=== PATIENT | male | born 1970 | race Two or more races ===

== ENCOUNTER 2017-05-29 11:20 | Observation (INO) | payer MEDICAID ==
[~2017-05-29] VITALS: Ht 172.7 cm; Wt 74.8 kg
[2017-05-29 12:14] LABS: Urine Bacteria NONE SEEN /hpf (None Seen); Urine Blood Negative /uL (Negative); Urine Specific Gravity 1.019 (1.001-1.035); Urine WBC <1 /hpf (0 - 3)
[2017-05-29 12:29] LABS: Basophils # (auto) 0 uL; Basophils % (auto) 1.1 % (0.0-2.0); Eosinophils # (auto) 0 uL; Eosinophils % (auto) 1.6 % (0.0-7.0); Hematocrit 43.6 % (41.0-53.0); Hemoglobin 14.6 g/dL (13.5-17.5); Lymphocytes # (auto) 1.2 uL; Lymphocytes % (auto) 54.7 % (10.0-50.0); Mean Corpuscular Hemoglobin 31.4 pg (28.0-32.0); Mean Corpuscular Hgb Conc. 33.5 g/dL (32.0-36.0); Mean Corpuscular Volume 93.5 fL (80.0-100.0); Monocytes # (auto) 0.2 uL; Monocytes % (auto) 10.8 % (0.0-12.0); Neutrophils # (auto) 0.7 uL; Neutrophils % (auto) 31.8 % (37.0-80.0); Nucleated Red Blood Cells % 0.1 %; Platelet Count (auto) 109 10^3/uL (140-450); Red Blood Cells 4.66 10^6/uL (4.5-5.90); Red Cell Distribution Width 15.1 % (11.8-14.3); White Blood Cell 2.2 10^3/uL (4.4-10.8)
[2017-05-29 12:30] LABS: Amphetamine Screen, Urine NEGATIVE (NEGATIVE); Barbiturate Scree,Urine NEGATIVE (NEGATIVE); Benzodiazephine Screen, Urine NEGATIVE (NEGATIVE); Cannabinoid Screen, Urine NEGATIVE (NEGATIVE); Cocaine Screen, Urine NEGATIVE (NEGATIVE); Opiate Scree,Urine NEGATIVE (NEGATIVE); Phencyclidine Screen, Urine NEGATIVE (NEGATIVE)
[2017-05-29 12:44] LABS: Albumin 3.5 g/dL (3.4-5.0); BUN/Creatinine Ratio 16.7; Bilirubin, Total 0.5 mg/dL (0.2-1.0); Calcium 8.1 mg/dL (8.5-10.1); Potassium 4.4 mmol/L (3.5-5.1)
[2017-05-29] MEDS ORDERED: SODIUM CHLORIDE 0.9% 1,000 ML IVB ONE (12:53)
[2017-05-29] MEDS ORDERED: SODIUM CHLORIDE 0.9% 1,000 ML IV ONE (13:00)
[2017-05-29] MEDS ORDERED: THIAMINE HCL 100 MG TAB PO ONE (14:00)
[2017-05-29] MEDS ORDERED: MULTIPLE VITAMIN 10 ML, FOLIC ACID 1 MG, MAGNESIUM SULF SDV 50% 8 MEQ in SODIUM CHLORID... IV SCH (14:00)
[2017-05-29 16:40] VITALS: BP 124/84
== END 2017-05-29 19:17 | disposition home or self-care (01) | DRG 775 ==
LOC: ER 11:20 → OVERFLOW 12:55 → ER 19:17
PROVIDERS: ADMIT Family Medicine; ATTEND Family Medicine
DX: F10.920 Alcohol use, unspecified with intoxication, uncomplicated (principal); K70.30 Alcoholic cirrhosis of liver without ascites; F31.9 Bipolar disorder, unspecified; F17.210 Nicotine dependence, cigarettes, uncomplicated; Z82.49 Family history of ischemic heart disease and other diseases of the circulatory system; Z91.19 Patient's noncompliance with other medical treatment and regimen; Z88.0 Allergy status to penicillin
CPT/HCPCS: 36415; 71045; 76705; 80053; 80307; 80320; 81001; 85025; 96361; 96374; 99285; G0378; J3475; J7030

== ENCOUNTER 2019-11-26 18:40 | Inpatient (IN) | payer MEDICAID ==
[~2019-11-26] VITALS: Ht 172.7 cm; Wt 68.0 kg
[2019-11-26] MEDS ORDERED: PANTOPRAZOLE 40 MG/10 ML VIAL INJ IV ONE ×2 (19:15→19:45)
[2019-11-26] MEDS ORDERED: ONDANSETRON HCL 4 MG/2 ML VIAL IV ONE (19:15)
[2019-11-26] MEDS ORDERED: SODIUM CHLORIDE 0.9% 1,000 ML IV ONE ×2 (19:15→21:45)
[2019-11-26 19:38] LABS: Basophils # (auto) 0 10 ^3/uL (0-0.2); Basophils % (auto) 1.3 % (0.0-2.0); Eosinophils # (auto) 0 10 ^3/uL (0-0.8); Hemoglobin 10.1 g/dL (13.5-17.5); Lymphocytes # (auto) 0.4 10 ^3/uL (0.4-5.4); Lymphocytes % (auto) 14.1 % (10.0-50.0); Mean Corpuscular Hgb Conc. 33.6 g/dL (32.0-36.0); Mean Corpuscular Volume 101.2 fL (80.0-100.0); Monocytes # (auto) 0.3 10 ^3/uL (0-1.3); Monocytes % (auto) 12.1 % (0.0-12.0); Neutrophils # (auto) 1.9 10 ^3/uL (1.6-8.6); Neutrophils % (auto) 72.5 % (37.0-80.0); Platelet Count (auto) 78 10^3/uL (140-450); Red Blood Cells 2.96 10^6/uL (4.5-5.90); Red Cell Distribution Width 15.6 % (11.8-14.3); White Blood Cell 2.6 10^3/uL (4.4-10.8)
[2019-11-26 19:54] LABS: Albumin 2.9 g/dL (3.4-5.0)
[2019-11-26 19:58] LABS: BUN/Creatinine Ratio 24.8; Bilirubin, Total 1.8 mg/dL (0.2-1.0); Total Protein 7.9 g/dL (6.4-8.2)
[2019-11-26 20:01] LABS: Magnesium 1.6 mg/dL (1.6-2.6)
[2019-11-26 20:11] LABS: INR 1.46 (0.9-1.15); Partial Thromboplastin Time 27.8 sec (23.0-31.2)
[2019-11-26] MEDS ORDERED: LORazepam 2MG/ML-1ML VIAL IV ONE (21:45)
[2019-11-26] MEDS: OCTREOTIDE ACETATE 500 MCG in SODIUM CHL 0.9% 99 ML IV SCH (23:00)
[2019-11-26] MEDS ORDERED: OCTREOTIDE ACETATE 100 MCG in SODIUM CHL 0.9% 50 ML IV ONE (23:00)
[2019-11-26 23:45] LABS: Basophils # (auto) 0 10 ^3/uL (0-0.2); Basophils % (auto) 0.3 % (0.0-2.0); Eosinophils # (auto) 0 10 ^3/uL (0-0.8); Hematocrit 23.9 % (41.0-53.0); Hemoglobin 8.1 g/dL (13.5-17.5); Lymphocytes # (auto) 0.5 10 ^3/uL (0.4-5.4); Lymphocytes % (auto) 17.1 % (10.0-50.0); Mean Corpuscular Hemoglobin 34.8 pg (28.0-32.0); Mean Corpuscular Hgb Conc. 33.8 g/dL (32.0-36.0); Mean Corpuscular Volume 102.9 fL (80.0-100.0); Monocytes # (auto) 0.3 10 ^3/uL (0-1.3); Monocytes % (auto) 11.8 % (0.0-12.0); Neutrophils # (auto) 1.9 10 ^3/uL (1.6-8.6); Neutrophils % (auto) 70.8 % (37.0-80.0); Platelet Count (auto) 47 10^3/uL (140-450); Red Blood Cells 2.32 10^6/uL (4.5-5.90); Red Cell Distribution Width 15.8 % (11.8-14.3); White Blood Cell 2.7 10^3/uL (4.4-10.8)
[2019-11-26] MEDS ORDERED: OCTREOTIDE ACETATE 500 MCG/ML VL ONE (23:45)
[2019-11-26] MEDS ORDERED: OCTREOTIDE ACETATE 100 MCG/ML VL ONE (23:45)
[2019-11-27] VITALS (7 sets, daily range): BP systolic 107–139; BP diastolic 45–81
[2019-11-27] MEDS ORDERED: ADENOSINE 6 MG/2 ML INJ IV ONE (01:07)
[2019-11-27] MEDS ORDERED: LORazepam 2MG/ML-1ML VIAL ONE (01:08)
[2019-11-27] MEDS ORDERED: AMIODARONE HCL (50 MG/ ML) 3 ML VIAL IV ONE ×2 (01:11→01:14)
[2019-11-27] MEDS ORDERED: AMIODARONE HCL 150 MG in D5W 5% 100 ML IV ONE (01:15)
[2019-11-27] MEDS ORDERED: AMIODARONE 450mg/250ml AE 250 ML IV ONE (01:18)
[2019-11-27] MEDS ORDERED: AMIODARONE 450mg/250ml AE 250 ML IV SCH (01:24)
[2019-11-27 01:42] LABS: Hemoglobin 7.9 g/dL (13.5-17.5)
[2019-11-27 01:43] LABS: Hematocrit 23.1 % (41.0-53.0)
[2019-11-27] MEDS ORDERED: METOCLOPRAMIDE HCL 5MG/ml INJ 2ml VIAL IV PRN (01:45)
[2019-11-27] MEDS ORDERED: TEMAZEPAM 15 MG CAP PO PRN (01:45)
[2019-11-27] MEDS ORDERED: MORPHINE SULF INJ 2 MG/ML SYRINGE 1ML IV PRN (01:45)
[2019-11-27] MEDS ORDERED: DOCUSATE SOD 100 MG CAP PO PRN (01:45)
[2019-11-27] MEDS ORDERED: LORazepam 0.5 MG TAB PO PRN (01:45)
[2019-11-27] MEDS ORDERED: ONDANSETRON HCL 4 MG/2 ML VIAL IV PRN (01:45)
[2019-11-27] MEDS ORDERED: ACETAMINOPHEN 325 MG TAB PO PRN (01:45)
[2019-11-27] MEDS ORDERED: HYDROcodone-ACET 5/325MG TAB PO PRN (01:45)
[2019-11-27] MEDS: OCTREOTIDE ACETATE 500 MCG in SODIUM CHL 0.9% 99 ML IV SCH ×3 (02:13→02:32)
[2019-11-27] MEDS: AMIODARONE 450mg/250ml AE 250 ML IV SCH ×2 (07:24→22:24)
[2019-11-27] MEDS: SODIUM CHLORIDE 0.9% 1,000 ML IV SCH ×2 (08:01→18:49)
[2019-11-27 09:25] LABS: Basophils # (auto) 0 10 ^3/uL (0-0.2); Eosinophils # (auto) 0 10 ^3/uL (0-0.8); Eosinophils % (auto) 0.8 % (0.0-7.0); Hemoglobin 8.3 g/dL (13.5-17.5); Lymphocytes # (auto) 0.6 10 ^3/uL (0.4-5.4)
[2019-11-27 09:27] LABS: Basophils % (auto) 0.6 % (0.0-2.0); Hematocrit 24.9 % (41.0-53.0); Lymphocytes % (auto) 20.6 % (10.0-50.0); Mean Corpuscular Hemoglobin 35.2 pg (28.0-32.0); Mean Corpuscular Hgb Conc. 33.6 g/dL (32.0-36.0); Monocytes # (auto) 0.4 10 ^3/uL (0-1.3); Monocytes % (auto) 12.1 % (0.0-12.0); Neutrophils % (auto) 65.9 % (37.0-80.0); Nucleated Red Blood Cells % 0.1 %; Platelet Count (auto) 38 10^3/uL (140-450); Red Blood Cells 2.37 10^6/uL (4.5-5.90)
[2019-11-27 09:43] LABS: Calcium 6.6 mg/dL (8.5-10.1); Potassium 3.4 mmol/L (3.5-5.1)
[2019-11-27 09:49] LABS: BUN/Creatinine Ratio 18.8
[2019-11-27] MEDS: PANTOPRAZOLE 40 MG/10 ML VIAL INJ IV SCH ×2 (11:29→23:23)
[2019-11-27] MEDS: CYANOCOBALAMIN 500 MCG TAB PO SCH (11:30)
[2019-11-27] MEDS: FOLIC ACID 1 MG TAB PO SCH (11:30)
[2019-11-27] MEDS: MAGNESIUM SULFATE 1GM/100ML 100 ML IV SCH ×2 (13:00→14:02)
[2019-11-27] MEDS ORDERED: PHYTONADIONE (VIT K)10 MG/ML 1ML VIAL IV ONE (13:30)
[2019-11-27] MEDS ORDERED: phytonadione 10 MG in SODIUM CHL 0.9% 50 ML IV ONE (13:45)
[2019-11-27] MEDS ORDERED: diphenhdrAMINE HCL 50 MG/1 ML VL IV PRN (18:00)
[2019-11-27] MEDS: cefTRIAXone 1GM/50ML D5W 50 ML IV SCH (18:00)
[2019-11-27] MEDS ORDERED: LORazepam 2MG/ML-1ML VIAL IV PRN (18:00)
[2019-11-27] MEDS ORDERED: POTASSIUM CHL 20MEQ/100ML 100 ML IV ONE (18:00)
[2019-11-27] MEDS ORDERED: OCTREOTIDE ACETATE 500 MCG/ML VL ONE (19:00)
[2019-11-27] MEDS: metroNIDAZOLE 500MG/100ML 100 ML IV SCH (23:23)
[2019-11-27 23:59] LABS: Basophils # (auto) 0 10 ^3/uL (0-0.2); Basophils % (auto) 0.6 % (0.0-2.0); Eosinophils # (auto) 0.1 10 ^3/uL (0-0.8); Eosinophils % (auto) 2.2 % (0.0-7.0); Hematocrit 24.5 % (41.0-53.0); Hemoglobin 8.1 g/dL (13.5-17.5); Lymphocytes # (auto) 0.5 10 ^3/uL (0.4-5.4); Lymphocytes % (auto) 20.8 % (10.0-50.0); Mean Corpuscular Hemoglobin 34.7 pg (28.0-32.0); Mean Corpuscular Volume 105.2 fL (80.0-100.0); Monocytes # (auto) 0.4 10 ^3/uL (0-1.3); Monocytes % (auto) 14.6 % (0.0-12.0); Neutrophils # (auto) 1.6 10 ^3/uL (1.6-8.6); Neutrophils % (auto) 61.8 % (37.0-80.0); Nucleated Red Blood Cells % 0.4 %; Platelet Count (auto) 64 10^3/uL (140-450); Red Blood Cells 2.32 10^6/uL (4.5-5.90); Red Cell Distribution Width 15.8 % (11.8-14.3); White Blood Cell 2.5 10^3/uL (4.4-10.8)
[2019-11-28] MEDS: OCTREOTIDE ACETATE 500 MCG in SODIUM CHL 0.9% 99 ML IV SCH (05:20)
[2019-11-28] MEDS: metroNIDAZOLE 500MG/100ML 100 ML IV SCH ×2 (06:48→16:31)
[2019-11-28 07:36] LABS: Hematocrit 22.7 % (41.0-53.0); Hemoglobin 7.6 g/dL (13.5-17.5); Red Blood Cells 2.17 10^6/uL (4.5-5.90); Red Cell Distribution Width 15.5 % (11.8-14.3); White Blood Cell 2.1 10^3/uL (4.4-10.8)
[2019-11-28 07:38] LABS: Mean Corpuscular Hemoglobin 35.1 pg (28.0-32.0); Mean Corpuscular Hgb Conc. 33.6 g/dL (32.0-36.0); Mean Corpuscular Volume 104.3 fL (80.0-100.0); Platelet Count (auto) 51 10^3/uL (140-450)
[2019-11-28 07:46] LABS: Basophils % (manual) 0 (0.0-2.0); Blast Cells 0; Eosinophils % (manual) 0 (0-7); Metamyelocytes % 0; Myelocytes % 0; Promyelocytes % 0; Reactive Lymphocytes 0
[2019-11-28 07:53] LABS: INR 1.35 (0.9-1.15)
[2019-11-28 07:56] LABS: Albumin 2.4 g/dL (3.4-5.0); Calcium 6.8 mg/dL (8.5-10.1)
[2019-11-28 08:00] LABS: BUN/Creatinine Ratio 14.1; Bilirubin, Total 2.2 mg/dL (0.2-1.0); Total Protein 6.4 g/dL (6.4-8.2)
[2019-11-28 08:17] LABS: Potassium 2.9 mmol/L (3.5-5.1)
[2019-11-28 08:32] LABS: Band Neutrophils % (manual) 8; Lymphocytes % (manual) 28 (10.0-50.0); Monocytes % (manual) 12 (0-12)
[2019-11-28] MEDS: POTASSIUM CHL 20MEQ/100ML 100 ML IV SCH ×2 (08:56→14:22)
[2019-11-28] MEDS: cefTRIAXone 1GM/50ML D5W 50 ML IV SCH (09:12)
[2019-11-28] MEDS ORDERED: diphenhdrAMINE HCL 50 MG/1 ML VL ONE (09:18)
[2019-11-28] MEDS ORDERED: LIDOCAINE VISCOUS 2% 15ML UD ONE (09:40)
[2019-11-28] MEDS: MIDAZOLAM HCL 5 MG/ML-1ML VIAL ONE ×2 (09:49→09:53)
[2019-11-28] MEDS: fentaNYL CITRATE 100 MCG/2 ML VL ONE ×2 (09:49→09:53)
[2019-11-28] MEDS ORDERED: PROPRANOLOL HCL 20 MG TAB PO SCH (10:15)
[2019-11-28] MEDS: SODIUM CHLORIDE 0.9% 1,000 ML IV SCH (10:53)
[2019-11-28] MEDS: CYANOCOBALAMIN 500 MCG TAB PO SCH (11:40)
[2019-11-28] MEDS: FOLIC ACID 1 MG TAB PO SCH (11:41)
[2019-11-28] MEDS: AMIODARONE 450mg/250ml AE 250 ML IV SCH (13:24)
--- NOTE | 2019-11-28 13:38 | NUR ---
D/C Planning Regarding social service consult for home health safety evaluation. Faxed clinical information to [facility] [phone]. Per Moira with [facility] patient has been accepted and service to start within 24-48hrs upon d/c day. Obtain authorization from [facility] [id number].
[2019-11-28] MEDS ORDERED: PROP20TA73 PO (13:57)
[2019-11-28] MEDS ORDERED: THIA50CA PO (13:57)
[2019-11-28] MEDS ORDERED: PANT40T PO (13:57)
[2019-11-28] MEDS ORDERED: FOLI1TAB6 PO (13:57)
[2019-11-28] MEDS ORDERED: METR500T PO (13:57)
[2019-11-28] MEDS ORDERED: LEVO500T21 PO (13:57)
[2019-11-28 16:21] VITALS: BP 125/77
== END 2019-11-28 17:25 | disposition home health service (06) | DRG 280 ==
LOC: ER 18:40 → TELE 18:41
PROVIDERS: ADMIT Hospitalist; ATTEND Internal Medicine
PROC: 30233K1 Transfusion of Nonautologous Frozen Plasma into Peripheral Vein, Percutaneous Approach (ICD-10-PCS; 2019-11-27)
PROC: 30233R1 Transfusion of Nonautologous Platelets into Peripheral Vein, Percutaneous Approach (ICD-10-PCS; 2019-11-27)
PROC: 0DJ08ZZ Inspection of Upper Intestinal Tract, Via Natural or Artificial Opening Endoscopic (ICD-10-PCS; principal; 2019-11-28 09:47)
DX: K70.30 Alcoholic cirrhosis of liver without ascites (principal); K76.6 Portal hypertension; D68.4 Acquired coagulation factor deficiency; D69.59 Other secondary thrombocytopenia; F10.20 Alcohol dependence, uncomplicated; F32.9 Major depressive disorder, single episode, unspecified; K31.89 Other diseases of stomach and duodenum; K52.9 Noninfective gastroenteritis and colitis, unspecified; R00.0 Tachycardia, unspecified; F17.210 Nicotine dependence, cigarettes, uncomplicated; Z88.0 Allergy status to penicillin; Z82.49 Family history of ischemic heart disease and other diseases of the circulatory system; Z20.828 Contact with and (suspected) exposure to other viral communicable diseases
CPT/HCPCS: 36415; 36430; 36600; 43255; 74176; 80048; 80053; 80061; 80320; 82150; 82805; 83036; 83690; 83735; 85007; 85014; 85018; 85025; 85027; 85610; 85730; 86850; 86870; 86900; 86901; 87426; 93005; 94762; 96365; 96367; 96375; 99291; C9113; G0378; J0153; J0696; J2250; J2405; J3430; J3480; J3490; J7060

== ENCOUNTER 2024-10-23 18:08 | Inpatient (IN) | payer MEDICAID ==
[~2024-10-23] VITALS: Ht 165.1 cm; Wt 66.1 kg
[~2024-10-23 18:08] MED LIST: FOLI-119 PO; LEVO500T31 PO; METR500T PO; PANT40T PO; PROP1TAB53 PO; THIA50CA PO
--- NOTE | 2024-10-23 18:31 | ED.PDOC ---
SOB-HPI HPI Comments 54 y.o male presents to the for a chief complaint of SOB that started 3 days ago. Patient reports SOB worsened the past day and is not associated with a cough, chest pain, fever, or chills. Patient denies any medical, surgical history or allergies. Patient was saturating at 93% on room air. Chief Complaint: Shortness of Breath Time Seen by MD: 18:20 Primary Care Provider: YUNIOR Reviewed notes: Nurses Notes, Medications, Allergies Information Source: Patient Mode of Arrival: Ambulatory Severity: Moderate Timing: Days (3) Duration: Since onset Context: At Rest PE Risk Factors: None History of: None Modifying Factors: Nothing Associated Signs and Symptoms: None Past Medical History PAST MEDICAL HISTORY: Depression Surgical History: Denies all surgeries Family History Family History: Family hx of HTN Social History Smoker: Cigarettes, Greater Than 1 Pack/Day Alcohol: Heavy Drugs: Denies Drug Use Lives In: Home Constitutional: denies: chills, diaphoresis, fatigue, fever, malaise, sweats, weakness, others EENTM: denies: blurred vision, double vision, ear bleeding, ear discharge, ear drainage, ear pain, ear ringing, eye pain, eye redness, hearing loss, mouth pain, mouth swelling, nasal discharge, nose bleeding, nose congestion, nose pain, photophobia, tearing, throat pain, throat swelling, voice changes, others Respiratory: reports: SOB at rest, shortness of breath; denies: cough, hemoptysis, orthopnea, SOB with excertion, stridor, wheezing, others Cardiovascular: denies: chest pain, dizzy spells, diaphoresis, Dyspnea on exertion, edema, irregular heart beat, left arm pain, lightheadedness, palpitations, PND, syncope, others Gastrointestinal: denies: abdomen distended, abdominal pain, blood streaked bowels, constipated, diarrhea, dysphagia, difficulty swallowing, hematemesis, melena, nausea, poor appetite, poor fluid intake, rectal bleeding, rectal pain, vomiting, others Genitourinary: denies: burning, dysuria, flank pain, frequency, hematuria, incontinence, penile discharge, penile sore, pain, testicle pain, testicle swelling, urgency, others Neurological: denies: dizziness, fainting, headache, left sided numbness, left sided weakness, numbness, paresthesia, pre-existing deficit, right sided numbness, right sided weakness, seizure, speech problems, tingling, tremors, weakness, others Musculoskeletal: denies: back pain, gout, joint pain, joint swelling, muscle pain, muscle stiffness, neck pain, others Integumetry: denies: bruises, change in color, change in hair/nails, dryness, laceration, lesions, lumps, rash, wounds, others Allergic/Immunocompromised: denies: Difficulty Healing, Frequent Infections, Hives, Itching, others Hematologic/Lymphatic: denies: anemia, blood clots, easy bleeding, easy bruising, swollen glands, others Endocrine: denies: excessive hunger, excessive sweating, excessive thirst, excessive urination, flushing, intolerance to cold, intolerance to heat, unexplained weight gain, unexplained weight loss, others Psychiatric: denies: anxiety, bipolar disorder, depression, hopeless, panic disorder, schizophrenia, sleepless, suicidal, others All Other Systems: Reviewed and Negative Physical Exam General Appearance: No Apparent Distress, Normal HEENT: Normal ENT Inspection, Pharynx Normal, TMs Normal Neck: Full Range of Motion, Non-Tender, Normal, Normal Inspection Respiratory: No Accessory Muscle Use, No Respiratory Distress, Normal Breath Sounds, Other (tachypneic) Cardiovascular: No Edema, No JVD, No Murmur, No Gallop, Normal Peripheral Pulses, Regular Rate/Rhythm Breast Exam: Deferred Gastrointestinal: No Organomegaly, Non Tender, No Pulsatile Mass, Normal Bowel Sounds, Soft Genitalia: Deferred Pelvic: Deferred Rectal: Deferred Extremities: No calf tenderness, Normal capillary refill, Normal inspection, Normal range of motion, Non-tender, No pedal edema Musculoskeletal : Apperance: Normal Neurologic: Alert, art history professor II-XII nml as Tested, No Motor Deficits, Normal Affect, Normal Mood, No Sensory Deficits Cerebellar Function: Normal Reflexes: Normal Skin: Dry, Normal Color, Warm Lymphatic: No Adenopathy Was a procedure done? 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 ) Indication: Volume resuscitation, Suspected infection Room prepared for procedure: Yes Heading Pinner performed hand hygien: Yes Maximal sterile barrier precau: Mask/Eye shield, Sterile gown, Sterlie gloves, Large sterlie drape Skin Preparation: Chlorhexidine gluconate Skin preparation completely dr: Yes Insertion site: Left, Internal jugular Central line catheter type: [id number] dialysis Number of lumens: 3 Central line exchanged over a: No Antiseptic ointment applied to: No Post Assessment: Chest X-Ray, Proper placement, No Pneumothorax Informed consent obtained: No Risks/benefits/alt described: No Intubation Indication: Respiratory Insufficiency, Airway Protection Prep: Preoxygenation Pretreated with: Sedation Medicated with: Other (etomidate and winter) Intubation Approach: Orotracheal Intubation size: cm Informed consent obtained: Yes Risks/benefits/alt described: Yes Differential Dx Differential Diagnosis: Asthma, Pneumonia, Respiratory Distress, URI X-Ray, Labs, Meds, VS Vital Signs Date Time Temp Pulse Resp B/P (MAP) Pulse Ox O2 Delivery O2 Flow Rate FiO2 10/23/24 21:59 94/72 10/23/24 21:35 115 15 94/62 (73) 90 100 10/23/24 21:05 103/79 10/23/24 20:55 134/98 10/23/24 20:31 126 14 91 Mechanical Ventilator+ 100 100 10/23/24 20:25 129/99 10/23/24 20:21 100 10/23/24 20:05 132/96 10/23/24 20:00 128 10/23/24 20:00 100.6 130 14 128/101 (110) 94 100.6 10/23/24 19:50 168/128 10/23/24 19:50 168/128 10/23/24 19:45 137 14 168/128 (141) 96 10/23/24 19:33 138 10/23/24 19:30 135 14 134/102 (113) 99 10/23/24 19:25 134 14 134/102 (113) 99 100 10/23/24 19:20 143 19 114/93 (100) 88 10/23/24 19:15 125 24 99 10/23/24 19:15 114/93 10/23/24 19:15 114/93 10/23/24 19:15 114/93 10/23/24 19:10 123 26 99 10/23/24 19:05 126 33 122/91 (101) 93 10/23/24 19:00 163 32 133/115 (121) 95 10/23/24 18:59 125 10/23/24 18:55 188 34 156/126 (136) 95 10/23/24 18:50 186 38 165/141 (149) 92 10/23/24 18:45 187 34 151/134 (140) 96 10/23/24 18:27 185 10/23/24 18:24 98.2 69 16 123/95 (104) 96 98.2 10/23/24 18:24 96 Nasal Cannula* 2 28 Lab Test 10/23/24 21:39 10/23/24 20:12 10/23/24 19:48 10/23/24 19:42 Range/Units Troponin I High Sensitivity Pending 148 *H </=54 ng/L Blood Gas Specimen Type Arterial Blood Gas Sample Site Right radial Blood Gas Patient Temperature 37.0 Arterial Blood Date Drawn [id number] Arterial Blood pH 7.256 L 7.350-7.450 Arterial Blood Partial Pressure CO2 39.0 35.0-48.0 mmHg Arterial Blood Partial Pressure O2 62.3 L 83.0-108.0 mmHg Arterial Blood HCO3 17.0 L 21.0-28.0 mmol/L Arterial Blood Oxygen Saturation 83.6 *L 94.0-98.0 % Arterial Blood Base Excess -9.5 L -2.0-3.0 mmol/L Arterial Blood Oxyhemoglobin 82.2 L 94.0-98.0 % Arterial Blood Carboxyhemoglobin 0.9 0.5-1.5 % Arterial Blood Methemoglobin 0.8 0.0-1.5 % Param Test Modified Blood Gas Total Hemoglobin 14.50 13.5-17.5 g/dL Blood Gas Set Respiration Rate 14.0 Blood Gas Modality Vent - ac Blood Gas Spontaneous Rate 14 FiO2 % 100.0 Blood Gas Tidal Volume 500.0 Blood Gas PEEP or CPAP 5.0 Bl Gas Inspiratory/Expiratory Ratio 1: 2.3 Specimen Drawn By Titus ricks rt Blood Gas Critical Value Read Back Yes Blood Gas Notified Whom wesley Peacock np Blood Gas Notified Time [id number] Blood Gas Notified By Titus ricks rt Lactic Acid Level 1.3 0.4-2.0 mmol/L Urine Color Yellow Yellow Urine Clarity Clear Clear Urine pH 6.0 5.0-9.0 Urine Specific [place] 1.018 1.001-1.035 Urine Protein 2+ H Negative Urine Ketones Negative Negative Urine Blood Negative Negative /uL Urine Nitrite Negative Negative Urine Bilirubin Negative Negative Urine Urobilinogen Normal Negative mg/dL Urine Leukocyte Esterase Negative Negative /uL Urine RBC 5 0 - 3 /hpf Urine Microscopic WBC 4 H 0-3 /HPF Urine Squamous Epithelial Cells None seen <5 /hpf Urine Bacteria Few H None Seen /hpf Urine Glucose Normal Normal mg/dL Test 10/23/24 18:38 Range/Units White Blood Count 7.3 4.4-10.8 10^3/uL Red Blood Count 4.25 L 4.5-5.90 10^6/uL Hemoglobin 13.6 13.5-17.5 g/dL Hematocrit 41.1 41.0-53.0 % Mean Corpuscular Volume 96.6 80.0-100.0 fL Mean Corpuscular Hemoglobin 31.9 28.0-32.0 pg Mean Corpuscular Hemoglobin Concent 33.0 32.0-36.0 g/dL Red Cell Distribution Width 15.5 H 11.8-14.3 % Platelet Count 164 140-450 10^3/uL Mean Platelet Volume 9.5 6.9-10.8 fL Neutrophils (%) (Auto) 37.0-80.0 % Lymphocytes (%) (Auto) 10.0-50.0 % Monocytes (%) (Auto) 0.0-12.0 % Basophils (%) (Auto) 0.0-2.0 % Neutrophils # (Auto) 1.6-8.6 10 ^3/uL Lymphocytes # (Auto) 0.4-5.4 10 ^3/uL Monocytes # (Auto) 0-1.3 10 ^3/uL Differential Total Cells Counted 100.0 100 Neutrophils % (Manual) 65 37.0-80.0 Band Neutrophils % (Manual) 2 Lymphocytes % (Manual) 17 10.0-50.0 Monocytes % (Manual) 15 H 0-12 Eosinophils % (Manual) 1 0-7 Basophils % (Manual) 0 0.0-2.0 Metamyelocytes % (manual) 0 Myelocytes % (Manual) 0 Promyelocytes % (Manual) 0 Blast Cells % (Manual) 0 Reactive Lymphocytes 0 Platelet Estimate Adequate Anisocytosis (manual) Slight D-Dimer, Quantitative 2.81 H 0.0-0.49 mg/L FEU Sodium Level 130 L 136-145 mmol/L Potassium Level 3.8 3.5-5.1 mmol/L Chloride Level 98 98-107 mmol/L Carbon Dioxide Level 23 20-31 mmol/L Anion Gap 9 5-15 Blood Urea Nitrogen 14 9-23 mg/dL Creatinine 1.22 0.700-1.30 mg/dL Glomerular Filtration Rate Calc 71 >90 mL/min BUN/Creatinine Ratio 11.5 10.0-20.0 Serum Glucose 98 74-106 mg/dL Calcium Level 9.3 8.7-10.4 mg/dL Troponin I High Sensitivity 136 *H </=54 ng/L B-Type Natriuretic Peptide 1309.21 0-100 pg/mL Current Medications Medications (Trade) Dose Ordered Sig/Cristian Route Start Time Stop Time Status Last Admin Adenosine (Adenosine) 6 mg ONCE ONCE IV 10/23/24 18:45 10/23/24 18:46 DC 10/23/24 18:42 Midazolam HCl (Versed Injection) 5 mg ONCE ONCE IV 10/23/24 19:00 10/23/24 19:01 DC 10/23/24 18:57 Adenosine (Adenosine) 12 mg ONCE ONCE IV 10/23/24 19:00 10/23/24 19:01 DC 10/23/24 18:46 Naloxone HCl (Narcan) 0.2 mg ONCE ONCE IV 10/23/24 19:15 10/23/24 19:16 DC 10/23/24 19:03 Rocuronium [place] 20 mg ONCE ONCE IV 10/23/24 19:15 10/23/24 19:16 DC 10/23/24 19:15 Etomidate 100 mg ONCE ONCE IV 10/23/24 19:15 10/23/24 19:16 DC 10/23/24 19:15 Furosemide (Lasix Injection) 40 mg ONCE ONCE IV 10/23/24 19:15 10/23/24 19:16 DC 10/23/24 19:15 Nitroglycerin (Ntrostat Sublingual) 0.4 mg ONCE ONCE SL 10/23/24 19:15 10/23/24 19:16 DC 10/23/24 19:15 Propofol 100 ml @ 2.286 mls/ hr Q24H IV 10/23/24 19:45 10/23/24 19:50 Midazolam HCl 50 ml @ 1 mls/hr Q24H IV 10/23/24 19:45 10/23/24 19:50 Fentanyl Citrate 250 ml @ 2.5 mls/hr Q24H IV 10/23/24 21:45 10/23/24 21:59 X-Ray, Labs, Meds, VS Comment Imaging: X-rays and CT scans were reviewed and interpreted by this provider, pulmonary edema. Pending radiology review. Laboratory: Labs reviewed and interpreted by this provider. Elevated BNP Patient has prior medical visits reviewed. Med reconciliation performed Patient will be admitted for acute respiratory failure, pulmonary edema, CHF exacerbation/new onset, elevated troponins 40 mg Lasix given Solu-Medrol 125 given Pending CTA Patient guarded condition Time of 1ST Reevaluation: 18:30 Reevaluation 1ST: Unchanged Patient Education/Counseling: Diagnosis, Treatment, Prognosis Family Education/Counseling: No Family Present SEPSIS Sepsis Screen Physician Orders Chest Portable (10/23/24 18:27) Troponin-I Hs (10/23/24 21:27) Electrocardigram (10/23/24 18:39) Ventilator Orders (10/23/24 19:25) Abg W/ Co-Ox (10/23/24 20:00) Respiratory Culture W/ Gs (10/23/24 19:25) Blood Culture (10/23/24 19:29) Chest Xray 1 View (10/23/24 19:31) Propofol (Diprivan) (10/23/24 19:45) Midazolam Drip 50 Mg/50ml (Versed Drip 5 (10/23/24 19:45) Rass Sedation Scale Q1HR (10/23/24 19:32) Ventilator Orders (10/23/24 20:22) Chest Xray 1 View (10/23/24 21:23) Fentanyl Drip 2500mcg/250mlns (10/23/24 21:45) Norepinephrine 8 Mg/250ml Kit (Levophed) (10/23/24 22:00) Abg W/ Co-Ox (10/23/24 00:00) Ct Angio Chest Contrast (10/23/24 21:57) Vital Signs Date Time Temp Pulse Resp B/P (MAP) Pulse Ox O2 Delivery O2 Flow Rate FiO2 10/23/24 21:59 94/72 10/23/24 21:35 115 15 94/62 (73) 90 100 10/23/24 21:05 103/79 10/23/24 20:55 134/98 10/23/24 20:31 126 14 91 Mechanical Ventilator+ 100 100 10/23/24 20:25 129/99 10/23/24 20:21 100 10/23/24 20:05 132/96 10/23/24 20:00 128 10/23/24 20:00 100.6 130 14 128/101 (110) 94 100.6 10/23/24 19:50 168/128 10/23/24 19:50 168/128 10/23/24 19:45 137 14 168/128 (141) 96 10/23/24 19:33 138 10/23/24 19:30 135 14 134/102 (113) 99 10/23/24 19:25 134 14 134/102 (113) 99 100 10/23/24 19:20 143 19 114/93 (100) 88 10/23/24 19:15 125 24 99 10/23/24 19:15 114/93 10/23/24 19:15 114/93 10/23/24 19:15 114/93 10/23/24 19:10 123 26 99 10/23/24 19:05 126 33 122/91 (101) 93 10/23/24 19:00 163 32 133/115 (121) 95 10/23/24 18:59 125 10/23/24 18:55 188 34 156/126 (136) 95 10/23/24 18:50 186 38 165/141 (149) 92 10/23/24 18:45 187 34 151/134 (140) 96 10/23/24 18:27 185 10/23/24 18:24 98.2 69 16 123/95 (104) 96 98.2 10/23/24 18:24 96 Nasal Cannula* 2 28 Laboratory Tests Test 10/23/24 18:38 10/23/24 19:48 White Blood Count 7.3 10^3/uL (4.4-10.8) Lactic Acid Level 1.3 mmol/L (0.4-2.0) Medications Medications Dose Ordered Sig/Cristian Route Start Time Stop Time Status Last Admin Dose Admin Adenosine 6 mg ONCE ONCE IV 10/23/24 18:45 10/23/24 18:46 DC 10/23/24 18:42 Adenosine 12 mg ONCE ONCE IV 10/23/24 19:00 10/23/24 19:01 DC 10/23/24 18:46 Etomidate 100 mg ONCE ONCE IV 10/23/24 19:15 10/23/24 19:16 DC 10/23/24 19:15 Fentanyl Citrate 250 ml @ 2.5 mls/hr Q24H IV 10/23/24 21:45 10/23/24 21:59 Furosemide 40 mg ONCE ONCE IV 10/23/24 19:15 10/23/24 19:16 DC 10/23/24 19:15 Midazolam HCl 5 mg ONCE ONCE IV 10/23/24 19:00 10/23/24 19:01 DC 10/23/24 18:57 Midazolam HCl 50 ml @ 1 mls/hr Q24H IV 10/23/24 19:45 10/23/24 19:50 Naloxone HCl 0.2 mg ONCE ONCE IV 10/23/24 19:15 10/23/24 19:16 DC 10/23/24 19:03 Nitroglycerin 0.4 mg ONCE ONCE SL 10/23/24 19:15 10/23/24 19:16 DC 10/23/24 19:15 Propofol 100 ml @ 2.286 mls/ hr Q24H IV 10/23/24 19:45 10/23/24 19:50 Rocur[address] [facility] [place] 20 mg ONCE ONCE IV 10/23/24 19:15 10/23/24 19:16 DC 10/23/24 19:15 Departure 1 Departure Time of Disposition: 21:50 Impression: Primary Impression: Acute respiratory failure Qualified Codes: J96.01 - Acute respiratory failure with hypoxia Additional Impressions: Acute exacerbation of CHF (congestive heart failure) Qualified Codes: I50.23 - Acute on chronic systolic (congestive) heart fa ilure Elevated troponin Pulmonary edema Qualified Codes: J81.0 - Acute pulmonary edema Disposition: ADMITTED INPATIENT Condition: Critical Discharged With: Self Critical Care Note Critical Care Time?: Yes (55 min-critical care time only) Critical care comment: Due to a high probability of clinically significant, life threatening deterioration, the patient required my highest level of preparedness to intervene emergently and I personally spent this critical care time directly and personally managing the patient. This critical care time included obtaining a history; examining the patient; pulse oximetry; ordering and review of studies; arranging urgent treatment with development of a management plan; evaluation of patient's response to treatment; frequent reassessment; and, discussions with other providers. This critical care time was performed to assess and manage the high probability of imminent, life-threatening deterioration that could result in multi-organ failure. It was exclusive of separately billable procedures and treating other patients and teaching time. Stability Stability form required: No I personally scribed for ALBINA PEACOCK ([facility]) on 10/23/24 at 18:31. Electronically submitted by Brie Huggins ([facility]). I personally scribed for ALBINA PEACOCK ([facility]) on 10/23/24 at 19:22. Electronically submitted by Brie Huggins ([facility]). ALBINA PEACOCK Oct 23, 2024 18:31
--- NOTE | 2024-10-23 18:41 | ECG ---
[facility] Test Date: 2024-10-23 Test Time: 18:27:44 Pat Name: MILANA PAGE Department: er Room: Gender: M [employer]: : 1970 Requested By: ALBINA PEACOCK Order Number: [id number] Reading MD: Richard Cantu Measurements Intervals [place] Rate: 185 P: 0 CA: 0 QRS: 102 QRSD: 84 T: 42 QT: 271 QTc: 476 Interpretive Statements Atrial fibrillation with rapid V-rate Right axis deviation Low voltage, extremity leads ST depression, probably rate related Electronically Signed On 10-23-2024 19:39:39 PDT by Richard Cantu Please click the below link to view image of tracing.
[2024-10-23] MEDS: ADENOSINE 6 MG/2 ML INJ IV ONE ×3 (18:42→18:57)
[2024-10-23 18:54] LABS: Hematocrit 41.1 % (41.0-53.0); Hemoglobin 13.6 g/dL (13.5-17.5); Mean Corpuscular Hemoglobin 31.9 pg (28.0-32.0); Mean Corpuscular Volume 96.6 fL (80.0-100.0)
[2024-10-23] MEDS: MIDAZOLAM HCL 5 MG/ML-1ML VIAL IV ONE (18:57)
[2024-10-23] MEDS: AMIODARONE BOLUS KIT 100 ML IV ONE (18:58)
[2024-10-23] MEDS: AMIODARONE 360mg/200mL PREMIX 200 ML IV ONE (18:58)
[2024-10-23] MEDS: NALOXONE HCL 0.4 MG/ML VIAL IV ONE (19:03)
[2024-10-23] MEDS: NALOXONE HCL 0.4 MG/ML VIAL ONE (19:03)
[2024-10-23] MEDS: ROCURONIUM 10MG/ML 10ML VIAL IV ONE ×2 (19:06→19:15)
[2024-10-23] MEDS: ETOMIDATE (2MG/ML) 20ML VIAL IV ONE ×2 (19:06→19:15)
[2024-10-23] MEDS: NITROGLYCERIN 0.4 MG SL TAB SL ONE ×2 (19:08→19:15)
[2024-10-23] MEDS: FUROSEMIDE 40 MG/4 ML VIAL ONE (19:08)
[2024-10-23 19:09] LABS: Chloride 98 mmol/L (98-107); Potassium 3.8 mmol/L (3.5-5.1)
[2024-10-23 19:10] LABS: Anion Gap 9 (5-15); Carbon Dioxide 23 mmol/L (20-31)
[2024-10-23 19:11] LABS: Calcium 9.3 mg/dL (8.7-10.4)
[2024-10-23 19:13] LABS: Sodium 130 mmol/L (136-145)
[2024-10-23] MEDS: methylPREDNISolone SOD SUCC 125 MG/2 ML VL ONE (19:14)
[2024-10-23 19:15] LABS: BUN/Creatinine Ratio 11.5 (10.0-20.0); Blood Urea Nitrogen 14 mg/dL (9-23); Glucose 98 mg/dL (74-106)
[2024-10-23] MEDS: FUROSEMIDE 40 MG/4 ML VIAL IV ONE (19:15)
[2024-10-23 19:25] VITALS: BP 134/102; PULSE 134; RESP 14; O2SAT 99
--- NOTE | 2024-10-23 19:27 | DVH ---
CHEST RADIOGRAPH Indication: sob Technique: Single frontal view of the chest was obtained COMPARISON: None FINDINGS: Lines and Tubes: None Lungs: Moderate interstitial pulmonary edema. Pleura: Probable trace bilateral effusions No pneumothorax. Cardiomediastinal contours: Cardiomegaly Bones: Unremarkable IMPRESSION: 1. Moderate interstitial pulmonary edema in the setting of cardiomegaly. 2. Probable trace bilateral effusions
[2024-10-23] MEDS: MIDAZOLAM DRIP 50 mg/50mL 50 ML IV SCH (19:50)
[2024-10-23] MEDS: MIDAZOLAM DRIP 50 mg/50mL 50 ML IV ONE (19:50)
[2024-10-23] MEDS: PROPOFOL 100 ML IV ONE (19:50)
[2024-10-23] MEDS: PROPOFOL 100 ML IV SCH (19:50)
--- NOTE | 2024-10-23 20:02 | DVH ---
CHEST RADIOGRAPH Indication: POST INTUBATION Technique: Single frontal view of the chest was obtained COMPARISON: XY CHEST PORTABLE on DOS: 10/23/24 FINDINGS: Lines and Tubes: Endotracheal tube is 6.9 cm above the ty. Enteric tube tip is in the stomach. Lungs: Moderate interstitial pulmonary edema. Pleura: No effusion. No pneumothorax. Cardiomediastinal contours: Mild cardiomegaly Bones: Unremarkable IMPRESSION: 1. Moderate interstitial pulmonary edema. 2. Lines and tubes as above.
[2024-10-23 20:03] LABS: Anisocytosis Slight; Total Cells Counted 100.0 (100)
[2024-10-23 20:07] LABS: Urine Protein, UAD 2+ (Negative)
[2024-10-23 20:20] LABS: Base Excess -9.5 mmol/L (-2.0-3.0)
[2024-10-23 20:31] VITALS: PULSE 126; RESP 14; O2SAT 91
[2024-10-23 21:35] VITALS: BP 94/62; PULSE 115; RESP 15; O2SAT 90
[2024-10-23] MEDS: fentaNYL Drip 2500mCg/250mlNS 250 ML IV SCH (21:59)
[2024-10-23] MEDS: NOREPINEPHRINE 8 MG/250ML KIT 250 ML IV SCH (22:00)
--- NOTE | 2024-10-23 22:00 | DVH ---
CHEST RADIOGRAPH Indication: POST CENTRAL PLACEMENT Technique: Single frontal view of the chest was obtained COMPARISON: XY CHEST XRAY 1 VIEW on DOS: 10/23/24, XY CHEST PORTABLE on DOS: 10/23/24 FINDINGS: Lines and Tubes: Endotracheal tube terminates 3.3 cm above the ty. Enteric tube terminates in the region of the stomach. Left-sided central venous catheter seen with tip in the lower SVC. Lungs: Severe interstitial pulmonary edema. Pleura: Small bilateral effusions No pneumothorax. Cardiomediastinal contours: Cardiomegaly Bones: Unremarkable IMPRESSION: 1. Severe interstitial pulmonary edema. 2. Small bilateral effusions. 3. Lines and tubes as above
[2024-10-23] MEDS: fentaNYL Drip 2500mCg/250mlNS 250 ML IV ONE (22:01)
[2024-10-23] MEDS: IOHEXOL 350 MG/ML 100ML IJ ONE (22:13)
[2024-10-23 22:55] VITALS: BP 94/60; PULSE 101; RESP 21; O2SAT 93
--- NOTE | 2024-10-23 23:23 | DVH ---
COMPUTERIZED TOMOGRAPHIC ANGIOGRAPHY OF THE CHEST WITH INTRAVENOUS CONTRAST REASON FOR EXAM: sob COMPARISON: None TECHNIQUE: The exam was performed on a multidetector spiral scanner. Spiral images were acquired fro m the thoracic inlet through the adrenal glands, during the bolus intravenous administration of cont rast. Multiplanar maximum intensity projection (MIP) images were provided. Radiation optimization: Al l CT scans at this facility use at least one of these dose optimization techniques: Automated exposur e control mA and/or kV adjustment per patient size (includes targeted exams where dose is matched to clinical indication) or iterative reconstruction. CONTRAST ADMINISTERED: 100 mL omnipaque 350 intravenously. RADIATION DOSE: CTDI: 27 mGy DLP: 993 mGy-cm FINDINGS: There is an endotracheal tube terminating in the lower trachea. There is pulmonary edema. There are large bilateral pleural effusions. There is consolidation of the majority of the lower lobe s and the dependent portions of the remaining lobes bilaterally. There is no pneumothorax. The heart is enlarged. There is no pericardial effusion. There is no thoracic aortic aneurysm. There is no pulm onary arterial filling defect as far as the subsegmental level to suggest pulmonary embolism. No path ologic lymphadenopathy is identified by size criteria. There is a left internal jugular vein approach catheter which terminates in the left brachiocephalic vein. There is an enteric tube seen entering t he stomach. The liver surface is prominently nodular consistent with cirrhosis. There is a small amou nt of ascites in the visualized upper abdomen. No acute osseous abnormality is identified. IMPRESSION: No evidence of pulmonary embolism as far as the subsegmental level. Pulmonary edema. Large bilateral pleural effusions. Associated consolidation of the majority of bilateral lower lobes and dependent portions of the remaining lobes of the lungs. Cirrhotic liver. Small amount of ascites in the visualized upper abdomen.
--- NOTE | 2024-10-23 23:35 | DVH ---
EXAM: CT HEAD WITHOUT CONTRAST INDICATION: tremors TECHNIQUE: CT of the head without intravenous contrast. Radiation Dose : 1. Head: CT Dose: CTDI volume is 65.03 mGy. Dose-length product is 2347.75 mGy*cm The dose indicators for CT are the volume Computed Tomography (CT) Dose Index (CTDIvol) and the Dose Length Product (DLP), and are measured in units of mGy and mGy-cm, respectively. These indicators are not patient dose, but values generated from the CT scanner acquisition factors. The report includes radiation exposure data for exposures received during this examination. COMPARISON: None FINDINGS: Residual contrast is seen from CTA chest performed earlier today There is no evidence of acute intracranial hemorrhage, extra-axial collection, mass effect, midline s hift, herniation or hydrocephalus. The ventricles, sulci and cisterns are age appropriate. The elias-white differentiation is intact. Patchy periventricular and subcortical white matter hypoattenuation is nonspecific but may be related to small vessel ischemic disease. The visualized paranasal sinuses and mastoid air cells are clear. The surrounding soft tissues and osseous structures are unremarkable. IMPRESSION: 1. No acute intracranial abnormality. Radiation optimization: All CT scans at this facility use at least one of these dose optimization keke hniques: automated exposure control mA and/or kV adjustment per patient size (includes targeted exam s where dose is matched to clinical indication) or iterative reconstruction.
[2024-10-24] VITALS (112 sets, daily range): BP systolic 66–141; BP diastolic 44–109; PULSE 72–143; RESP 8–24; TEMP 96.4–99.1; O2SAT 89–100
[2024-10-24] MEDS ORDERED: NITROGLYCERIN 0.4 MG SL TAB SL PRN
[2024-10-24] MEDS ORDERED: ACETAMINOPHEN 325 MG TAB PO PRN
[2024-10-24] MEDS ORDERED: ONDANSETRON HCL 4 MG/2 ML VIAL IV PRN
[2024-10-24] MEDS ORDERED: ALBUTEROL SULF 2.5 MG/0.5ML(0.5%) NEB SOLN NEB PRN
[2024-10-24] MEDS ORDERED: MORPHINE SULFATE INJ 2 MG/ml SYRG IV PRN
--- NOTE | 2024-10-24 00:04 | DVHHP2 ---
History of Present Illness Reason for Visit: Shortness for breath History of Present Illness 54-year-old male presents for evaluation of shortness for breath. Patient has been complaining of shortness for breath for the past three days upon arrival patient went into AFib with RVR and had increased difficulty breathing. The patient was emergently intubated for airway protection. Past Medical History Unknown Past Surgical History Unknown Family History Unknown Lives: with Family Review of Systems Review of Systems Unable to complete review of systems, patient is sedated and intubated. Allergies: Coded Allergies: Penicillins (Unverified Allergy, Unknown, 05/29/17) Medications Current Medications Medications Dose Ordered Sig/Cristian Route Start Time Stop Time Status Last Admin Dose Admin Propofol 100 ml @ 2.286 mls/ hr Q24H IV 10/23/24 19:45 10/23/24 19:50 2.286 MLS/HR Midazolam HCl 50 ml @ 1 mls/hr Q24H IV 10/23/24 19:45 10/23/24 19:50 1 MLS/HR Fentanyl Citrate 250 ml @ 2.5 mls/hr Q24H IV 10/23/24 21:45 10/23/24 21:59 2.5 MLS/HR Norepinephrine Bitartrate 250 ml @ 3.75 mls/hr Q24H IV 10/23/24 22:00 Nitroglycerin 0.4 mg Q5MINP PRN SL 10/24/24 00:00 Morphine Sulfate 2 mg Q30M PRN IV 10/24/24 00:00 Exam Vital Signs Vital Signs Date Time Temp Pulse Resp B/P (MAP) Pulse Ox O2 Delivery O2 Flow Rate FiO2 10/23/24 22:55 101 21 94/60 (71) 93 100 10/23/24 20:31 Mechanical Ventilator+ 10/23/24 20:00 100.6 100.6 10/23/24 18:24 2 Exam Gen: 54-year-old male in mild distress Skin: Warm, dry, normal color and texture, no rash. HEENT: Normocephalic atraumatic, mucous membranes moist and pink. Neck: Cervical and supraclavicular nodes normal without enlargement, trachea is midline, thyroid gland is normal without masses. Pulmonary: Intubated, diminished breath sounds bilaterally Cardiac: Regular rate and rhythm. No murmur Abdomen: Soft, nontender, nondistended, bowel sounds present all 4 quadrants, no guarding, no rigidity, no organomegaly. Extremities: No cyanosis, clubbing, no edema Neuro: Sedating Labs/Xrays ORDERING PHYSICIAN: ALBINA PEACOCK PROCEDURE(s): CXR1 - CHEST XRAY 1 VIEW REASON: POST CENTRAL PLACEMENT ORDER NUMBER(s): [id number], ACCESSION NUMBER(s): [id number] CHEST RADIOGRAPH Indication: POST CENTRAL PLACEMENT Technique: Single frontal view of the chest was obtained COMPARISON: XY CHEST XRAY 1 VIEW on DOS: 10/23/24, XY CHEST PORTABLE on DOS: 10/23/24 FINDINGS: Lines and Tubes: Endotracheal tube terminates 3.3 cm above the ty. Enteric tube terminates in the region of the stomach. Left-sided central venous catheter seen with tip in the lower SVC. Lungs: Severe interstitial pulmonary edema. Pleura: Small bilateral effusions No pneumothorax. Cardiomediastinal contours: Cardiomegaly Bones: Unremarkable IMPRESSION: 1. Severe interstitial pulmonary edema. 2. Small bilateral effusions. 3. Lines and tubes as above AGE / SEX: 54 / M ADM STATUS: REG ER SERVICE 56 ORDERING PHYSICIAN: ALBINA PEACOCK PROCEDURE(s): CTACH - CT ANGIO CHEST CONTRAST REASON: sob ORDER NUMBER(s): [id number], ACCESSION NUMBER(s): [id number] COMPUTERIZED TOMOGRAPHIC ANGIOGRAPHY OF THE CHEST WITH INTRAVENOUS CONTRAST REASON FOR EXAM: sob COMPARISON: None TECHNIQUE: The exam was performed on a multidetector spiral scanner. Spiral images were acquired from the thoracic inlet through the adrenal glands, during the bolus intravenous administration of contrast. Multiplanar maximum intensity projection (MIP) images were provided. Radiation optimization: All CT scans at this facility use at least one of these dose optimization techniques: Automated exposure control mA and/or kV adjustment per patient size (includes targeted exams where dose is matched to clinical indication) or iterative reconstruction. CONTRAST ADMINISTERED: 100 mL omnipaque 350 intravenously. RADIATION DOSE: CTDI: 27 mGy DLP: 993 mGy-cm FINDINGS: There is an endotracheal tube terminating in the lower trachea. There is pulmonary edema. There are large bilateral pleural effusions. There is consolidation of the majority of the lower lobes and the dependent portions of the remaining lobes bilaterally. There is no pneumothorax. The heart is enlarged. There is no pericardial effusion. There is no thoracic aortic aneurysm. There is no pulmonary arterial filling defect as far as the subsegmental level to suggest pulmonary embolism. No pathologic lymphadenopathy is identified by size criteria. There is a left internal jugular vein approach catheter which terminates in the left brachiocephalic vein. There is an enteric tube seen entering the stomach. The liver surface is prominently nodular consistent with cirrhosis. There is a small amount of ascites in the visualized upper abdomen. No acute osseous abnormality is identified. IMPRESSION: No evidence of pulmonary embolism as far as the subsegmental level. Pulmonary edema. Large bilateral pleural effusions. Associated consolidation of the majority of bilateral lower lobes and dependent portions of the remaining lobes of the lungs. Cirrhotic liver. Small amount of ascites in the visualized upper abdomen. ATED BY: TAN ARIAS MD ORDERING PHYSICIAN: ALBINA PEACOCK PROCEDURE(s): HWOCT - HEAD WITHOUT CONTRAST REASON: tremors ORDER NUMBER(s): [id number], ACCESSION NUMBER(s): [id number] EXAM: CT HEAD WITHOUT CONTRAST INDICATION: tremors TECHNIQUE: CT of the head without intravenous contrast. Radiation Dose : 1. Head: CT Dose: CTDI volume is 65.03 mGy. Dose-length product is 2347.75 mGy*cm The dose indicators for CT are the volume Computed Tomography (CT) Dose Index (CTDIvol) and the Dose Length Product (DLP), and are measured in units of mGy and mGy-cm, respectively. These indicators are not patient dose, but values generated from the CT scanner acquisition factors. The report includes radiation exposure data for exposures received during this examination. COMPARISON: None FINDINGS: Residual contrast is seen from CTA chest performed earlier today There is no evidence of acute intracranial hemorrhage, extra-axial collection, mass effect, midline shift, herniation or hydrocephalus. The ventricles, sulci and cisterns are age appropriate. The elias-white differentiation is intact. Patchy periventricular and subcortical white matter hypoattenuation is nonspecific but may be related to small vessel ischemic disease. The visualized paranasal sinuses and mastoid air cells are clear. The surrounding soft tissues and osseous structures are unremarkable. IMPRESSION: 1. No acute intracranial abnormality. Radiation optimization: All CT scans at this facility use at least one of these dose optimization techniques: automated exposure control mA and/or kV adjustment per patient size (includes targeted exams where dose is matched to clinical indication) or iterative reconstruction. Labs Test 10/23/24 21:39 10/23/24 20:12 10/23/24 19:48 10/23/24 19:42 Range/Units Troponin I High Sensitivity 128 *H </=54 ng/L Blood Gas Specimen Type Arterial Blood Gas Sample Site Right radial Blood Gas Patient Temperature 37.0 Arterial Blood Date Drawn [id number] Arterial Blood pH 7.256 L 7.350-7.450 Arterial Blood Partial Pressure CO2 39.0 35.0-48.0 mmHg Arterial Blood Partial Pressure O2 62.3 L 83.0-108.0 mmHg Arterial Blood HCO3 17.0 L 21.0-28.0 mmol/L Arterial Blood Oxygen Saturation 83.6 *L 94.0-98.0 % Arterial Blood Base Excess -9.5 L -2.0-3.0 mmol/L Arterial Blood Oxyhemoglobin 82.2 L 94.0-98.0 % Arterial Blood Carboxyhemoglobin 0.9 0.5-1.5 % Arterial Blood Methemoglobin 0.8 0.0-1.5 % Param Test Modified Blood Gas Total Hemoglobin 14.50 13.5-17.5 g/dL Blood Gas Set Respiration Rate 14.0 Blood Gas Modality Vent - ac Blood Gas Spontaneous Rate 14 FiO2 % 100.0 Blood Gas Tidal Volume 500.0 Blood Gas PEEP or CPAP 5.0 Bl Gas Inspiratory/Expiratory Ratio 1: 2.3 Specimen Drawn By Titus barnes Blood Gas Critical Value Read Back Yes Blood Gas Notified Whom wesley Peacock np Blood Gas Notified Time [id number] Blood Gas Notified By Titus barnes Lactic Acid Level 1.3 0.4-2.0 mmol/L Urine Color Yellow Yellow Urine Clarity Clear Clear Urine pH 6.0 5.0-9.0 Urine Specific [place] 1.018 1.001-1.035 Urine Protein 2+ H Negative Urine Ketones Negative Negative Urine Blood Negative Negative /uL Urine Nitrite Negative Negative Urine Bilirubin Negative Negative Urine Urobilinogen Normal Negative mg/dL Urine Leukocyte Esterase Negative Negative /uL Urine RBC 5 0 - 3 /hpf Urine Microscopic WBC 4 H 0-3 /HPF Urine Squamous Epithelial Cells None seen <5 /hpf Urine Bacteria Few H None Seen /hpf Urine Glucose Normal Normal mg/dL Test 10/23/24 18:38 Range/Units White Blood Count 7.3 4.4-10.8 10^3/uL Red Blood Count 4.25 L 4.5-5.90 10^6/uL Hemoglobin 13.6 13.5-17.5 g/dL Hematocrit 41.1 41.0-53.0 % Mean Corpuscular Volume 96.6 80.0-100.0 fL Mean Corpuscular Hemoglobin 31.9 28.0-32.0 pg Mean Corpuscular Hemoglobin Concent 33.0 32.0-36.0 g/dL Red Cell Distribution Width 15.5 H 11.8-14.3 % Platelet Count 164 140-450 10^3/uL Mean Platelet Volume 9.5 6.9-10.8 fL Neutrophils (%) (Auto) 37.0-80.0 % Lymphocytes (%) (Auto) 10.0-50.0 % Monocytes (%) (Auto) 0.0-12.0 % Basophils (%) (Auto) 0.0-2.0 % Neutrophils # (Auto) 1.6-8.6 10 ^3/uL Lymphocytes # (Auto) 0.4-5.4 10 ^3/uL Monocytes # (Auto) 0-1.3 10 ^3/uL Differential Total Cells Counted 100.0 100 Neutrophils % (Manual) 65 37.0-80.0 Band Neutrophils % (Manual) 2 Lymphocytes % (Manual) 17 10.0-50.0 Monocytes % (Manual) 15 H 0-12 Eosinophils % (Manual) 1 0-7 Basophils % (Manual) 0 0.0-2.0 Metamyelocytes % (manual) 0 Myelocytes % (Manual) 0 Promyelocytes % (Manual) 0 Blast Cells % (Manual) 0 Reactive Lymphocytes 0 Platelet Estimate Adequate Anisocytosis (manual) Slight D-Dimer, Quantitative 2.81 H 0.0-0.49 mg/L FEU Sodium Level 130 L 136-145 mmol/L Potassium Level 3.8 3.5-5.1 mmol/L Chloride Level 98 98-107 mmol/L Carbon Dioxide Level 23 20-31 mmol/L Anion Gap 9 5-15 Blood Urea Nitrogen 14 9-23 mg/dL Creatinine 1.22 0.700-1.30 mg/dL Glomerular Filtration Rate Calc 71 >90 mL/min BUN/Creatinine Ratio 11.5 10.0-20.0 Serum Glucose 98 74-106 mg/dL Calcium Level 9.3 8.7-10.4 mg/dL B-Type Natriuretic Peptide 1309.21 0-100 pg/mL SEPSIS Sepsis Screen Date sepsis recognized/suspect: Oct 23, 2024 Time Sepsis recognized/suspect: 1807 Recent Procedure: No On Antibiotic Therapy: No Respiratory Rate >20: No Heart Rate >90: No Temp<36 C (96.8 F) or >38.3 C: No SBP <90 or MAP <65 mmHG: No New Acute Mental Status Change: No Is the patient on CPAP, BIPAP,: No Physician Orders Chest Portable (10/23/24 18:27) Electrocardigram (10/23/24 18:39) Ventilator Orders (10/23/24 19:25) Abg W/ Co-Ox (10/23/24 20:00) Respiratory Culture W/ Gs (10/23/24 19:25) Blood Culture (10/23/24 19:29) Chest Xray 1 View (10/23/24 19:31) Propofol (Diprivan) (10/23/24 19:45) Midazolam Drip 50 Mg/50ml (Versed Drip 5 (10/23/24 19:45) Rass Sedation Scale Q1HR (10/23/24 19:32) Ventilator Orders (10/23/24 20:22) Chest Xray 1 View (10/23/24 21:23) Fentanyl Drip 2500mcg/250mlns (10/23/24 21:45) Norepinephrine 8 Mg/250ml Kit (Levophed) (10/23/24 22:00) Abg W/ Co-Ox (10/23/24 00:00) Ct Angio Chest Contrast (10/23/24 21:57) Head Without Contrast (10/23/24 23:01) Admit (10/23/24 23:52) Nitroglycerin Sublingual (Ntrostat Subli (10/24/24 00:00) Morphine Sulfate Injection (10/24/24 00:00) Stat Ekg For Chest Pain (10/23/24 23:52) Notify Of Changes From Base (10/23/24 23:52) Tune Up Mechanic For 24 Hours (10/23/24 23:52) Emergency Dysrhythmia Protocol (10/23/24 23:52) Rhythm Strips Once Every Shift (10/23/24 23:52) Oxygen By Nasal Cannula (10/23/24 23:52) Furosemide Injection (Lasix Injection) (10/24/24 06:00) Levofloxacin Levaquin (10/24/24 10:00) Levofloxacin Levaquin (10/24/24 00:00) Albuterol Medneb (Ventolin Medneb) (10/24/24 00:00) Pantoprazole (Protonix) (10/24/24 10:00) * Cardiology Consult (10/23/24 23:53) Enoxaparin Sodium (Lovenox) (10/24/24 00:00) Enoxaparin Sodium (Lovenox) (10/24/24 10:00) Ondansetron Hcl (Zofran) (10/24/24 00:00) Complete Blood Count (10/24/24 04:00) Comprehensive Metabolic Panel (10/24/24 04:00) Npo (Nothing By Mouth) Diet (10/24/24 Breakfast) Echo 2d Mode Cardiac Dop (10/23/24 23:53) Condition: Unstable (10/23/24 23:53) Acetaminophen Tablet (Tylenol Tablet) (10/24/24 00:00) Bedrest With Bathroom Privileg (10/23/24 23:53) Vital Signs Date Time Temp Pulse Resp B/P (MAP) Pulse Ox O2 Delivery O2 Flow Rate FiO2 10/23/24 22:55 101 21 94/60 (71) 93 100 10/23/24 22:15 98/75 10/23/24 21:59 94/72 10/23/24 21:45 97/67 10/23/24 21:35 115 15 94/62 (73) 90 100 10/23/24 21:30 89/68 7/14/25 21:05 103/79 10/23/24 20:55 134/98 10/23/24 20:55 134/98 10/23/24 20:31 126 14 91 Mechanical Ventilator+ 100 100 10/23/24 20:25 127/99 10/23/24 20:25 129/99 10/23/24 20:21 100 10/23/24 20:05 132/96 10/23/24 20:00 128 10/23/24 20:00 100.6 130 14 128/101 (110) 94 100.6 10/23/24 19:50 168/128 10/23/24 19:50 168/128 10/23/24 19:45 137 14 168/128 (141) 96 10/23/24 19:33 138 10/23/24 19:30 135 14 134/102 (113) 99 10/23/24 19:25 134 14 134/102 (113) 99 100 10/23/24 19:20 143 19 114/93 (100) 88 10/23/24 19:15 125 24 99 10/23/24 19:15 114/93 10/23/24 19:15 114/93 10/23/24 19:15 114/93 10/23/24 19:10 123 26 99 10/23/24 19:05 126 33 122/91 (101) 93 10/23/24 19:00 163 32 133/115 (121) 95 10/23/24 18:59 125 10/23/24 18:55 188 34 156/126 (136) 95 10/23/24 18:50 186 38 165/141 (149) 92 10/23/24 18:45 187 34 151/134 (140) 96 10/23/24 18:27 185 10/23/24 18:24 98.2 69 16 123/95 (104) 96 98.2 10/23/24 18:24 96 Nasal Cannula* 2 28 Laboratory Tests Test 10/23/24 18:38 10/23/24 19:48 White Blood Count 7.3 10^3/uL (4.4-10.8) Lactic Acid Level 1.3 mmol/L (0.4-2.0) Medications Medications Dose Ordered Sig/Cristian Route Start Time Stop Time Status Last Admin Dose Admin Adenosine 6 mg ONCE ONCE IV 10/23/24 18:45 10/23/24 18:46 DC 10/23/24 18:42 6 MG Adenosine 12 mg ONCE ONCE IV 10/23/24 19:00 10/23/24 19:01 DC 10/23/24 18:46 12 MG Etomidate 100 mg ONCE ONCE IV 10/23/24 19:15 10/23/24 19:16 DC 10/23/24 19:15 100 MG Fentanyl Citrate 250 ml @ 2.5 mls/hr Q24H IV 10/23/24 21:45 10/23/24 21:59 2.5 MLS/HR Furosemide 40 mg ONCE ONCE IV 10/23/24 19:15 10/23/24 19:16 DC 10/23/24 19:15 40 MG Midazolam HCl 5 mg ONCE ONCE IV 10/23/24 19:00 10/23/24 19:01 DC 10/23/24 18:57 5 MG Midazolam HCl 50 ml @ 1 mls/hr Q24H IV 10/23/24 19:45 10/23/24 19:50 1 MLS/HR Naloxone HCl 0.2 mg ONCE ONCE IV 10/23/24 19:15 10/23/24 19:16 DC 10/23/24 19:03 0.2 MG Nitroglycerin 0.4 mg ONCE ONCE SL 10/23/24 19:15 10/23/24 19:16 DC 10/23/24 19:15 0.4 MG Propofol 100 ml @ 2.286 mls/ hr Q24H IV 10/23/24 19:45 10/23/24 19:50 2.286 MLS/HR Rocuronium [place] 20 mg ONCE ONCE IV 10/23/24 19:15 10/23/24 19:16 DC 10/23/24 19:15 20 MG Assessment/Plan Assessment/Plan Assessment Acute hypoxic respiratory failure Acute on chronic congestive heart failure Elevated troponin, demand ischemia Possible pneumonia Plan Admit the patient to ICU to the hospitalist Cardiology consultation IV Lasix Levaquin Continue treatment per orders. Total critical care time excluding procedures performed this 55 minutes. Plan discussed with: Patient My Orders Orders - LAUREANO HERNANDEZ AGACNJose E Procedure Category Date Status Time Admit ADMIT 10/23/24 Transmitted 23:52 Nitroglycerin PHA 10/24/24 In Process Sublingual (Ntrostat 00:00 Morphine Sulfate PHA 10/24/24 In Process Injection 00:00 Stat Ekg For Chest [facility] 10/23/24 In Process Pain 23:52 Notify Of Changes [facility] 10/23/24 In Process From Base 23:52 Tune Up Mechanic For [facility] 10/23/24 In Process 24 Hours 23:52 Emergency Dysrhythmia [facility] 10/23/24 In Process Protocol 23:52 Rhythm Strips Once [facility] 10/23/24 In Process Every Shift 23:52 Oxygen By Nasal RT 10/23/24 Transmitted Cannula 23:52 Furosemide Injection PHA 10/24/24 Verified (Lasix Injection) 06:00 Levofloxacin Levaquin PHA 10/24/24 Verified 10:00 Levofloxacin Levaquin PHA 10/24/24 Verified 00:00 Albuterol Medneb PHA 10/24/24 Verified (Ventolin Medneb) 00:00 Pantoprazole PHA 10/24/24 Verified (Protonix) 10:00 * Cardiology Consult CONS 10/23/24 Verified 23:53 Enoxaparin Sodium PHA 10/24/24 Verified (Lovenox) 00:00 Enoxaparin Sodium PHA 10/24/24 Verified (Lovenox) 10:00 Ondansetron Hcl PHA 10/24/24 Verified (Zofran) 00:00 Complete Blood Count LAB 10/24/24 Verified 04:00 Comprehensive LAB 10/24/24 Verified Metabolic Panel 04:00 Npo (Nothing By DIET 10/24/24 Verified Mouth) Diet Breakfast Echo 2d Mode Cardiac US 10/23/24 Verified DOP 23:53 Condition: Unstable [facility] 10/23/24 Verified 23:53 Acetaminophen Tablet PHA 10/24/24 Verified (Tylenol Tablet) 00:00 Bedrest With Bathroom [facility] 10/23/24 Verified Privileg 23:53 Date of Service: Oct 23, 2024 Billing Provider: LAUREANO HERNANDEZ Common Visit Codes: [id number] CARE 30-74 MIN LAUREANO HERNANDEZ Oct 24, 2024 00:04
[2024-10-24 00:21] LABS: Base Excess -7.1 mmol/L (-2.0-3.0)
[2024-10-24] MEDS: SODIUM BICARB 8.4% 50Meq/50ml SYR Vial IV ONE (00:49)
[2024-10-24] MEDS: ENOXAPARIN SOD 40 MG/0.4 ML SYRINGE SC ONE (00:49)
[2024-10-24 03:38] LABS: Alanine Aminotransferase 33 U/L (7-40); Albumin 3.7 g/dL (3.2-4.8); Alkaline Phosphatase 80 U/L (46-116); Anion Gap 9 (5-15); BUN/Creatinine Ratio 12.9 (10.0-20.0); Blood Urea Nitrogen 16 mg/dL (9-23); Calcium 7.9 mg/dL (8.7-10.4); Carbon Dioxide 21 mmol/L (20-31); Chloride 98 mmol/L (98-107); Glucose 127 mg/dL (74-106); Potassium 5.4 mmol/L (3.5-5.1); Sodium 128 mmol/L (136-145); Total Protein 6.9 g/dL (5.7-8.2)
[2024-10-24 03:42] LABS: Bilirubin, Total 1.8 mg/dL (0.2-1.0); Hematocrit 38.2 % (41.0-53.0); Hemoglobin 13.2 g/dL (13.5-17.5); Mean Corpuscular Hemoglobin 33.0 pg (28.0-32.0); Mean Corpuscular Volume 95.6 fL (80.0-100.0); Nucleated Red Blood Cells % 0.0 %
[2024-10-24] MEDS: SODIUM ZIRCONIUM CYCL 10 GM PAK PO ONE (05:38)
[2024-10-24] MEDS: FUROSEMIDE 20 MG/2 ML VIAL IV SCH (05:39)
[2024-10-24 07:26] LABS: Base Excess -7.0 mmol/L (-2.0-3.0)
--- NOTE | 2024-10-24 09:38 | DVHINCON2 ---
Date Seen: Oct 24, 2024 Referring Physician ASAEL Cade Reason for Consultation CHF History of Present Illness This is a 54-year-old man who presented to the emergency room with a chief complaint of shortness of breath for three days. At time of assessment, the patient was found chemically sedated, endotracheally intubated with 60% FiO2, and on single vasopressor. Information obtained from records which indicate the patient presented with complaints of shortness of breath without any other associated symptoms, an oxygen saturation level of 93% on room air, and found to be tachycardic for which he underwent a 12 lead electrocardiogram revealing an atrial fibrillation rhythm with rapid ventricular rate 185 bpm for which he underwent DCCV at 120J with successful transition into a sinus tachycardia rhythm. Per records, there is no past medical history. Social history includes tobacco use (one pack of cigarettes per day) and unspecified daily alcohol use. Past Medical History Past medical history reviewed. No other significant than mentioned above. Past Surgical History Unknown past surgical history. Family History: Patient reports no known family medical history. Family History Unknown family history. Social History See HPI. Allergies: Coded Allergies: Latex (Verified Allergy, Unknown, 10/24/24) Penicillins (Unverified Allergy, Unknown, 05/29/17) Home Meds Active Scripts Pantoprazole Sodium Sesquihydr (Pantoprazole Sodium) 40 Mg Tab, 40 MG PO DAILY, #30 TAB Prov:RUFINO PIERRE MD 11/28/19 Propranolol HCl (Propranolol Hydrochloride) 20 Mg Tab, 10 MG PO BID, #60 TAB Prov:RUFINO PIERRE MD 11/28/19 Thiamine Hcl (Thiamine) 50 Mg Cap, 50 MG PO DAILY, #30 TAB Prov:RUFINO PIERRE MD 11/28/19 Metronidazole (Flagyl) 500 Mg Tab, 500 MG PO Q8HR, #21 TAB Prov:RUFINO PIERRE MD 11/28/19 Levofloxacin (Levaquin) 500 Mg Tab, 500 MG PO DAILY, #7 TAB Prov:RUFINO PIERRE MD 11/28/19 Folic Acid (Folic Acid) 1 Mg Tab, 1 MG PO DAILY, #30 TAB Prov:RUFINO PIERRE MD 11/28/19 Home Meds Home medications reviewed. Current Medications Current Medications Medications (Trade) Dose Ordered Sig/Cristian Route PRN Reason Start Time Stop Time Status Last Admin Propofol 100 ml @ 2.286 mls/ hr Q24H IV 10/23/24 19:45 10/24/24 03:56 Midazolam HCl 50 ml @ 1 mls/hr Q24H IV 10/23/24 19:45 10/24/24 03:56 Fentanyl Citrate 250 ml @ 2.5 mls/hr Q24H IV 10/23/24 21:45 10/23/24 21:59 Norepinephrine Bitartrate 250 ml @ 3.75 mls/hr Q24H IV 10/23/24 22:00 10/24/24 00:41 Nitroglycerin (Ntrostat Sublingual) 0.4 mg Q5MINP PRN SL FOR CHEST PAIN 10/24/24 00:00 Morphine Sulfate 2 mg Q30M PRN IV FOR CHEST PAIN 10/24/24 00:00 Furosemide (Lasix Injection) 20 mg BIDD IV 10/24/24 06:00 10/24/24 05:39 Levofloxacin/ Dextrose 100 ml @ 100 mls/hr DAILY IV 10/24/24 10:00 Albuterol (Ventolin Medneb) 2.5 mg Q6HPRN PRN NEB SHORTNESS OF BREATH 10/24/24 00:00 Pantoprazole Sodium (Protonix) 40 mg DAILY IV 10/24/24 10:00 Enoxaparin Sodium (Lovenox) 40 mg DAILY SC 10/24/24 10:00 Ondansetron HCl (Zofran) 4 mg Q4HP PRN IV NAUSEA / VOMITING 10/24/24 00:00 Acetaminophen (Tylenol Tablet) 650 mg Q6HP PRN PO PAIN SCALE 1-3 OR TEMP>100.4 10/24/24 00:00 Review of Systems Constitutional: No symptom reported Ears, Nose, & Throat: No symptom reported Eyes: No symptom reported Neurological: No symptoms reported Pulmonary/Respiratory: SOB Cardiovascular: No symptom reported Gastrointestinal: No symptom reported Genitourinary: No symptom reported Musculoskeletal: No symptom reported Skin: No symptom reported Psychiatric: No symptom reported Endocrine: No symptom reported Hemotologic/Lymphatic: No symptom reported Vital Signs Vital Signs Date Time Temp Pulse Resp B/P (MAP) Pulse Ox O2 Delivery O2 Flow Rate FiO2 10/24/24 09:33 135 19 141/109 (120) 93 60 7/15/25 06:45 98.2 208.8 10/24/24 06:00 Mechanical Ventilator+ 10/23/24 18:24 2 Physical Exam General Appearance: Withdrawn. Chemically sedated. Endotracheally intubated Head Exam: Normal inspection Neck Exam: Normal inspection. Normal alignment Pulmonary/Respiratory: Crackles to bilateral breath sounds. Endotracheally intubated 60% FiO2 Cardiovascular/Chest: Regular rate and rhythm. S1, S2. No murmurs. + JVD. Peripheral Pulses: 2+ Radial (R). 2+ Radial (L). 2+ Pedal (R). 2+ Pedal (L) Abdominal Exam: Normal bowel sounds. Soft. Ascitic, mildly Ankle Exam: Negative ankle edema Lower extremities: Negative lower extremity edema Neuro/Mental Status: Chemically sedated. Withdrawn. Pinpoint nonreactive pupils bilaterally. Negative cough reflex Thoughts/Psych: Unable to assess at this time Appearance: Withdrawn Skin Exam: Normal inspection. Normal color. Warm. Dry Labs/Diagnostic Data Labs Test 10/24/24 07:17 10/24/24 02:53 10/24/24 00:12 10/23/24 21:39 Range/Units Blood Gas Specimen Type Arterial Blood Gas Sample Site Right radial Blood Gas Patient Temperature 37.0 Arterial Blood Date Drawn [id number] Arterial Blood pH 7.398 7.350-7.450 Arterial Blood Partial Pressure CO2 26.6 L 35.0-48.0 mmHg Arterial Blood Partial Pressure O2 79.9 L 83.0-108.0 mmHg Arterial Blood HCO3 16.0 L 21.0-28.0 mmol/L Arterial Blood Oxygen Saturation 94.8 94.0-98.0 % Arterial Blood Base Excess -7.0 L -2.0-3.0 mmol/L Arterial Blood Oxyhemoglobin 94.1 94.0-98.0 % Arterial Blood Carboxyhemoglobin 0.3 L 0.5-1.5 % Arterial Blood Methemoglobin 0.4 0.0-1.5 % Param Test Modified Blood Gas Total Hemoglobin 14.60 13.5-17.5 g/dL Blood Gas Set Respiration Rate 14.0 Blood Gas Modality Vent - ac FiO2 % 60.0 Blood Gas Tidal Volume 550.0 Blood Gas PEEP or CPAP 8.0 White Blood Count 14.2 #H 4.4-10.8 10^3/uL Red Blood Count 4.00 L 4.5-5.90 10^6/uL Hemoglobin 13.2 L 13.5-17.5 g/dL Hematocrit 38.2 L 41.0-53.0 % Mean Corpuscular Volume 95.6 80.0-100.0 fL Mean Corpuscular Hemoglobin 33.0 H 28.0-32.0 pg Mean Corpuscular Hemoglobin Concent 34.5 32.0-36.0 g/dL Red Cell Distribution Width 15.3 H 11.8-14.3 % Platelet Count 162 140-450 10^3/uL Mean Platelet Volume 10.2 6.9-10.8 fL Neutrophils (%) (Auto) 87.3 H 37.0-80.0 % Lymphocytes (%) (Auto) 2.2 L 10.0-50.0 % Monocytes (%) (Auto) 10.3 0.0-12.0 % Eosinophils (%) (Auto) 0.1 0.0-7.0 % Basophils (%) (Auto) 0.1 0.0-2.0 % Neutrophils # (Auto) 12.4 H 1.6-8.6 10 ^3/uL Lymphocytes # (Auto) 0.3 L 0.4-5.4 10 ^3/uL Monocytes # (Auto) 1.5 H 0-1.3 10 ^3/uL Eosinophils # (Auto) 0 0-0.8 10 ^3/uL Basophils # (Auto) 0 0-0.2 10 ^3/uL Nucleated Red Blood Cells 0.0 % Sodium Level 128 L 136-145 mmol/L Potassium Level 5.4 H 3.5-5.1 mmol/L Chloride Level 98 98-107 mmol/L Carbon Dioxide Level 21 20-31 mmol/L Anion Gap 9 5-15 Blood Urea Nitrogen 16 9-23 mg/dL Creatinine 1.24 0.700-1.30 mg/dL Glomerular Filtration Rate Calc 70 >90 mL/min BUN/Creatinine Ratio 12.9 10.0-20.0 Serum Glucose 127 H 74-106 mg/dL Calcium Level 7.9 L 8.7-10.4 mg/dL Total Bilirubin 1.8 H 0.2-1.0 mg/dL Aspartate Amino Transferase (AST) 60 H 13-40 U/L Alanine Aminotransferase (ALT) 33 7-40 U/L Alkaline Phosphatase 80 46-116 U/L Total Protein 6.9 5.7-8.2 g/dL Albumin 3.7 3.2-4.8 g/dL Blood Gas Spontaneous Rate 19 Blood Gas Spontaneous Tidal Volume 571 Bl Gas Inspiratory/Expiratory Ratio 1:2.4 Specimen Drawn By Lhrocco rt Troponin I High Sensitivity 128 *H </=54 ng/L Test 10/23/24 20:12 10/23/24 19:48 10/23/24 19:42 10/23/24 18:38 Range/Units Blood Gas Critical Value Read Back Yes Blood Gas Notified Whom wesley Harding np Blood Gas Notified Time [id number] Blood Gas Notified By Titus ricks rt Lactic Acid Level 1.3 0.4-2.0 mmol/L Urine Color Yellow Yellow Urine Clarity Clear Clear Urine pH 6.0 5.0-9.0 Urine Specific Doyle 1.018 1.001-1.035 Urine Protein 2+ H Negative Urine Ketones Negative Negative Urine Blood Negative Negative /uL Urine Nitrite Negative Negative Urine Bilirubin Negative Negative Urine Urobilinogen Normal Negative mg/dL Urine Leukocyte Esterase Negative Negative /uL Urine RBC 5 0 - 3 /hpf Urine Microscopic WBC 4 H 0-3 /HPF Urine Squamous Epithelial Cells None seen <5 /hpf Urine Bacteria Few H None Seen /hpf Urine Glucose Normal Normal mg/dL Differential Total Cells Counted 100.0 100 Neutrophils % (Manual) 65 37.0-80.0 Band Neutrophils % (Manual) 2 Lymphocytes % (Manual) 17 10.0-50.0 Monocytes % (Manual) 15 H 0-12 Eosinophils % (Manual) 1 0-7 Basophils % (Manual) 0 0.0-2.0 Metamyelocytes % (manual) 0 Myelocytes % (Manual) 0 Promyelocytes % (Manual) 0 Blast Cells % (Manual) 0 Reactive Lymphocytes 0 Platelet Estimate Adequate Anisocytosis (manual) Slight D-Dimer, Quantitative 2.81 H 0.0-0.49 mg/L FEU B-Type Natriuretic Peptide 1309.21 0-100 pg/mL Assessment Sepsis with bilateral pneumonia Acute on chronic decompensated HFrEF, NYHA Class III, newly diagnosed Paroxysmal atrial fibrillation/atrial flutter status post DCCV, newly diagnosed Acute hypoxic respiratory failure Bilateral pleural effusions NSTEMI, likely type 2 secondary to above Tobacco/alcohol dependence Plan/Recommendation We will continue the following plan/recommendations (Dr. Fu): * Echocardiogram to evaluate cardiac function * Vasopressor for hemodynamic support for a MAP = or >65 mmHg * Initiate antiarrhythmic therapy, amiodarone GT BID * Ventilator settings per primary care/pulmonology team * Preload reduction as tolerated * Strict I&Os. Daily weight. Fluid restrictions * Therapeutic Lovenox * [id number] Score 1 point. HAS-BLED Score 2 points * Monitor ECG changes closely and notify Thank you for allowing us to participate in this patient's care. Please call if you have any questions or concerns. Critical care time: 55 min. This medical document was created using an electronic medical record system with voice recognition software and computerized dictation system. Although this document has been carefully reviewed, there might still be some phonetic and typographical errors. Occasional wrong-word or ``sound-alike substitutions may have occurred due to the inherent limitations of voice recognition software. These areas are purely typographical due to imperfections of the software programs and do not reflect any compromise in the patient's medical care. Please read the chart carefully and recognize, using context, where these substitutions have occurred. Plan discussed with: Other NYHA Physical activity limitations: Class3(Marked) ordinary (activity causes symtoms) Date of Service: Oct 27, 2024 Billing Provider: HELADIO NDIAYE Cardiology Common Codes: 61054-BHZCCFQG CARE 30-74 MIN HELADIO NDIAYE Oct 24, 2024 09:38
--- NOTE | 2024-10-24 09:46 | DVHPNRES ---
Progress Note Date Seen: Oct 24, 2024 Resident Creating Document: MAX FLOYD RESIDENT Medical Necessity Reason Pt with a Central, PICC or Fol: Yes The following are medically ne: Central Line, Greenberg Catheter Medical Necessity Reason Patient is a 54-year-old male with past medical history of liver cirrhosis, portal hypertension related gastropathy, cholelithiasis, depression, tachycardia, alcohol related tremors, who came in due to shortness of breaths. According to the ER notes, patient was having severe shortness of breath with tachypnea along with atrial fibrillation with rapid ventricular response, patient underwent synchronized cardioversion at 120 joules and was subsequently intubated. Per patient's son Mr. Shemar Winkler, patient called him yesterday on 10/23/2024 and stated he has been having increasing difficulty breathing and difficulty sleeping that has been worsened over the last 3 days. Per patient's son he is unable to provide more information as he does not live with his father, patient lives with his roommate. History and most of the information was obtained from patient's sons Mr. Galo, Mr. Staton and patient's ex-. Past surgical history: Unable to obtain Home medications: Thiamine, propranolol, Protonix, metronidazole, levofloxacin Past Hospitalization: In 2019 at the [facility] for upper and lower GI bleed Social & Personal history: Patient lives with a roommate. Per patient's , patient is a nonsmoker. However, heavy alcohol usage 6-12 drinks per day, daily for the last 35-40 years. Unable to obtain an accurate substance abuse related history. Allergies: Latex, penicillin Patient seen and examined at bedside. Patient is intubated, sedated and mechanically ventilated, unable to obtain review of systems. Objective vital signs Vital Sign Date Time Temp Pulse Resp B/P (MAP) Pulse Ox O2 Delivery O2 Flow Rate FiO2 10/24/24 09:33 135 19 141/109 (120) 93 60 10/24/24 06:45 98.2 208.8 10/24/24 06:00 Mechanical Ventilator+ 10/23/24 18:24 2 Total Intake and Output 10/23/24 10/23/24 10/24/24 15:00 23:00 07:00 Intake Total 368.65 ml Output Total 940 ml Balance -571.35 ml medications Current Medications Medications Dose Ordered Sig/Cristian Route Start Time Stop Time Status Last Admin Dose Admin Propofol 100 ml @ 2.286 mls/ hr Q24H IV 10/23/24 19:45 10/24/24 03:56 13.716 MLS/HR Midazolam HCl 50 ml @ 1 mls/hr Q24H IV 10/23/24 19:45 10/24/24 03:56 6 MLS/HR Fentanyl Citrate 250 ml @ 2.5 mls/hr Q24H IV 10/23/24 21:45 10/23/24 21:59 2.5 MLS/HR Norepinephrine Bitartrate 250 ml @ 3.75 mls/hr Q24H IV 10/23/24 22:00 10/24/24 00:41 3.75 MLS/HR Nitroglycerin 0.4 mg Q5MINP PRN SL 10/24/24 00:00 Morphine Sulfate 2 mg Q30M PRN IV 10/24/24 00:00 Furosemide 20 mg BIDD IV 10/24/24 06:00 10/24/24 05:39 20 MG Levofloxacin/ Dextrose 100 ml @ 100 mls/hr DAILY IV 10/24/24 10:00 Albuterol 2.5 mg Q6HPRN PRN NEB 10/24/24 00:00 Pantoprazole Sodium 40 mg DAILY IV 10/24/24 10:00 Enoxaparin Sodium 40 mg DAILY SC 10/24/24 10:00 Ondansetron HCl 4 mg Q4HP PRN IV 10/24/24 00:00 Acetaminophen 650 mg Q6HP PRN PO 10/24/24 00:00 Examination General Appearance: Intubated, sedated and mechanically ventilated. Lying down in bed without any distress. Head Exam: Normal inspection Neck Exam: Normal inspection. Non-tender. Normal alignment. Equal and minimally reactive pupils 2 mm. Pulmonary/Respiratory: Chest non-tender. Decreased bilateral breath sounds, no crackles, no wheezing. Cardiovascular/Chest: Tachycardia. No murmurs. No JVD. Peripheral Pulses: 2+ Radial (R). 2+ Radial (L). 2+ Pedal (R). 2+ Pedal (L) Abdominal Exam: Normal bowel sounds. Soft. normal abdomen, no visible veins, Nontender. No hepatospenomegaly. No masses Ankle Exam: Negative ankle edema Lower extremities: Negative lower extremity edema Skin Exam: Normal inspection. Normal color. Warm. Dry laboratory and microbiology Laboratory Tests 10/24/24 02:53 Test 10/24/24 02:53 Range/Units Serum Glucose 127 H 74-106 mg/dL Microbiology Date/Time Source Procedure Growth Status 10/23/24 19:26 Trachea Gram Stain Pending Resulted 10/23/24 19:26 Trachea Respiratory Culture - Preliminary Resulted Labs and/or images reviewed: Labs reviewed by me, Image(s) reviewed by me Problem List/Assessment/Plan Problem List/Assessment/Plan Neurology # acute toxic vs metabolic encephalopathy # possible alcohol withdrawal # hx of withdrawal seizures? # Sedated - head CT: No acute intracranial abnormality - IV banana bag - Versed 10 mcg per hour Cardiovascular # septic shock due to pneumonia # atrial flutter with hemodynamic instability, s/p cardioversion x2 # NSTEMI 2 due to above - amiodarone drip - cardiology on board - norepinephrine at 14 micrograms/hour Respiratory # Acute hypoxic respiratory failure # community-acquired pneumonia, Gram-positive versus Gram-negative # Ventilator # ruled out pulmonary embolism -intubated (10/23/24) -on [facility] vent : VCAC Mode RR 14 TV 550ml, PEEP Of 8 and FiO2 of 60% - CXR: Moderate interstitial pulmonary edema in the setting of cardiomegaly. Probable trace bilateral effusions. - CT angio: No evidence of pulmonary embolism. Pulmonary edema. Large bilateral pleural effusions. Associated consolidation of the majority of bilateral lower lobes independent portions of the remaining lobes of the lung. Cirrhotic liver. Small amount of ascites in the visualized upper abdomen. - chest ultrasound: Small bilateral pleural effusion, trace ascites. - IV Lasix 20 mg b.i.d. - IV cefepime GI # Hx of GI bleed # cirrhosis, MELD 19 # Hx of portal hypertension gastropathy # mild abdominal ascites # Peptic ulcer prophylaxis -Pantoprazole 40 mg IV daily # Greenberg catheter placed on 10/23/24 - urine culture Nephrology # Hyperkalemia - monitor Infectious disease # community acquired pneumonia, gram + vs -ve - IV cefepime - norepinephrine and 14 micrograms/hour - respiratory, blood, urine cultures Hem/onc # mild normocytic anemia # ruled out lower extremity DVT - lower extremity Doppler: No right or left lower extremity deep vein thrombosis. Psychiatry # Alcohol use disorder # hx of depression - outpatient psychiatry follow up versus psychiatry consult upon extubation DVT prophylaxis - on therapeutic lovenox, dose modified to once daily owing to liver cirrhosis and previous history of GI bleed Nutrition NPO Lines L IJ CVC 10/23/24 LUE 20g 10/23/24 RUE 20g 10/23/24 [facility] Fentanyl 150mcg/hr Versed 10 Critical care time 86 minutes excluding procedure and discussions with the family. Code status discussed greater than 20 minutes: Full CODE STATUS. Plan discussed with Dr. Sheriff Plan discussed with: Son, Other (RN) Date of Service: Oct 25, 2024 Billing Provider: LAUREANO SHERIFF MD Common Visit Codes: 70691-TYREZYUM CARE 30-74 MIN, 84637-[id number] CARE-EACH +30MIN MAX FLOYD Oct 24, 2024 09:46 LAUREANO SHERIFF MD Oct 25, 2024 14:46
[2024-10-24] MEDS ORDERED: ENOXAPARIN SOD 40 MG/0.4 ML SYRINGE SC SCH (10:00)
[2024-10-24] MEDS: THIAMINE 100mg/ml INJ (200mg/2ml VIAL) IV ONE (10:30)
[2024-10-24] MEDS: AMIODARONE HCL 200 MG TAB NG SCH (10:30)
[2024-10-24] MEDS: FOLIC ACID 1 MG in D5W 5% 50 ML INJ ONE (10:30)
[2024-10-24] MEDS: MAGNESIUM SULFATE 1GM/100ML 100 ML IV ONE (10:30)
[2024-10-24] MEDS: ENOXAPARIN SOD 100 MG/1 ML SYRINGE SC SCH ×2 (10:30→22:23)
[2024-10-24] MEDS: PANTOPRAZOLE 40 MG/10 ML VIAL INJ IV SCH (10:30)
[2024-10-24 10:45] LABS: Triglycerides 74 mg/dL (< 150)
[2024-10-24 10:47] LABS: Cholesterol 91 mg/dL (< 200); HDL Cholesterol 24 mg/dL (40-59); Magnesium 1.3 mg/dL (1.6-2.6)
--- NOTE | 2024-10-24 10:54 | DVH ---
Bilateral Chest Sonogram Date: 10/24/2024 09:51 AM Clinical history: Pleural effusions evaluation Technique: Limited sonographic evaluation of the bilateral chest was performed to evaluate for pleur al effusion. Finding/Impression: There is a small bilateral pleural effusion visualized which is insufficient fluid for performance of thoracentesis. Trace ascites.
[2024-10-24 11:15] LABS: Albumin 3.9 g/dL (3.2-4.8); Alkaline Phosphatase 81 U/L (46-116); Anion Gap 11 (5-15); BUN/Creatinine Ratio 14.5 (10.0-20.0); Blood Urea Nitrogen 18 mg/dL (9-23); Carbon Dioxide 21 mmol/L (20-31); Chloride 100 mmol/L (98-107); Potassium 3.9 mmol/L (3.5-5.1); Total Protein 7.3 g/dL (5.7-8.2)
[2024-10-24 11:19] LABS: Alanine Aminotransferase 45 U/L (7-40); Bilirubin, Total 2.0 mg/dL (0.2-1.0); Calcium 8.3 mg/dL (8.7-10.4); Glucose 154 mg/dL (74-106); Sodium 132 mmol/L (136-145)
--- NOTE | 2024-10-24 11:39 | DVH ---
US BiLat Lower DVT HISTORY: Elevated d-dimer COMPARISON: None TECHNIQUE: Duplex doppler evaluation of the deep venous system of the lower extremity from the common femoral veins, superficial femoral vein, great saphenous vein, deep femoral vein, popliteal vein, an d calf veins, including color doppler and spectral/pulsed waveform analysis, was performed. FINDINGS: Right: - Common femoral vein: Compressible - Deep femoral vein: Compressible - Femoral vein: Compressible - Popliteal vein: Compressible - Posterior tibial vein: Waveforms present - Other: Nothing Left: - Common femoral vein: Compressible - Deep femoral vein: Compressible - Femoral vein: Compressible - Popliteal vein: Compressible - Posterior tibial vein: Waveforms present - Other: Nothing IMPRESSION: No right or left lower extremity deep venous thrombosis.
[2024-10-24 11:49] LABS: INR 1.47 (0.9-1.15); Partial Thromboplastin Time 28.9 SEC (24.5-34.5); Prothrombin Time 15.0 sec (9.3-11.8)
[2024-10-24] MEDS: ADENOSINE 6 MG/2 ML INJ IV ONE ×3 (13:08→13:35)
[2024-10-24] MEDS: AMIODARONE BOLUS KIT 100 ML IV ONE (13:54)
[2024-10-24] MEDS: AMIODARONE 360mg/200mL PREMIX 200 ML IV ONE (14:05)
[2024-10-24 14:11] LABS: Amphetamine Screen, Urine Neg (NEGATIVE); Barbiturate Scree,Urine Neg (NEGATIVE); Benzodiazephine Screen, Urine Pos (NEGATIVE); Cannabinoid Screen, Urine Neg (NEGATIVE); Cocaine Screen, Urine Neg (NEGATIVE); Opiate Scree,Urine Neg (NEGATIVE); Phencyclidine Screen, Urine Neg (NEGATIVE)
[2024-10-24] MEDS: NOREPINEPHRINE BITARTRATE 32 MG in SODIUM CHL 0.9% 218 ML IV SCH (14:30)
[2024-10-24] MEDS: ROCURONIUM 10MG/ML 10ML VIAL IV ONE ×2 (15:23→15:25)
[2024-10-24] MEDS ORDERED: MAGNESIUM SULFATE 1GM/100ML 100 ML IV ONE (15:30)
[2024-10-24] MEDS: PHENYLEPHRINE INJ 80 MG in SODIUM CHL 0.9% 242 ML IV SCH (16:13)
[2024-10-24] MEDS: FOLIC ACID 1 MG, MAGNESIUM SULF SDV 50% 8 MEQ, MULTIPLE VITAMIN 10 ML, THIAMINE INJ 100... INJ SCH (16:21)
[2024-10-24 18:07] LABS: Magnesium 2.0 mg/dL (1.6-2.6)
[2024-10-24 18:12] LABS: Potassium 5.3 mmol/L (3.5-5.1)
[2024-10-24] MEDS: CEFEPIME 2GM/50ML NS 50 ML IV ONE (19:00)
[2024-10-24] MEDS: AMIODARONE 360mg/200mL PREMIX 200 ML IV SCH (19:17)
[2024-10-24] MEDS ORDERED: DEXTROSE (50%) 50ML SYRG IV ONE (20:55)
[2024-10-24] MEDS ORDERED: MAGNESIUM SULF 50% 40 MEQ/10 ML VL IV ONE (20:58)
[2024-10-24] MEDS: CEFEPIME 2GM/50ML NS 50 ML IV SCH (22:23)
[2024-10-25] VITALS (114 sets, daily range): BP systolic 86–131; BP diastolic 47–90; PULSE 77–140; RESP 0–20; TEMP 97.3–99.5; O2SAT 91–100
--- NOTE | 2024-10-25 00:02 | DVHINCON2 ---
Date Seen: Oct 24, 2024 Referring Physician ASAEL Cade Reason for Consultation CHF History of Present Illness This is a 54-year-old male who presented to the ED with complaints of shortness of breath for three days. At time of assessment, the patient was found chemically sedated, endotracheally intubated with 60% FiO2, and on single vasopressor. Information obtained from records which indicate the patient presented with complaints of shortness of breath without any other associated symptoms, an oxygen saturation level of 93% on room air, and found to be tachycardic for which he underwent a 12 lead electrocardiogram revealing an atrial fibrillation rhythm with rapid ventricular rate 185 bpm for which he underwent DCCV at 120J with successful transition into a sinus tachycardia rhythm. Per records, there is no past medical history. Social history includes tobacco use (one pack of cigarettes per day) and unspecified daily alcohol use. 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 Past Medical History Past medical history reviewed. No other significant than mentioned above. Past Surgical History Unknown past surgical history. Family History: Patient reports no known family medical history. Allergies: Coded Allergies: Latex (Verified Allergy, Unknown, 10/24/24) Penicillins (Unverified Allergy, Unknown, 05/29/17) Home Meds Active Scripts Pantoprazole Sodium Sesquihydr (Pantoprazole Sodium) 40 Mg Tab, 40 MG PO DAILY, #30 TAB Prov:RUFINO PIERRE MD 11/28/19 Propranolol HCl (Propranolol Hydrochloride) 20 Mg Tab, 10 MG PO BID, #60 TAB Prov:RUFINO PIERRE MD 11/28/19 Thiamine Hcl (Thiamine) 50 Mg Cap, 50 MG PO DAILY, #30 TAB Prov:RUFINO PIERRE MD 11/28/19 Metronidazole (Flagyl) 500 Mg Tab, 500 MG PO Q8HR, #21 TAB Prov:RUFINO PIERRE MD 11/28/19 Levofloxacin (Levaquin) 500 Mg Tab, 500 MG PO DAILY, #7 TAB Prov:RUFINO PIERRE MD 11/28/19 Folic Acid (Folic Acid) 1 Mg Tab, 1 MG PO DAILY, #30 TAB Prov:RUFINO PIERRE MD 11/28/19 Current Medications Current Medications Medications (Trade) Dose Ordered Sig/Cristian Route PRN Reason Start Time Stop Time Status Last Admin Nitroglycerin (Ntrostat Sublingual) 0.4 mg Q5MINP PRN SL FOR CHEST PAIN 10/24/24 00:00 10/24/24 10:25 DC Morphine Sulfate 2 mg Q30M PRN IV FOR CHEST PAIN 10/24/24 00:00 10/24/24 10:25 DC Furosemide (Lasix Injection) 20 mg BIDD IV 10/24/24 06:00 10/24/24 19:35 Levofloxacin/ Dextrose 100 ml @ 100 mls/hr DAILY IV 10/24/24 10:00 10/24/24 15:02 DC 10/24/24 12:10 Albuterol (Ventolin Medneb) 2.5 mg Q6HPRN PRN NEB SHORTNESS OF BREATH 10/24/24 00:00 10/24/24 10:25 DC Pantoprazole Sodium (Protonix) 40 mg DAILY IV 10/24/24 10:00 10/24/24 10:30 Enoxaparin Sodium (Lovenox) 40 mg DAILY SC 10/24/24 10:00 10/24/24 09:48 DC Ondansetron HCl (Zofran) 4 mg Q4HP PRN IV NAUSEA / VOMITING 10/24/24 00:00 10/24/24 15:02 DC Acetaminophen (Tylenol Tablet) 650 mg Q6HP PRN PO PAIN SCALE 1-3 OR TEMP>100.4 10/24/24 00:00 10/24/24 10:25 DC Amiodarone HCl (Cordarone Tablet) 200 mg Q12HR NG 10/24/24 10:00 10/24/24 13:21 DC 10/24/24 10:30 Enoxaparin Sodium (Lovenox) 80 mg Q12HR SC 10/24/24 10:00 10/24/24 16:34 DC 10/24/24 10:30 Thiamine HCl 100 mg DAILY IV 10/25/24 10:00 10/24/24 15:02 DC Folic Acid 1 mg/ Dextrose 50.2 ml @ 200.8 mls/ hr DAILY INJ 10/25/24 10:00 10/24/24 15:11 DC Folic Acid 1 mg/ Magnesium Sulfate 8 meq/ Multivitamins 10 ml/Thiamine HCl 100 mg/Sodium Chloride 1,013.2 ml @ 126.247 mls/hr DAILY@1800 INJ 10/24/24 10:30 10/24/24 16:21 Phenylephrine HCl 80 mg/Sodium Chloride 250 ml @ 7.5 mls/hr Q24H IV 10/24/24 14:30 10/24/24 16:13 Norepinephrine Bitartrate 32 mg/ Sodium Chloride 250 ml @ 0.938 mls/ hr Q24H IV 10/24/24 14:30 10/24/24 18:55 Cefepime HCl 50 ml @ 12.5 mls/hr Q8H IV 10/24/24 23:00 10/24/24 22:23 Enoxaparin Sodium (Lovenox) 80 mg Q12HR SC 10/24/24 22:00 10/24/24 22:23 Review of Systems Constitutional: No symptom reported Ears, Nose, & Throat: No symptom reported Eyes: No symptom reported Neurological: No symptoms reported Pulmonary/Respiratory: SOB Cardiovascular: No symptom reported Gastrointestinal: No symptom reported Genitourinary: No symptom reported Musculoskeletal: No symptom reported Skin: No symptom reported Psychiatric: No symptom reported Endocrine: No symptom reported Hemotologic/Lymphatic: No symptom reported Vital Signs Vital Signs Date Time Temp Pulse Resp B/P (MAP) Pulse Ox O2 Delivery O2 Flow Rate FiO2 10/24/24 23:33 98.8 78 14 76/54 (61) 92 209.8 10/24/24 22:35 100 10/24/24 22:00 Mechanical Ventilator+ 10/23/24 18:24 2 Physical Exam GENERAL: Ill appearing, intubated on ventilator. Pinpoint nonreactive pupils bilaterally. Negative cough reflex. EYES: PERRL, EOMI. Anicteric. HENT: Moist mucous membranes. LUNGS: Crackles to bilateral breath sounds. CARDIOVASCULAR: Regular rate and rhythm. ABDOMEN: Soft, non-tender and non-distended. EXTREMITIES: No edema. SKIN: Warm, dry. Labs/Diagnostic Data Labs Test 10/24/24 17:33 10/24/24 13:23 10/24/24 11:19 10/24/24 10:11 Range/Units Potassium Level 5.3 H 3.5-5.1 mmol/L Phosphorus Level 4.5 2.4-5.1 mg/dL Magnesium Level 2.0 1.6-2.6 mg/dL Urine Sodium < 10 L 40-220 mmol/L Urine Opiates Screen Neg NEGATIVE Urine Fentanyl Screen Pos NEGATIVE Urine Barbiturates Screen Neg NEGATIVE Urine Phencyclidine Screen Neg NEGATIVE Urine Amphetamines Screen Neg NEGATIVE Urine Benzodiazepines Screen Pos NEGATIVE Urine Cocaine Screen Neg NEGATIVE Urine Cannabinoids Screen Neg NEGATIVE Prothrombin Time 15.0 H 9.3-11.8 sec Prothrombin Time INR 1.47 H 0.9-1.15 Activated Partial Thromboplast Time 28.9 24.5-34.5 SEC Serum Osmolality 284 278-298 mOsm/kg Sodium Level 132 L 136-145 mmol/L Chloride Level 100 98-107 mmol/L Carbon Dioxide Level 21 20-31 mmol/L Anion Gap 11 5-15 Blood Urea Nitrogen 18 9-23 mg/dL Creatinine 1.24 0.700-1.30 mg/dL Glomerular Filtration Rate Calc 70 >90 mL/min BUN/Creatinine Ratio 14.5 10.0-20.0 Serum Glucose 154 H 74-106 mg/dL Calcium Level 8.3 L 8.7-10.4 mg/dL Total Bilirubin 2.0 H 0.2-1.0 mg/dL Aspartate Amino Transferase (AST) 71 H 13-40 U/L Alanine Aminotransferase (ALT) 45 H 7-40 U/L Alkaline Phosphatase 81 46-116 U/L Ammonia 32 11-32 umol/L Total Protein 7.3 5.7-8.2 g/dL Albumin 3.9 3.2-4.8 g/dL Triglycerides Level 74 < 150 mg/dL Cholesterol Level 91 < 200 mg/dL LDL Cholesterol 59 < 100 mg/dL HDL Cholesterol 24 L 40-59 mg/dL Plasma/Serum Blood Alcohol < 3.0 <10 mg/dL Test 10/24/24 07:17 10/24/24 02:53 10/24/24 00:12 10/23/24 21:39 Range/Units Blood Gas Specimen Type Arterial Blood Gas Sample Site Right radial Blood Gas Patient Temperature 37.0 Arterial Blood Date Drawn [id number] Arterial Blood pH 7.398 7.350-7.450 Arterial Blood Partial Pressure CO2 26.6 L 35.0-48.0 mmHg Arterial Blood Partial Pressure O2 79.9 L 83.0-108.0 mmHg Arterial Blood HCO3 16.0 L 21.0-28.0 mmol/L Arterial Blood Oxygen Saturation 94.8 94.0-98.0 % Arterial Blood Base Excess -7.0 L -2.0-3.0 mmol/L Arterial Blood Oxyhemoglobin 94.1 94.0-98.0 % Arterial Blood Carboxyhemoglobin 0.3 L 0.5-1.5 % Arterial Blood Methemoglobin 0.4 0.0-1.5 % Param Test Modified Blood Gas Total Hemoglobin 14.60 13.5-17.5 g/dL Blood Gas Set Respiration Rate 14.0 Blood Gas Modality Vent - ac FiO2 % 60.0 Blood Gas Tidal Volume 550.0 Blood Gas PEEP or CPAP 8.0 White Blood Count 14.2 #H 4.4-10.8 10^3/uL Red Blood Count 4.00 L 4.5-5.90 10^6/uL Hemoglobin 13.2 L 13.5-17.5 g/dL Hematocrit 38.2 L 41.0-53.0 % Mean Corpuscular Volume 95.6 80.0-100.0 fL Mean Corpuscular Hemoglobin 33.0 H 28.0-32.0 pg Mean Corpuscular Hemoglobin Concent 34.5 32.0-36.0 g/dL Red Cell Distribution Width 15.3 H 11.8-14.3 % Platelet Count 162 140-450 10^3/uL Mean Platelet Volume 10.2 6.9-10.8 fL Neutrophils (%) (Auto) 87.3 H 37.0-80.0 % Lymphocytes (%) (Auto) 2.2 L 10.0-50.0 % Monocytes (%) (Auto) 10.3 0.0-12.0 % Eosinophils (%) (Auto) 0.1 0.0-7.0 % Basophils (%) (Auto) 0.1 0.0-2.0 % Neutrophils # (Auto) 12.4 H 1.6-8.6 10 ^3/uL Lymphocytes # (Auto) 0.3 L 0.4-5.4 10 ^3/uL Monocytes # (Auto) 1.5 H 0-1.3 10 ^3/uL Eosinophils # (Auto) 0 0-0.8 10 ^3/uL Basophils # (Auto) 0 0-0.2 10 ^3/uL Nucleated Red Blood Cells 0.0 % Hemoglobin A1c 5.1 <5.7 % A1C B-Type Natriuretic Peptide 1191.52 0-100 pg/mL Thyroid Stimulating Hormone (TSH) 1.59 0.55-4.78 uIU/mL Blood Gas Spontaneous Rate 19 Blood Gas Spontaneous Tidal Volume 571 Bl Gas Inspiratory/Expiratory Ratio 1:2.4 Specimen Drawn By Lhrocco rt Troponin I High Sensitivity 128 *H </=54 ng/L Test 10/23/24 20:12 10/23/24 19:48 10/23/24 19:42 10/23/24 18:38 Range/Units Blood Gas Critical Value Read Back Yes Blood Gas Notified Whom wesley Harding np Blood Gas Notified Time [id number] Blood Gas Notified By Titus ricks rt Lactic Acid Level 1.3 0.4-2.0 mmol/L Urine Color Yellow Yellow Urine Clarity Clear Clear Urine pH 6.0 5.0-9.0 Urine Specific [place] 1.018 1.001-1.035 Urine Protein 2+ H Negative Urine Ketones Negative Negative Urine Blood Negative Negative /uL Urine Nitrite Negative Negative Urine Bilirubin Negative Negative Urine Urobilinogen Normal Negative mg/dL Urine Leukocyte Esterase Negative Negative /uL Urine RBC 5 0 - 3 /hpf Urine Microscopic WBC 4 H 0-3 /HPF Urine Squamous Epithelial Cells None seen <5 /hpf Urine Bacteria Few H None Seen /hpf Urine Glucose Normal Normal mg/dL Differential Total Cells Counted 100.0 100 Neutrophils % (Manual) 65 37.0-80.0 Band Neutrophils % (Manual) 2 Lymphocytes % (Manual) 17 10.0-50.0 Monocytes % (Manual) 15 H 0-12 Eosinophils % (Manual) 1 0-7 Basophils % (Manual) 0 0.0-2.0 Metamyelocytes % (manual) 0 Myelocytes % (Manual) 0 Promyelocytes % (Manual) 0 Blast Cells % (Manual) 0 Reactive Lymphocytes 0 Platelet Estimate Adequate Anisocytosis (manual) Slight D-Dimer, Quantitative 2.81 H 0.0-0.49 mg/L FEU Microbiology Date/Time Source Procedure Growth Status 10/24/24 01:30 Nose MRSA Screen - Final Complete 10/23/24 19:48 Blood Blood Culture - Preliminary NO GROWTH AFTER 24 HOURS OF INCUBATION. Resulted Assessment Sepsis with bilateral pneumonia. Acute on chronic decompensated HFrEF, NYHA Class III, newly diagnosed. Paroxysmal atrial fibrillation/atrial flutter status post DCCV, newly diagnosed. Acute hypoxic respiratory failure. Bilateral pleural effusions. NSTEMI, likely type 2 secondary to above. Tobacco/alcohol dependence. Plan/Recommendation I agree with your ongoing assessment and care of plan. Patient has been seen by Ilana Daugherty NP on my behalf. We have discussed the plan with the patient. Echocardiogram to evaluate cardiac function. Vasopressor for hemodynamic support for a MAP = or >65 mmHg. Initiate antiarrhythmic therapy, amiodarone GT BID. Ventilator settings per primary care/pulmonology team. Preload reduction as tolerated. Strict I&Os. Daily weight. Fluid restrictions. Therapeutic Lovenox. [id number] Score 1 point. HAS-BLED Score 2 points. Monitor ECG changes closely and notify. Additional plan as per the hospital course. Plan discussed with: Other NYHA Physical activity limitations: Class3(Marked) ordinary Date of Service: Oct 24, 2024 Billing Provider: MESERET MOTLEY MD Cardiology Common Codes: 34280-WGHFMAL INP/OBS CARE (High), 88442-PZIHXCHL CARE 30-74 MIN Cardiology Consultation Codes: 09733-[id number] CONSULT <80MIN MESERET MOTLEY MD Oct 25, 2024 00:01
[2024-10-25 00:31] LABS: Chloride 100 mmol/L (98-107)
[2024-10-25 00:32] LABS: Anion Gap 12 (5-15)
[2024-10-25 00:36] LABS: Calcium 7.4 mg/dL (8.7-10.4); Carbon Dioxide 19 mmol/L (20-31); Sodium 131 mmol/L (136-145)
[2024-10-25 00:37] LABS: Potassium 6.2 mmol/L (3.5-5.1)
[2024-10-25 00:38] LABS: BUN/Creatinine Ratio 8.9 (10.0-20.0); Blood Urea Nitrogen 22 mg/dL (9-23)
[2024-10-25 00:40] LABS: Glucose 108 mg/dL (74-106)
--- NOTE | 2024-10-25 00:49 | DVHSR ---
APPROVED REPORT EXAM: Two-dimensional and M-mode echocardiogram with Doppler and color Doppler. Blood Pressure: 117/89 mmHg INDICATION EF RISK FACTORS Height: 5'5", Weight: 179 DIMENSIONS LVDd4.6 (3.8-5.7cm)LA (2D)4.0 (1.9-4.0cm)Aortic Root3.1 (2.0-3.7cm) LVDs3.8 (2.5-4.0cm)LA (MM) (1.9-4.0cm)Aortic Cusp Exc1.6 (1.5-2.0cm) EF (%) 39.0 (55-70%)Rt. Atrium5.1 (1.9-4.0cm)Asc. Aorta3.1 cm IVSd1.3 (0.7-1.1cm)RV (D)4.4 (1.8-2.4cm) PWd1.0 (0.7-1.1cm) Mitral Valve MitralMitral Stenosis E/A ratio0.02D MVAcm2 Aortic Valve Aortic ValveAortic Stenosis V10.66m/Ilir Mean GR.2mmHg V20.90m/Ilir Peak GR.3mmHg LVOT Diameter2.1 (1.8-2.4cm)Doppler AVA2.54cm2 Pulmonic Valve V20.53m/s Tricuspid Valve TR Velocity2.08m/s [id number] Conclusion 1. END STAGEDILATED CARDIOMYOPATHY 2. DILATED ALL CARDIAC CHAMBERS ALL CARDIAC CHAMBERS ARE REMARKABLY HYPOKINETIC 3. LV EF IS ONLY IN RANGE OF 20% 4. MODERATE DEGREE MR 5. NO EFFUSION
[2024-10-25] MEDS: ALBUTEROL SULF 2.5 MG/0.5ML(0.5%) NEB SOLN NEB ONE ×2 (01:02→04:20)
[2024-10-25] MEDS: ALBUTEROL SULF 2.5 MG/0.5ML(0.5%) NEB SOLN ONE (01:03)
[2024-10-25] MEDS: SODIUM BICARB 8.4% 50Meq/50ml SYR INJ IV ONE (01:08)
[2024-10-25] MEDS: DEXTROSE (50%) 50ML SYRG IV ONE ×2 (01:08→04:15)
[2024-10-25] MEDS: FUROSEMIDE 100 MG/10ML VIAL IV ONE ×2 (01:08→04:13)
[2024-10-25] MEDS: CALCIUM GLUC 1,000mg/50ml-NS 50 ML IV ONE (01:09)
[2024-10-25] MEDS: InsuLIN REG 1unit/0.01ml Soln (100units/ml) IV ONE ×2 (01:13→04:15)
[2024-10-25 03:41] LABS: Base Excess -17.9 mmol/L (-2.0-3.0)
[2024-10-25] MEDS: SODIUM BICARB 8.4% 50Meq/50ml SYR INJ ONE ×2 (03:56→07:22)
[2024-10-25 04:23] LABS: Hematocrit 44.0 % (41.0-53.0); Hemoglobin 14.1 g/dL (13.5-17.5); Mean Corpuscular Hemoglobin 32.1 pg (28.0-32.0); Mean Corpuscular Volume 100.3 fL (80.0-100.0)
[2024-10-25] MEDS: SODIUM BICARB 8.4% 50Meq/50ml SYR Vial IV ONE ×2 (04:31→07:24)
[2024-10-25] MEDS: FUROSEMIDE 40 MG/4 ML VIAL IV ONE (04:32)
[2024-10-25] MEDS: FUROSEMIDE INJECTION 10 ML ONE (04:33)
[2024-10-25 04:45] LABS: Albumin 3.7 g/dL (3.2-4.8); Alkaline Phosphatase 79 U/L (46-116); Anion Gap 19 (5-15); BUN/Creatinine Ratio 9.5 (10.0-20.0); Chloride 99 mmol/L (98-107); Magnesium 2.2 mg/dL (1.6-2.6); Potassium 3.9 mmol/L (3.5-5.1); Total Protein 7.3 g/dL (5.7-8.2)
[2024-10-25 04:48] LABS: Alanine Aminotransferase 475 U/L (7-40); Bilirubin, Total 1.9 mg/dL (0.2-1.0); Blood Urea Nitrogen 28 mg/dL (9-23); Calcium 7.7 mg/dL (8.7-10.4); Carbon Dioxide 17 mmol/L (20-31); Glucose 173 mg/dL (74-106); Sodium 135 mmol/L (136-145)
[2024-10-25 04:57] LABS: Macrocytosis Slight; Total Cells Counted 100.0 (100)
--- NOTE | 2024-10-25 05:03 | DVH ---
CHEST RADIOGRAPH Indication: READJUSTED NG TUBE Technique: Single frontal view of the chest was obtained COMPARISON: XY CHEST XRAY 1 VIEW on DOS: 10/23/24, XY CHEST XRAY 1 VIEW on DOS: 10/23/24, XY CHEST PORT ABLE on DOS: 10/23/24 FINDINGS: Lines and Tubes: Endotracheal tube, enteric catheter and left central venous catheter in satisfactory position. Lungs: Multifocal airspace disease Pleura: No effusion. No pneumothorax. Cardiomediastinal contours: Unremarkable Bones: Unremarkable IMPRESSION: Lines and tubes in satisfactory position. No significant interval change.
--- NOTE | 2024-10-25 05:09 | DVH ---
CHEST RADIOGRAPH Indication: pna Technique: Single frontal view of the chest was obtained Comparison: XY CHEST XRAY 1 VIEW on DOS: 10/23/24 FINDINGS: Lines and Tubes: The endotracheal tube terminates 4.0 cm above the ty. Left central venous haydee ter terminates in the superior vena cava. The enteric tube courses below the left hemidiaphragm and t he tip extends outside the field of view. Lungs: Bibasilar consolidation. Pleura: Bilateral pleural effusions. No pneumothorax. Cardiomediastinal contours: Stable Cardiovascular silhouette. Bones: No acute osseous abnormality. IMPRESSION: 1. Appropriate position of the support lines and tubes. 2. Multifocal airspace disease and bilateral pleural effusions.
[2024-10-25] MEDS: AMIODARONE HCL 200 MG TAB PO SCH (05:33)
[2024-10-25 06:30] LABS: Base Excess -14.0 mmol/L (-2.0-3.0)
--- NOTE | 2024-10-25 07:15 | ECG ---
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
--- NOTE | 2024-10-25 07:40 | ECG ---
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
[2024-10-25] MEDS: DIGOXIN (250MCG/ML) 2 ML AMPULE IV ONE (09:17)
[2024-10-25] MEDS: AMIODARONE 360mg/200mL PREMIX 200 ML IV SCH (09:17)
[2024-10-25] MEDS ORDERED: THIAMINE 100mg/ml INJ (200mg/2ml VIAL) IV SCH (10:00)
[2024-10-25] MEDS ORDERED: FOLIC ACID 1 MG in D5W 5% 50 ML INJ SCH (10:00)
[2024-10-25 10:50] LABS: Chloride 100 mmol/L (98-107); Potassium 3.5 mmol/L (3.5-5.1); Sodium 139 mmol/L (136-145)
[2024-10-25 10:51] LABS: Anion Gap 21 (5-15)
[2024-10-25 10:56] LABS: Calcium 8.1 mg/dL (8.7-10.4); Carbon Dioxide 18 mmol/L (20-31)
[2024-10-25 10:57] LABS: BUN/Creatinine Ratio 9.8 (10.0-20.0)
[2024-10-25 10:58] LABS: Blood Urea Nitrogen 31 mg/dL (9-23); Glucose 181 mg/dL (74-106)
[2024-10-25 11:01] LABS: Hepatitis A Total Antibody Positive (Negative); Hepatitis B Surface Antigen Negative (Negative); Hepatitis C Antibody Negative (Negative)
[2024-10-25 11:53] LABS: Base Excess -8.2 mmol/L (-2.0-3.0)
--- NOTE | 2024-10-25 12:36 | ECG ---
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
--- NOTE | 2024-10-25 12:36 | ECG ---
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
--- NOTE | 2024-10-25 12:36 | ECG ---
[facility] Test Date: 2024-10-25 Test Time: 01:48:32 Pat Name: MILANA PAGE Department: ICU Room: [address] [place] [address] A Gender: M Decaler: SAVAGE : 1970 Requested By: LAUREANO SHERIFF Order Number: [id number] Reading MD: Richard Cantu Measurements Intervals [place] Rate: 83 P: -42 IL: 172 QRS: 28 QRSD: 91 T: 0 QT: 455 QTc: 535 Interpretive Statements Sinus rhythm Anteroseptal infarct, age indeterminate Prolonged QT interval Electronically Signed On 10-30-2024 21:27:18 PDT by Richard Cantu Please click the below link to view image of tracing.
[2024-10-25 14:32] LABS: Lactic Acid w/Reflex 7.5 mmol/L (0.4-2.0)
[2024-10-25 14:33] LABS: Protein, Urine 46.2 mg/dL (1-14)
[2024-10-25 14:47] LABS: COVID19 ANTIGEN SOFIA FIA NEGATIVE (NEGATIVE)
--- NOTE | 2024-10-25 15:17 | DVHINCON2 ---
Date of service: Oct 25, 2024 Reason for Consultation DMITRIY History of Present Illness 54-year-old male past medical history of alcoholism presented to the hospital with shortness of breath. His ER course is notable for acute respiratory distress. Patient is noted to have supraventricular tachycardia concerning for atrial fibrillation rapid ventricular response. Patient was status post intubation and cardiac evaluation. Patient is status post CT angio to rule out PE. Over the subsequent 48 hours patient heart rate has remained in the 130s. Nephrology was consulted due to elevated creatinine level. At presentation creatinine was 1.22 Allergies: Coded Allergies: Latex (Verified Allergy, Unknown, 10/24/24) Penicillins (Unverified Allergy, Unknown, 05/29/17) Home Meds Active Scripts Pantoprazole Sodium Sesquihydr (Pantoprazole Sodium) 40 Mg Tab, 40 MG PO DAILY, #30 TAB Prov:RUFINO PIERRE MD 11/28/19 Propranolol HCl (Propranolol Hydrochloride) 20 Mg Tab, 10 MG PO BID, #60 TAB Prov:RUFINO PIERRE MD 11/28/19 Thiamine Hcl (Thiamine) 50 Mg Cap, 50 MG PO DAILY, #30 TAB Prov:RUFINO PIERRE MD 11/28/19 Metronidazole (Flagyl) 500 Mg Tab, 500 MG PO Q8HR, #21 TAB Prov:RUFINO PIERRE MD 11/28/19 Levofloxacin (Levaquin) 500 Mg Tab, 500 MG PO DAILY, #7 TAB Prov:RUFINO PIERRE MD 11/28/19 Folic Acid (Folic Acid) 1 Mg Tab, 1 MG PO DAILY, #30 TAB Prov:RUFINO PIERRE MD 11/28/19 Current Medications Current Medications Medications (Trade) Dose Ordered Sig/Cristian Route PRN Reason Start Time Stop Time Status Last Admin Thiamine HCl 100 mg DAILY IV 10/25/24 10:00 10/24/24 15:02 DC Folic Acid 1 mg/ Dextrose 50.2 ml @ 200.8 mls/ hr DAILY INJ 10/25/24 10:00 10/24/24 15:11 DC Cefepime HCl 50 ml @ 12.5 mls/hr Q8H IV 10/24/24 23:00 10/25/24 13:09 Enoxaparin Sodium (Lovenox) 80 mg Q12HR SC 10/24/24 22:00 10/25/24 08:53 DC 10/25/24 08:37 Amiodarone HCl (Cordarone Tablet) 200 mg Q12HR PO 10/25/24 04:30 10/25/24 09:10 DC 10/25/24 05:33 Enoxaparin Sodium (Lovenox) 80 mg DAILY SC 10/26/24 10:00 Metronidazole 100 ml @ 100 mls/hr Q8HR IV 10/25/24 13:00 10/25/24 11:44 Oseltamivir Phosphate (Tamiflu 30MG Capsule) 30 mg BID PO 10/25/24 22:00 10/30/24 21:59 Family History: Patient reports no known family medical history. Review of Systems Can not obtain due to critical illness H&P Exam Vital Signs/I&O Vital Sign Date Time Temp Pulse Resp B/P (MAP) Pulse Ox O2 Delivery O2 Flow Rate FiO2 10/25/24 13:38 18 94 Mechanical Ventilator+ 100 100 10/25/24 13:38 132 10/25/24 13:25 99.1 96/58 (71) 210.4 10/23/24 18:24 2 Intake and Output 10/24/24 10/25/24 19:00 07:00 Intake Total 450.515 ml 1526.132 ml Output Total 250 ml 75 ml Balance 200.515 ml 1451.132 ml Intake Oral 50 ml IV Total 450.515 ml 1476.132 ml Output Urine Total 250 ml 75 ml Stool Total 0 ml 0 ml Physical Exam Middle-aged male Intubated Tachycardic Abdomen non firm non guarding No peripheral edema Labs/Diagnostic Data Labs/Diagnostic Data Laboratory Tests Test 10/25/24 13:35 10/25/24 13:30 10/25/24 13:15 10/25/24 11:42 Range/Units Influenza Type A Antigen Negative Negative Influenza Type B Antigen Positive Negative SARS-CoV-2 Antigen (Rapid) Negative NEGATIVE Lactic Acid Level 7.5 *H 0.4-2.0 mmol/L Urine Creatinine 18.09 L 30.0-125.0 mg/dL Urine Sodium 111 40-220 mmol/L Urine Total Protein 46.2 H 1-14 mg/dL Blood Gas Specimen Type Arterial Blood Gas Sample Site Right radial Blood Gas Patient Temperature 37.0 Arterial Blood Date Drawn [id number] Arterial Blood pH 7.299 L 7.350-7.450 Arterial Blood Partial Pressure CO2 36.3 35.0-48.0 mmHg Arterial Blood Partial Pressure O2 80.2 L 83.0-108.0 mmHg Arterial Blood HCO3 17.4 L 21.0-28.0 mmol/L Arterial Blood Oxygen Saturation 93.8 L 94.0-98.0 % Arterial Blood Base Excess -8.2 L -2.0-3.0 mmol/L Arterial Blood Oxyhemoglobin 93.0 L 94.0-98.0 % Arterial Blood Carboxyhemoglobin 0.5 0.5-1.5 % Arterial Blood Methemoglobin 0.3 0.0-1.5 % Param Test Modified Blood Gas Total Hemoglobin 13.80 13.5-17.5 g/dL Blood Gas Set Respiration Rate 18.0 Blood Gas Modality Vent - ac FiO2 % 100.0 Blood Gas Tidal Volume 550.0 Blood Gas PEEP or CPAP 8.0 Test 10/25/24 10:15 10/25/24 06:18 10/25/24 04:00 10/25/24 03:25 Range/Units Sodium Level 139 135 L 136-145 mmol/L Potassium Level 3.5 3.9 # 3.5-5.1 mmol/L Chloride Level 100 99 98-107 mmol/L Carbon Dioxide Level 18 L 17 L 20-31 mmol/L Anion Gap 21 H 19 H 5-15 Blood Urea Nitrogen 31 H 28 H 9-23 mg/dL Creatinine 3.15 H 2.94 H 0.700-1.30 mg/dL Glomerular Filtration Rate Calc 23 25 >90 mL/min BUN/Creatinine Ratio 9.8 L 9.5 L 10.0-20.0 Serum Glucose 181 H 173 H 74-106 mg/dL Calcium Level 8.1 L 7.7 L 8.7-10.4 mg/dL Blood Gas Specimen Type Arterial Arterial Blood Gas Sample Site Right radial Right radial Blood Gas Patient Temperature 37.0 37.0 Arterial Blood Date Drawn [id number] Arterial Blood pH 7.134 *L 7.083 *L 7.350-7.450 Arterial Blood Partial Pressure CO2 45.0 39.0 35.0-48.0 mmHg Arterial Blood Partial Pressure O2 91.5 100.6 83.0-108.0 mmHg Arterial Blood HCO3 14.8 L 11.4 L 21.0-28.0 mmol/L Arterial Blood Oxygen Saturation 93.7 L 94.4 94.0-98.0 % Arterial Blood Base Excess -14.0 L -17.9 L -2.0-3.0 mmol/L Arterial Blood Oxyhemoglobin 93.0 L 93.6 L 94.0-98.0 % Arterial Blood Carboxyhemoglobin 0.3 L 0.3 L 0.5-1.5 % Arterial Blood Methemoglobin 0.4 0.5 0.0-1.5 % Param Test Modified Modified Blood Gas Total Hemoglobin 14.60 15.00 13.5-17.5 g/dL Blood Gas Set Respiration Rate 18.0 14.0 Blood Gas Modality Vent - ac Vent - ac FiO2 % 100.0 100.0 Blood Gas Tidal Volume 550.0 550.0 Blood Gas PEEP or CPAP 8.0 10.0 Blood Gas Critical Value Read Back Yes Yes Blood Gas Notified Whom Dr. guicho copeland Md, emy copeland Blood Gas Notified Time [id number] Blood Gas Notified By divine Wolf White Blood Count 20.5 #H 4.4-10.8 10^3/uL Red Blood Count 4.38 L 4.5-5.90 10^6/uL Hemoglobin 14.1 13.5-17.5 g/dL Hematocrit 44.0 # 41.0-53.0 % Mean Corpuscular Volume 100.3 #H 80.0-100.0 fL Mean Corpuscular Hemoglobin 32.1 H 28.0-32.0 pg Mean Corpuscular Hemoglobin Concent 32.0 32.0-36.0 g/dL Red Cell Distribution Width 16.0 H 11.8-14.3 % Platelet Count 229 140-450 10^3/uL Mean Platelet Volume 10.0 6.9-10.8 fL Neutrophils (%) (Auto) 37.0-80.0 % Lymphocytes (%) (Auto) 10.0-50.0 % Monocytes (%) (Auto) 0.0-12.0 % Basophils (%) (Auto) 0.0-2.0 % Neutrophils # (Auto) 1.6-8.6 10 ^3/uL Lymphocytes # (Auto) 0.4-5.4 10 ^3/uL Monocytes # (Auto) 0-1.3 10 ^3/uL Differential Total Cells Counted 100.0 100 Neutrophils % (Manual) 75 37.0-80.0 Band Neutrophils % (Manual) 11 Lymphocytes % (Manual) 10 10.0-50.0 Monocytes % (Manual) 3 0-12 Eosinophils % (Manual) 0 0-7 Basophils % (Manual) 0 0.0-2.0 Metamyelocytes % (manual) 0 Myelocytes % (Manual) 1 Promyelocytes % (Manual) 0 Blast Cells % (Manual) 0 Reactive Lymphocytes 0 Platelet Estimate Adequate Large Platelets Few Macrocytosis Slight Magnesium Level 2.2 1.6-2.6 mg/dL Total Bilirubin 1.9 H 0.2-1.0 mg/dL Aspartate Amino Transferase (AST) 13-40 U/L Alanine Aminotransferase (ALT) 475 H 7-40 U/L Alkaline Phosphatase 79 46-116 U/L Total Protein 7.3 5.7-8.2 g/dL Albumin 3.7 3.2-4.8 g/dL Blood Gas Spontaneous Rate 14 Blood Gas Spontaneous Tidal Volume 564 Blood Gas Inspiratory Pressure 38.0 Bl Gas Inspiratory/Expiratory Ratio 1:3 Test 10/25/24 01:11 10/25/24 00:00 10/24/24 17:33 10/24/24 13:23 Range/Units POC Glucose 97 70-106 mg/dl Sodium Level 131 L 136-145 mmol/L Potassium Level 6.2 *H 5.3 H 3.5-5.1 mmol/L Chloride Level 100 98-107 mmol/L Carbon Dioxide Level 19 L 20-31 mmol/L Anion Gap 12 5-15 Blood Urea Nitrogen 22 9-23 mg/dL Creatinine 2.47 H 0.700-1.30 mg/dL Glomerular Filtration Rate Calc 31 >90 mL/min BUN/Creatinine Ratio 8.9 L 10.0-20.0 Serum Glucose 108 H 74-106 mg/dL Calcium Level 7.4 L 8.7-10.4 mg/dL Phosphorus Level 4.5 2.4-5.1 mg/dL Magnesium Level 2.0 1.6-2.6 mg/dL Urine Sodium < 10 L 40-220 mmol/L Urine Opiates Screen Neg NEGATIVE Urine Fentanyl Screen Pos NEGATIVE Urine Barbiturates Screen Neg NEGATIVE Urine Phencyclidine Screen Neg NEGATIVE Urine Amphetamines Screen Neg NEGATIVE Urine Benzodiazepines Screen Pos NEGATIVE Urine Cocaine Screen Neg NEGATIVE Urine Cannabinoids Screen Neg NEGATIVE Test 10/24/24 11:19 10/24/24 10:11 10/24/24 07:17 10/24/24 02:53 Range/Units Prothrombin Time 15.0 H 9.3-11.8 sec Prothrombin Time INR 1.47 H 0.9-1.15 Activated Partial Thromboplast Time 28.9 24.5-34.5 SEC Serum Osmolality 284 278-298 mOsm/kg Hepatitis A Antibody Total Positive H Negative Hepatitis B Surface Antigen Negative Negative Hepatitis B Surface Antibody Negative Negative Hepatitis B Core Total Antibody Negative Negative Hepatitis C Antibody Negative Negative Sodium Level 132 L 128 L 136-145 mmol/L Potassium Level 3.9 5.4 H 3.5-5.1 mmol/L Chloride Level 100 98 98-107 mmol/L Carbon Dioxide Level 21 21 20-31 mmol/L Anion Gap 11 9 5-15 Blood Urea Nitrogen 18 16 9-23 mg/dL Creatinine 1.24 1.24 0.700-1.30 mg/dL Glomerular Filtration Rate Calc 70 70 >90 mL/min BUN/Creatinine Ratio 14.5 12.9 10.0-20.0 Serum Glucose 154 H 127 H 74-106 mg/dL Calcium Level 8.3 L 7.9 L 8.7-10.4 mg/dL Magnesium Level 1.3 L 1.6-2.6 mg/dL Total Bilirubin 2.0 H 1.8 H 0.2-1.0 mg/dL Aspartate Amino Transferase (AST) 71 H 60 H 13-40 U/L Alanine Aminotransferase (ALT) 45 H 33 7-40 U/L Alkaline Phosphatase 81 80 46-116 U/L Ammonia 32 11-32 umol/L Total Protein 7.3 6.9 5.7-8.2 g/dL Albumin 3.9 3.7 3.2-4.8 g/dL Triglycerides Level 74 < 150 mg/dL Cholesterol Level 91 < 200 mg/dL LDL Cholesterol 59 < 100 mg/dL HDL Cholesterol 24 L 40-59 mg/dL Plasma/Serum Blood Alcohol < 3.0 <10 mg/dL Blood Gas Specimen Type Arterial Blood Gas Sample Site Right radial Blood Gas Patient Temperature 37.0 Arterial Blood Date Drawn [id number] Arterial Blood pH 7.398 7.350-7.450 Arterial Blood Partial Pressure CO2 26.6 L 35.0-48.0 mmHg Arterial Blood Partial Pressure O2 79.9 L 83.0-108.0 mmHg Arterial Blood HCO3 16.0 L 21.0-28.0 mmol/L Arterial Blood Oxygen Saturation 94.8 94.0-98.0 % Arterial Blood Base Excess -7.0 L -2.0-3.0 mmol/L Arterial Blood Oxyhemoglobin 94.1 94.0-98.0 % Arterial Blood Carboxyhemoglobin 0.3 L 0.5-1.5 % Arterial Blood Methemoglobin 0.4 0.0-1.5 % Param Test Modified Blood Gas Total Hemoglobin 14.60 13.5-17.5 g/dL Blood Gas Set Respiration Rate 14.0 Blood Gas Modality Vent - ac FiO2 % 60.0 Blood Gas Tidal Volume 550.0 Blood Gas PEEP or CPAP 8.0 White Blood Count 14.2 #H 4.4-10.8 10^3/uL Red Blood Count 4.00 L 4.5-5.90 10^6/uL Hemoglobin 13.2 L 13.5-17.5 g/dL Hematocrit 38.2 L 41.0-53.0 % Mean Corpuscular Volume 95.6 80.0-100.0 fL Mean Corpuscular Hemoglobin 33.0 H 28.0-32.0 pg Mean Corpuscular Hemoglobin Concent 34.5 32.0-36.0 g/dL Red Cell Distribution Width 15.3 H 11.8-14.3 % Platelet Count 162 140-450 10^3/uL Mean Platelet Volume 10.2 6.9-10.8 fL Neutrophils (%) (Auto) 87.3 H 37.0-80.0 % Lymphocytes (%) (Auto) 2.2 L 10.0-50.0 % Monocytes (%) (Auto) 10.3 0.0-12.0 % Eosinophils (%) (Auto) 0.1 0.0-7.0 % Basophils (%) (Auto) 0.1 0.0-2.0 % Neutrophils # (Auto) 12.4 H 1.6-8.6 10 ^3/uL Lymphocytes # (Auto) 0.3 L 0.4-5.4 10 ^3/uL Monocytes # (Auto) 1.5 H 0-1.3 10 ^3/uL Eosinophils # (Auto) 0 0-0.8 10 ^3/uL Basophils # (Auto) 0 0-0.2 10 ^3/uL Nucleated Red Blood Cells 0.0 % Hemoglobin A1c 5.1 <5.7 % A1C B-Type Natriuretic Peptide 1191.52 0-100 pg/mL Thyroid Stimulating Hormone (TSH) 1.59 0.55-4.78 uIU/mL Test 10/24/24 00:12 10/23/24 21:39 10/23/24 20:12 10/23/24 19:48 Range/Units Blood Gas Specimen Type Arterial Arterial Blood Gas Sample Site Right radial Right radial Blood Gas Patient Temperature 37.0 37.0 Arterial Blood Date Drawn [id number] Arterial Blood pH 7.345 L 7.256 L 7.350-7.450 Arterial Blood Partial Pressure CO2 32.8 L 39.0 35.0-48.0 mmHg Arterial Blood Partial Pressure O2 90.7 62.3 L 83.0-108.0 mmHg Arterial Blood HCO3 17.5 L 17.0 L 21.0-28.0 mmol/L Arterial Blood Oxygen Saturation 95.7 83.6 *L 94.0-98.0 % Arterial Blood Base Excess -7.1 L -9.5 L -2.0-3.0 mmol/L Arterial Blood Oxyhemoglobin 94.4 82.2 L 94.0-98.0 % Arterial Blood Carboxyhemoglobin 1.0 0.9 0.5-1.5 % Arterial Blood Methemoglobin 0.4 0.8 0.0-1.5 % Param Test Modified Modified Blood Gas Total Hemoglobin 14.20 14.50 13.5-17.5 g/dL Blood Gas Set Respiration Rate 14.0 14.0 Blood Gas Modality Vent - ac Vent - ac Blood Gas Spontaneous Rate 19 14 FiO2 % 100.0 100.0 Blood Gas Tidal Volume 550.0 500.0 Blood Gas Spontaneous Tidal Volume 571 Blood Gas PEEP or CPAP 8.0 5.0 Bl Gas Inspiratory/Expiratory Ratio 1:2.4 1: 2.3 [facility] rt Troponin I High Sensitivity 128 *H 148 *H </=54 ng/L Blood Gas Critical Value Read Back Yes Blood Gas Notified Whom wesley Harding np Blood Gas Notified Time [id number] Blood Gas Notified By Titus ricks rt Lactic Acid Level 1.3 0.4-2.0 mmol/L Test 10/23/24 19:42 10/23/24 18:38 Range/Units Urine Color Yellow Yellow Urine Clarity Clear Clear Urine pH 6.0 5.0-9.0 Urine Specific [place] 1.018 1.001-1.035 Urine Protein 2+ H Negative Urine Ketones Negative Negative Urine Blood Negative Negative /uL Urine Nitrite Negative Negative Urine Bilirubin Negative Negative Urine Urobilinogen Normal Negative mg/dL Urine Leukocyte Esterase Negative Negative /uL Urine RBC 5 0 - 3 /hpf Urine Microscopic WBC 4 H 0-3 /HPF Urine Squamous Epithelial Cells None seen <5 /hpf Urine Bacteria Few H None Seen /hpf Urine Glucose Normal Normal mg/dL White Blood Count 7.3 4.4-10.8 10^3/uL Red Blood Count 4.25 L 4.5-5.90 10^6/uL Hemoglobin 13.6 13.5-17.5 g/dL Hematocrit 41.1 41.0-53.0 % Mean Corpuscular Volume 96.6 80.0-100.0 fL Mean Corpuscular Hemoglobin 31.9 28.0-32.0 pg Mean Corpuscular Hemoglobin Concent 33.0 32.0-36.0 g/dL Red Cell Distribution Width 15.5 H 11.8-14.3 % Platelet Count 164 140-450 10^3/uL Mean Platelet Volume 9.5 6.9-10.8 fL Neutrophils (%) (Auto) 37.0-80.0 % Lymphocytes (%) (Auto) 10.0-50.0 % Monocytes (%) (Auto) 0.0-12.0 % Basophils (%) (Auto) 0.0-2.0 % Neutrophils # (Auto) 1.6-8.6 10 ^3/uL Lymphocytes # (Auto) 0.4-5.4 10 ^3/uL Monocytes # (Auto) 0-1.3 10 ^3/uL Differential Total Cells Counted 100.0 100 Neutrophils % (Manual) 65 37.0-80.0 Band Neutrophils % (Manual) 2 Lymphocytes % (Manual) 17 10.0-50.0 Monocytes % (Manual) 15 H 0-12 Eosinophils % (Manual) 1 0-7 Basophils % (Manual) 0 0.0-2.0 Metamyelocytes % (manual) 0 Myelocytes % (Manual) 0 Promyelocytes % (Manual) 0 Blast Cells % (Manual) 0 Reactive Lymphocytes 0 Platelet Estimate Adequate Anisocytosis (manual) Slight D-Dimer, Quantitative 2.81 H 0.0-0.49 mg/L FEU Sodium Level 130 L 136-145 mmol/L Potassium Level 3.8 3.5-5.1 mmol/L Chloride Level 98 98-107 mmol/L Carbon Dioxide Level 23 20-31 mmol/L Anion Gap 9 5-15 Blood Urea Nitrogen 14 9-23 mg/dL Creatinine 1.22 0.700-1.30 mg/dL Glomerular Filtration Rate Calc 71 >90 mL/min BUN/Creatinine Ratio 11.5 10.0-20.0 Serum Glucose 98 74-106 mg/dL Calcium Level 9.3 8.7-10.4 mg/dL Troponin I High Sensitivity 136 *H </=54 ng/L B-Type Natriuretic Peptide 1309.21 0-100 pg/mL Microbiology Date/Time Source Procedure Growth Status 10/24/24 01:30 Nose MRSA Screen - Final Complete Assessment 57-year-old male past medical history of alcoholic liver cirrhosis presents to the hospital complaining of shortness of breath was found to have atrial fibrillation rapid ventricular response diagnosed with decompensated heart failure with ejection fraction less than 20%. Nephrology consulted for acute kidney injury Acute kidney injury likely multiple factors including hemodynamics, contrast, cardiorenal syndrome No previous CKD Dilated cardiomyopathy with ejection fraction 20% Cirrhosis Acute respiratory failure AFib with rapid ventricular response Current creatinine rise likely in the setting of previous contrast and hemodynamic fluctuations due to significant tachycardia. Patient urinates today an overtly does not appear overtly overloaded therefore we will hold diuretics today. Recommend establishing rate control and maintain mean arterial pressure greater than 65 to reduced cardiac strain Continue to monitor urinary output Chest x-ray daily Diuretics going forward all available need to be used we will require use at a p.r.n. basis based on input and output assessments Requires close cardiology follow-up Rest of care as per primary medical team currently in ICU Critical care time 35 minutes Plan discussed with: Other CHRISTOS KOTHARI MD Oct 25, 2024 15:17
--- NOTE | 2024-10-25 15:18 | DVHPN2 ---
Progress Note Date Seen: Oct 25, 2024 Resident Creating Document: ANA LAURA WHITNEY JENNIFER Has the PT tested + for MRSA If YES, has PT been informed?: No Medical Necessity Reason Pt with a Central, PICC or Fol: No The following are medically ne: Central Line, Greenberg Catheter Subjective Review of Systems Patient seen and examined at bedside. Patient is sedated and intubated, could not provide history Objective vital signs Vital Sign Date Time Temp Pulse Resp B/P (MAP) Pulse Ox O2 Delivery O2 Flow Rate FiO2 10/25/24 13:38 18 94 Mechanical Ventilator+ 100 100 10/25/24 13:38 132 10/25/24 13:25 99.1 96/58 (71) 210.4 10/23/24 18:24 2 Total Intake and Output 10/24/24 10/24/24 10/25/24 15:00 23:00 07:00 Intake Total 296.355 ml 1009.80 ml 670.492 ml Output Total 0 ml 250 ml 75 ml Balance 296.355 ml 759.80 ml 595.492 ml medications Current Medications Medications Dose Ordered Sig/Cristian Route Start Time Stop Time Status Last Admin Dose Admin Propofol 100 ml @ 2.286 mls/ hr Q24H IV 10/23/24 19:45 10/24/24 03:56 13.716 MLS/HR Midazolam HCl 50 ml @ 1 mls/hr Q24H IV 10/23/24 19:45 10/25/24 11:46 10 MLS/HR Fentanyl Citrate 250 ml @ 2.5 mls/hr Q24H IV 10/23/24 21:45 10/25/24 14:06 20 MLS/HR Furosemide 20 mg BIDD IV 10/24/24 06:00 10/24/24 19:35 20 MG Pantoprazole Sodium 40 mg DAILY IV 10/24/24 10:00 10/25/24 08:37 40 MG Phenylephrine HCl 80 mg/Sodium Chloride 250 ml @ 7.5 mls/hr Q24H IV 10/24/24 14:30 10/25/24 02:12 26.25 MLS/HR Norepinephrine Bitartrate 32 mg/ Sodium Chloride 250 ml @ 0.938 mls/ hr Q24H IV 10/24/24 14:30 10/24/24 18:55 6.563 MLS/HR Cefepime HCl 50 ml @ 12.5 mls/hr Q8H IV 10/24/24 23:00 10/25/24 13:09 12.5 MLS/HR Enoxaparin Sodium 80 mg DAILY SC 10/26/24 10:00 Metronidazole 100 ml @ 100 mls/hr Q8HR IV 10/25/24 13:00 10/25/24 11:44 100 MLS/HR Oseltamivir Phosphate 30 mg BID PO 10/25/24 22:00 10/30/24 21:59 Examination General: RASS -3, afebrile, mucosae are moist Cardiovascular: Normal S1 and S2. No murmurs, gallops or rubs Respiratory: Mechanically assisted ventilation, equal bilateral airway entree. Clear lung sounds on auscultation Abdomen: Soft, nontender, no organomegaly, normal bowel sounds MSK/skin: Mobilization of limbs cannot be evaluated. Skin is dry and warm. Neurological: Orientation cannot be assessed. No apparent motor no sensitive deficits. Pupils are isocoric and reactive laboratory and microbiology Laboratory Tests 10/25/24 10:15 10/25/24 04:00 Test 10/25/24 10:15 Range/Units Serum Glucose 181 H 74-106 mg/dL Microbiology Date/Time Source Procedure Growth Status 10/24/24 13:23 Voided Urine Urine Culture - Preliminary Resulted 10/24/24 01:30 Nose MRSA Screen - Final Complete 10/23/24 19:48 Blood Blood Culture - Preliminary NO GROWTH AFTER 24 HOURS OF INCUBATION. Resulted Labs and/or images reviewed: Labs reviewed by me, Image(s) reviewed by me Problem List/Assessment/Plan Problem List/Assessment/Plan Acute hypoxic respiratory failure, likely due to pneumonia Acute on chronic decompensated HFrEF, NYHA Class III, newly diagnosed Paroxysmal atrial fibrillation/atrial flutter Acquired coagulopathy NSTEMI, possibly type 1 Pneumonia, likely due to Gram-positive/Gram-negative bacteria/aspiration pneumonia Sepsis due to above Bilateral pleural effusions Tobacco/alcohol dependence ? Alcohol withdrawal * EKG shows AFib/atrial flutter with RVR * Troponin is mildly raised at 120s, BNP is raised at 1200s * Echo shows LVEF around 20% * Chads Vasc score: 1 Plan/Recommendation (Case discussed with Dr. Cantu) * Amiodarone drip for atrial flutter * Vasopressor for hemodynamic support * Rest of plan per amlodipine * We follow up with the patient Thank you for giving us the opportunity to take care of your patient. Please call back if any question/concern. Plan discussed with: Patient, Other (RN) My Orders My Orders Orders - ANA LAURA WHITNEY Procedure Category Date Status Time Amiodarone PHA 10/25/24 In Process 360mg/200ml Premix 09:13 Dietary Evaluation Review Comments: 1) TF Jevity 1.2Cal @ 50ml/hr (goal) along wth Pro-stat 1 pk BID. Start @ 20ml/hr, increase 10ml/hr Q4H until goal is reached. TF @ goal volume along with Pro-stat provides 1640 kcal (100% energy needs), 96 gm protein (100% protein needs), 968 ml free water. 2) Water flush 170ml Q6H if allowed, adjust PRN 3) TPN if NPO > 7 days 4) Monitor NPO status, lab values, wt trend, I/O Expected Outcomes/Goals: To meet >75% estimated needs Fu 2-3 days ANA LAURA WHITNEY Oct 25, 2024 15:18
[2024-10-25] MEDS: OSELTAMIVIR 30 MG CAP PO ONE (16:27)
--- NOTE | 2024-10-25 17:25 | DVHPNRES ---
Progress Note Date Seen: Oct 25, 2024 Resident Creating Document: MAX FLOYD RESIDENT Has the PT tested + for MRSA If YES, has PT been informed?: No Medical Necessity Reason Pt with a Central, PICC or Fol: No The following are medically ne: Central Line, Greenberg Catheter Subjective Review of Systems Patient is a 54-year-old male with past medical history of liver cirrhosis, portal hypertension related gastropathy, cholelithiasis, depression, tachycardia, alcohol related tremors, who came in due to shortness of breaths. According to the ER notes, patient was having severe shortness of breath with tachypnea along with atrial fibrillation with rapid ventricular response, patient underwent synchronized cardioversion at 120 joules and was subsequently intubated. Per patient's son Mr. Shemar Winkler, patient called him yesterday on 10/23/2024 and stated he has been having increasing difficulty breathing and difficulty sleeping that has been worsened over the last 3 days. Per patient's son he is unable to provide more information as he does not live with his father, patient lives with his roommate. History and most of the information was obtained from patient's sons Mr. Galo, Mr. Staton and patient's ex-. Past surgical history: Unable to obtain Home medications: Thiamine, propranolol, Protonix, metronidazole, levofloxacin Past Hospitalization: In 2019 at the [facility] for upper and lower GI bleed Social & Personal history: Patient lives with a roommate. Per patient's , patient is a nonsmoker. However, heavy alcohol usage 6-12 drinks per day, daily for the last 35-40 years. Unable to obtain an accurate substance abuse related history. Allergies: Latex, penicillin 10/25/24: overnight patient became hypotensive and hyperkalemic at 6.2, hyperkalemia protocol was carried out, dc'ed amiodarone drip which led to rhythm reverting back to atrial flutter. Amio drip was resumed later in the day, digoxin also added. influenze b +, started tamiflu. added metronidalzole. Objective vital signs Vital Sign Date Time Temp Pulse Resp B/P (MAP) Pulse Ox O2 Delivery O2 Flow Rate FiO2 10/25/24 16:26 131 18 102/59 (73) 94 100 10/25/24 16:25 99.1 210.4 10/25/24 16:00 Mechanical Ventilator+ 10/23/24 18:24 2 Total Intake and Output 10/24/24 10/24/24 10/25/24 15:00 23:00 07:00 Intake Total 296.355 ml 1009.80 ml 670.492 ml Output Total 0 ml 250 ml 75 ml Balance 296.355 ml 759.80 ml 595.492 ml medications Current Medications Medications Dose Ordered Sig/Cristian Route Start Time Stop Time Status Last Admin Dose Admin Propofol 100 ml @ 2.286 mls/ hr Q24H IV 10/23/24 19:45 10/24/24 03:56 13.716 MLS/HR Midazolam HCl 50 ml @ 1 mls/hr Q24H IV 10/23/24 19:45 10/25/24 17:07 10 MLS/HR Fentanyl Citrate 250 ml @ 2.5 mls/hr Q24H IV 10/23/24 21:45 10/25/24 14:06 20 MLS/HR Pantoprazole Sodium 40 mg DAILY IV 10/24/24 10:00 10/25/24 08:37 40 MG Phenylephrine HCl 80 mg/Sodium Chloride 250 ml @ 7.5 mls/hr Q24H IV 10/24/24 14:30 10/25/24 02:12 26.25 MLS/HR Norepinephrine Bitartrate 32 mg/ Sodium Chloride 250 ml @ 0.938 mls/ hr Q24H IV 10/24/24 14:30 10/24/24 18:55 6.563 MLS/HR Cefepime HCl 50 ml @ 12.5 mls/hr Q8H IV 10/24/24 23:00 10/25/24 13:09 12.5 MLS/HR Enoxaparin Sodium 80 mg DAILY SC 10/26/24 10:00 Metronidazole 100 ml @ 100 mls/hr Q8HR IV 10/25/24 13:00 10/25/24 11:44 100 MLS/HR Oseltamivir Phosphate 30 mg BID PO 10/25/24 22:00 10/30/24 21:59 Enteral Nutritional Formula 1,000 ml 30ML/HR GT 10/25/24 17:15 UNV Examination General Appearance: Intubated, sedated and mechanically ventilated. Lying down in bed without any distress. Head Exam: Normal inspection Neck Exam: Normal inspection. Non-tender. Normal alignment. Equal and minimally reactive pupils 2 mm. Pulmonary/Respiratory: Chest non-tender. Decreased bilateral breath sounds, no crackles, no wheezing. Cardiovascular/Chest: Tachycardia. No murmurs. No JVD. Peripheral Pulses: 2+ Radial (R). 2+ Radial (L). 2+ Pedal (R). 2+ Pedal (L) Abdominal Exam: Normal bowel sounds. Soft. normal abdomen, no visible veins, Nontender. No hepatospenomegaly. No masses Ankle Exam: Negative ankle edema Lower extremities: Negative lower extremity edema Skin Exam: Normal inspection. Normal color. Warm. Dry laboratory and microbiology Laboratory Tests 10/25/24 10:15 10/25/24 04:00 Test 10/25/24 10:15 Range/Units Serum Glucose 181 H 74-106 mg/dL Microbiology Date/Time Source Procedure Growth Status 10/24/24 13:23 Voided Urine Urine Culture - Preliminary Resulted 10/24/24 01:30 Nose MRSA Screen - Final Complete 10/23/24 19:48 Blood Blood Culture - Preliminary NO GROWTH AFTER 24 HOURS OF INCUBATION. Resulted Labs and/or images reviewed: Labs reviewed by me, Image(s) reviewed by me Problem List/Assessment/Plan Problem List/Assessment/Plan Neurology # acute toxic vs metabolic encephalopathy # possible alcohol withdrawal # hx of withdrawal seizures? # Sedated - head CT: No acute intracranial abnormality - IV banana bag once - Versed 10 mcg per hour Cardiovascular # septic shock due to pneumonia # atrial flutter with hemodynamic instability, s/p cardioversion x2 # NSTEMI 1 vs 2 # End- stage dilated cardiomyopathy # Heart failure with reduced ejection fraction <20% # Prolonged QTC - amiodarone drip - cardiology on board - norepinephrine at 10 micrograms/hour - amiodarone drip at 0.5mg/min - phenylephrine at 15mcg/min - IV digoxin 500mcg once Respiratory # Acute hypoxic respiratory failure # community-acquired pneumonia, Gram-positive versus Gram-negative # Ventilator # ruled out pulmonary embolism -intubated (10/23/24) -on [facility] vent : VCAC Mode RR 20 TV 550ml, PEEP Of 8 and FiO2 of 100% - CXR: Moderate interstitial pulmonary edema in the setting of cardiomegaly. Probable trace bilateral effusions. - CT angio: No evidence of pulmonary embolism. Pulmonary edema. Large bilateral pleural effusions. Associated consolidation of the majority of bilateral lower lobes independent portions of the remaining lobes of the lung. Cirrhotic liver. Small amount of ascites in the visualized upper abdomen. - chest ultrasound: Small bilateral pleural effusion, trace ascites. - holding IV Lasix until tomorrow - IV cefepime, IV metronidazole GI # Hx of GI bleed # cirrhosis, MELD 19 # Hx of portal hypertension gastropathy # mild abdominal ascites # Peptic ulcer prophylaxis -Pantoprazole 40 mg IV daily # Greenberg catheter placed on 10/23/24 - urine culture Nephrology # Hyperkalemia # DMITRIY likely ATN/VMN on ?CKD (GFR 70 on admission, unknown baseline) - monitor - nephrology on board; recommended to start lokelma qD if hyperkalemia persists, holding for now as last serum K 3.9 Infectious disease # community acquired pneumonia, gram + vs -ve # Influenza B positive - IV cefepime - IV metronidazole - Oseltamivir - norepinephrine at 10 micrograms/hour - phenylephrine at 15mcg/min - respiratory, blood, urine cultures Hem/onc # mild normocytic anemia # ruled out lower extremity DVT - lower extremity Doppler: No right or left lower extremity deep vein thrombosis. Psychiatry # Alcohol use disorder # hx of depression - outpatient psychiatry follow up versus psychiatry consult upon extubation DVT prophylaxis - on therapeutic lovenox, dose modified to once daily owing to liver cirrhosis and previous history of GI bleed Nutrition TF nepro carbsteady Lines L IJ CVC 10/23/24 LUE 20g 10/23/24 RUE 20g 10/23/24 Drips during mech ventilation Fentanyl 200 mcg/hr Versed 10 Intubated on 10/23/24 Critical care time 82 minutes excluding procedure and discussions with the family. Code status discussed greater than 20 minutes: Full CODE STATUS. Plan discussed with Dr. Sheriff Plan discussed with: Son, Other (RN) My Orders My Orders Orders - MAX FLOYD RESIDENT Procedure Category Date Status Time Abg W/ Co-Ox RT 10/25/24 Logged 03:00 Chest Xray 1 View XY 10/25/24 Resulted 02:00 Enoxaparin Sodium PHA 10/26/24 In Process (Lovenox) 10:00 Mrsa Screen LORE 10/25/24 In Process 10:32 Metronidazole PHA 10/25/24 In Process 500mg/100ml (Flagyl 13:00 Abg W/ Co-Ox RT 10/25/24 Logged 11:29 *[facility] CONS 10/25/24 Transmitted -[place] 13:03 Nutritional PHA 10/25/24 Logged Supplements (Nepro 17:15 Ventilator Orders RT 10/25/24 Transmitted 17:12 Digoxin (Lanoxin) LAB 10/25/24 Logged 21:00 Complete Blood Count LAB 10/26/24 Verified 04:00 Comprehensive LAB 10/26/24 Verified Metabolic Panel 04:00 Chest Portable XY 10/26/24 Logged 04:00 Abg W/ Co-Ox RT 10/26/24 Logged 04:00 Dietary Evaluation Review Comments: 1) TF Jevity 1.2Cal @ 50ml/hr (goal) along wth Pro-stat 1 pk BID. Start @ 20ml/hr, increase 10ml/hr Q4H until goal is reached. TF @ goal volume along with Pro-stat provides 1640 kcal (100% energy needs), 96 gm protein (100% protein needs), 968 ml free water. 2) Water flush 170ml Q6H if allowed, adjust PRN 3) TPN if NPO > 7 days 4) Monitor NPO status, lab values, wt trend, I/O Expected Outcomes/Goals: To meet >75% estimated needs Fu 2-3 days Date of Service: Oct 26, 2024 Billing Provider: LAUREANO SHERIFF MD Common Visit Codes: 47250-VQOSTLKI CARE 30-74 MIN, [id number] CARE-EACH +30MIN MAX FLOYD Oct 25, 2024 17:25 LAUREANO SHERIFF MD Oct 26, 2024 10:57
[2024-10-25] MEDS: SODIUM CHLORIDE 0.9% 500 ML IV ONE (21:30)
[2024-10-25] MEDS: OSELTAMIVIR 30 MG CAP PO SCH (22:06)
[2024-10-25] MEDS: POTASSIUM CHL 20MEQ/100ML 200 ML IV ONE (23:54)
[2024-10-25] MEDS: POTASSIUM CHL 20MEQ/100ML 100 ML IV SCH (23:54)
[2024-10-26] VITALS (115 sets, daily range): BP systolic 79–134; BP diastolic 47–95; PULSE 80–123; RESP 13–21; TEMP 97.9–99.3; O2SAT 89–100
[2024-10-26] MEDS: DIGOXIN (250MCG/ML) 2 ML AMPULE IV ONE (01:22)
[2024-10-26] MEDS: Nepro With Carb Steady 1 Liter Bottle GT SCH (01:38)
--- NOTE | 2024-10-26 05:42 | DVH ---
CHEST RADIOGRAPH Indication: pna Technique: Single frontal view of the chest was obtained Comparison: XY CHEST XRAY 1 VIEW on DOS: 10/25/24 FINDINGS: Lines and Tubes: The endotracheal tube terminates 4.7 cm above the ty. The enteric tube courses b elow the left hemidiaphragm and the tip extends outside the field of view. Lungs: Diffuse bilateral opacities with central predominance. Pleura: Bilateral pleural effusions. No pneumothorax. Cardiomediastinal contours: Stable. Bones: No acute osseous abnormality. IMPRESSION: 1. No acute cardiopulmonary disease.No significant interval change.
[2024-10-26] MEDS: IPRATROPIUM BROM 0.5 MG/2.5ML INH SOL NEB SCH (06:17)
[2024-10-26 06:29] LABS: Hematocrit 37.1 % (41.0-53.0); Hemoglobin 12.7 g/dL (13.5-17.5); Mean Corpuscular Hemoglobin 31.8 pg (28.0-32.0); Mean Corpuscular Volume 93.3 fL (80.0-100.0); Nucleated Red Blood Cells % 0.1 %
[2024-10-26 06:40] LABS: Base Excess -0.2 mmol/L (-2.0-3.0)
[2024-10-26 06:42] LABS: Albumin 3.2 g/dL (3.2-4.8); Alkaline Phosphatase 64 U/L (46-116); Anion Gap 9 (5-15); BUN/Creatinine Ratio 13.2 (10.0-20.0); Chloride 98 mmol/L (98-107); Magnesium 1.8 mg/dL (1.6-2.6); Sodium 138 mmol/L (136-145); Total Protein 6.3 g/dL (5.7-8.2)
[2024-10-26 06:58] LABS: Alanine Aminotransferase 1272 U/L (7-40); Bilirubin, Total 1.7 mg/dL (0.2-1.0); Blood Urea Nitrogen 37 mg/dL (9-23); Calcium 8.0 mg/dL (8.7-10.4); Carbon Dioxide 31 mmol/L (20-31); Potassium 3.5 mmol/L (3.5-5.1)
[2024-10-26 07:04] LABS: Glucose 121 mg/dL (74-106)
[2024-10-26] MEDS: ENOXAPARIN SOD 80 MG/0.8ML SYRINGE SC SCH (07:27)
--- NOTE | 2024-10-26 09:57 | ECG ---
[facility] Test Date: 2024-10-23 Test Time: 18:59:17 Pat Name: MILANA PAGE Department: ER Room: [address] [place] [address] A Gender: M Rn Bariatric: SYEDA : 1970 Requested By: ANA LAURA WHITNEY Order Number: [id number] Reading MD: Richard Cantu Measurements Intervals [place] Rate: 125 P: 70 AR: 83 QRS: 49 QRSD: 92 T: 249 QT: 396 QTc: 572 Interpretive Statements Sinus tachycardia Probable left atrial enlargement Low voltage, extremity and precordial leads Borderline repolarization abnormality Prolonged QT interval Electronically Signed On 10-30-2024 22:00:20 PDT by Richard Cantu Please click the below link to view image of tracing.
--- NOTE | 2024-10-26 13:53 | DVHPNRES ---
Progress Note Date Seen: Oct 26, 2024 Resident Creating Document: MAX FLOYD RESIDENT Has the PT tested + for MRSA If YES, has PT been informed?: No Medical Necessity Reason Pt with a Central, PICC or Fol: No The following are medically ne: Central Line, Greenberg Catheter Subjective Review of Systems Patient is a 54-year-old male with past medical history of liver cirrhosis, portal hypertension related gastropathy, cholelithiasis, depression, tachycardia, alcohol related tremors, who came in due to shortness of breaths. According to the ER notes, patient was having severe shortness of breath with tachypnea along with atrial fibrillation with rapid ventricular response, patient underwent synchronized cardioversion at 120 joules and was subsequently intubated. Per patient's son Mr. Shemar Winkler, patient called him yesterday on 10/23/2024 and stated he has been having increasing difficulty breathing and difficulty sleeping that has been worsened over the last 3 days. Per patient's son he is unable to provide more information as he does not live with his father, patient lives with his roommate. History and most of the information was obtained from patient's sons Mr. Galo, Mr. Staton and patient's ex-. Past surgical history: Unable to obtain Home medications: Thiamine, propranolol, Protonix, metronidazole, levofloxacin Past Hospitalization: In 2019 at the [facility] for upper and lower GI bleed Social & Personal history: Patient lives with a roommate. Per patient's , patient is a nonsmoker. However, heavy alcohol usage 6-12 drinks per day, daily for the last 35-40 years. Unable to obtain an accurate substance abuse related history. Allergies: Latex, penicillin 10/25/24: overnight patient became hypotensive and hyperkalemic at 6.2, hyperkalemia protocol was carried out, dc'ed amiodarone drip which led to rhythm reverting back to atrial flutter. Amio drip was resumed later in the day, digoxin also added. influenze b +, started tamiflu. added metronidalzole. 10/26/2024: Heart rate improved in the early 100s, continuing amiodarone drip. Liver function worsening. Objective vital signs Vital Sign Date Time Temp Pulse Resp B/P (MAP) Pulse Ox O2 Delivery O2 Flow Rate FiO2 10/26/24 13:46 96 10/26/24 13:46 20 96 Mechanical Ventilator+ 80 80 10/26/24 13:39 98.4 92/63 (85) 209.1 Total Intake and Output 10/25/24 10/25/24 10/26/24 15:00 23:00 07:00 Intake Total 579.028 ml 532.970 ml 831.532 ml Output Total 0 ml 3525 ml 3975 ml Balance 579.028 ml -2992.030 ml -3143.468 ml medications Current Medications Medications Dose Ordered Sig/Cristian Route Start Time Stop Time Status Last Admin Dose Admin Propofol 100 ml @ 2.286 mls/ hr Q24H IV 10/23/24 19:45 10/24/24 03:56 13.716 MLS/HR Midazolam HCl 50 ml @ 1 mls/hr Q24H IV 10/23/24 19:45 10/26/24 13:34 12 MLS/HR Fentanyl Citrate 250 ml @ 2.5 mls/hr Q24H IV 10/23/24 21:45 10/26/24 12:01 22.5 MLS/HR Pantoprazole Sodium 40 mg DAILY IV 10/24/24 10:00 10/26/24 07:26 40 MG Phenylephrine HCl 80 mg/Sodium Chloride 250 ml @ 7.5 mls/hr Q24H IV 10/24/24 14:30 10/25/24 02:12 26.25 MLS/HR Norepinephrine Bitartrate 32 mg/ Sodium Chloride 250 ml @ 0.938 mls/ hr Q24H IV 10/24/24 14:30 10/24/24 18:55 6.563 MLS/HR Cefepime HCl 50 ml @ 12.5 mls/hr Q8H IV 10/24/24 23:00 10/26/24 13:34 12.5 MLS/HR Metronidazole 100 ml @ 100 mls/hr Q8HR IV 10/25/24 13:00 10/26/24 12:00 100 MLS/HR Oseltamivir Phosphate 30 mg BID PO 10/25/24 22:00 10/30/24 21:59 10/26/24 07:27 30 MG Enteral Nutritional Formula 1,000 ml 30ML/HR GT 10/25/24 17:15 10/26/24 01:38 1,000 ML Ipratropium [place] 0.5 mg Q6HR NEB 10/26/24 06:00 10/26/24 11:37 0.5 MG Examination General Appearance: Intubated, sedated and mechanically ventilated. Lying down in bed without any distress. Head Exam: Normal inspection Neck Exam: Normal inspection. Non-tender. Normal alignment. Equal and minimally reactive pupils 2 mm. Pulmonary/Respiratory: Chest non-tender. Decreased bilateral breath sounds, no crackles, no wheezing. Cardiovascular/Chest: Tachycardia. No murmurs. No JVD. Peripheral Pulses: 2+ Radial (R). 2+ Radial (L). 2+ Pedal (R). 2+ Pedal (L) Abdominal Exam: Normal bowel sounds. Soft. normal abdomen, no visible veins, Nontender. No hepatospenomegaly. No masses Ankle Exam: Negative ankle edema Lower extremities: Negative lower extremity edema Skin Exam: Normal inspection. Normal color. Warm. Dry laboratory and microbiology Laboratory Tests 10/26/24 06:00 Test 10/26/24 06:00 Range/Units Serum Glucose 121 H 74-106 mg/dL Microbiology Date/Time Source Procedure Growth Status 10/24/24 13:23 Voided Urine Urine Culture - Final Complete 10/24/24 01:30 Nose MRSA Screen - Final Complete 10/23/24 19:48 Blood Blood Culture - Preliminary NO GROWTH AFTER 48 HOURS OF INCUBATION. Resulted Labs and/or images reviewed: Labs reviewed by me, Image(s) reviewed by me Problem List/Assessment/Plan Problem List/Assessment/Plan Neurology # acute toxic vs metabolic encephalopathy # possible alcohol withdrawal # hx of withdrawal seizures? # Sedated - head CT: No acute intracranial abnormality - IV banana bag once - Versed 10 mcg per hour Cardiovascular # septic shock due to pneumonia # atrial flutter with hemodynamic instability, s/p cardioversion x2 # NSTEMI 1 vs 2 # End- stage dilated cardiomyopathy # Heart failure with reduced ejection fraction <20% # Prolonged QTC - amiodarone drip - cardiology on board - norepinephrine at 10 micrograms/hour - amiodarone drip at 0.5mg/min - phenylephrine at 15mcg/min - IV digoxin 500mcg once Respiratory # Acute hypoxic respiratory failure # community-acquired pneumonia, Gram-positive versus Gram-negative # Ventilator # ruled out pulmonary embolism -intubated (10/23/24) -on [facility] vent : VCAC Mode RR 20 TV 550ml, PEEP Of 8 and FiO2 of 100% - CXR: Moderate interstitial pulmonary edema in the setting of cardiomegaly. Probable trace bilateral effusions. - CT angio: No evidence of pulmonary embolism. Pulmonary edema. Large bilateral pleural effusions. Associated consolidation of the majority of bilateral lower lobes independent portions of the remaining lobes of the lung. Cirrhotic liver. Small amount of ascites in the visualized upper abdomen. - chest ultrasound: Small bilateral pleural effusion, trace ascites. - holding IV Lasix until tomorrow - IV cefepime, IV metronidazole GI # Hx of GI bleed # cirrhosis, MELD 19 # Hx of portal hypertension gastropathy # mild abdominal ascites # Peptic ulcer prophylaxis -Pantoprazole 40 mg IV daily # Greenberg catheter placed on 10/23/24 - urine culture Nephrology # Hyperkalemia # DMITRIY likely ATN/VMN on ?CKD (GFR 70 on admission, unknown baseline) - monitor - nephrology on board; recommended to start lokelma qD if hyperkalemia persists, holding for now as last serum K 3.9 Infectious disease # community acquired pneumonia, gram + vs -ve # Influenza B positive - IV cefepime - IV metronidazole - Oseltamivir - norepinephrine at 10 micrograms/hour - phenylephrine at 15mcg/min - respiratory, blood, urine cultures Hem/onc # mild normocytic anemia # ruled out lower extremity DVT # thrombocytopenia - lower extremity Doppler: No right or left lower extremity deep vein thrombosis. Psychiatry # Alcohol use disorder # hx of depression - outpatient psychiatry follow up versus psychiatry consult upon extubation DVT prophylaxis - discontinue therapeutic Lovenox due to patient having thrombocytopenia Nutrition TF nepro carbsteady Lines L IJ CVC 10/23/24 LUE 20g 10/23/24 RUE 20g 10/23/24 Drips during [facility] ventilation Fentanyl 200 mcg/hr Versed 10 Intubated on 10/23/24 Critical care time 82 minutes excluding procedure and discussions with the family. Code status discussed greater than 20 minutes: Full CODE STATUS. Plan discussed with Dr. Sheriff Plan discussed with: Other (RN) My Orders My Orders Orders - MAX FLOYD RESIDENT Procedure Category Date Status Time Nutritional PHA 10/25/24 In Process Supplements (Nepro 17:15 Ventilator Orders RT 10/25/24 Transmitted 17:12 Chest Portable XY 10/26/24 Resulted 04:00 Abg W/ Co-Ox RT 10/26/24 Logged 04:00 Dietary Evaluation Review Comments: 1) TF Jevity 1.2Cal @ 50ml/hr (goal) along wth Pro-stat 1 pk BID. Start @ 20ml/hr, increase 10ml/hr Q4H until goal is reached. TF @ goal volume along with Pro-stat provides 1640 kcal (100% energy needs), 96 gm protein (100% protein needs), 968 ml free water. 2) Water flush 170ml Q6H if allowed, adjust PRN 3) TPN if NPO > 7 days 4) Monitor NPO status, lab values, wt trend, I/O Expected Outcomes/Goals: To meet >75% estimated needs Fu 2-3 days Date of Service: Oct 26, 2024 Billing Provider: LAUREANO SHERIFF MD Common Visit Codes: [id number]-[id number] CARE 30-74 MIN, [id number] CARE-EACH +30MIN MAX FLOYD RESIDENT Oct 26, 2024 13:53 LAUREANO SHERIFF MD Oct 28, 2024 10:54
--- NOTE | 2024-10-26 14:40 | DVHPN2 ---
Progress Note Date Seen: Oct 26, 2024 Resident Creating Document: ANA LAURA WHITNEY JENNIFER Has the PT tested + for MRSA If YES, has PT been informed?: No Medical Necessity Reason Pt with a Central, PICC or Fol: No The following are medically ne: Central Line, Greenberg Catheter Subjective Review of Systems Patient seen and examined at the bedside. Patient is still sedated and on mechanical ventilation, review of systems could not obtain. Objective vital signs Vital Sign Date Time Temp Pulse Resp B/P (MAP) Pulse Ox O2 Delivery O2 Flow Rate FiO2 10/26/24 14:05 87 20 84/53 (63) 98 80 10/26/24 13:54 98.4 209.1 10/26/24 13:46 Mechanical Ventilator+ Total Intake and Output 10/25/24 10/25/24 10/26/24 15:00 23:00 07:00 Intake Total 579.028 ml 532.970 ml 831.532 ml Output Total 0 ml 3525 ml 3975 ml Balance 579.028 ml -2992.030 ml -3143.468 ml medications Current Medications Medications Dose Ordered Sig/Cristian Route Start Time Stop Time Status Last Admin Dose Admin Propofol 100 ml @ 2.286 mls/ hr Q24H IV 10/23/24 19:45 10/24/24 03:56 13.716 MLS/HR Midazolam HCl 50 ml @ 1 mls/hr Q24H IV 10/23/24 19:45 10/26/24 13:34 12 MLS/HR Fentanyl Citrate 250 ml @ 2.5 mls/hr Q24H IV 10/23/24 21:45 10/26/24 12:01 22.5 MLS/HR Pantoprazole Sodium 40 mg DAILY IV 10/24/24 10:00 10/26/24 07:26 40 MG Phenylephrine HCl 80 mg/Sodium Chloride 250 ml @ 7.5 mls/hr Q24H IV 10/24/24 14:30 10/25/24 02:12 26.25 MLS/HR Norepinephrine Bitartrate 32 mg/ Sodium Chloride 250 ml @ 0.938 mls/ hr Q24H IV 10/24/24 14:30 10/24/24 18:55 6.563 MLS/HR Cefepime HCl 50 ml @ 12.5 mls/hr Q8H IV 10/24/24 23:00 10/26/24 13:34 12.5 MLS/HR Metronidazole 100 ml @ 100 mls/hr Q8HR IV 10/25/24 13:00 10/26/24 12:00 100 MLS/HR Oseltamivir Phosphate 30 mg BID PO 10/25/24 22:00 10/30/24 21:59 10/26/24 07:27 30 MG Enteral Nutritional Formula 1,000 ml 30ML/HR GT 10/25/24 17:15 10/26/24 01:38 1,000 ML Ipratropium [place] 0.5 mg Q6HR NEB 10/26/24 06:00 10/26/24 11:37 0.5 MG Examination General: RASS -3, afebrile, mucosae are moist Cardiovascular: Normal S1 and S2. No murmurs, gallops or rubs Respiratory: Mechanically assisted ventilation, equal bilateral airway entree. Clear lung sounds on auscultation Abdomen: Soft, nontender, no organomegaly, normal bowel sounds MSK/skin: Mobilization of limbs cannot be evaluated. Skin is dry and warm. Neurological: Orientation cannot be assessed. No apparent motor no sensitive deficits. Pupils are isocoric and reactive laboratory and microbiology Laboratory Tests 10/26/24 06:00 Test 10/26/24 06:00 Range/Units Serum Glucose 121 H 74-106 mg/dL Microbiology Date/Time Source Procedure Growth Status 10/24/24 13:23 Voided Urine Urine Culture - Final Complete 10/24/24 01:30 Nose MRSA Screen - Final Complete 10/23/24 19:48 Blood Blood Culture - Preliminary NO GROWTH AFTER 48 HOURS OF INCUBATION. Resulted Problem List/Assessment/Plan Problem List/Assessment/Plan Acute hypoxic respiratory failure, likely due to pneumonia Acute on chronic decompensated HFrEF, NYHA Class III, newly diagnosed Paroxysmal atrial fibrillation/atrial flutter Acquired coagulopathy NSTEMI, possibly type 1 Pneumonia, likely due to Gram-positive/Gram-negative bacteria/aspiration pneumonia Sepsis due to above Bilateral pleural effusions Tobacco/alcohol dependence ? Alcohol withdrawal * EKG shows AFib/atrial flutter with RVR * Troponin is mildly raised at 120s, BNP is raised at 1200s * Echo shows LVEF around 20% * Chads Vasc score: 1 Plan/Recommendation (Case discussed with Dr. Cantu) * Amiodarone drip for atrial flutter/atrial fibrillation * Discontinued digoxin * Rest of plan per primary team * We follow up with the patient Thank you for giving us the opportunity to take care of your patient. Please call back if any question/concern. Plan discussed with: Other (RN) Dietary Evaluation Review Comments: 1) TF Jevity 1.2Cal @ 50ml/hr (goal) along wth Pro-stat 1 pk BID. Start @ 20ml/hr, increase 10ml/hr Q4H until goal is reached. TF @ goal volume along with Pro-stat provides 1640 kcal (100% energy needs), 96 gm protein (100% protein needs), 968 ml free water. 2) Water flush 170ml Q6H if allowed, adjust PRN 3) TPN if NPO > 7 days 4) Monitor NPO status, lab values, wt trend, I/O Expected Outcomes/Goals: To meet >75% estimated needs Fu 2-3 days ANA LAURA WHITNEY RESDIENT Oct 26, 2024 14:40
--- NOTE | 2024-10-26 15:57 | DVHPN2 ---
Progress Note Date Seen: Oct 26, 2024 Has the PT tested + for MRSA If YES, has PT been informed?: No Medical Necessity Reason Pt with a Central, PICC or Fol: No The following are medically ne: Central Line, Greenberg Catheter Subjective Review of Systems: Deferred Objective vital signs Vital Sign Date Time Temp Pulse Resp B/P (MAP) Pulse Ox O2 Delivery O2 Flow Rate FiO2 10/26/24 15:41 20 99 Mechanical Ventilator+ 80 80 10/26/24 15:41 82 10/26/24 15:39 98.2 97/65 (76) 208.8 Total Intake and Output 10/25/24 10/25/24 10/26/24 15:00 23:00 07:00 Intake Total 579.028 ml 532.970 ml 831.532 ml Output Total 0 ml 3525 ml 3975 ml Balance 579.028 ml -2992.030 ml -3143.468 ml medications Current Medications Medications Dose Ordered Sig/Cristian Route Start Time Stop Time Status Last Admin Dose Admin Propofol 100 ml @ 2.286 mls/ hr Q24H IV 10/23/24 19:45 10/24/24 03:56 13.716 MLS/HR Midazolam HCl 50 ml @ 1 mls/hr Q24H IV 10/23/24 19:45 10/26/24 13:34 12 MLS/HR Fentanyl Citrate 250 ml @ 2.5 mls/hr Q24H IV 10/23/24 21:45 10/26/24 12:01 22.5 MLS/HR Pantoprazole Sodium 40 mg DAILY IV 10/24/24 10:00 10/26/24 07:26 40 MG Phenylephrine HCl 80 mg/Sodium Chloride 250 ml @ 7.5 mls/hr Q24H IV 10/24/24 14:30 10/25/24 02:12 26.25 MLS/HR Norepinephrine Bitartrate 32 mg/ Sodium Chloride 250 ml @ 0.938 mls/ hr Q24H IV 10/24/24 14:30 10/24/24 18:55 6.563 MLS/HR Cefepime HCl 50 ml @ 12.5 mls/hr Q8H IV 10/24/24 23:00 10/26/24 13:34 12.5 MLS/HR Metronidazole 100 ml @ 100 mls/hr Q8HR IV 10/25/24 13:00 10/26/24 12:00 100 MLS/HR Oseltamivir Phosphate 30 mg BID PO 10/25/24 22:00 10/30/24 21:59 10/26/24 07:27 30 MG Enteral Nutritional Formula 1,000 ml 30ML/HR GT 10/25/24 17:15 10/26/24 01:38 1,000 ML Ipratropium [place] 0.5 mg Q6HR NEB 10/26/24 06:00 10/26/24 11:37 0.5 MG Examination: GENERAL:Abnormal, LUNGS:Abnormal, CVS:Abnormal laboratory and microbiology Laboratory Tests 10/26/24 06:00 Test 10/26/24 06:00 Range/Units Serum Glucose 121 H 74-106 mg/dL Microbiology Date/Time Source Procedure Growth Status 10/25/24 10:45 Nose MRSA Screen - Final Complete 10/24/24 13:23 Voided Urine Urine Culture - Final Complete 10/23/24 19:48 Blood Blood Culture - Preliminary NO GROWTH AFTER 48 HOURS OF INCUBATION. Resulted Problem List/Assessment/Plan Problem List/Assessment/Plan 57-year-old male past medical history of alcoholic liver cirrhosis presents to the hospital complaining of shortness of breath was found to have atrial fibrillation rapid ventricular response diagnosed with decompensated heart failure with ejection fraction less than 20%. Nephrology consulted for acute kidney injury Acute kidney injury likely multiple factors including hemodynamics, contrast, cardiorenal syndrome No previous CKD Dilated cardiomyopathy with ejection fraction 20% Cirrhosis Acute respiratory failure AFib with rapid ventricular response Currently rate controlled, cardiology recommendations noted patient is status post amio Patient is status post diuretics and BP is improved., patient had 7 L urinary output yesterday we will hold off on diuretics today Monitoring urinary output Creatinine has plateaued and slightly improved today Avoid contrast studies if able Replace electrolytes accordingly Rest of care as per primary medical team currently in ICU Plan discussed with: Other Dietary Evaluation Review Comments: 1) TF Jevity 1.2Cal @ 50ml/hr (goal) along wth Pro-stat 1 pk BID. Start @ 20ml/hr, increase 10ml/hr Q4H until goal is reached. TF @ goal volume along with Pro-stat provides 1640 kcal (100% energy needs), 96 gm protein (100% protein needs), 968 ml free water. 2) Water flush 170ml Q6H if allowed, adjust PRN 3) TPN if NPO > 7 days 4) Monitor NPO status, lab values, wt trend, I/O Expected Outcomes/Goals: To meet >75% estimated needs Fu 2-3 days Critical Care Time (mins): 35 CHRISTOS KOTHARI MD Oct 26, 2024 15:57
[2024-10-27] VITALS (117 sets, daily range): BP systolic 80–116; BP diastolic 56–84; PULSE 79–121; RESP 19–24; TEMP 76.6–100.2; O2SAT 94–100
[2024-10-27 03:38] LABS: Alkaline Phosphatase 72 U/L (46-116); Anion Gap 10 (5-15); BUN/Creatinine Ratio 17.4 (10.0-20.0); Carbon Dioxide 29 mmol/L (20-31); Chloride 100 mmol/L (98-107); Glucose 100 mg/dL (74-106); Sodium 139 mmol/L (136-145); Total Protein 5.9 g/dL (5.7-8.2)
[2024-10-27 04:02] LABS: Hematocrit 37.5 % (41.0-53.0); Hemoglobin 12.9 g/dL (13.5-17.5); Mean Corpuscular Hemoglobin 32.5 pg (28.0-32.0); Mean Corpuscular Volume 94.6 fL (80.0-100.0); Nucleated Red Blood Cells % 0.1 %
[2024-10-27 04:10] LABS: Alanine Aminotransferase 956 U/L (7-40); Albumin 3.0 g/dL (3.2-4.8); Bilirubin, Total 1.4 mg/dL (0.2-1.0); Blood Urea Nitrogen 36 mg/dL (9-23); Calcium 7.6 mg/dL (8.7-10.4); Potassium 3.4 mmol/L (3.5-5.1)
[2024-10-27] MEDS: POTASSIUM CHL 20MEQ/100ML 100 ML IV ONE ×2 (05:13→05:22)
[2024-10-27] MEDS: MAGNESIUM SULFATE 1GM/100ML 100 ML IV ONE ×2 (05:13→05:22)
--- NOTE | 2024-10-27 06:09 | DVH ---
CHEST RADIOGRAPH Indication: pulm edema Technique: Single frontal view of the chest was obtained Comparison: XY CHEST PORTABLE on DOS: 10/26/24 FINDINGS: Lines and Tubes: The endotracheal tube terminates 3.3 cm above the ty. Left central venous haydee ter terminates in the superior vena cava. The enteric tube courses below the left hemidiaphragm and t he tip extends outside the field of view. Lungs: Hazy bilateral opacities. Pleura: Bilateral pleural effusions similar to prior study. No pneumothorax. Cardiomediastinal contours: Stable. Bones: No acute osseous abnormality. IMPRESSION: 1. Stable position of the support lines and tubes. 2. Bilateral pleural effusions and bilateral pulmonary edema.
[2024-10-27 06:53] LABS: Base Excess 1.1 mmol/L (-2.0-3.0)
[2024-10-27] MEDS: CEFEPIME 2GM/50ML NS 50 ML IV SCH (07:33)
--- NOTE | 2024-10-27 11:31 | DVHPN2 ---
Progress Note Date Seen: Oct 27, 2024 Has the PT tested + for MRSA If YES, has PT been informed?: No Medical Necessity Reason Pt with a Central, PICC or Fol: No The following are medically ne: Central Line, Greenberg Catheter Subjective Patient reports: Other Review of Systems: Deferred Objective vital signs Vital Sign Date Time Temp Pulse Resp B/P (MAP) Pulse Ox O2 Delivery O2 Flow Rate FiO2 10/27/24 10:25 99.5 89 21 96/70 (79) 97 211.1 10/27/24 10:01 50 10/27/24 09:34 Mechanical Ventilator+ Total Intake and Output 10/26/24 10/26/24 10/27/24 15:00 23:00 07:00 Intake Total 762.093 ml 784.78 ml 719.28 ml Output Total 0 ml 1200 ml 1250 ml Balance 762.093 ml -415.22 ml -530.72 ml medications Current Medications Medications Dose Ordered Sig/Cristian Route Start Time Stop Time Status Last Admin Dose Admin Propofol 100 ml @ 2.286 mls/ hr Q24H IV 10/23/24 19:45 10/24/24 03:56 13.716 MLS/HR Midazolam HCl 50 ml @ 1 mls/hr Q24H IV 10/23/24 19:45 10/27/24 08:05 12 MLS/HR Fentanyl Citrate 250 ml @ 2.5 mls/hr Q24H IV 10/23/24 21:45 10/27/24 07:33 22.5 MLS/HR Pantoprazole Sodium 40 mg DAILY IV 10/24/24 10:00 10/27/24 07:32 40 MG Phenylephrine HCl 80 mg/Sodium Chloride 250 ml @ 7.5 mls/hr Q24H IV 10/24/24 14:30 10/25/24 02:12 26.25 MLS/HR Norepinephrine Bitartrate 32 mg/ Sodium Chloride 250 ml @ 0.938 mls/ hr Q24H IV 10/24/24 14:30 10/24/24 18:55 6.563 MLS/HR Metronidazole 100 ml @ 100 mls/hr Q8HR IV 10/25/24 13:00 10/27/24 06:12 100 MLS/HR Oseltamivir Phosphate 30 mg BID PO 10/25/24 22:00 10/30/24 21:59 10/27/24 07:32 30 MG Enteral Nutritional Formula 1,000 ml 30ML/HR GT 10/25/24 17:15 10/27/24 04:25 1,000 ML Ipratropium [place] 0.5 mg Q6HR NEB 10/26/24 06:00 10/27/24 06:35 0.5 MG Cefepime HCl 50 ml @ 12.5 mls/hr Q12HR IV 10/27/24 10:00 10/27/24 07:33 12.5 MLS/HR Examination: GENERAL:Abnormal, LUNGS:Abnormal, CVS:Abnormal laboratory and microbiology Laboratory Tests 10/27/24 02:51 Test 10/27/24 02:51 Range/Units Serum Glucose 100 74-106 mg/dL Microbiology Date/Time Source Procedure Growth Status 10/25/24 10:45 Nose MRSA Screen - Final Complete 10/24/24 13:23 Voided Urine Urine Culture - Final Complete 10/23/24 19:48 Blood Blood Culture - Preliminary NO GROWTH AFTER 72 HOURS OF INCUBATION. Resulted Problem List/Assessment/Plan Problem List/Assessment/Plan 57-year-old male past medical history of alcoholic liver cirrhosis presents to the hospital complaining of shortness of breath was found to have atrial fibrillation rapid ventricular response diagnosed with decompensated heart failure with ejection fraction less than 20%. Nephrology consulted for acute kidney injury Acute kidney injury likely multiple factors including hemodynamics, contrast, cardiorenal syndrome No previous CKD Dilated cardiomyopathy with ejection fraction 20% Cirrhosis Acute respiratory failure AFib with rapid ventricular response Currently rate controlled, cardiology recommendations noted patient potassium replacement today and Mg replacement daily as needed rec start low dose po once per day lasix to achieve slight negative daily balance, via OGT Monitoring urinary output Avoid contrast studies if able Replace electrolytes accordingly Plan discussed with: Other Dietary Evaluation Review Comments: 1) TF Jevity 1.2Cal @ 50ml/hr (goal) along wth Pro-stat 1 pk BID. Start @ 20ml/hr, increase 10ml/hr Q4H until goal is reached. TF @ goal volume along with Pro-stat provides 1640 kcal (100% energy needs), 96 gm protein (100% protein needs), 968 ml free water. 2) Water flush 170ml Q6H if allowed, adjust PRN 3) TPN if NPO > 7 days 4) Monitor NPO status, lab values, wt trend, I/O Expected Outcomes/Goals: To meet >75% estimated needs Fu 2-3 days Critical Care Time (mins): 33 CHRISTOS KOTHARI MD Oct 27, 2024 11:31
--- NOTE | 2024-10-27 11:35 | DVHPNRES ---
Progress Note Date Seen: Oct 27, 2024 Resident Creating Document: MAX FLOYD RESIDENT Has the PT tested + for MRSA If YES, has PT been informed?: No Medical Necessity Reason Pt with a Central, PICC or Fol: No The following are medically ne: Central Line, Greenberg Catheter Subjective Review of Systems Patient is a 54-year-old male with past medical history of liver cirrhosis, portal hypertension related gastropathy, cholelithiasis, depression, tachycardia, alcohol related tremors, who came in due to shortness of breaths. According to the ER notes, patient was having severe shortness of breath with tachypnea along with atrial fibrillation with rapid ventricular response, patient underwent synchronized cardioversion at 120 joules and was subsequently intubated. Per patient's son Mr. Shemar Winkler, patient called him yesterday on 10/23/2024 and stated he has been having increasing difficulty breathing and difficulty sleeping that has been worsened over the last 3 days. Per patient's son he is unable to provide more information as he does not live with his father, patient lives with his roommate. History and most of the information was obtained from patient's sons Mr. Galo, Mr. Staton and patient's ex-. Past surgical history: Unable to obtain Home medications: Thiamine, propranolol, Protonix, metronidazole, levofloxacin Past Hospitalization: In 2019 at the [facility] for upper and lower GI bleed Social & Personal history: Patient lives with a roommate. Per patient's , patient is a nonsmoker. However, heavy alcohol usage 6-12 drinks per day, daily for the last 35-40 years. Unable to obtain an accurate substance abuse related history. Allergies: Latex, penicillin 10/25/24: overnight patient became hypotensive and hyperkalemic at 6.2, hyperkalemia protocol was carried out, dc'ed amiodarone drip which led to rhythm reverting back to atrial flutter. Amio drip was resumed later in the day, digoxin also added. influenze b +, started tamiflu. added metronidalzole. 10/26/2024: Heart rate improved in the early 100s, continuing amiodarone drip. Liver function worsening. 10/27/2024: Patient seen and examined at bedside, started Lasix 40 mg p.o. daily. Chest x-ray shows bilateral pulmonary edema and pleural effusions as before. Off of pressors, drips running Versed at 12, fentanyl at 2:25 a.m. and amio at 0.5 mg. Respiratory culture growing Sharon albicans. Ordered repeat serum digoxin levels Objective vital signs Vital Sign Date Time Temp Pulse Resp B/P (MAP) Pulse Ox O2 Delivery O2 Flow Rate FiO2 10/27/24 10:25 99.5 89 21 96/70 (79) 97 211.1 10/27/24 10:01 50 10/27/24 09:34 Mechanical Ventilator+ Total Intake and Output 10/26/24 10/26/24 10/27/24 15:00 23:00 07:00 Intake Total 762.093 ml 784.78 ml 719.28 ml Output Total 0 ml 1200 ml 1250 ml Balance 762.093 ml -415.22 ml -530.72 ml medications Current Medications Medications Dose Ordered Sig/Cristian Route Start Time Stop Time Status Last Admin Dose Admin Propofol 100 ml @ 2.286 mls/ hr Q24H IV 10/23/24 19:45 10/24/24 03:56 13.716 MLS/HR Midazolam HCl 50 ml @ 1 mls/hr Q24H IV 10/23/24 19:45 10/27/24 08:05 12 MLS/HR Fentanyl Citrate 250 ml @ 2.5 mls/hr Q24H IV 10/23/24 21:45 10/27/24 07:33 22.5 MLS/HR Pantoprazole Sodium 40 mg DAILY IV 10/24/24 10:00 10/27/24 07:32 40 MG Phenylephrine HCl 80 mg/Sodium Chloride 250 ml @ 7.5 mls/hr Q24H IV 10/24/24 14:30 10/25/24 02:12 26.25 MLS/HR Norepinephrine Bitartrate 32 mg/ Sodium Chloride 250 ml @ 0.938 mls/ hr Q24H IV 10/24/24 14:30 10/24/24 18:55 6.563 MLS/HR Metronidazole 100 ml @ 100 mls/hr Q8HR IV 10/25/24 13:00 10/27/24 06:12 100 MLS/HR Oseltamivir Phosphate 30 mg BID PO 10/25/24 22:00 10/30/24 21:59 10/27/24 07:32 30 MG Enteral Nutritional Formula 1,000 ml 30ML/HR GT 10/25/24 17:15 10/27/24 04:25 1,000 ML Ipratropium [place] 0.5 mg Q6HR NEB 10/26/24 06:00 10/27/24 06:35 0.5 MG Cefepime HCl 50 ml @ 12.5 mls/hr Q12HR IV 10/27/24 10:00 10/27/24 07:33 12.5 MLS/HR Furosemide 40 mg DAILY NG 10/27/24 11:30 UNV Examination General Appearance: Intubated, sedated and mechanically ventilated. Lying down in bed without any distress. Head Exam: Normal inspection Neck Exam: Normal inspection. Non-tender. Normal alignment. Equal and minimally reactive pupils 2 mm. Pulmonary/Respiratory: Chest non-tender. Decreased bilateral breath sounds, no crackles, no wheezing. Cardiovascular/Chest: Tachycardia. No murmurs. No JVD. Peripheral Pulses: 2+ Radial (R). 2+ Radial (L). 2+ Pedal (R). 2+ Pedal (L) Abdominal Exam: Normal bowel sounds. Soft. normal abdomen, no visible veins, Nontender. No hepatospenomegaly. No masses Ankle Exam: Negative ankle edema Lower extremities: Negative lower extremity edema Skin Exam: Normal inspection. Normal color. Warm. Dry laboratory and microbiology Laboratory Tests 10/27/24 02:51 Test 10/27/24 02:51 Range/Units Serum Glucose 100 74-106 mg/dL Microbiology Date/Time Source Procedure Growth Status 10/25/24 10:45 Nose MRSA Screen - Final Complete 10/24/24 13:23 Voided Urine Urine Culture - Final Complete 10/23/24 19:48 Blood Blood Culture - Preliminary NO GROWTH AFTER 72 HOURS OF INCUBATION. Resulted Labs and/or images reviewed: Labs reviewed by me, Image(s) reviewed by me Problem List/Assessment/Plan Problem List/Assessment/Plan Neurology # acute toxic vs metabolic encephalopathy # possible alcohol withdrawal # hx of withdrawal seizures? # Sedated - head CT: No acute intracranial abnormality - IV banana bag once - Versed 10 mcg per hour Cardiovascular # septic shock due to pneumonia # atrial flutter with hemodynamic instability, s/p cardioversion x2 # NSTEMI 1 vs 2 # End- stage dilated cardiomyopathy # Heart failure with reduced ejection fraction <20% # Prolonged QTC - amiodarone drip - cardiology on board - norepinephrine at 10 micrograms/hour - amiodarone drip at 0.5mg/min - phenylephrine at 15mcg/min - IV digoxin 500mcg x 2 - serum digoxin level 3.69 5 hours after 2nd dose in 24 hours after 1st dose - repeat serum digoxin level Respiratory # Acute hypoxic respiratory failure # community-acquired pneumonia, Gram-positive versus Gram-negative # Ventilator # ruled out pulmonary embolism -intubated (10/23/24) -on [facility] vent : VCAC Mode RR 20 TV 550ml, PEEP Of 8 and FiO2 of 100% - CXR: Moderate interstitial pulmonary edema in the setting of cardiomegaly. Probable trace bilateral effusions. - CT angio: No evidence of pulmonary embolism. Pulmonary edema. Large bilateral pleural effusions. Associated consolidation of the majority of bilateral lower lobes independent portions of the remaining lobes of the lung. Cirrhotic liver. Small amount of ascites in the visualized upper abdomen. - chest ultrasound: Small bilateral pleural effusion, trace ascites. - holding IV Lasix until tomorrow - IV cefepime, IV metronidazole GI # Hx of GI bleed # cirrhosis, MELD 19 # Hx of portal hypertension gastropathy # mild abdominal ascites # Peptic ulcer prophylaxis -Pantoprazole 40 mg IV daily # Greenberg catheter placed on 10/23/24 - urine culture Nephrology # Hyperkalemia # DMITRIY likely ATN/VMN on ?CKD (GFR 70 on admission, unknown baseline) - monitor - nephrology on board; recommended to start lokelma qD if hyperkalemia persists, holding for now as last serum K 3.9 - IV Lasix 40 mg daily Infectious disease # community acquired pneumonia, gram + vs -ve # Influenza B positive - IV cefepime - IV metronidazole - Oseltamivir - norepinephrine at 10 micrograms/hour - phenylephrine at 15mcg/min - respiratory, blood, urine cultures Hem/onc # mild normocytic anemia # ruled out lower extremity DVT # thrombocytopenia - lower extremity Doppler: No right or left lower extremity deep vein thrombosis. Psychiatry # Alcohol use disorder # hx of depression - outpatient psychiatry follow up versus psychiatry consult upon extubation DVT prophylaxis - discontinue therapeutic Lovenox due to patient having thrombocytopenia Nutrition TF nepro carbsteady Lines L IJ CVC 10/23/24 LUE 20g 10/23/24 RUE 20g 10/23/24 [facility] Fentanyl 200 mcg/hr Versed 10 Intubated on 10/23/24 Critical care time 82 minutes excluding procedure and discussions with the family. Code status discussed greater than 20 minutes: Full CODE STATUS. Plan discussed with Dr. Stevens Plan discussed with: Other (RN) My Orders My Orders Orders - MAX FLOYD RESIDENT Procedure Category Date Status Time Abg W/ Co-Ox RT 10/27/24 Logged 04:00 Chest Portable XY 10/27/24 Resulted 04:00 Ventilator Orders RT 10/27/24 Transmitted 05:34 Dietary Evaluation Review Comments: 1) TF Jevity 1.2Cal @ 50ml/hr (goal) along wth Pro-stat 1 pk BID. Start @ 20ml/hr, increase 10ml/hr Q4H until goal is reached. TF @ goal volume along with Pro-stat provides 1640 kcal (100% energy needs), 96 gm protein (100% protein needs), 968 ml free water. 2) Water flush 170ml Q6H if allowed, adjust PRN 3) TPN if NPO > 7 days 4) Monitor NPO status, lab values, wt trend, I/O Expected Outcomes/Goals: To meet >75% estimated needs Fu 2-3 days MAX FLOYD RESIDENT Oct 27, 2024 11:35
[2024-10-27] MEDS: FUROSEMIDE 20 MG TAB NG SCH (12:58)
--- NOTE | 2024-10-27 14:57 | DVHCONRES ---
Date Seen: Oct 27, 2024 Resident Creating Document: ANA LAURA WHITNEY RESDIENT Family History: Patient reports no known family medical history. Allergies: Coded Allergies: Latex (Verified Allergy, Unknown, 10/24/24) Penicillins (Unverified Allergy, Unknown, 05/29/17) Home Meds Active Scripts Pantoprazole Sodium Sesquihydr (Pantoprazole Sodium) 40 Mg Tab, 40 MG PO DAILY, #30 TAB Prov:RUFINO PIERRE MD 11/28/19 Propranolol HCl (Propranolol Hydrochloride) 20 Mg Tab, 10 MG PO BID, #60 TAB Prov:RUFINO PIERRE MD 11/28/19 Thiamine Hcl (Thiamine) 50 Mg Cap, 50 MG PO DAILY, #30 TAB Prov:RUFINO PIERRE MD 11/28/19 Metronidazole (Flagyl) 500 Mg Tab, 500 MG PO Q8HR, #21 TAB Prov:RUFINO PIERRE MD 11/28/19 Levofloxacin (Levaquin) 500 Mg Tab, 500 MG PO DAILY, #7 TAB Prov:RUFINO PIERRE MD 11/28/19 Folic Acid (Folic Acid) 1 Mg Tab, 1 MG PO DAILY, #30 TAB Prov:RUFINO PIERRE MD 11/28/19 Current Medications Current Medications Medications (Trade) Dose Ordered Sig/Cristian Route PRN Reason Start Time Stop Time Status Last Admin Cefepime HCl 50 ml @ 12.5 mls/hr Q12HR IV 10/27/24 10:00 10/27/24 07:33 Furosemide (Lasix Tablet) 40 mg DAILY NG 10/27/24 11:30 10/27/24 12:58 Vital Signs Vital Signs Date Time Temp Pulse Resp B/P (MAP) Pulse Ox O2 Delivery O2 Flow Rate FiO2 10/27/24 14:39 50 10/27/24 14:13 95 20 89/69 (76) 98 10/27/24 13:34 Mechanical Ventilator+ 10/27/24 13:10 76.6 169.9 Labs/Diagnostic Data Labs Test 10/27/24 06:47 10/27/24 02:51 10/26/24 06:00 10/25/24 17:00 Range/Units Blood Gas Specimen Type Arterial Blood Gas Sample Site Right radial Blood Gas Patient Temperature 37.0 Arterial Blood Date Drawn [id number] Arterial Blood pH 7.517 H 7.350-7.450 Arterial Blood Partial Pressure CO2 28.9 L 35.0-48.0 mmHg Arterial Blood Partial Pressure O2 66.5 L 83.0-108.0 mmHg Arterial Blood HCO3 22.9 21.0-28.0 mmol/L Arterial Blood Oxygen Saturation 92.1 L 94.0-98.0 % Arterial Blood Base Excess 1.1 -2.0-3.0 mmol/L Arterial Blood Oxyhemoglobin 91.6 L 94.0-98.0 % Arterial Blood Carboxyhemoglobin 0.4 L 0.5-1.5 % Arterial Blood Methemoglobin 0.1 0.0-1.5 % Param Test Modified Blood Gas Total Hemoglobin 13.70 13.5-17.5 g/dL Blood Gas Set Respiration Rate 20.0 Blood Gas Modality Vent - ac FiO2 % 65.0 Blood Gas Tidal Volume 550.0 Blood Gas PEEP or CPAP 8.0 White Blood Count 6.4 # 4.4-10.8 10^3/uL Red Blood Count 3.96 L 4.5-5.90 10^6/uL Hemoglobin 12.9 L 13.5-17.5 g/dL Hematocrit 37.5 L 41.0-53.0 % Mean Corpuscular Volume 94.6 80.0-100.0 fL Mean Corpuscular Hemoglobin 32.5 H 28.0-32.0 pg Mean Corpuscular Hemoglobin Concent 34.4 32.0-36.0 g/dL Red Cell Distribution Width 15.1 H 11.8-14.3 % Platelet Count 96 L 140-450 10^3/uL Mean Platelet Volume 9.5 6.9-10.8 fL Neutrophils (%) (Auto) 84.5 H 37.0-80.0 % Lymphocytes (%) (Auto) 7.4 L 10.0-50.0 % Monocytes (%) (Auto) 7.8 0.0-12.0 % Eosinophils (%) (Auto) 0.2 0.0-7.0 % Basophils (%) (Auto) 0.1 0.0-2.0 % Neutrophils # (Auto) 5.4 1.6-8.6 10 ^3/uL Lymphocytes # (Auto) 0.5 0.4-5.4 10 ^3/uL Monocytes # (Auto) 0.5 0-1.3 10 ^3/uL Eosinophils # (Auto) 0 0-0.8 10 ^3/uL Basophils # (Auto) 0 0-0.2 10 ^3/uL Nucleated Red Blood Cells 0.1 % Sodium Level 139 136-145 mmol/L Potassium Level 3.4 L 3.5-5.1 mmol/L Chloride Level 100 98-107 mmol/L Carbon Dioxide Level 29 20-31 mmol/L Anion Gap 10 5-15 Blood Urea Nitrogen 36 H 9-23 mg/dL Creatinine 2.07 H 0.700-1.30 mg/dL Glomerular Filtration Rate Calc 38 >90 mL/min BUN/Creatinine Ratio 17.4 10.0-20.0 Serum Glucose 100 74-106 mg/dL Calcium Level 7.6 L 8.7-10.4 mg/dL Magnesium Level 1.9 1.6-2.6 mg/dL Total Bilirubin 1.4 H 0.2-1.0 mg/dL Aspartate Amino Transferase (AST) 912 H 13-40 U/L Alanine Aminotransferase (ALT) 956 H 7-40 U/L Alkaline Phosphatase 72 46-116 U/L Total Protein 5.9 5.7-8.2 g/dL Albumin 3.0 L 3.2-4.8 g/dL Digoxin Level 3.69 *H 0.8-2 ng/mL B-Type Natriuretic Peptide 280.95 0-100 pg/mL Test 10/25/24 16:42 10/25/24 13:35 10/25/24 13:15 10/25/24 10:15 Range/Units Lactic Acid Level 5.8 *H 0.4-2.0 mmol/L Influenza Type A Antigen Negative Negative Influenza Type B Antigen Positive Negative SARS-CoV-2 Antigen (Rapid) Negative NEGATIVE Urine Osmolality 290 mOsm/kg Urine Creatinine 18.09 L 30.0-125.0 mg/dL Urine Sodium 111 40-220 mmol/L Urine Total Protein 46.2 H 1-14 mg/dL Troponin I High Sensitivity 1787 *H </=54 ng/L Test 10/25/24 06:18 10/25/24 04:00 10/25/24 03:25 10/25/24 01:11 Range/Units Blood Gas Critical Value Read Back Yes Blood Gas Notified Whom Dr. guicho copeland Blood Gas Notified Time [id number] Blood Gas Notified By Differential Total Cells Counted 100.0 100 Neutrophils % (Manual) 75 37.0-80.0 Band Neutrophils % (Manual) 11 Lymphocytes % (Manual) 10 10.0-50.0 Monocytes % (Manual) 3 0-12 Eosinophils % (Manual) 0 0-7 Basophils % (Manual) 0 0.0-2.0 Metamyelocytes % (manual) 0 Myelocytes % (Manual) 1 Promyelocytes % (Manual) 0 Blast Cells % (Manual) 0 Reactive Lymphocytes 0 Platelet Estimate Adequate Large Platelets Few Macrocytosis Slight Blood Gas Spontaneous Rate 14 Blood Gas Spontaneous Tidal Volume 564 Blood Gas Inspiratory Pressure 38.0 Bl Gas Inspiratory/Expiratory Ratio 1:3 POC Glucose 97 70-106 mg/dl Test 10/24/24 17:33 10/24/24 13:23 10/24/24 11:19 10/24/24 10:11 Range/Units Phosphorus Level 4.5 2.4-5.1 mg/dL Urine Opiates Screen Neg NEGATIVE Urine Fentanyl Screen Pos NEGATIVE Urine Barbiturates Screen Neg NEGATIVE Urine Phencyclidine Screen Neg NEGATIVE Urine Amphetamines Screen Neg NEGATIVE Urine Benzodiazepines Screen Pos NEGATIVE Urine Cocaine Screen Neg NEGATIVE Urine Cannabinoids Screen Neg NEGATIVE Prothrombin Time 15.0 H 9.3-11.8 sec Prothrombin Time INR 1.47 H 0.9-1.15 Activated Partial Thromboplast Time 28.9 24.5-34.5 SEC Serum Osmolality 284 278-298 mOsm/kg Hepatitis A Antibody Total Positive H Negative Hepatitis B Surface Antigen Negative Negative Hepatitis B Surface Antibody Negative Negative Hepatitis B Core Total Antibody Negative Negative Hepatitis C Antibody Negative Negative Ammonia 32 11-32 umol/L Triglycerides Level 74 < 150 mg/dL Cholesterol Level 91 < 200 mg/dL LDL Cholesterol 59 < 100 mg/dL HDL Cholesterol 24 L 40-59 mg/dL Plasma/Serum Blood Alcohol < 3.0 <10 mg/dL Test 10/24/24 02:53 10/24/24 00:12 10/23/24 19:42 10/23/24 18:38 Range/Units Hemoglobin A1c 5.1 <5.7 % A1C Thyroid Stimulating Hormone (TSH) 1.59 0.55-4.78 uIU/mL Specimen Drawn By [facility] rt Urine Color Yellow Yellow Urine Clarity Clear Clear Urine pH 6.0 5.0-9.0 Urine Specific [place] 1.018 1.001-1.035 Urine Protein 2+ H Negative Urine Ketones Negative Negative Urine Blood Negative Negative /uL Urine Nitrite Negative Negative Urine Bilirubin Negative Negative Urine Urobilinogen Normal Negative mg/dL Urine Leukocyte Esterase Negative Negative /uL Urine RBC 5 0 - 3 /hpf Urine Microscopic WBC 4 H 0-3 /HPF Urine Squamous Epithelial Cells None seen <5 /hpf Urine Bacteria Few H None Seen /hpf Urine Glucose Normal Normal mg/dL Anisocytosis (manual) Slight D-Dimer, Quantitative 2.81 H 0.0-0.49 mg/L FEU Microbiology Date/Time Source Procedure Growth Status 10/25/24 10:45 Nose MRSA Screen - Final Complete 10/24/24 13:23 Voided Urine Urine Culture - Final Complete 10/23/24 19:48 Blood Blood Culture - Preliminary NO GROWTH AFTER 72 HOURS OF INCUBATION. Resulted ANA LAURA WHITNEY RESDIENT Oct 27, 2024 14:57
--- NOTE | 2024-10-27 15:00 | DVHPN2 ---
Progress Note Date Seen: Oct 27, 2024 Resident Creating Document: ANA LAURA WHITNEY JENNIFER Has the PT tested + for MRSA If YES, has PT been informed?: No Medical Necessity Reason Pt with a Central, PICC or Fol: No The following are medically ne: Central Line, Greenberg Catheter Subjective Review of Systems Patient seen and examined at the bedside. Patient is sedated and intubated. Review of systems could not obtain. Objective vital signs Vital Sign Date Time Temp Pulse Resp B/P (MAP) Pulse Ox O2 Delivery O2 Flow Rate FiO2 10/27/24 14:39 50 10/27/24 14:13 95 20 89/69 (76) 98 10/27/24 13:34 Mechanical Ventilator+ 10/27/24 13:10 76.6 169.9 Total Intake and Output 10/26/24 10/26/24 10/27/24 15:00 23:00 07:00 Intake Total 762.093 ml 784.78 ml 719.28 ml Output Total 0 ml 1200 ml 1250 ml Balance 762.093 ml -415.22 ml -530.72 ml medications Current Medications Medications Dose Ordered Sig/Cristian Route Start Time Stop Time Status Last Admin Dose Admin Propofol 100 ml @ 2.286 mls/ hr Q24H IV 10/23/24 19:45 10/24/24 03:56 Midazolam HCl 50 ml @ 1 mls/hr Q24H IV 10/23/24 19:45 10/27/24 12:07 Fentanyl Citrate 250 ml @ 2.5 mls/hr Q24H IV 10/23/24 21:45 10/27/24 07:33 Pantoprazole Sodium 40 mg DAILY IV 10/24/24 10:00 10/27/24 07:32 Phenylephrine HCl 80 mg/Sodium Chloride 250 ml @ 7.5 mls/hr Q24H IV 10/24/24 14:30 10/25/24 02:12 Norepinephrine Bitartrate 32 mg/ Sodium Chloride 250 ml @ 0.938 mls/ hr Q24H IV 10/24/24 14:30 10/24/24 18:55 Metronidazole 100 ml @ 100 mls/hr Q8HR IV 10/25/24 13:00 10/27/24 12:08 Oseltamivir Phosphate 30 mg BID PO 10/25/24 22:00 10/30/24 21:59 10/27/24 07:32 Enteral Nutritional Formula 1,000 ml 30ML/HR GT 10/25/24 17:15 10/27/24 04:25 Ipratropium [place] 0.5 mg Q6HR NEB 10/26/24 06:00 10/27/24 11:40 Cefepime HCl 50 ml @ 12.5 mls/hr Q12HR IV 10/27/24 10:00 10/27/24 07:33 Furosemide 40 mg DAILY NG 10/27/24 11:30 10/27/24 12:58 Examination General: RASS -3, afebrile, mucosae are moist Cardiovascular: Normal S1 and S2. No murmurs, gallops or rubs Respiratory: Mechanically assisted ventilation, equal bilateral airway entree. Clear lung sounds on auscultation Abdomen: Soft, nontender, no organomegaly, normal bowel sounds MSK/skin: Mobilization of limbs cannot be evaluated. Skin is dry and warm. Neurological: Orientation cannot be assessed. No apparent motor no sensitive deficits. Pupils are isocoric and reactive laboratory and microbiology Laboratory Tests 10/27/24 02:51 Test 10/27/24 02:51 Range/Units Serum Glucose 100 74-106 mg/dL Microbiology Date/Time Source Procedure Growth Status 10/25/24 10:45 Nose MRSA Screen - Final Complete 10/24/24 13:23 Voided Urine Urine Culture - Final Complete 10/23/24 19:48 Blood Blood Culture - Preliminary NO GROWTH AFTER 72 HOURS OF INCUBATION. Resulted Labs and/or images reviewed: Labs reviewed by me, Image(s) reviewed by me Problem List/Assessment/Plan Problem List/Assessment/Plan Acute hypoxic respiratory failure, likely due to pneumonia Acute on chronic decompensated HFrEF, NYHA Class III, newly diagnosed Paroxysmal atrial fibrillation/atrial flutter Acquired coagulopathy NSTEMI, possibly type 1 Pneumonia, likely due to Gram-positive/Gram-negative bacteria/aspiration pneumonia Sepsis due to above Bilateral pleural effusions Tobacco/alcohol dependence ? Alcohol withdrawal * EKG shows AFib/atrial flutter with RVR * Troponin is mildly raised at 120s, BNP is raised at 1200s * Echo shows LVEF around 20% * Chads Vasc score: 1 Plan/Recommendation (Case discussed with Dr. Cantu) * Switched amiodarone drip to amiodarone oral 20 mg b.i.d. * Rest of plan per primary team * We follow up with the patient Thank you for giving us the opportunity to take care of your patient. Please call back if any question/concern. Plan discussed with: Patient, Other Dietary Evaluation Review Comments: 1) TF Jevity 1.2Cal @ 50ml/hr (goal) along wth Pro-stat 1 pk BID. Start @ 20ml/hr, increase 10ml/hr Q4H until goal is reached. TF @ goal volume along with Pro-stat provides 1640 kcal (100% energy needs), 96 gm protein (100% protein needs), 968 ml free water. 2) Water flush 170ml Q6H if allowed, adjust PRN 3) TPN if NPO > 7 days 4) Monitor NPO status, lab values, wt trend, I/O Expected Outcomes/Goals: To meet >75% estimated needs Fu 2-3 days ANA LAURA WHITNEY RESDIENT Oct 27, 2024 15:00
[2024-10-27 16:04] LABS: Base Excess 1.7 mmol/L (-2.0-3.0)
[2024-10-27] MEDS: AMIODARONE HCL 200 MG TAB PO ONE (16:20)
--- NOTE | 2024-10-27 23:54 | DVHPN2 ---
Progress Note - Dictate Date Seen: Oct 27, 2024 Has the PT tested + for MRSA If YES, has PT been informed?: No Medical Necessity Reason Pt with a Central, PICC or Fol: No The following are medically ne: Central Line, Greenberg Catheter Subjective Patient was seen and evaluated in follow up in the ICU. Patient is intubated and sedated on ventilator. 50% FiO2. Patient is off pressors. Respiratory culture is growing Sharon albicans. K 3.4, BUN 36, MUSICAL INSTRUMENT MAKER 2.07, CA 7.6, AST 912, ALT 956. Chest x-ray shows bilateral pleural effusions and bilateral pulmonary edema. vital signs Vital Sign Date Time Temp Pulse Resp B/P (MAP) Pulse Ox O2 Delivery O2 Flow Rate FiO2 10/27/24 17:39 50 10/27/24 17:39 97 10/27/24 17:39 20 100 Mechanical Ventilator+ 10/27/24 17:25 99.9 90/71 (77) 211.8 Total Intake and Output 10/26/24 10/26/24 10/27/24 15:00 23:00 07:00 Intake Total 762.093 ml 784.78 ml 719.28 ml Output Total 0 ml 1200 ml 1250 ml Balance 762.093 ml -415.22 ml -530.72 ml medications Current Medications Medications Dose Ordered Sig/Cristian Route Start Time Stop Time Status Last Admin Dose Admin Propofol 100 ml @ 2.286 mls/ hr Q24H IV 10/23/24 19:45 10/24/24 03:56 13.716 MLS/HR Midazolam HCl 50 ml @ 1 mls/hr Q24H IV 10/23/24 19:45 10/27/24 16:20 12 MLS/HR Fentanyl Citrate 250 ml @ 2.5 mls/hr Q24H IV 10/23/24 21:45 10/27/24 07:33 22.5 MLS/HR Pantoprazole Sodium 40 mg DAILY IV 10/24/24 10:00 10/27/24 07:32 40 MG Phenylephrine HCl 80 mg/Sodium Chloride 250 ml @ 7.5 mls/hr Q24H IV 10/24/24 14:30 10/25/24 02:12 26.25 MLS/HR Norepinephrine Bitartrate 32 mg/ Sodium Chloride 250 ml @ 0.938 mls/ hr Q24H IV 10/24/24 14:30 10/24/24 18:55 6.563 MLS/HR Metronidazole 100 ml @ 100 mls/hr Q8HR IV 10/25/24 13:00 10/27/24 12:08 100 MLS/HR Oseltamivir Phosphate 30 mg BID PO 10/25/24 22:00 10/30/24 21:59 10/27/24 07:32 30 MG Enteral Nutritional Formula 1,000 ml 30ML/HR GT 10/25/24 17:15 10/27/24 04:25 1,000 ML Ipratropium [place] 0.5 mg Q6HR NEB 10/26/24 06:00 10/27/24 11:40 0.5 MG Cefepime HCl 50 ml @ 12.5 mls/hr Q12HR IV 10/27/24 10:00 10/27/24 07:33 12.5 MLS/HR Furosemide 40 mg DAILY NG 10/27/24 11:30 10/27/24 12:58 40 MG Amiodarone HCl 200 mg DAILY PO 10/28/24 10:00 objective GENERAL: Ill appearing, intubated on ventilator. EYES: PERRL, EOMI. Anicteric. HENT: Moist mucous membranes. LUNGS: Decreased breath sounds. CARDIOVASCULAR: Regular rate and rhythm. ABDOMEN: Soft, nontender and nondistended. EXTREMITIES: No edema. NEUROLOGIC: No focal neurological deficits. SKIN: Warm, dry. laboratory and microbiology Laboratory Tests 10/27/24 02:51 Test 10/27/24 02:51 Range/Units Serum Glucose 100 74-106 mg/dL Problem List Acute hypoxic respiratory failure, likely due to pneumonia. Acute on chronic decompensated HFrEF, NYHA Class III, newly diagnosed. Paroxysmal atrial fibrillation/atrial flutter. Acquired coagulopathy. NSTEMI, possibly type 1. Pneumonia, likely due to Gram-positive/Gram-negative bacteria/aspiration pneumonia. Sepsis due to above. Bilateral pleural effusions Tobacco/alcohol dependence. ? Alcohol withdrawal. Assessment/Plan Continued all current supportive medical care. Patient has been seen by Beth Wilkerson Resident on my behalf, we have discussed the plan with the patient Switched amiodarone drip to amiodarone oral 20 mg b.i.d. Rest of plan per primary team. We follow up with the patient. Additional plan as per the hospital course. Critical care time of 90 minutes provided to include time spent evaluation of patient at bedside, when appropriate patient/family education for diagnosis, treatment plan, review of pertinent medical information and discussion of care with specialty providers and PCP. Mechanical ventilator parameters, treatment and adjustments have personally been reviewed by me and treatment plan by circular clerk has also been reviewed. Dietary Evaluation Review Comments: 1) TF Jevity 1.2Cal @ 50ml/hr (goal) along wth Pro-stat 1 pk BID. Start @ 20ml/hr, increase 10ml/hr Q4H until goal is reached. TF @ goal volume along with Pro-stat provides 1640 kcal (100% energy needs), 96 gm protein (100% protein needs), 968 ml free water. 2) Water flush 170ml Q6H if allowed, adjust PRN 3) TPN if NPO > 7 days 4) Monitor NPO status, lab values, wt trend, I/O Expected Outcomes/Goals: To meet >75% estimated needs Fu 2-3 days Plan discussed with: MESERET Hampton MD Oct 27, 2024 18:39
[2024-10-28] VITALS (120 sets, daily range): BP systolic 88–123; BP diastolic 58–87; PULSE 72–125; RESP 12–22; TEMP 97.2–100.8; O2SAT 50–100
[2024-10-28 03:31] LABS: Hematocrit 45.0 % (41.0-53.0); Hemoglobin 15.4 g/dL (13.5-17.5); Mean Corpuscular Hemoglobin 32.4 pg (28.0-32.0); Mean Corpuscular Volume 94.7 fL (80.0-100.0); Nucleated Red Blood Cells % 0.0 %
[2024-10-28 03:47] LABS: Alkaline Phosphatase 90 U/L (46-116); Anion Gap 9 (5-15); Calcium 9.2 mg/dL (8.7-10.4); Carbon Dioxide 28 mmol/L (20-31); Chloride 99 mmol/L (98-107); Sodium 136 mmol/L (136-145)
[2024-10-28 03:48] LABS: BUN/Creatinine Ratio 19.3 (10.0-20.0); Glucose 82 mg/dL (74-106)
[2024-10-28 03:49] LABS: Albumin 3.5 g/dL (3.2-4.8); Magnesium 1.8 mg/dL (1.6-2.6); Total Protein 6.9 g/dL (5.7-8.2)
[2024-10-28 03:54] LABS: Alanine Aminotransferase 831 U/L (7-40); Bilirubin, Total 1.5 mg/dL (0.2-1.0); Blood Urea Nitrogen 29 mg/dL (9-23); Potassium 3.4 mmol/L (3.5-5.1)
[2024-10-28] MEDS: POTASSIUM CHL 20MEQ/100ML 100 ML IV ONE (05:12)
[2024-10-28] MEDS: MAGNESIUM SULFATE 1GM/100ML 100 ML IV ONE (05:12)
--- NOTE | 2024-10-28 06:27 | DVH ---
CHEST RADIOGRAPH Indication: pna Technique: Single frontal view of the chest was obtained COMPARISON: XY CHEST PORTABLE on DOS: 10/27/24, XY CHEST PORTABLE on DOS: 10/26/24, XY CHEST XRAY 1 VIE W on DOS: 10/25/24, XY CHEST PORTABLE on DOS: 10/25/24, XY CHEST XRAY 1 VIEW on DOS: 10/23/24 FINDINGS: Lines and Tubes: Unchanged. Lungs: Stable extensive bilateral perihilar and bibasilar pulmonary airspace disease and moderate mary ateral pleural effusions. No pneumothorax. Cardiomediastinal contours: Cardiomegaly. Bones: Unremarkable IMPRESSION: 1. Stable extensive bilateral perihilar and bibasilar pulmonary airspace disease and moderate bilater al pleural effusions. 2. Cardiomegaly. 3. Lines and tubes unchanged.
[2024-10-28 07:49] LABS: Base Excess 1.0 mmol/L (-2.0-3.0)
[2024-10-28] MEDS: AMIODARONE HCL 200 MG TAB PO SCH (09:51)
[2024-10-28] MEDS ORDERED: FUROSEMIDE 40 MG/4 ML VIAL IV SCH (10:00)
--- NOTE | 2024-10-28 10:49 | DVHPN2 ---
Consult Progress Note Date Seen: Oct 28, 2024 Subjective Other Systems: No overnight cardiac events reported Objective vital signs Vital Sign Date Time Temp Pulse Resp B/P (MAP) Pulse Ox O2 Delivery O2 Flow Rate FiO2 10/28/24 09:36 99/75 10/28/24 08:40 109 20 99 50 10/28/24 08:00 Mechanical Ventilator+ 10/28/24 06:41 100.8 213.4 Total Intake and Output 10/27/24 10/27/24 10/28/24 15:00 23:00 07:00 Intake Total 546.78 ml 626.0 ml 860.5 ml Output Total 1100 ml 2500 ml Balance 546.78 ml -474.0 ml -1639.5 ml medications Current Medications Medications Dose Ordered Sig/Cristian Route Start Time Stop Time Status Last Admin Dose Admin Propofol 100 ml @ 2.286 mls/ hr Q24H IV 10/23/24 19:45 10/24/24 03:56 13.716 MLS/HR Midazolam HCl 50 ml @ 1 mls/hr Q24H IV 10/23/24 19:45 10/28/24 09:36 12 MLS/HR Fentanyl Citrate 250 ml @ 2.5 mls/hr Q24H IV 10/23/24 21:45 10/28/24 05:13 22.5 MLS/HR Pantoprazole Sodium 40 mg DAILY IV 10/24/24 10:00 10/28/24 09:36 40 MG Phenylephrine HCl 80 mg/Sodium Chloride 250 ml @ 7.5 mls/hr Q24H IV 10/24/24 14:30 10/25/24 02:12 26.25 MLS/HR Norepinephrine Bitartrate 32 mg/ Sodium Chloride 250 ml @ 0.938 mls/ hr Q24H IV 10/24/24 14:30 10/24/24 18:55 6.563 MLS/HR Metronidazole 100 ml @ 100 mls/hr Q8HR IV 10/25/24 13:00 10/28/24 05:30 100 MLS/HR Oseltamivir Phosphate 30 mg BID PO 10/25/24 22:00 10/30/24 21:59 10/28/24 09:51 30 MG Enteral Nutritional Formula 1,000 ml 30ML/HR GT 10/25/24 17:15 10/27/24 04:25 1,000 ML Ipratropium [place] 0.5 mg Q6HR NEB 10/26/24 06:00 10/28/24 07:06 0.5 MG Cefepime HCl 50 ml @ 12.5 mls/hr Q12HR IV 10/27/24 10:00 10/28/24 09:36 12.5 MLS/HR Amiodarone HCl 200 mg DAILY PO 10/28/24 10:00 10/28/24 09:51 200 MG Furosemide 40 mg DAILY IV 10/28/24 10:00 Examination: GENERAL:Abnormal, LUNGS:Abnormal (Endotracheally intubated status post bronchoscopy with uptitrated FiO2 at 100%), CVS:Abnormal (A-fib with RVR in the 110s bpm), NEURO:Abnormal (Chemically sedated) laboratory and microbiology Laboratory Tests 10/28/24 02:49 Test 10/28/24 02:49 Range/Units Serum Glucose 82 74-106 mg/dL Problem List/Assessment/Plan Problem List/Assessment/Plan Sepsis with acute hypoxic respiratory failure likely due to pneumonia Paroxysmal atrial fibrillation/atrial flutter s/p DCCV with transient NSR, Stage III Acute on chronic decompensated HFrEF, NYHA Class III, newly diagnosed End-stage dilated cardiomyopathy, likely ischemic given anteroseptal ST-T wave changes NSTEMI, possibly type 1 Bilateral pleural effusions Tobacco/alcohol dependence/?Alcohol withdrawal Thrombocytopenia Plan/Recommendation (Dr. Fu) * Transthoracic echocardiogram revealed LVEF 20% * Ventilator settings per pulmonology team * Vasopressor for hemodynamic support for a MAP = or >65 mmHg * Antiarrhythmic therapy, amiodarone GT BID * Hold single-antiplatelet therapy given thrombocytopenia * Hold statin given elevated LFTs * Preload reduction as tolerated * Strict I&Os. Daily weight. Fluid restrictions * Therapeutic Lovenox held given worsening thrombocytopenia * [id number] Score 1 point. HAS-BLED Score 2 points * Replete electrolytes as necessary, K>4 and Mg>2 * Monitor ECG changes closely and notify * Daily BNP level Thank you for giving us the opportunity to take care of your patient. Please call back if any question/concern. Critical care time: 35 min. This medical document was created using an electronic medical record system with voice recognition software and computerized dictation system. Although this document has been carefully reviewed, there might still be some phonetic and typographical errors. Occasional wrong-word or ``sound-alike substitutions may have occurred due to the inherent limitations of voice recognition software. These areas are purely typographical due to imperfections of the software programs and do not reflect any compromise in the patient's medical care. Please read the chart carefully and recognize, using context, where these substitutions have occurred. Plan discussed with: Other Dietary Evaluation Review Comments: 1) TF Jevity 1.2Cal @ 50ml/hr (goal) along wth Pro-stat 1 pk BID. Start @ 20ml/hr, increase 10ml/hr Q4H until goal is reached. TF @ goal volume along with Pro-stat provides 1640 kcal (100% energy needs), 96 gm protein (100% protein needs), 968 ml free water. 2) Water flush 170ml Q6H if allowed, adjust PRN 3) TPN if NPO > 7 days 4) Monitor NPO status, lab values, wt trend, I/O Expected Outcomes/Goals: To meet >75% estimated needs Fu 2-3 days Date of Service: Oct 28, 2024 Billing Provider: HELADIO NDIAYE Cardiology Common Codes: 76002-[id number] CARE 30-74 MIN HELADIO NDIAYE Oct 28, 2024 10:49
[2024-10-28] MEDS: FUROSEMIDE 20 MG/2 ML VIAL IV ONE (11:45)
--- NOTE | 2024-10-28 12:28 | DVHPN2 ---
Progress Note Date Seen: Oct 28, 2024 Has the PT tested + for MRSA If YES, has PT been informed?: No Medical Necessity Reason Pt with a Central, PICC or Fol: No The following are medically ne: Central Line, Greenberg Catheter Objective vital signs Vital Sign Date Time Temp Pulse Resp B/P (MAP) Pulse Ox O2 Delivery O2 Flow Rate FiO2 10/28/24 12:15 98 20 92/71 (78) 100 50 10/28/24 10:26 99.9 211.8 10/28/24 10:00 Mechanical Ventilator+ Total Intake and Output 10/27/24 10/27/24 10/28/24 15:00 23:00 07:00 Intake Total 546.78 ml 626.0 ml 860.5 ml Output Total 1100 ml 2500 ml Balance 546.78 ml -474.0 ml -1639.5 ml medications Current Medications Medications Dose Ordered Sig/Cristian Route Start Time Stop Time Status Last Admin Dose Admin Propofol 100 ml @ 2.286 mls/ hr Q24H IV 10/23/24 19:45 10/24/24 03:56 13.716 MLS/HR Midazolam HCl 50 ml @ 1 mls/hr Q24H IV 10/23/24 19:45 10/28/24 09:36 12 MLS/HR Fentanyl Citrate 250 ml @ 2.5 mls/hr Q24H IV 10/23/24 21:45 10/28/24 05:13 22.5 MLS/HR Pantoprazole Sodium 40 mg DAILY IV 10/24/24 10:00 10/28/24 09:36 40 MG Phenylephrine HCl 80 mg/Sodium Chloride 250 ml @ 7.5 mls/hr Q24H IV 10/24/24 14:30 10/25/24 02:12 26.25 MLS/HR Norepinephrine Bitartrate 32 mg/ Sodium Chloride 250 ml @ 0.938 mls/ hr Q24H IV 10/24/24 14:30 10/24/24 18:55 6.563 MLS/HR Metronidazole 100 ml @ 100 mls/hr Q8HR IV 10/25/24 13:00 10/28/24 05:30 100 MLS/HR Oseltamivir Phosphate 30 mg BID PO 10/25/24 22:00 10/30/24 21:59 10/28/24 09:51 30 MG Enteral Nutritional Formula 1,000 ml 30ML/HR GT 10/25/24 17:15 10/27/24 04:25 1,000 ML Ipratropium [place] 0.5 mg Q6HR NEB 10/26/24 06:00 10/28/24 12:15 0.5 MG Cefepime HCl 50 ml @ 12.5 mls/hr Q12HR IV 10/27/24 10:00 10/28/24 09:36 12.5 MLS/HR Amiodarone HCl 200 mg DAILY PO 10/28/24 10:00 10/28/24 09:51 200 MG Furosemide 20 mg BIDD IV 10/28/24 18:00 Examination: GENERAL:Abnormal, LUNGS:Abnormal, CVS:Abnormal laboratory and microbiology Laboratory Tests 10/28/24 02:49 Test 10/28/24 02:49 Range/Units Serum Glucose 82 74-106 mg/dL Microbiology Date/Time Source Procedure Growth Status 10/25/24 10:45 Nose MRSA Screen - Final Complete 10/24/24 13:23 Voided Urine Urine Culture - Final Complete 10/23/24 19:48 Blood Blood Culture - Preliminary NO GROWTH AFTER 72 HOURS OF INCUBATION. Resulted Problem List/Assessment/Plan Problem List/Assessment/Plan 57-year-old male past medical history of alcoholic liver cirrhosis presents to the hospital complaining of shortness of breath was found to have atrial fibrillation rapid ventricular response diagnosed with decompensated heart failure with ejection fraction less than 20%. Nephrology consulted for acute kidney injury Acute kidney injury likely multiple factors including hemodynamics, contrast, cardiorenal syndrome No previous CKD Dilated cardiomyopathy with ejection fraction 20% Cirrhosis Acute respiratory failure AFib with rapid ventricular response had bronchoscopy today Currently rate controlled, cardiology potassium replacement today lasix once a day Monitoring urinary output Avoid contrast studies if able Replace electrolytes accordingly Plan discussed with: Other Dietary Evaluation Review Comments: 1) TF Jevity 1.2Cal @ 50ml/hr (goal) along wth Pro-stat 1 pk BID. Start @ 20ml/hr, increase 10ml/hr Q4H until goal is reached. TF @ goal volume along with Pro-stat provides 1640 kcal (100% energy needs), 96 gm protein (100% protein needs), 968 ml free water. 2) Water flush 170ml Q6H if allowed, adjust PRN 3) TPN if NPO > 7 days 4) Monitor NPO status, lab values, wt trend, I/O Expected Outcomes/Goals: To meet >75% estimated needs Fu 2-3 days Critical Care Time (mins): 33 CHRISTOS KOTHARI MD Oct 28, 2024 12:28
--- NOTE | 2024-10-28 13:29 | DVH ---
CHEST RADIOGRAPH Indication: s/p bronchoscopy Technique: Single frontal view of the chest was obtained Comparison: XY CHEST PORTABLE on DOS: 10/28/24, XY CHEST PORTABLE on DOS: 10/27/24, XY CHEST PORTABLE o n DOS: 10/26/24 FINDINGS: Lines and Tubes: Endotracheal tube 4.1 cm above the ty. Left internal jugular catheter in place i n the superior vena cava above the right atrium. Lungs: Bibasilar airspace disease unchanged from 10/28/2024 at 0 5:09 a.m. Pleura: No effusion. No pneumothorax. Cardiomediastinal contours: Unremarkable Bones: No acute osseous abnormality. IMPRESSION: 1. Endotracheal tube in place 4.1 cm above the ty 2. Bibasilar airspace disease unchanged from earlier chest x-ray. HS:Y
--- NOTE | 2024-10-28 13:36 | DVHPN2 ---
Progress Note - Dictate Date Seen: Oct 28, 2024 Has the PT tested + for MRSA If YES, has PT been informed?: No Medical Necessity Reason Pt with a Central, PICC or Fol: No The following are medically ne: Central Line, Greenberg Catheter vital signs Vital Sign Date Time Temp Pulse Resp B/P (MAP) Pulse Ox O2 Delivery O2 Flow Rate FiO2 10/28/24 12:26 99.7 110 20 91/67 (75) 100 211.5 10/28/24 12:15 50 10/28/24 12:00 Mechanical Ventilator+ Total Intake and Output 10/27/24 10/27/24 10/28/24 15:00 23:00 07:00 Intake Total 546.78 ml 626.0 ml 895.0 ml Output Total 1100 ml 2500 ml Balance 546.78 ml -474.0 ml -1605.0 ml medications Current Medications Medications Dose Ordered Sig/Cristian Route Start Time Stop Time Status Last Admin Dose Admin Propofol 100 ml @ 2.286 mls/ hr Q24H IV 10/23/24 19:45 10/24/24 03:56 13.716 MLS/HR Midazolam HCl 50 ml @ 1 mls/hr Q24H IV 10/23/24 19:45 10/28/24 09:36 12 MLS/HR Fentanyl Citrate 250 ml @ 2.5 mls/hr Q24H IV 10/23/24 21:45 10/28/24 05:13 22.5 MLS/HR Pantoprazole Sodium 40 mg DAILY IV 10/24/24 10:00 10/28/24 09:36 40 MG Phenylephrine HCl 80 mg/Sodium Chloride 250 ml @ 7.5 mls/hr Q24H IV 10/24/24 14:30 10/25/24 02:12 26.25 MLS/HR Norepinephrine Bitartrate 32 mg/ Sodium Chloride 250 ml @ 0.938 mls/ hr Q24H IV 10/24/24 14:30 10/24/24 18:55 6.563 MLS/HR Metronidazole 100 ml @ 100 mls/hr Q8HR IV 10/25/24 13:00 10/28/24 05:30 100 MLS/HR Oseltamivir Phosphate 30 mg BID PO 10/25/24 22:00 10/30/24 21:59 10/28/24 09:51 30 MG Enteral Nutritional Formula 1,000 ml 30ML/HR GT 10/25/24 17:15 10/27/24 04:25 1,000 ML Ipratropium [place] 0.5 mg Q6HR NEB 10/26/24 06:00 10/28/24 12:15 0.5 MG Cefepime HCl 50 ml @ 12.5 mls/hr Q12HR IV 10/27/24 10:00 10/28/24 09:36 12.5 MLS/HR Amiodarone HCl 200 mg DAILY PO 10/28/24 10:00 10/28/24 09:51 200 MG Furosemide 20 mg BIDD IV 10/28/24 18:00 laboratory and microbiology Laboratory Tests 10/28/24 02:49 Test 10/28/24 02:49 Range/Units Serum Glucose 82 74-106 mg/dL Assessment/Plan *Telephone Mechanic rounds* Impression Acute hypoxemic respiratory failure Cardiomyopathy Influenza B Pneumonia CHF Patient seen and examined in ICU Events On mechanical ventilation S/p intubation PEEP 8, FiO2 50% Labs and imaging reviewed Chest x-ray shows bilateral opacities consistent with pneumonia ABG reviewed Management Vent support Titrate to maintain sats 90% or above Sedation for vent synchrony Continue antibiotics F/u cultures Bronchodilators Diurese Monitor renal function Monitor electrolytes Supplement as needed Pressors as needed for hemodynamic support To maintain a mean arterial pressure of 65 mmHg DVT prophylaxis Critical care time 35 minutes Dietary Evaluation Review Comments: 1) TF Jevity 1.2Cal @ 50ml/hr (goal) along wth Pro-stat 1 pk BID. Start @ 20ml/hr, increase 10ml/hr Q4H until goal is reached. TF @ goal volume along with Pro-stat provides 1640 kcal (100% energy needs), 96 gm protein (100% protein needs), 968 ml free water. 2) Water flush 170ml Q6H if allowed, adjust PRN 3) TPN if NPO > 7 days 4) Monitor NPO status, lab values, wt trend, I/O Expected Outcomes/Goals: To meet >75% estimated needs Fu 2-3 days Plan discussed with: Other (Rn) HANANE BILLY MD Oct 28, 2024 13:36
--- NOTE | 2024-10-28 13:40 | DVHNC2 ---
Procedure - Procedure- Bronchoscopy and bronchial washings Indication- Secretions Procedure in detail Consent was obtained and timeout performed per protocol. The patient was placed on 100% FiO2. Olympus bronchoscope was used and passed through the endotracheal tube, tracheobronchial tree was examined. There were secretions primarily in the left lower lobe that were loosened up with of normal saline and approximately 30 cc of aspirate was thoroughly suctioned into a separate specimen container. There were no endobronchial lesions however, mucosa appeared inflamed and easily friable. After the procedure, the scope was removed. Patient tolerated the procedure well HANANE BILLY MD Oct 28, 2024 13:40
--- NOTE | 2024-10-28 15:39 | DVHPN2 ---
Subjective intubated and sedated Reviewed: H&P, Labs Changes from previous H/P or p: No Changes Objective Vitals Vital Signs Date Time Temp Pulse Resp B/P (MAP) Pulse Ox O2 Delivery O2 Flow Rate FiO2 10/28/24 14:57 96/77 10/28/24 14:00 50 10/28/24 14:00 112 10/28/24 14:00 20 100 Mechanical Ventilator+ 10/28/24 12:26 99.7 211.5 Intake/Output Intake and Output 10/28/24 07:00 Intake Total 2067.78 ml Output Total 3600 ml Balance -1532.22 ml Intake Oral 210 ml IV Total 1348.78 ml Tube Feeding 509 ml Output Urine Total 3600 ml General Appearance: Other (intubated) HEENT: Atraumatic Lungs: Clear to auscultation Cardiovascular: Regular rate, Normal S1, Normal S2 Abdomen: Normal bowel sounds Medications Current Medications Medications Dose Ordered Sig/Cristian Route Start Time Stop Time Status Last Admin Dose Admin Propofol 100 ml @ 2.286 mls/ hr Q24H IV 10/23/24 19:45 10/24/24 03:56 13.716 MLS/HR Midazolam HCl 50 ml @ 1 mls/hr Q24H IV 10/23/24 19:45 10/28/24 13:38 14 MLS/HR Fentanyl Citrate 250 ml @ 2.5 mls/hr Q24H IV 10/23/24 21:45 10/28/24 14:57 25 MLS/HR Pantoprazole Sodium 40 mg DAILY IV 10/24/24 10:00 10/28/24 09:36 40 MG Phenylephrine HCl 80 mg/Sodium Chloride 250 ml @ 7.5 mls/hr Q24H IV 10/24/24 14:30 10/25/24 02:12 26.25 MLS/HR Norepinephrine Bitartrate 32 mg/ Sodium Chloride 250 ml @ 0.938 mls/ hr Q24H IV 10/24/24 14:30 10/24/24 18:55 6.563 MLS/HR Metronidazole 100 ml @ 100 mls/hr Q8HR IV 10/25/24 13:00 10/28/24 13:39 100 MLS/HR Oseltamivir Phosphate 30 mg BID PO 10/25/24 22:00 10/30/24 21:59 10/28/24 09:51 30 MG Enteral Nutritional Formula 1,000 ml 30ML/HR GT 10/25/24 17:15 10/27/24 04:25 1,000 ML Ipratropium [place] 0.5 mg Q6HR NEB 10/26/24 06:00 10/28/24 12:15 0.5 MG Cefepime HCl 50 ml @ 12.5 mls/hr Q12HR IV 10/27/24 10:00 10/28/24 09:36 12.5 MLS/HR Amiodarone HCl 200 mg DAILY PO 10/28/24 10:00 10/28/24 09:51 200 MG Furosemide 20 mg BIDD IV 10/28/24 18:00 Lactulose 30 ml BID PO 10/28/24 22:00 Laboratory Results Laboratory Tests 10/28/24 02:49 Chemistry Test 10/28/24 02:49 Albumin 3.5 g/dL (3.2-4.8) Calcium Level 9.2 mg/dL (8.7-10.4) Magnesium Level 1.8 mg/dL (1.6-2.6) Phosphorus Level 3.8 mg/dL (2.4-5.1) Total Protein 6.9 g/dL (5.7-8.2) Cardiac Markers Test 10/28/24 02:49 B-Type Natriuretic Peptide 266.41 pg/mL (0-100) LFT Test 10/28/24 02:49 Alanine Aminotransferase (ALT) 831 U/L (7-40) H Alkaline Phosphatase 90 U/L (46-116) Aspartate Amino Transferase (AST) 536 U/L (13-40) H Total Bilirubin 1.5 mg/dL (0.2-1.0) H Urinalysis Test 10/23/24 19:42 10/25/24 13:15 Urine Color Yellow (Yellow) Urine Clarity Clear (Clear) Urine pH 6.0 (5.0-9.0) Urine Specific [place] 1.018 (1.001-1.035) Urine Protein 2+ (Negative) H Urine Ketones Negative (Negative) Urine Blood Negative /uL (Negative) Urine Nitrite Negative (Negative) Urine Bilirubin Negative (Negative) Urine Urobilinogen Normal mg/dL (Negative) Urine Leukocyte Esterase Negative /uL (Negative) Urine RBC 5 /hpf (0 - 3) Urine Microscopic WBC 4 /HPF (0-3) H Urine Squamous Epithelial Cells None seen /hpf (<5) Urine Bacteria Few /hpf (None Seen) H Urine Glucose Normal mg/dL (Normal) Urine Osmolality 290 mOsm/kg Urine Creatinine 18.09 mg/dL (30.0-125.0) L Urine Sodium 111 mmol/L (40-220) Urine Total Protein 46.2 mg/dL (1-14) H Blood Gas Results Test 10/27/24 15:53 10/28/24 07:36 Arterial Blood pH 7.482 (7.350-7.450) 7.451 (7.350-7.450) FiO2 % 50.0 50.0 Microbiology Microbiology Date/Time Source Procedure Growth Status 10/25/24 10:45 Nose MRSA Screen - Final Complete 10/24/24 13:23 Voided Urine Urine Culture - Final Complete 10/23/24 19:48 Blood Blood Culture - Preliminary NO GROWTH AFTER 72 HOURS OF INCUBATION. Resulted Assessment/Plan Assessment/Plan Neurology # acute toxic vs metabolic encephalopathy # possible alcohol withdrawal # hx of withdrawal seizures? # Sedated - head CT: No acute intracranial abnormality - IV banana bag once - Versed 10 mcg per hour Cardiovascular # septic shock due to pneumonia # atrial flutter with hemodynamic instability, s/p cardioversion x2 # NSTEMI 1 vs 2 # End- stage dilated cardiomyopathy # Heart failure with reduced ejection fraction <20% # Prolonged QTC - amiodarone drip - cardiology on board - norepinephrine at 10 micrograms/hour - amiodarone drip at 0.5mg/min - phenylephrine at 15mcg/min - IV digoxin 500mcg x 2 - serum digoxin level 3.69 5 hours after 2nd dose in 24 hours after 1st dose - repeat serum digoxin level Respiratory # Acute hypoxic respiratory failure # community-acquired pneumonia, Gram-positive versus Gram-negative # Ventilator # ruled out pulmonary embolism -intubated (10/23/24) -on [facility] vent : VCAC Mode RR 20 TV 550ml, PEEP Of 8 and FiO2 of 100% - CXR: Moderate interstitial pulmonary edema in the setting of cardiomegaly. Probable trace bilateral effusions. - CT angio: No evidence of pulmonary embolism. Pulmonary edema. Large bilateral pleural effusions. Associated consolidation of the majority of bilateral lower lobes independent portions of the remaining lobes of the lung. Cirrhotic liver. Small amount of ascites in the visualized upper abdomen. - chest ultrasound: Small bilateral pleural effusion, trace ascites. - holding IV Lasix until tomorrow - IV cefepime, IV metronidazole GI # Hx of GI bleed # cirrhosis, MELD 19 # Hx of portal hypertension gastropathy # mild abdominal ascites # Peptic ulcer prophylaxis -Pantoprazole 40 mg IV daily # Greenberg catheter placed on 10/23/24 - urine culture Nephrology # Hyperkalemia # DMITRIY likely ATN/VMN on ?CKD (GFR 70 on admission, unknown baseline) - monitor - nephrology on board; recommended to start lokelma qD if hyperkalemia persists, holding for now as last serum K 3.9 - IV Lasix 40 mg daily Infectious disease # community acquired pneumonia, gram + vs -ve # Influenza B positive - IV cefepime - IV metronidazole - Oseltamivir - norepinephrine at 10 micrograms/hour - phenylephrine at 15mcg/min - respiratory, blood, urine cultures Hem/onc # mild normocytic anemia # ruled out lower extremity DVT # thrombocytopenia - lower extremity Doppler: No right or left lower extremity deep vein thrombosis. Psychiatry # Alcohol use disorder # hx of depression - outpatient psychiatry follow up versus psychiatry consult upon extubation DVT prophylaxis - discontinue therapeutic Lovenox due to patient having thrombocytopenia Nutrition TF nepro carbsteady Lines L IJ CVC 10/23/24 LUE 20g 10/23/24 RUE 20g 10/23/24 Drips during mech ventilation Fentanyl 200 mcg/hr Versed 10 Intubated on 10/23/24 Critical care time 82 minutes excluding procedure and discussions with the family. Plan discussed with: Other (nurse) My Orders Orders - STEPHANIA ARIAS MD Procedure Category Date Status Time Lactulose Oral PHA 10/28/24 In Process 22:00 Date of Service: Oct 28, 2024 Billing Provider: STEPHANIA ARIAS MD Common Visit Codes: 66724-[facility] 30-74 MIN STEPHANIA ARIAS MD Oct 28, 2024 15:39
[2024-10-28] MEDS: FUROSEMIDE 20 MG/2 ML VIAL IV SCH (17:55)
[2024-10-28] MEDS: LACTULOSE 20Gm/30ML SOLN PO SCH (21:50)
--- NOTE | 2024-10-28 23:15 | DVHPN2 ---
Consult Progress Note Date Seen: Oct 28, 2024 Subjective Other Systems: Patient was seen and evaluated in follow up in the ICU. No overnight cardiac events reported. Patient is intubated and sedated on ventilator. 50% FiO2. Patient underwent bronchoscopy this am with Dr. Almaguer, patient went into A-fib in the 130's. K 3.4, BUN 29, RN HEMATOLOGY 1.50, AST 536, ALT 831. Chest x-ray shows stable extensive bilateral perihilar and bibasilar pulmonary airspace disease and moderate bilateral pleural effusions. Cardiomegaly. Objective vital signs Vital Sign Date Time Temp Pulse Resp B/P (MAP) Pulse Ox O2 Delivery O2 Flow Rate FiO2 10/28/24 12:15 98 20 92/71 (78) 100 50 10/28/24 10:26 99.9 211.8 10/28/24 10:00 Mechanical Ventilator+ Total Intake and Output 10/27/24 10/27/24 10/28/24 15:00 23:00 07:00 Intake Total 546.78 ml 626.0 ml 860.5 ml Output Total 1100 ml 2500 ml Balance 546.78 ml -474.0 ml -1639.5 ml medications Current Medications Medications Dose Ordered Sig/Cristian Route Start Time Stop Time Status Last Admin Dose Admin Propofol 100 ml @ 2.286 mls/ hr Q24H IV 10/23/24 19:45 10/24/24 03:56 13.716 MLS/HR Midazolam HCl 50 ml @ 1 mls/hr Q24H IV 10/23/24 19:45 10/28/24 09:36 12 MLS/HR Fentanyl Citrate 250 ml @ 2.5 mls/hr Q24H IV 10/23/24 21:45 10/28/24 05:13 22.5 MLS/HR Pantoprazole Sodium 40 mg DAILY IV 10/24/24 10:00 10/28/24 09:36 40 MG Phenylephrine HCl 80 mg/Sodium Chloride 250 ml @ 7.5 mls/hr Q24H IV 10/24/24 14:30 10/25/24 02:12 26.25 MLS/HR Norepinephrine Bitartrate 32 mg/ Sodium Chloride 250 ml @ 0.938 mls/ hr Q24H IV 10/24/24 14:30 10/24/24 18:55 6.563 MLS/HR Metronidazole 100 ml @ 100 mls/hr Q8HR IV 10/25/24 13:00 10/28/24 05:30 100 MLS/HR Oseltamivir Phosphate 30 mg BID PO 10/25/24 22:00 10/30/24 21:59 10/28/24 09:51 30 MG Enteral Nutritional Formula 1,000 ml 30ML/HR GT 10/25/24 17:15 10/27/24 04:25 1,000 ML Ipratropium [place] 0.5 mg Q6HR NEB 10/26/24 06:00 10/28/24 12:15 0.5 MG Cefepime HCl 50 ml @ 12.5 mls/hr Q12HR IV 10/27/24 10:00 10/28/24 09:36 12.5 MLS/HR Amiodarone HCl 200 mg DAILY PO 10/28/24 10:00 10/28/24 09:51 200 MG Furosemide 20 mg BIDD IV 10/28/24 18:00 Examination: GENERAL:Abnormal (intubated ), HEENT:Normal, LUNGS:Abnormal (diminshed breath sounds ), CVS:Abnormal, NEURO:Abnormal (sedated ) laboratory and microbiology Laboratory Tests 10/28/24 02:49 Test 10/28/24 02:49 Range/Units Serum Glucose 82 74-106 mg/dL Problem List/Assessment/Plan Problem List/Assessment/Plan Problem List Sepsis with acute hypoxic respiratory failure likely due to pneumonia. Paroxysmal atrial fibrillation/atrial flutter s/p DCCV with transient NSR, Stage III. Acute on chronic decompensated HFrEF, NYHA Class III, newly diagnosed. End-stage dilated cardiomyopathy, likely ischemic given anteroseptal ST-T wave changes. NSTEMI, possibly type 1. Bilateral pleural effusions. Tobacco/alcohol dependence/?Alcohol withdrawal. Thrombocytopenia. Plan/Recommendation Continued all current supportive medical care. Patient has been seen by Ilana Daugherty NP on my behalf, her and I discussed the plan with the patient. Transthoracic echocardiogram revealed LVEF 20%. Ventilator settings per pulmonology team. Vasopressor for hemodynamic support for a MAP = or >65 mmHg. Antiarrhythmic therapy, amiodarone GT BID. Hold single-antiplatelet therapy given thrombocytopenia. Hold statin given elevated LFTs. Preload reduction as tolerated. Strict I&Os. Daily weight. Fluid restrictions. Therapeutic Lovenox held given worsening thrombocytopenia. [id number] Score 1 point. HAS-BLED Score 2 points. Replete electrolytes as necessary, K>4 and Mg>2. Monitor ECG changes closely and notify. Daily BNP level. Additional plan as per the hospital course. Plan discussed with: Other Dietary Evaluation Review Comments: 1) TF Jevity 1.2Cal @ 50ml/hr (goal) along wth Pro-stat 1 pk BID. Start @ 20ml/hr, increase 10ml/hr Q4H until goal is reached. TF @ goal volume along with Pro-stat provides 1640 kcal (100% energy needs), 96 gm protein (100% protein needs), 968 ml free water. 2) Water flush 170ml Q6H if allowed, adjust PRN 3) TPN if NPO > 7 days 4) Monitor NPO status, lab values, wt trend, I/O Expected Outcomes/Goals: To meet >75% estimated needs Fu 2-3 days Date of Service: Oct 28, 2024 Billing Provider: MESERET MOTLEY MD Cardiology Common Codes: [id number][id number] MESERET MOTLEY MD Oct 28, 2024 12:25
[2024-10-29] VITALS (119 sets, daily range): BP systolic 97–142; BP diastolic 42–96; PULSE 66–115; RESP 0–23; TEMP 97.7–99.7; O2SAT 88–100
[2024-10-29 03:20] LABS: Hematocrit 44.1 % (41.0-53.0); Hemoglobin 15.0 g/dL (13.5-17.5); Mean Corpuscular Hemoglobin 32.3 pg (28.0-32.0); Mean Corpuscular Volume 94.8 fL (80.0-100.0); Nucleated Red Blood Cells % 0.0 %
[2024-10-29 03:38] LABS: Albumin 3.5 g/dL (3.2-4.8); Alkaline Phosphatase 108 U/L (46-116); Anion Gap 12 (5-15); BUN/Creatinine Ratio 22.3 (10.0-20.0); Calcium 8.8 mg/dL (8.7-10.4); Carbon Dioxide 26 mmol/L (20-31); Chloride 100 mmol/L (98-107); Glucose 86 mg/dL (74-106); Sodium 138 mmol/L (136-145); Total Protein 6.9 g/dL (5.7-8.2)
[2024-10-29 03:40] LABS: Alanine Aminotransferase 556 U/L (7-40); Bilirubin, Total 1.7 mg/dL (0.2-1.0); Blood Urea Nitrogen 29 mg/dL (9-23); Potassium 3.2 mmol/L (3.5-5.1)
[2024-10-29] MEDS: POTASSIUM CHL 20MEQ/100ML 100 ML IV SCH ×2 (04:45→13:08)
--- NOTE | 2024-10-29 05:54 | DVH ---
EXAM: XY CHEST PORTABLE Indication: ET placement Technique: Single frontal view of the chest was obtained Comparison: XY CHEST PORTABLE on DOS: 10/28/24, XY CHEST PORTABLE on DOS: 10/28/24, XY CHEST PORTABLE o n DOS: 10/27/24, XY CHEST PORTABLE on DOS: 10/26/24, XY CHEST XRAY 1 VIEW on DOS: 10/25/24, XY CHEST POR TABLE on DOS: 10/28/24 FINDINGS: Lines and Tubes: Endotracheal tube 4.1 cm above the ty. Left internal jugular catheter tip projec ts over the proximal superior vena cava. Enteric tube tip projects over the expected region the stoma ch. Lungs: Multifocal airspace opacities. Pleura: Small bilateral pleural effusions. No pneumothorax. Cardiomediastinal contours: Unremarkable Bones: No acute osseous abnormality. IMPRESSION: No significant change compared to prior exam.
[2024-10-29 08:57] LABS: Base Excess -0.7 mmol/L (-2.0-3.0)
--- NOTE | 2024-10-29 10:13 | DVHPN2 ---
Progress Note Date Seen: Oct 29, 2024 Has the PT tested + for MRSA If YES, has PT been informed?: No Medical Necessity Reason Pt with a Central, PICC or Fol: No The following are medically ne: Central Line, Greenberg Catheter Subjective Patient reports: Feels better Changes from previous H/P or p: No Changes Objective vital signs Vital Sign Date Time Temp Pulse Resp B/P (MAP) Pulse Ox O2 Delivery O2 Flow Rate FiO2 10/29/24 09:48 105/77 10/29/24 08:15 86 21 100 30 10/29/24 06:00 Mechanical Ventilator+ 10/29/24 05:11 99.7 211.5 Total Intake and Output 10/28/24 10/28/24 10/29/24 15:00 23:00 07:00 Intake Total 452.0 ml 714.5 ml 913.5 ml Output Total 1400 ml 1500 ml Balance 452.0 ml -685.5 ml -586.5 ml medications Current Medications Medications Dose Ordered Sig/Cristian Route Start Time Stop Time Status Last Admin Dose Admin Propofol 100 ml @ 2.286 mls/ hr Q24H IV 10/23/24 19:45 10/24/24 03:56 13.716 MLS/HR Midazolam HCl 50 ml @ 1 mls/hr Q24H IV 10/23/24 19:45 10/29/24 09:38 15 MLS/HR Fentanyl Citrate 250 ml @ 2.5 mls/hr Q24H IV 10/23/24 21:45 10/29/24 09:48 25 MLS/HR Pantoprazole Sodium 40 mg DAILY IV 10/24/24 10:00 10/29/24 09:39 40 MG Phenylephrine HCl 80 mg/Sodium Chloride 250 ml @ 7.5 mls/hr Q24H IV 10/24/24 14:30 10/25/24 02:12 26.25 MLS/HR Norepinephrine Bitartrate 32 mg/ Sodium Chloride 250 ml @ 0.938 mls/ hr Q24H IV 10/24/24 14:30 10/24/24 18:55 6.563 MLS/HR Metronidazole 100 ml @ 100 mls/hr Q8HR IV 10/25/24 13:00 10/29/24 06:29 100 MLS/HR Oseltamivir Phosphate 30 mg BID PO 10/25/24 22:00 10/30/24 21:59 10/29/24 09:40 30 MG Enteral Nutritional Formula 1,000 ml 30ML/HR GT 10/25/24 17:15 10/27/24 04:25 1,000 ML Ipratropium [place] 0.5 mg Q6HR NEB 10/26/24 06:00 10/29/24 00:08 0.5 MG Cefepime HCl 50 ml @ 12.5 mls/hr Q12HR IV 10/27/24 10:00 10/29/24 09:40 12.5 MLS/HR Amiodarone HCl 200 mg DAILY PO 10/28/24 10:00 10/29/24 09:40 200 MG Furosemide 20 mg BIDD IV 10/28/24 18:00 10/29/24 06:28 20 MG Lactulose 30 ml BID PO 10/28/24 22:00 10/29/24 09:46 30 ML Examination: GENERAL:Abnormal, LUNGS:Abnormal, CVS:Abnormal laboratory and microbiology Laboratory Tests 10/29/24 02:46 Test 10/29/24 02:46 Range/Units Serum Glucose 86 74-106 mg/dL Microbiology Date/Time Source Procedure Growth Status 10/25/24 10:45 Nose MRSA Screen - Final Complete 10/24/24 13:23 Voided Urine Urine Culture - Final Complete 10/23/24 19:48 Blood Blood Culture - Final NO GROWTH AFTER 5 DAYS OF INCUBATION. Complete Problem List/Assessment/Plan Problem List/Assessment/Plan 57-year-old male past medical history of alcoholic liver cirrhosis presents to the hospital complaining of shortness of breath was found to have atrial fibrillation rapid ventricular response diagnosed with decompensated heart failure with ejection fraction less than 20%. Nephrology consulted for acute kidney injury Acute kidney injury likely multiple factors including hemodynamics, contrast, cardiorenal syndrome No previous CKD Dilated cardiomyopathy with ejection fraction 20% Cirrhosis Acute respiratory failure AFib with rapid ventricular response Currently rate controlled, cardiology potassium replacement today and daily based on labs lasix to achieve slow and slight negative balance daily Monitoring urinary output Avoid contrast studies if able Replace electrolytes accordingly Plan discussed with: Other My Orders My Orders Orders - CHRISTOS KOTHARI MD Procedure Category Date Status Time Basic Metabolic Panel LAB 10/30/24 Verified 04:00 Dietary Evaluation Review Comments: 1) TF Jevity 1.2Cal @ 50ml/hr (goal) along wth Pro-stat 1 pk BID. Start @ 20ml/hr, increase 10ml/hr Q4H until goal is reached. TF @ goal volume along with Pro-stat provides 1640 kcal (100% energy needs), 96 gm protein (100% protein needs), 968 ml free water. 2) Water flush 170ml Q6H if allowed, adjust PRN 3) TPN if NPO > 7 days 4) Monitor NPO status, lab values, wt trend, I/O Expected Outcomes/Goals: To meet >75% estimated needs Fu 2-3 days Critical Care Time (mins): 33 CHRISTOS KOTHARI MD Oct 29, 2024 10:13
--- NOTE | 2024-10-29 10:13 | DVHPN2 ---
Consult Progress Note Date Seen: Oct 29, 2024 Subjective Other Systems: No overnight cardiac events reported Objective vital signs Vital Sign Date Time Temp Pulse Resp B/P (MAP) Pulse Ox O2 Delivery O2 Flow Rate FiO2 10/29/24 09:48 105/77 10/29/24 08:15 86 21 100 30 10/29/24 06:00 Mechanical Ventilator+ 10/29/24 05:11 99.7 211.5 Total Intake and Output 10/28/24 10/28/24 10/29/24 15:00 23:00 07:00 Intake Total 452.0 ml 714.5 ml 913.5 ml Output Total 1400 ml 1500 ml Balance 452.0 ml -685.5 ml -586.5 ml medications Current Medications Medications Dose Ordered Sig/Cristian Route Start Time Stop Time Status Last Admin Dose Admin Propofol 100 ml @ 2.286 mls/ hr Q24H IV 10/23/24 19:45 10/24/24 03:56 13.716 MLS/HR Midazolam HCl 50 ml @ 1 mls/hr Q24H IV 10/23/24 19:45 10/29/24 09:38 15 MLS/HR Fentanyl Citrate 250 ml @ 2.5 mls/hr Q24H IV 10/23/24 21:45 10/29/24 09:48 25 MLS/HR Pantoprazole Sodium 40 mg DAILY IV 10/24/24 10:00 10/29/24 09:39 40 MG Phenylephrine HCl 80 mg/Sodium Chloride 250 ml @ 7.5 mls/hr Q24H IV 10/24/24 14:30 10/25/24 02:12 26.25 MLS/HR Norepinephrine Bitartrate 32 mg/ Sodium Chloride 250 ml @ 0.938 mls/ hr Q24H IV 10/24/24 14:30 10/24/24 18:55 6.563 MLS/HR Metronidazole 100 ml @ 100 mls/hr Q8HR IV 10/25/24 13:00 10/29/24 06:29 100 MLS/HR Oseltamivir Phosphate 30 mg BID PO 10/25/24 22:00 10/30/24 21:59 10/29/24 09:40 30 MG Enteral Nutritional Formula 1,000 ml 30ML/HR GT 10/25/24 17:15 10/27/24 04:25 1,000 ML Ipratropium [place] 0.5 mg Q6HR NEB 10/26/24 06:00 10/29/24 00:08 0.5 MG Cefepime HCl 50 ml @ 12.5 mls/hr Q12HR IV 10/27/24 10:00 10/29/24 09:40 12.5 MLS/HR Amiodarone HCl 200 mg DAILY PO 10/28/24 10:00 10/29/24 09:40 200 MG Furosemide 20 mg BIDD IV 10/28/24 18:00 10/29/24 06:28 20 MG Lactulose 30 ml BID PO 10/28/24 22:00 10/29/24 09:46 30 ML Examination: GENERAL:Abnormal, LUNGS:Abnormal (Enodtracheally intubated 30% FiO2. Right-sided crackles), CVS:Normal (NSR 70s bpm. Off vasopressors), NEURO:Abnormal (Chemically sedated) laboratory and microbiology Laboratory Tests 10/29/24 02:46 Test 10/29/24 02:46 Range/Units Serum Glucose 86 74-106 mg/dL Problem List/Assessment/Plan Problem List/Assessment/Plan Sepsis with acute hypoxic respiratory failure likely due to pneumonia Paroxysmal atrial fibrillation/atrial flutter s/p DCCV with transient NSR, Stage III Acute on chronic decompensated HFrEF, NYHA Class III, newly diagnosed End-stage dilated cardiomyopathy, likely ischemic given anteroseptal ST-T wave changes NSTEMI, possibly type 1 Bilateral pleural effusions Tobacco/alcohol dependence/?Alcohol withdrawal Thrombocytopenia Plan/Recommendation (Dr. Fu) * Transthoracic echocardiogram revealed LVEF 20% * Ventilator settings per pulmonology team * Antiarrhythmic therapy, amiodarone GT BID * Hold single-antiplatelet therapy given thrombocytopenia * Hold statin given elevated LFTs * Preload reduction as tolerated * Strict I&Os. Daily weight. Fluid restriction * Therapeutic Lovenox held given worsening thrombocytopenia * [id number] Score 1 point. HAS-BLED Score 2 points * Replete electrolytes as necessary, K>4 and Mg>2 * Monitor ECG changes closely and notify * Daily BNP level Thank you for giving us the opportunity to take care of your patient. Please call back if any question/concern. Critical care time: 35 min. This medical document was created using an electronic medical record system with voice recognition software and computerized dictation system. Although this document has been carefully reviewed, there might still be some phonetic and typographical errors. Occasional wrong-word or ``sound-alike substitutions may have occurred due to the inherent limitations of voice recognition software. These areas are purely typographical due to imperfections of the software programs and do not reflect any compromise in the patient's medical care. Please read the chart carefully and recognize, using context, where these substitutions have occurred. Plan discussed with: Other Dietary Evaluation Review Comments: 1) TF Jevity 1.2Cal @ 50ml/hr (goal) along wth Pro-stat 1 pk BID. Start @ 20ml/hr, increase 10ml/hr Q4H until goal is reached. TF @ goal volume along with Pro-stat provides 1640 kcal (100% energy needs), 96 gm protein (100% protein needs), 968 ml free water. 2) Water flush 170ml Q6H if allowed, adjust PRN 3) TPN if NPO > 7 days 4) Monitor NPO status, lab values, wt trend, I/O Expected Outcomes/Goals: To meet >75% estimated needs Fu 2-3 days Date of Service: Oct 29, 2024 Billing Provider: HELADIO NDIAYE Cardiology Common Codes: 47647-RHYMSCRY CARE 30-74 MIN HELADIO NDIAYE Oct 29, 2024 10:13
[2024-10-29] MEDS: DEXMEDETOMIDINE HCL IN D5W 100 ML IV SCH (11:30)
--- NOTE | 2024-10-29 13:38 | DVHPN2 ---
Progress Note - Dictate Date Seen: Oct 29, 2024 Has the PT tested + for MRSA If YES, has PT been informed?: No Medical Necessity Reason Pt with a Central, PICC or Fol: No The following are medically ne: Central Line, Greenberg Catheter vital signs Vital Sign Date Time Temp Pulse Resp B/P (MAP) Pulse Ox O2 Delivery O2 Flow Rate FiO2 10/29/24 13:08 111/42 10/29/24 12:38 80 20 98 30 10/29/24 12:26 98.4 209.1 10/29/24 12:00 Mechanical Ventilator+ Total Intake and Output 10/28/24 10/28/24 10/29/24 15:00 23:00 07:00 Intake Total 452.0 ml 714.5 ml 913.5 ml Output Total 1400 ml 1500 ml Balance 452.0 ml -685.5 ml -586.5 ml medications Current Medications Medications Dose Ordered Sig/Cristian Route Start Time Stop Time Status Last Admin Dose Admin Propofol 100 ml @ 2.286 mls/ hr Q24H IV 10/23/24 19:45 10/24/24 03:56 13.716 MLS/HR Midazolam HCl 50 ml @ 1 mls/hr Q24H IV 10/23/24 19:45 10/29/24 13:08 13 MLS/HR Fentanyl Citrate 250 ml @ 2.5 mls/hr Q24H IV 10/23/24 21:45 10/29/24 09:48 25 MLS/HR Pantoprazole Sodium 40 mg DAILY IV 10/24/24 10:00 10/29/24 09:39 40 MG Phenylephrine HCl 80 mg/Sodium Chloride 250 ml @ 7.5 mls/hr Q24H IV 10/24/24 14:30 10/25/24 02:12 26.25 MLS/HR Norepinephrine Bitartrate 32 mg/ Sodium Chloride 250 ml @ 0.938 mls/ hr Q24H IV 10/24/24 14:30 10/24/24 18:55 6.563 MLS/HR Metronidazole 100 ml @ 100 mls/hr Q8HR IV 10/25/24 13:00 10/29/24 06:29 100 MLS/HR Oseltamivir Phosphate 30 mg BID PO 10/25/24 22:00 10/30/24 21:59 10/29/24 09:40 30 MG Enteral Nutritional Formula 1,000 ml 30ML/HR GT 10/25/24 17:15 10/27/24 04:25 1,000 ML Ipratropium [place] 0.5 mg Q6HR NEB 10/26/24 06:00 10/29/24 12:38 0.5 MG Cefepime HCl 50 ml @ 12.5 mls/hr Q12HR IV 10/27/24 10:00 10/29/24 09:40 12.5 MLS/HR Amiodarone HCl 200 mg DAILY PO 10/28/24 10:00 10/29/24 09:40 200 MG Furosemide 20 mg BIDD IV 10/28/24 18:00 10/29/24 06:28 20 MG Lactulose 30 ml BID PO 10/28/24 22:00 10/29/24 09:46 30 ML Potassium Chloride 100 ml @ 50 mls/hr Q2H IV 10/29/24 10:15 10/29/24 14:14 10/29/24 13:08 50 MLS/HR laboratory and microbiology Laboratory Tests 10/29/24 02:46 Test 10/29/24 02:46 Range/Units Serum Glucose 86 74-106 mg/dL Assessment/Plan *[employer] rounds* Impression Acute hypoxemic respiratory failure Cardiomyopathy Influenza B Pneumonia CHF Patient seen and examined in ICU Events On mechanical ventilation S/p intubation PEEP 8, FiO2 30% S/p bronchoscopy yesterday Labs and imaging reviewed Chest x-ray shows bilateral opacities consistent with pneumonia ABG reviewed Management Vent support Titrate to maintain sats 90% or above Sedation holiday daily If patient follows commands, proceed to weaning trial Pressure support 10/14, extubate when ready Continue antibiotics F/u cultures Bronchodilators Diurese Monitor renal function Monitor electrolytes Supplement as needed Pressors as needed for hemodynamic support To maintain a mean arterial pressure of 65 mmHg DVT prophylaxis Critical care time 35 minutes Dietary Evaluation Review Comments: 1) TF Jevity 1.2Cal @ 50ml/hr (goal) along wth Pro-stat 1 pk BID. Start @ 20ml/hr, increase 10ml/hr Q4H until goal is reached. TF @ goal volume along with Pro-stat provides 1640 kcal (100% energy needs), 96 gm protein (100% protein needs), 968 ml free water. 2) Water flush 170ml Q6H if allowed, adjust PRN 3) TPN if NPO > 7 days 4) Monitor NPO status, lab values, wt trend, I/O Expected Outcomes/Goals: To meet >75% estimated needs Fu 2-3 days Plan discussed with: Other (Rn) HANANE BILLY MD Oct 29, 2024 13:38
--- NOTE | 2024-10-29 13:57 | DVH ---
ABDOMINAL RADIOGRAPH Indication: R/O ILEUS Technique: Single frontal view of the abdomen was obtained Comparison: None FINDINGS: Lines and tubes: There is an enteric tube with its tip terminating in the gastric body. There are no dilated bowel loops. No supine radiographic evidence of pneumoperitoneum. Bony structure s unremarkable. IMPRESSION: 1. Enteric tube terminates in the gastric body. 2. No dilated bowel loops noted.
[2024-10-29] MEDS: MAGNESIUM SULFATE 1GM/100ML 100 ML IV ONE (14:21)
--- NOTE | 2024-10-29 15:32 | DVHPN2 ---
Subjective intubated and sedated Reviewed: H&P, Labs Changes from previous H/P or p: No Changes Objective Vitals Vital Signs Date Time Temp Pulse Resp B/P (MAP) Pulse Ox O2 Delivery O2 Flow Rate FiO2 10/29/24 14:27 98.4 70 21 117/77 (90) 99 209.1 10/29/24 14:04 30 10/29/24 14:00 Mechanical Ventilator+ Intake/Output Intake and Output 10/29/24 07:00 Intake Total 2080.0 ml Output Total 2900 ml Balance -820.0 ml Intake Oral 120 ml IV Total 1480.0 ml Tube Feeding 480 ml Output Urine Total 2900 ml General Appearance: Other (intubated) HEENT: Atraumatic Lungs: Clear to auscultation Cardiovascular: Regular rate, Normal S1, Normal S2 Abdomen: Normal bowel sounds Medications Current Medications Medications Dose Ordered Sig/Cristian Route Start Time Stop Time Status Last Admin Dose Admin Propofol 100 ml @ 2.286 mls/ hr Q24H IV 10/23/24 19:45 10/24/24 03:56 13.716 MLS/HR Midazolam HCl 50 ml @ 1 mls/hr Q24H IV 10/23/24 19:45 10/29/24 13:08 13 MLS/HR Fentanyl Citrate 250 ml @ 2.5 mls/hr Q24H IV 10/23/24 21:45 10/29/24 09:48 25 MLS/HR Pantoprazole Sodium 40 mg DAILY IV 10/24/24 10:00 10/29/24 09:39 40 MG Phenylephrine HCl 80 mg/Sodium Chloride 250 ml @ 7.5 mls/hr Q24H IV 10/24/24 14:30 10/25/24 02:12 26.25 MLS/HR Norepinephrine Bitartrate 32 mg/ Sodium Chloride 250 ml @ 0.938 mls/ hr Q24H IV 10/24/24 14:30 10/24/24 18:55 6.563 MLS/HR Metronidazole 100 ml @ 100 mls/hr Q8HR IV 10/25/24 13:00 10/29/24 14:20 100 MLS/HR Oseltamivir Phosphate 30 mg BID PO 10/25/24 22:00 10/30/24 21:59 10/29/24 09:40 30 MG Enteral Nutritional Formula 1,000 ml 30ML/HR GT 10/25/24 17:15 10/27/24 04:25 1,000 ML Ipratropium [place] 0.5 mg Q6HR NEB 10/26/24 06:00 10/29/24 12:38 0.5 MG Cefepime HCl 50 ml @ 12.5 mls/hr Q12HR IV 10/27/24 10:00 10/29/24 09:40 12.5 MLS/HR Amiodarone HCl 200 mg DAILY PO 10/28/24 10:00 10/29/24 09:40 200 MG Furosemide 20 mg BIDD IV 10/28/24 18:00 10/29/24 06:28 20 MG Lactulose 30 ml BID PO 10/28/24 22:00 10/29/24 09:46 30 ML Laboratory Results Laboratory Tests 10/29/24 02:46 Chemistry Test 10/29/24 02:46 10/29/24 10:58 Albumin 3.5 g/dL (3.2-4.8) Calcium Level 8.8 mg/dL (8.7-10.4) Total Protein 6.9 g/dL (5.7-8.2) Magnesium Level 1.7 mg/dL (1.6-2.6) Cardiac Markers Test 10/29/24 02:46 B-Type Natriuretic Peptide 178.91 pg/mL (0-100) LFT Test 10/29/24 02:46 Alanine Aminotransferase (ALT) 556 U/L (7-40) H Alkaline Phosphatase 108 U/L (46-116) Aspartate Amino Transferase (AST) 235 U/L (13-40) H Total Bilirubin 1.7 mg/dL (0.2-1.0) H Urinalysis Test 10/23/24 19:42 10/25/24 13:15 Urine Color Yellow (Yellow) Urine Clarity Clear (Clear) Urine pH 6.0 (5.0-9.0) Urine Specific [place] 1.018 (1.001-1.035) Urine Protein 2+ (Negative) H Urine Ketones Negative (Negative) Urine Blood Negative /uL (Negative) Urine Nitrite Negative (Negative) Urine Bilirubin Negative (Negative) Urine Urobilinogen Normal mg/dL (Negative) Urine Leukocyte Esterase Negative /uL (Negative) Urine RBC 5 /hpf (0 - 3) Urine Microscopic WBC 4 /HPF (0-3) H Urine Squamous Epithelial Cells None seen /hpf (<5) Urine Bacteria Few /hpf (None Seen) H Urine Glucose Normal mg/dL (Normal) Urine Osmolality 290 mOsm/kg Urine Creatinine 18.09 mg/dL (30.0-125.0) L Urine Sodium 111 mmol/L (40-220) Urine Total Protein 46.2 mg/dL (1-14) H Blood Gas Results Test 10/29/24 08:10 Arterial Blood pH 7.400 (7.350-7.450) FiO2 % 30.0 Microbiology Microbiology Date/Time Source Procedure Growth Status 10/28/24 10:50 Bronchial Washings Gram Stain - Final Resulted 10/28/24 10:50 Bronchial Washings Respiratory Culture - Preliminary Resulted 10/25/24 10:45 Nose MRSA Screen - Final Complete 10/24/24 13:23 Voided Urine Urine Culture - Final Complete 10/23/24 19:48 Blood Blood Culture - Final NO GROWTH AFTER 5 DAYS OF INCUBATION. Complete Assessment/Plan Assessment/Plan Neurology # acute toxic vs metabolic encephalopathy # possible alcohol withdrawal # hx of withdrawal seizures? # Sedated - head CT: No acute intracranial abnormality - IV banana bag once - Versed 10 mcg per hour Cardiovascular # septic shock due to pneumonia # atrial flutter with hemodynamic instability, s/p cardioversion x2 # NSTEMI 1 vs 2 # End- stage dilated cardiomyopathy # Heart failure with reduced ejection fraction <20% # Prolonged QTC - amiodarone drip - cardiology on board - norepinephrine at 10 micrograms/hour - amiodarone drip at 0.5mg/min - phenylephrine at 15mcg/min - IV digoxin 500mcg x 2 - serum digoxin level 3.69 5 hours after 2nd dose in 24 hours after 1st dose - repeat serum digoxin level Respiratory # Acute hypoxic respiratory failure # community-acquired pneumonia, Gram-positive versus Gram-negative # Ventilator # ruled out pulmonary embolism -intubated (10/23/24) -on [facility] vent : VCAC Mode RR 20 TV 550ml, PEEP Of 8 and FiO2 of 100% - CXR: Moderate interstitial pulmonary edema in the setting of cardiomegaly. Probable trace bilateral effusions. - CT angio: No evidence of pulmonary embolism. Pulmonary edema. Large bilateral pleural effusions. Associated consolidation of the majority of bilateral lower lobes independent portions of the remaining lobes of the lung. Cirrhotic liver. Small amount of ascites in the visualized upper abdomen. - chest ultrasound: Small bilateral pleural effusion, trace ascites. - holding IV Lasix until tomorrow - IV cefepime, IV metronidazole GI # Hx of GI bleed # cirrhosis, MELD 19 # Hx of portal hypertension gastropathy # mild abdominal ascites # Peptic ulcer prophylaxis -Pantoprazole 40 mg IV daily # Greenberg catheter placed on 10/23/24 - urine culture Nephrology # Hyperkalemia # DMITRIY likely ATN/VMN on ?CKD (GFR 70 on admission, unknown baseline) - monitor - nephrology on board; recommended to start lokelma qD if hyperkalemia persists, holding for now as last serum K 3.9 - IV Lasix 40 mg daily Infectious disease # community acquired pneumonia, gram + vs -ve # Influenza B positive - IV cefepime - IV metronidazole - Oseltamivir - norepinephrine at 10 micrograms/hour - phenylephrine at 15mcg/min - respiratory, blood, urine cultures Hem/onc # mild normocytic anemia # ruled out lower extremity DVT # thrombocytopenia - lower extremity Doppler: No right or left lower extremity deep vein thrombosis. Psychiatry # Alcohol use disorder # hx of depression - outpatient psychiatry follow up versus psychiatry consult upon extubation DVT prophylaxis - discontinue therapeutic Lovenox due to patient having thrombocytopenia Nutrition TF nepro carbsteady Lines L IJ CVC 10/23/24 LUE 20g 10/23/24 RUE 20g 10/23/24 Drips during mech ventilation Fentanyl 200 mcg/hr Versed 10 Intubated on 10/23/24 Critical care time 82 minutes excluding procedure and discussions with the family. Plan discussed with: Other (nurse) My Orders Orders - STEPHANIA ARIAS MD Procedure Category Date Status Time Abg W/ Co-Ox RT 10/29/24 Logged 07:00 Chest Portable XY 10/29/24 Resulted 04:00 Kub Abdomen Single XY 10/29/24 Resulted View 11:23 Date of Service: Oct 29, 2024 Billing Provider: STEPHANIA ARIAS MD Common Visit Codes: [id number] CARE 30-74 MIN STEPHANIA ARIAS MD Oct 29, 2024 15:32
--- NOTE | 2024-10-29 22:59 | DVHPN2 ---
Consult Progress Note Date Seen: Oct 29, 2024 Subjective Other Systems: Patient was seen and evaluated in follow up in the ICU. No overnight cardiac events reported. Patient is intubated and sedated on ventilator. 30% FiO2. K 3.2, BUN 29, AST 235, ALT 556. Objective vital signs Vital Sign Date Time Temp Pulse Resp B/P (MAP) Pulse Ox O2 Delivery O2 Flow Rate FiO2 10/29/24 13:08 111/42 10/29/24 12:38 80 20 98 30 10/29/24 12:26 98.4 209.1 10/29/24 12:00 Mechanical Ventilator+ Total Intake and Output 10/28/24 10/28/24 10/29/24 15:00 23:00 07:00 Intake Total 452.0 ml 714.5 ml 913.5 ml Output Total 1400 ml 1500 ml Balance 452.0 ml -685.5 ml -586.5 ml medications Current Medications Medications Dose Ordered Sig/Cristian Route Start Time Stop Time Status Last Admin Dose Admin Propofol 100 ml @ 2.286 mls/ hr Q24H IV 10/23/24 19:45 10/24/24 03:56 13.716 MLS/HR Midazolam HCl 50 ml @ 1 mls/hr Q24H IV 10/23/24 19:45 10/29/24 13:08 15 MLS/HR Fentanyl Citrate 250 ml @ 2.5 mls/hr Q24H IV 10/23/24 21:45 10/29/24 09:48 25 MLS/HR Pantoprazole Sodium 40 mg DAILY IV 10/24/24 10:00 10/29/24 09:39 40 MG Phenylephrine HCl 80 mg/Sodium Chloride 250 ml @ 7.5 mls/hr Q24H IV 10/24/24 14:30 10/25/24 02:12 26.25 MLS/HR Norepinephrine Bitartrate 32 mg/ Sodium Chloride 250 ml @ 0.938 mls/ hr Q24H IV 10/24/24 14:30 10/24/24 18:55 6.563 MLS/HR Metronidazole 100 ml @ 100 mls/hr Q8HR IV 10/25/24 13:00 10/29/24 06:29 100 MLS/HR Oseltamivir Phosphate 30 mg BID PO 10/25/24 22:00 10/30/24 21:59 10/29/24 09:40 30 MG Enteral Nutritional Formula 1,000 ml 30ML/HR GT 10/25/24 17:15 10/27/24 04:25 1,000 ML Ipratropium [place] 0.5 mg Q6HR NEB 10/26/24 06:00 10/29/24 12:38 0.5 MG Cefepime HCl 50 ml @ 12.5 mls/hr Q12HR IV 10/27/24 10:00 10/29/24 09:40 12.5 MLS/HR Amiodarone HCl 200 mg DAILY PO 10/28/24 10:00 10/29/24 09:40 200 MG Furosemide 20 mg BIDD IV 10/28/24 18:00 10/29/24 06:28 20 MG Lactulose 30 ml BID PO 10/28/24 22:00 10/29/24 09:46 30 ML Potassium Chloride 100 ml @ 50 mls/hr Q2H IV 10/29/24 10:15 10/29/24 14:14 10/29/24 13:08 50 MLS/HR Examination: GENERAL:Abnormal ((intubated), HEENT:Normal, NECK:Normal, LUNGS:Abnormal (diminished breath sounds), CVS:Normal, CVS:Abnormal, SKIN:Normal, NEURO:Abnormal laboratory and microbiology Laboratory Tests 10/29/24 02:46 Test 10/29/24 02:46 Range/Units Serum Glucose 86 74-106 mg/dL Problem List/Assessment/Plan Problem List/Assessment/Plan Problem List Sepsis with acute hypoxic respiratory failure likely due to pneumonia. Paroxysmal atrial fibrillation/atrial flutter s/p DCCV with transient NSR, Stage III. Acute on chronic decompensated HFrEF, NYHA Class III, newly diagnosed. End-stage dilated cardiomyopathy, likely ischemic given anteroseptal ST-T wave changes. NSTEMI, possibly type 1. Bilateral pleural effusions. Tobacco/alcohol dependence/?Alcohol withdrawal. Thrombocytopenia. Plan/Recommendation Continued all current supportive medical care. Patient has been seen by Ilana Daugherty NP on my behalf, her and I discussed the plan with the patient. Transthoracic echocardiogram revealed LVEF 20%. Ventilator settings per pulmonology team. Antiarrhythmic therapy, amiodarone GT BID. Hold single-antiplatelet therapy given thrombocytopenia. Hold statin given elevated LFTs. Preload reduction as tolerated. Strict I&Os. Daily weight. Fluid restriction. Therapeutic Lovenox held given worsening thrombocytopenia. [id number] Score 1 point. HAS-BLED Score 2 points. Replete electrolytes as necessary, K>4 and Mg>2. Monitor ECG changes closely and notify. Daily BNP level. Additional plan as per the hospital course. Plan discussed with: Other Dietary Evaluation Review Comments: 1) TF Jevity 1.2Cal @ 50ml/hr (goal) along wth Pro-stat 1 pk BID. Start @ 20ml/hr, increase 10ml/hr Q4H until goal is reached. TF @ goal volume along with Pro-stat provides 1640 kcal (100% energy needs), 96 gm protein (100% protein needs), 968 ml free water. 2) Water flush 170ml Q6H if allowed, adjust PRN 3) TPN if NPO > 7 days 4) Monitor NPO status, lab values, wt trend, I/O Expected Outcomes/Goals: To meet >75% estimated needs Fu 2-3 days Date of Service: Oct 29, 2024 Billing Provider: MESERET MOTLEY MD Cardiology Common Codes: 50566[id number] MESERET MOTLEY MD Oct 29, 2024 13:16
[2024-10-30] VITALS (122 sets, daily range): BP systolic 98–152; BP diastolic 64–119; PULSE 72–96; RESP 15–26; TEMP 81.5–100; O2SAT 95–100
[2024-10-30 03:50] LABS: Hematocrit 42.2 % (41.0-53.0); Hemoglobin 14.5 g/dL (13.5-17.5); Mean Corpuscular Hemoglobin 32.3 pg (28.0-32.0); Mean Corpuscular Volume 94.4 fL (80.0-100.0); Nucleated Red Blood Cells % 0.0 %
[2024-10-30 03:53] LABS: Alkaline Phosphatase 97 U/L (46-116); Anion Gap 10 (5-15); BUN/Creatinine Ratio 21.9 (10.0-20.0); Calcium 8.9 mg/dL (8.7-10.4); Carbon Dioxide 26 mmol/L (20-31); Chloride 104 mmol/L (98-107); Glucose 105 mg/dL (74-106); Potassium 3.8 mmol/L (3.5-5.1); Sodium 140 mmol/L (136-145)
[2024-10-30 03:54] LABS: Magnesium 1.9 mg/dL (1.6-2.6); Total Protein 7.0 g/dL (5.7-8.2)
[2024-10-30 03:55] LABS: Albumin 3.5 g/dL (3.2-4.8)
[2024-10-30 04:36] LABS: Alanine Aminotransferase 388 U/L (7-40); Bilirubin, Total 1.7 mg/dL (0.2-1.0); Blood Urea Nitrogen 25 mg/dL (9-23)
--- NOTE | 2024-10-30 05:29 | DVH ---
CHEST RADIOGRAPH Indication: PLEURAL EFFUSION Technique: Single frontal view of the chest was obtained COMPARISON: XY CHEST PORTABLE on DOS: 10/29/24, XY CHEST PORTABLE on DOS: 10/28/24, XY CHEST PORTABLE o n DOS: 10/28/24, XY CHEST PORTABLE on DOS: 10/27/24, XY CHEST PORTABLE on DOS: 10/26/24 FINDINGS: Lines and Tubes: Unchanged. Lungs: Moderate diffuse increased prominence of the pulmonary vasculature. Bibasilar pulmonary airspa ce disease, secxs-xmxoocn-agil-left, and stable small bilateral pleural effusions. No pneumothorax. Cardiomediastinal contours: Cardiomegaly. Bones: Unremarkable IMPRESSION: 1. Stable bibasilar pulmonary airspace disease, jalal-gpiuobz-yihh-left, bilateral pleural effusions and diffuse increased prominence of the pulmonary vasculature. 2. Cardiomegaly. 3. Lines and tubes unchanged.
[2024-10-30 07:36] LABS: Base Excess 0.5 mmol/L (-2.0-3.0)
--- NOTE | 2024-10-30 09:43 | DVHPN2 ---
Consult Progress Note Date Seen: Oct 30, 2024 Subjective Other Systems: No overnight cardiac events reported Objective vital signs Vital Sign Date Time Temp Pulse Resp B/P (MAP) Pulse Ox O2 Delivery O2 Flow Rate FiO2 10/30/24 08:43 78 20 121/85 97 30 10/30/24 08:00 Mechanical Ventilator+ 10/30/24 07:57 99.7 211.5 Total Intake and Output 10/29/24 10/29/24 10/30/24 15:00 23:00 07:00 Intake Total 492.0 ml 936.0 ml 548.0 ml Output Total 1500 ml 1450 ml Balance 492.0 ml -564.0 ml -902.0 ml medications Current Medications Medications Dose Ordered Sig/Cristian Route Start Time Stop Time Status Last Admin Dose Admin Propofol 100 ml @ 2.286 mls/ hr Q24H IV 10/23/24 19:45 10/24/24 03:56 13.716 MLS/HR Midazolam HCl 50 ml @ 1 mls/hr Q24H IV 10/23/24 19:45 10/30/24 09:11 5 MLS/HR Fentanyl Citrate 250 ml @ 2.5 mls/hr Q24H IV 10/23/24 21:45 10/30/24 08:13 15 MLS/HR Pantoprazole Sodium 40 mg DAILY IV 10/24/24 10:00 10/30/24 09:09 40 MG Phenylephrine HCl 80 mg/Sodium Chloride 250 ml @ 7.5 mls/hr Q24H IV 10/24/24 14:30 10/25/24 02:12 26.25 MLS/HR Norepinephrine Bitartrate 32 mg/ Sodium Chloride 250 ml @ 0.938 mls/ hr Q24H IV 10/24/24 14:30 10/24/24 18:55 6.563 MLS/HR Metronidazole 100 ml @ 100 mls/hr Q8HR IV 10/25/24 13:00 10/30/24 05:38 100 MLS/HR Enteral Nutritional Formula 1,000 ml 30ML/HR GT 10/25/24 17:15 10/27/24 04:25 1,000 ML Ipratropium [place] 0.5 mg Q6HR NEB 10/26/24 06:00 10/30/24 06:20 0.5 MG Cefepime HCl 50 ml @ 12.5 mls/hr Q12HR IV 10/27/24 10:00 10/30/24 09:09 12.5 MLS/HR Amiodarone HCl 200 mg DAILY PO 10/28/24 10:00 10/30/24 09:10 200 MG Furosemide 20 mg BIDD IV 10/28/24 18:00 10/30/24 05:38 20 MG Lactulose 30 ml BID PO 10/28/24 22:00 10/29/24 21:35 30 ML Examination: GENERAL:Abnormal, LUNGS:Abnormal (Endotracheally intubated 30% FiO2), CVS:Normal (NSR. Off vasopressors), NEURO:Abnormal (Chemically sedated) laboratory and microbiology Laboratory Tests 10/30/24 03:05 Test 10/30/24 03:05 Range/Units Serum Glucose 105 74-106 mg/dL Problem List/Assessment/Plan Problem List/Assessment/Plan Sepsis with acute hypoxic respiratory failure likely due to pneumonia Paroxysmal atrial fibrillation/atrial flutter s/p DCCV, now NSR, Stage III Acute on chronic decompensated HFrEF, NYHA Class III, newly diagnosed End-stage dilated cardiomyopathy, likely ischemic given anteroseptal ST-T wave changes NSTEMI, possibly type 1 Bilateral pleural effusions Tobacco/alcohol dependence/?Alcohol withdrawal Thrombocytopenia Plan/Recommendation (Dr. Fu) * Transthoracic echocardiogram revealed LVEF 20% * Ventilator settings per pulmonology team * Antiarrhythmic therapy, amiodarone GT BID * Hold single-antiplatelet therapy given thrombocytopenia * Hold statin given elevated LFTs * Preload reduction as tolerated * Strict I&Os. Daily weight. Fluid restriction * Therapeutic Lovenox held given worsening thrombocytopenia * [id number] Score 1 point. HAS-BLED Score 2 points * Replete electrolytes as necessary, K>4 and Mg>2 * Monitor ECG changes closely and notify * Consider Librium therapy Thank you for giving us the opportunity to take care of your patient. Please call back if any question/concern. Critical care time: 35 min. This medical document was created using an electronic medical record system with voice recognition software and computerized dictation system. Although this document has been carefully reviewed, there might still be some phonetic and typographical errors. Occasional wrong-word or ``sound-alike substitutions may have occurred due to the inherent limitations of voice recognition software. These areas are purely typographical due to imperfections of the software programs and do not reflect any compromise in the patient's medical care. Please read the chart carefully and recognize, using context, where these substitutions have occurred. Plan discussed with: Other (Primary RN, ) Dietary Evaluation Review Comments: 1) TF Jevity 1.2Cal @ 50ml/hr (goal) along wth Pro-stat 1 pk BID. Start @ 20ml/hr, increase 10ml/hr Q4H until goal is reached. TF @ goal volume along with Pro-stat provides 1640 kcal (100% energy needs), 96 gm protein (100% protein needs), 968 ml free water. 2) Water flush 170ml Q6H if allowed, adjust PRN 3) TPN if NPO > 7 days 4) Monitor NPO status, lab values, wt trend, I/O Expected Outcomes/Goals: To meet >75% estimated needs Fu 2-3 days Date of Service: Oct 30, 2024 Billing Provider: HELADIO NDIAYE Cardiology Common Codes: 97497-[id number] CARE 30-74 MIN HELADIO NDIAYE Oct 30, 2024 09:43
--- NOTE | 2024-10-30 11:34 | DVHPN2 ---
Progress Note Date Seen: Oct 30, 2024 Has the PT tested + for MRSA If YES, has PT been informed?: No Medical Necessity Reason Pt with a Central, PICC or Fol: No The following are medically ne: Central Line, Greenberg Catheter Subjective Patient reports: No new complaints Review of Systems: Deferred Objective vital signs Vital Sign Date Time Temp Pulse Resp B/P (MAP) Pulse Ox O2 Delivery O2 Flow Rate FiO2 10/30/24 10:00 30 10/30/24 10:00 88 10/30/24 10:00 20 98 Mechanical Ventilator+ 10/30/24 09:33 144/93 (110) 10/30/24 09:27 99.9 211.8 Total Intake and Output 10/29/24 10/29/24 10/30/24 15:00 23:00 07:00 Intake Total 492.0 ml 936.0 ml 548.0 ml Output Total 1500 ml 1450 ml Balance 492.0 ml -564.0 ml -902.0 ml medications Current Medications Medications Dose Ordered Sig/Cristian Route Start Time Stop Time Status Last Admin Dose Admin Propofol 100 ml @ 2.286 mls/ hr Q24H IV 10/23/24 19:45 10/24/24 03:56 13.716 MLS/HR Midazolam HCl 50 ml @ 1 mls/hr Q24H IV 10/23/24 19:45 10/30/24 09:11 5 MLS/HR Fentanyl Citrate 250 ml @ 2.5 mls/hr Q24H IV 10/23/24 21:45 10/30/24 08:13 15 MLS/HR Pantoprazole Sodium 40 mg DAILY IV 10/24/24 10:00 10/30/24 09:09 40 MG Phenylephrine HCl 80 mg/Sodium Chloride 250 ml @ 7.5 mls/hr Q24H IV 10/24/24 14:30 10/25/24 02:12 26.25 MLS/HR Norepinephrine Bitartrate 32 mg/ Sodium Chloride 250 ml @ 0.938 mls/ hr Q24H IV 10/24/24 14:30 10/24/24 18:55 6.563 MLS/HR Metronidazole 100 ml @ 100 mls/hr Q8HR IV 10/25/24 13:00 10/30/24 05:38 100 MLS/HR Enteral Nutritional Formula 1,000 ml 30ML/HR GT 10/25/24 17:15 10/27/24 04:25 1,000 ML Ipratropium [place] 0.5 mg Q6HR NEB 10/26/24 06:00 10/30/24 06:20 0.5 MG Amiodarone HCl 200 mg DAILY PO 10/28/24 10:00 10/30/24 09:10 200 MG Furosemide 20 mg BIDD IV 10/28/24 18:00 10/30/24 05:38 20 MG Cefepime HCl 50 ml @ 12.5 mls/hr Q8H IV 10/30/24 18:00 Examination: GENERAL:Abnormal, LUNGS:Abnormal, SKIN:Normal laboratory and microbiology Laboratory Tests 10/30/24 03:05 Test 10/30/24 03:05 Range/Units Serum Glucose 105 74-106 mg/dL Microbiology Date/Time Source Procedure Growth Status 10/28/24 10:50 Bronchial Washings Gram Stain - Final Resulted 10/28/24 10:50 Respiratory Culture - Preliminary Presumptive Sharon albicans Resulted 10/25/24 10:45 Nose MRSA Screen - Final Complete 10/24/24 13:23 Voided Urine Urine Culture - Final Complete 10/23/24 19:48 Blood Blood Culture - Final NO GROWTH AFTER 5 DAYS OF INCUBATION. Complete Problem List/Assessment/Plan Problem List/Assessment/Plan 57-year-old male past medical history of alcoholic liver cirrhosis presents to the hospital complaining of shortness of breath was found to have atrial fibrillation rapid ventricular response diagnosed with decompensated heart failure with ejection fraction less than 20%. Nephrology consulted for acute kidney injury Acute kidney injury likely multiple factors including hemodynamics, contrast, cardiorenal syndrome No previous CKD Dilated cardiomyopathy with ejection fraction 20% Cirrhosis Acute respiratory failure AFib with rapid ventricular response Currently rate controlled, cardiology lasix to achieve slow and slight negative balance daily Monitoring urinary output Avoid contrast studies if able Replace electrolytes accordingly Plan discussed with: Other My Orders My Orders Orders - CHRISTOS KOTHARI MD Procedure Category Date Status Time Basic Metabolic Panel LAB 10/31/24 Verified 04:00 Dietary Evaluation Review Comments: 1) TF Jevity 1.2Cal @ 50ml/hr (goal) along wth Pro-stat 1 pk BID. Start @ 20ml/hr, increase 10ml/hr Q4H until goal is reached. TF @ goal volume along with Pro-stat provides 1640 kcal (100% energy needs), 96 gm protein (100% protein needs), 968 ml free water. 2) Water flush 170ml Q6H if allowed, adjust PRN 3) TPN if NPO > 7 days 4) Monitor NPO status, lab values, wt trend, I/O Expected Outcomes/Goals: To meet >75% estimated needs Fu 2-3 days Critical Care Time (mins): 33 CHRISTOS KOTHARI MD Oct 30, 2024 11:34
[2024-10-30] MEDS: POTASSIUM CHL 20MEQ/100ML 100 ML IV ONE (12:26)
[2024-10-30] MEDS: MAGNESIUM SULFATE 1GM/100ML 100 ML IV ONE (12:26)
[2024-10-30] MEDS: CEFEPIME 2GM/50ML NS 50 ML IV SCH (17:04)
--- NOTE | 2024-10-30 17:10 | ECG ---
[facility] Test Date: 2024-10-26 Test Time: 10:01:52 Pat Name: MILANA PAGE Department: icu Room: [address] [place] [address] A Gender: M Cardiac Cath Technologist: alireza : 1970 Requested By: LAUREANO SHERIFF Order Number: [id number] Reading MD: Richard Cantu Measurements Intervals [place] Rate: 84 P: 0 [place]: 0 QRS: -48 QRSD: 87 T: 181 QT: 425 QTc: 503 Interpretive Statements Atrial fibrillation Inferior infarct, old Abnrm T, consider ischemia, anterolateral lds Prolonged QT interval Electronically Signed On 10-30-2024 21:31:00 PDT by Richard Cantu Please click the below link to view image of tracing.
--- NOTE | 2024-10-30 21:12 | DVHPNRES ---
Progress Note Date Seen: Oct 30, 2024 Resident Creating Document: MAX FLOYD RESIDENT Has the PT tested + for MRSA If YES, has PT been informed?: No Medical Necessity Reason Pt with a Central, PICC or Fol: No The following are medically ne: Central Line, Greenberg Catheter Subjective Review of Systems Patient is a 54-year-old male with past medical history of liver cirrhosis, portal hypertension related gastropathy, cholelithiasis, depression, tachycardia, alcohol related tremors, who came in due to shortness of breaths. According to the ER notes, patient was having severe shortness of breath with tachypnea along with atrial fibrillation with rapid ventricular response, patient underwent synchronized cardioversion at 120 joules and was subsequently intubated. Per patient's son Mr. Shemar Winkler, patient called him yesterday on 10/23/2024 and stated he has been having increasing difficulty breathing and difficulty sleeping that has been worsened over the last 3 days. Per patient's son he is unable to provide more information as he does not live with his father, patient lives with his roommate. History and most of the information was obtained from patient's sons Mr. Galo, Mr. Staton and patient's ex-. Past surgical history: Unable to obtain Home medications: Thiamine, propranolol, Protonix, metronidazole, levofloxacin Past Hospitalization: In [address] [facility] for upper and lower GI bleed Social & Personal history: Patient lives with a roommate. Per patient's , patient is a nonsmoker. However, heavy alcohol usage 6-12 drinks per day, daily for the last 35-40 years. Unable to obtain an accurate substance abuse related history. Allergies: Latex, penicillin 10/25/24: overnight patient became hypotensive and hyperkalemic at 6.2, hyperkalemia protocol was carried out, dc'ed amiodarone drip which led to rhythm reverting back to atrial flutter. Amio drip was resumed later in the day, digoxin also added. influenze b +, started tamiflu. added metronidalzole. 10/26/2024: Heart rate improved in the early 100s, continuing amiodarone drip. Liver function worsening. 10/27/2024: Patient seen and examined at bedside, started Lasix 40 mg p.o. daily. Chest x-ray shows bilateral pulmonary edema and pleural effusions as before. Off of pressors, drips running Versed at 12, fentanyl at 2:25 a.m. and amio at 0.5 mg. Respiratory culture growing [place] albicans. Ordered repeat serum digoxin levels 10/30/24: dc'ed tamiflu. LFTs imrpoving Objective vital signs Vital Sign Date Time Temp Pulse Resp B/P (MAP) Pulse Ox O2 Delivery O2 Flow Rate FiO2 10/30/24 20:05 84 20 125/94 (104) 100 30 10/30/24 18:32 Mechanical Ventilator+ 10/30/24 18:27 99.3 210.7 Total Intake and Output 10/29/24 10/29/24 10/30/24 15:00 23:00 07:00 Intake Total 492.0 ml 936.0 ml 548.0 ml Output Total 1500 ml 1450 ml Balance 492.0 ml -564.0 ml -902.0 ml medications Current Medications Medications Dose Ordered Sig/Cristian Route Start Time Stop Time Status Last Admin Dose Admin Midazolam HCl 50 ml @ 1 mls/hr Q24H IV 10/23/24 19:45 10/30/24 17:43 5 MLS/HR Fentanyl Citrate 250 ml @ 2.5 mls/hr Q24H IV 10/23/24 21:45 10/30/24 08:13 15 MLS/HR Pantoprazole Sodium 40 mg DAILY IV 10/24/24 10:00 10/30/24 09:09 40 MG Phenylephrine HCl 80 mg/Sodium Chloride 250 ml @ 7.5 mls/hr Q24H IV 10/24/24 14:30 10/25/24 02:12 26.25 MLS/HR Norepinephrine Bitartrate 32 mg/ Sodium Chloride 250 ml @ 0.938 mls/ hr Q24H IV 10/24/24 14:30 10/24/24 18:55 6.563 MLS/HR Metronidazole 100 ml @ 100 mls/hr Q8HR IV 10/25/24 13:00 10/30/24 14:09 100 MLS/HR Enteral Nutritional Formula 1,000 ml 30ML/HR GT 10/25/24 17:15 10/27/24 04:25 1,000 ML Ipratropium [place] 0.5 mg Q6HR NEB 10/26/24 06:00 10/30/24 18:32 0.5 MG Amiodarone HCl 200 mg DAILY PO 10/28/24 10:00 10/30/24 09:10 200 MG Furosemide 20 mg BIDD IV 10/28/24 18:00 10/30/24 17:04 20 MG Cefepime HCl 50 ml @ 12.5 mls/hr Q8H IV 10/30/24 18:00 10/30/24 17:04 12.5 MLS/HR Examination General Appearance: Intubated, sedated and mechanically ventilated. Lying down in bed without any distress. Head Exam: Normal inspection Neck Exam: Normal inspection. Non-tender. Normal alignment. Equal and minimally reactive pupils 2 mm. Pulmonary/Respiratory: Chest non-tender. Decreased bilateral breath sounds, no crackles, no wheezing. Cardiovascular/Chest: Tachycardia. No murmurs. No JVD. Peripheral Pulses: 2+ Radial (R). 2+ Radial (L). 2+ Pedal (R). 2+ Pedal (L) Abdominal Exam: Normal bowel sounds. Soft. normal abdomen, no visible veins, Nontender. No hepatospenomegaly. No masses Ankle Exam: Negative ankle edema Lower extremities: Negative lower extremity edema Skin Exam: Normal inspection. Normal color. Warm. Dry laboratory and microbiology Laboratory Tests 10/30/24 03:05 Test 10/30/24 03:05 Range/Units Serum Glucose 105 74-106 mg/dL Microbiology Date/Time Source Procedure Growth Status 10/28/24 10:50 Bronchial Washings Gram Stain - Final Resulted 10/28/24 10:50 Respiratory Culture - Preliminary Presumptive [place] albicans Resulted 10/25/24 10:45 Nose MRSA Screen - Final Complete 10/24/24 13:23 Voided Urine Urine Culture - Final Complete 10/23/24 19:48 Blood Blood Culture - Final NO GROWTH AFTER 5 DAYS OF INCUBATION. Complete Problem List/Assessment/Plan Problem List/Assessment/Plan Neurology # acute toxic vs metabolic encephalopathy # possible alcohol withdrawal # hx of withdrawal seizures? # Sedated - head CT: No acute intracranial abnormality - IV banana bag once - Versed 10 mcg per hour Cardiovascular # septic shock due to pneumonia # atrial flutter with hemodynamic instability, s/p cardioversion x2 # NSTEMI 1 vs 2 # End- stage dilated cardiomyopathy # Heart failure with reduced ejection fraction <20% # Prolonged QTC - amiodarone drip - cardiology on board - norepinephrine at 10 micrograms/hour - amiodarone drip at 0.5mg/min - phenylephrine at 15mcg/min - IV digoxin 500mcg x 2 - serum digoxin level 3.69 5 hours after 2nd dose in 24 hours after 1st dose - repeat serum digoxin level 1.85 Respiratory # Acute hypoxic respiratory failure # community-acquired pneumonia, Gram-positive versus Gram-negative # Ventilator # ruled out pulmonary embolism -intubated (10/23/24) -on [facility] vent : VCAC Mode RR 20 TV 500ml, PEEP Of 6 and FiO2 of 30% - CXR: Moderate interstitial pulmonary edema in the setting of cardiomegaly. Probable trace bilateral effusions. - CT angio: No evidence of pulmonary embolism. Pulmonary edema. Large bilateral pleural effusions. Associated consolidation of the majority of bilateral lower lobes independent portions of the remaining lobes of the lung. Cirrhotic liver. Small amount of ascites in the visualized upper abdomen. - chest ultrasound: Small bilateral pleural effusion, trace ascites. - IV lasix 20mg bid - IV cefepime, IV metronidazole GI # Hx of GI bleed # cirrhosis, MELD 19 # Hx of portal hypertension gastropathy # mild abdominal ascites # Peptic ulcer prophylaxis -Pantoprazole 40 mg IV daily # Greenberg catheter placed on 10/23/24 - urine culture Nephrology # Hyperkalemia # DMITRIY likely ATN/VMN on ?CKD (GFR 70 on admission, unknown baseline) - monitor - nephrology on board; recommended to start lokelma qD if hyperkalemia persists, holding for now as last serum K 3.9 - IV Lasix 20 mg bid Infectious disease # community acquired pneumonia, gram + vs -ve # Influenza B positive - IV cefepime - IV metronidazole - Oseltamivir - off norepinephrine - off phenylephrine at 15mcg/min - respiratory, blood, urine cultures - resp cx growing clifford Hem/onc # mild normocytic anemia # ruled out lower extremity DVT # thrombocytopenia - lower extremity Doppler: No right or left lower extremity deep vein thrombosis. Psychiatry # Alcohol use disorder # hx of depression - outpatient psychiatry follow up versus psychiatry consult upon extubation DVT prophylaxis - discontinue therapeutic Lovenox due to patient having thrombocytopenia Nutrition TF nepro carbsteady Lines L IJ CVC 10/23/24 LUE 20g 10/23/24 RUE 20g 10/23/[facility] Fentanyl 150 mcg/hr Versed 5 Intubated on 10/23/24 Critical care time 82 minutes excluding procedure and discussions with the family. Code status discussed greater than 20 minutes: Full CODE STATUS. Plan discussed with Dr. Sheriff Plan discussed with: Other (RN) My Orders My Orders Orders - MAX FLOYD RESIDENT Procedure Category Date Status Time * Picc Line Consult CONS 10/30/24 Transmitted 17:07 Prothrombin Time W/ LAB 10/31/24 Verified INR 04:00 Dietary Evaluation Review Comments: 1) TF Jevity 1.2Cal @ 50ml/hr (goal) along wth Pro-stat 1 pk BID. Start @ 20ml/hr, increase 10ml/hr Q4H until goal is reached. TF @ goal volume along with Pro-stat provides 1640 kcal (100% energy needs), 96 gm protein (100% protein needs), 968 ml free water. 2) Water flush 170ml Q6H if allowed, adjust PRN 3) TPN if NPO > 7 days 4) Monitor NPO status, lab values, wt trend, I/O Expected Outcomes/Goals: To meet >75% estimated needs Fu 2-3 days Date of Service: Oct 30, 2024 Billing Provider: LAUREANO SHERIFF MD Common Visit Codes: 87310-[id number] CARE 30-74 MIN, 01039-[id number] CARE-EACH +30MIN MAX FLOYD Oct 30, 2024 21:12 LAUREANO SHERIFF MD Oct 31, 2024 15:32
--- NOTE | 2024-10-30 22:39 | DVHPN2 ---
Consult Progress Note Date Seen: Oct 30, 2024 Subjective Other Systems: Patient was seen and evaluated in follow up in the ICU. Patient is intubated and sedated on ventilator. 30% FiO2. PLT down to 77. LFTs slowly down trending. Chest x-ray shows stable bibasilar pulmonary airspace disease, zighn-gauagya-wzcj-left, bilateral pleural effusions and diffuse increased prominence of the pulmonary vasculature, cardiomegaly. Objective vital signs Vital Sign Date Time Temp Pulse Resp B/P (MAP) Pulse Ox O2 Delivery O2 Flow Rate FiO2 10/30/24 20:05 84 20 125/94 (104) 100 30 10/30/24 18:32 Mechanical Ventilator+ 10/30/24 18:27 99.3 210.7 Total Intake and Output 10/29/24 10/29/24 10/30/24 15:00 23:00 07:00 Intake Total 492.0 ml 936.0 ml 548.0 ml Output Total 1500 ml 1450 ml Balance 492.0 ml -564.0 ml -902.0 ml medications Current Medications Medications Dose Ordered Sig/Cristian Route Start Time Stop Time Status Last Admin Dose Admin Midazolam HCl 50 ml @ 1 mls/hr Q24H IV 10/23/24 19:45 10/30/24 17:43 5 MLS/HR Fentanyl Citrate 250 ml @ 2.5 mls/hr Q24H IV 10/23/24 21:45 10/30/24 08:13 15 MLS/HR Pantoprazole Sodium 40 mg DAILY IV 10/24/24 10:00 10/30/24 09:09 40 MG Phenylephrine HCl 80 mg/Sodium Chloride 250 ml @ 7.5 mls/hr Q24H IV 10/24/24 14:30 10/25/24 02:12 26.25 MLS/HR Norepinephrine Bitartrate 32 mg/ Sodium Chloride 250 ml @ 0.938 mls/ hr Q24H IV 10/24/24 14:30 10/24/24 18:55 6.563 MLS/HR Metronidazole 100 ml @ 100 mls/hr Q8HR IV 10/25/24 13:00 10/30/24 14:09 100 MLS/HR Enteral Nutritional Formula 1,000 ml 30ML/HR GT 10/25/24 17:15 10/27/24 04:25 1,000 ML Ipratropium [place] 0.5 mg Q6HR NEB 10/26/24 06:00 10/30/24 18:32 0.5 MG Amiodarone HCl 200 mg DAILY PO 10/28/24 10:00 10/30/24 09:10 200 MG Furosemide 20 mg BIDD IV 10/28/24 18:00 10/30/24 17:04 20 MG Cefepime HCl 50 ml @ 12.5 mls/hr Q8H IV 10/30/24 18:00 10/30/24 17:04 12.5 MLS/HR Examination: GENERAL:Normal (intubated), HEENT:Normal, NECK:Normal, LUNGS:Abnormal (diminished breath sounds), CVS:Normal, ABDOMEN:Normal, SKIN:Normal, NEURO:Abnormal (Sedated ) laboratory and microbiology Laboratory Tests 10/30/24 03:05 Test 10/30/24 03:05 Range/Units Serum Glucose 105 74-106 mg/dL Problem List/Assessment/Plan Problem List/Assessment/Plan Problem List Sepsis with acute hypoxic respiratory failure likely due to pneumonia. Paroxysmal atrial fibrillation/atrial flutter s/p DCCV, now NSR, Stage III. Acute on chronic decompensated HFrEF, NYHA Class III, newly diagnosed. End-stage dilated cardiomyopathy, likely ischemic given anteroseptal ST-T wave changes. NSTEMI, possibly type 1. Bilateral pleural effusions. Tobacco/alcohol dependence/?Alcohol withdrawal. Thrombocytopenia. Plan/Recommendation Continued all current supportive medical care. Patient has been seen by Ilana Daugherty NP on my behalf, her and I discussed the plan with the patient. Transthoracic echocardiogram revealed LVEF 20%. Ventilator settings per pulmonology team. Antiarrhythmic therapy, amiodarone GT BID. Hold single-antiplatelet therapy given thrombocytopenia. Hold statin given elevated LFTs. Preload reduction as tolerated. Strict I&Os. Daily weight. Fluid restriction. Therapeutic Lovenox held given worsening thrombocytopenia. [id number] Score 1 point. HAS-BLED Score 2 points. Replete electrolytes as necessary, K>4 and Mg>2. Monitor ECG changes closely and notify. Consider Librium therapy. Additional plan as per the hospital course. Plan discussed with: Other Dietary Evaluation Review Comments: 1) TF Jevity 1.2Cal @ 50ml/hr (goal) along wth Pro-stat 1 pk BID. Start @ 20ml/hr, increase 10ml/hr Q4H until goal is reached. TF @ goal volume along with Pro-stat provides 1640 kcal (100% energy needs), 96 gm protein (100% protein needs), 968 ml free water. 2) Water flush 170ml Q6H if allowed, adjust PRN 3) TPN if NPO > 7 days 4) Monitor NPO status, lab values, wt trend, I/O Expected Outcomes/Goals: To meet >75% estimated needs Fu 2-3 days Date of Service: Oct 30, 2024 Billing Provider: MESERET MOTLEY MD Cardiology Common Codes: [id number] MESERET MOTLEY MD Oct 30, 2024 22:39
[2024-10-31] VITALS (117 sets, daily range): BP systolic 99–144; BP diastolic 67–94; PULSE 72–142; RESP 12–24; TEMP 98.2–101.1; O2SAT 97–100
[2024-10-31 03:33] LABS: Hematocrit 43.5 % (41.0-53.0); Hemoglobin 14.8 g/dL (13.5-17.5); Mean Corpuscular Hemoglobin 32.0 pg (28.0-32.0); Mean Corpuscular Volume 94.0 fL (80.0-100.0); Nucleated Red Blood Cells % 0.0 %
[2024-10-31 03:48] LABS: Albumin 3.6 g/dL (3.2-4.8); Alkaline Phosphatase 107 U/L (46-116); Anion Gap 8 (5-15); BUN/Creatinine Ratio 23.0 (10.0-20.0); Calcium 9.2 mg/dL (8.7-10.4); Carbon Dioxide 28 mmol/L (20-31); Chloride 106 mmol/L (98-107); Glucose 99 mg/dL (74-106); Magnesium 2.0 mg/dL (1.6-2.6); Potassium 3.7 mmol/L (3.5-5.1); Sodium 142 mmol/L (136-145); Total Protein 7.4 g/dL (5.7-8.2)
[2024-10-31 03:49] LABS: INR 1.23 (0.9-1.15); Prothrombin Time 12.8 sec (9.3-11.8)
[2024-10-31 03:54] LABS: Alanine Aminotransferase 278 U/L (7-40); Bilirubin, Total 1.4 mg/dL (0.2-1.0); Blood Urea Nitrogen 26 mg/dL (9-23)
--- NOTE | 2024-10-31 04:49 | DVH ---
CHEST RADIOGRAPH Indication: pna Technique: Single frontal view of the chest was obtained COMPARISON: XY CHEST PORTABLE on DOS: 10/30/24, XY CHEST PORTABLE on DOS: 10/29/24, XY CHEST PORTABLE o n DOS: 10/28/24, XY CHEST PORTABLE on DOS: 10/28/24, XY CHEST PORTABLE on DOS: 10/27/24 FINDINGS: Lines and Tubes: Interval advancement of endotracheal tube such that the tip now projects approximate ly 2.6 cm above the ty. Remaining lines and tubes unchanged. Lungs: Stable appearing bibasilar pulmonary airspace disease, [id number]-xrau-left. Small bilatera l pleural effusions unchanged. No pneumothorax. Cardiomediastinal contours: Unremarkable Bones: Unremarkable IMPRESSION: 1. Stable bibasilar pulmonary airspace disease, xebix-ekksodx-jgtd-left, and bilateral pleural effusi ons. 2. Interval advancement of endotracheal tube such that the tip projects approximately 2.6 cm above th e ty. Remaining lines and tubes unchanged.
[2024-10-31] MEDS: ACETAMINOPHEN 500 MG TAB or CAP PO ONE (06:02)
[2024-10-31] MEDS: ACETAMINOPHEN 500 MG TAB or CAP PO PRN (06:02)
[2024-10-31] MEDS: POTASSIUM CHL 20MEQ/100ML 100 ML IV ONE (06:10)
[2024-10-31 06:39] LABS: Base Excess 0.9 mmol/L (-2.0-3.0)
--- NOTE | 2024-10-31 11:09 | DVHPN2 ---
Progress Note Date Seen: Oct 31, 2024 Has the PT tested + for MRSA If YES, has PT been informed?: No Medical Necessity Reason Pt with a Central, PICC or Fol: No The following are medically ne: Central Line, Greenberg Catheter Subjective Changes from previous H/P or p: No Changes Review of Systems: Deferred Objective vital signs Vital Sign Date Time Temp Pulse Resp B/P (MAP) Pulse Ox O2 Delivery O2 Flow Rate FiO2 10/31/24 10:53 98.8 77 21 102/70 (81) 99 209.8 10/31/24 10:00 30 10/31/24 10:00 Mechanical Ventilator+ Total Intake and Output 10/30/24 10/30/24 10/31/24 15:00 23:00 07:00 Intake Total 510 ml 575 ml 848.0 ml Output Total 1300 ml 1200 ml Balance 510 ml -725 ml -352.0 ml medications Current Medications Medications Dose Ordered Sig/Cristian Route Start Time Stop Time Status Last Admin Dose Admin Midazolam HCl 50 ml @ 1 mls/hr Q24H IV 10/23/24 19:45 10/31/24 09:28 15 MLS/HR Fentanyl Citrate 250 ml @ 2.5 mls/hr Q24H IV 10/23/24 21:45 10/31/24 00:00 15 MLS/HR Pantoprazole Sodium 40 mg DAILY IV 10/24/24 10:00 10/31/24 09:27 40 MG Phenylephrine HCl 80 mg/Sodium Chloride 250 ml @ 7.5 mls/hr Q24H IV 10/24/24 14:30 10/25/24 02:12 26.25 MLS/HR Norepinephrine Bitartrate 32 mg/ Sodium Chloride 250 ml @ 0.938 mls/ hr Q24H IV 10/24/24 14:30 10/24/24 18:55 6.563 MLS/HR Metronidazole 100 ml @ 100 mls/hr Q8HR IV 10/25/24 13:00 10/31/24 05:24 100 MLS/HR Enteral Nutritional Formula 1,000 ml 30ML/HR GT 10/25/24 17:15 10/30/24 22:54 1,000 ML Ipratropium [place] 0.5 mg Q6HR NEB 10/26/24 06:00 10/31/24 06:10 0.5 MG Amiodarone HCl 200 mg DAILY PO 10/28/24 10:00 10/31/24 09:28 200 MG Furosemide 20 mg BIDD IV 10/28/24 18:00 10/31/24 05:23 20 MG Cefepime HCl 50 ml @ 12.5 mls/hr Q8H IV 10/30/24 18:00 10/31/24 09:27 12.5 MLS/HR Acetaminophen 500 mg Q8HP PRN PO 10/31/24 05:45 10/31/24 06:02 500 MG Examination: GENERAL:Abnormal, LUNGS:Abnormal, CVS:Abnormal laboratory and microbiology Laboratory Tests 10/31/24 03:03 Test 10/31/24 03:03 Range/Units Serum Glucose 99 74-106 mg/dL Microbiology Date/Time Source Procedure Growth Status 10/28/24 10:50 Bronchial Washings Gram Stain - Final Complete 10/28/24 10:50 Respiratory Culture - Final Presumptive Sharon albicans Complete 10/25/24 10:45 Nose MRSA Screen - Final Complete 10/24/24 13:23 Voided Urine Urine Culture - Final Complete 10/23/24 19:48 Blood Blood Culture - Final NO GROWTH AFTER 5 DAYS OF INCUBATION. Complete Problem List/Assessment/Plan Problem List/Assessment/Plan 57-year-old male past medical history of alcoholic liver cirrhosis presents to the hospital complaining of shortness of breath was found to have atrial fibrillation rapid ventricular response diagnosed with decompensated heart failure with ejection fraction less than 20%. Nephrology consulted for acute kidney injury Acute kidney injury likely multiple factors including hemodynamics, contrast, cardiorenal syndrome No previous CKD Dilated cardiomyopathy with ejection fraction 20% Cirrhosis Acute respiratory failure AFib with rapid ventricular response Currently rate controlled, cardiology lasix to achieve slow and slight negative balance daily Monitoring urinary output Avoid contrast studies if able Replace electrolytes accordingly no change in current treatment plan Plan discussed with: Other Dietary Evaluation Review Comments: 1) TF Jevity 1.2Cal @ 50ml/hr (goal) along wth Pro-stat 1 pk BID. Start @ 20ml/hr, increase 10ml/hr Q4H until goal is reached. TF @ goal volume along with Pro-stat provides 1640 kcal (100% energy needs), 96 gm protein (100% protein needs), 968 ml free water. 2) Water flush 170ml Q6H if allowed, adjust PRN 3) TPN if NPO > 7 days 4) Monitor NPO status, lab values, wt trend, I/O Expected Outcomes/Goals: To meet >75% estimated needs Fu 2-3 days Total Time (mins): 33 CHRISTOS KOHTARI MD Oct 31, 2024 11:09
--- NOTE | 2024-10-31 13:24 | DVHPN2 ---
Consult Progress Note Date Seen: Oct 31, 2024 Subjective Other Systems: No overnight cardiac events reported Objective vital signs Vital Sign Date Time Temp Pulse Resp B/P (MAP) Pulse Ox O2 Delivery O2 Flow Rate FiO2 10/31/24 12:09 98.4 76 20 104/71 (82) 100 209.1 10/31/24 12:00 30 10/31/24 12:00 Mechanical Ventilator+ Total Intake and Output 10/30/24 10/30/24 10/31/24 15:00 23:00 07:00 Intake Total 510 ml 575 ml 848.0 ml Output Total 1300 ml 1200 ml Balance 510 ml -725 ml -352.0 ml medications Current Medications Medications Dose Ordered Sig/Cristian Route Start Time Stop Time Status Last Admin Dose Admin Midazolam HCl 50 ml @ 1 mls/hr Q24H IV 10/23/24 19:45 10/31/24 09:28 15 MLS/HR Fentanyl Citrate 250 ml @ 2.5 mls/hr Q24H IV 10/23/24 21:45 10/31/24 00:00 15 MLS/HR Pantoprazole Sodium 40 mg DAILY IV 10/24/24 10:00 10/31/24 09:27 40 MG Phenylephrine HCl 80 mg/Sodium Chloride 250 ml @ 7.5 mls/hr Q24H IV 10/24/24 14:30 10/25/24 02:12 26.25 MLS/HR Norepinephrine Bitartrate 32 mg/ Sodium Chloride 250 ml @ 0.938 mls/ hr Q24H IV 10/24/24 14:30 10/24/24 18:55 6.563 MLS/HR Metronidazole 100 ml @ 100 mls/hr Q8HR IV 10/25/24 13:00 10/31/24 05:24 100 MLS/HR Enteral Nutritional Formula 1,000 ml 30ML/HR GT 10/25/24 17:15 10/30/24 22:54 1,000 ML Ipratropium [place] 0.5 mg Q6HR NEB 10/26/24 06:00 10/31/24 11:38 0.5 MG Amiodarone HCl 200 mg DAILY PO 10/28/24 10:00 10/31/24 09:28 200 MG Furosemide 20 mg BIDD IV 10/28/24 18:00 7/22/25 05:23 20 MG Cefepime HCl 50 ml @ 12.5 mls/hr Q8H IV 10/30/24 18:00 10/31/24 09:27 12.5 MLS/HR Acetaminophen 500 mg Q8HP PRN PO 10/31/24 05:45 10/31/24 06:02 500 MG Examination: LUNGS:Abnormal (Endotracheally intubated 30% FiO2), CVS:Normal (NSR, off vasopressors), NEURO:Abnormal (Chemically sedated) laboratory and microbiology Laboratory Tests 10/31/24 03:03 Test 10/31/24 03:03 Range/Units Serum Glucose 99 74-106 mg/dL Problem List/Assessment/Plan Problem List/Assessment/Plan Sepsis with acute hypoxic respiratory failure likely due to pneumonia Paroxysmal atrial fibrillation/atrial flutter s/p DCCV, now NSR, Stage III Acute on chronic decompensated HFrEF, NYHA Class III, newly diagnosed End-stage dilated cardiomyopathy, likely ischemic given anteroseptal ST-T wave changes NSTEMI, possibly type 1 Bilateral pleural effusions Tobacco/alcohol dependence/?Alcohol withdrawal Thrombocytopenia Plan/Recommendation (Dr. Fu) * Transthoracic echocardiogram revealed LVEF 20% * Ventilator settings per pulmonology team * Antiarrhythmic therapy, amiodarone GT BID * Hold single-antiplatelet therapy given thrombocytopenia * Hold statin given elevated LFTs * Preload reduction as tolerated * Strict I&Os. Daily weight. Fluid restriction * Therapeutic Lovenox held given worsening thrombocytopenia * [id number] Score 1 point. HAS-BLED Score 2 points * Replete electrolytes as necessary, K>4 and Mg>2 * Monitor ECG changes closely and notify Tentatively scheduled for cardiac catheterization and coronary angiogram on 11/03/2024. Thank you for giving us the opportunity to take care of your patient. Please call back if any question/concern. Critical care time: 35 min. This medical document was created using an electronic medical record system with voice recognition software and computerized dictation system. Although this document has been carefully reviewed, there might still be some phonetic and typographical errors. Occasional wrong-word or ``sound-alike substitutions may have occurred due to the inherent limitations of voice recognition software. These areas are purely typographical due to imperfections of the software programs and do not reflect any compromise in the patient's medical care. Please read the chart carefully and recognize, using context, where these substitutions have occurred. Plan discussed with: Other Dietary Evaluation Review Comments: 1) TF Jevity 1.2Cal @ 50ml/hr (goal) along wth Pro-stat 1 pk BID. Start @ 20ml/hr, increase 10ml/hr Q4H until goal is reached. TF @ goal volume along with Pro-stat provides 1640 kcal (100% energy needs), 96 gm protein (100% protein needs), 968 ml free water. 2) Water flush 170ml Q6H if allowed, adjust PRN 3) TPN if NPO > 7 days 4) Monitor NPO status, lab values, wt trend, I/O Expected Outcomes/Goals: To meet >75% estimated needs Fu 2-3 days Date of Service: Oct 31, 2024 Billing Provider: HELADIO NDIAYE Cardiology Common Codes: [id number] 30-74 MIN HELADIO NDIAYE Oct 31, 2024 13:24
--- NOTE | 2024-10-31 13:52 | DVHPN2 ---
Consult Progress Note Date Seen: Oct 31, 2024 Subjective Other Systems: Patient was seen and evaluated in follow up in the ICU. Patient is intubated and sedated on ventilator. 30% FiO2. The patient is tentatively scheduled for cardiac catheterization and coronary angiogram on 11/03/2024. PLT 87 today. LFTs continue to improve. Bronchial washing growing presumptive Sharon albicans. Objective vital signs Vital Sign Date Time Temp Pulse Resp B/P (MAP) Pulse Ox O2 Delivery O2 Flow Rate FiO2 10/31/24 13:32 94 24 99/68 (78) 99 30 10/31/24 12:09 98.4 209.1 10/31/24 12:00 Mechanical Ventilator+ Total Intake and Output 10/30/24 10/30/24 10/31/24 14:59 22:59 06:59 Intake Total 514 ml 675 ml 670.5 ml Output Total 1300 ml 1200 ml Balance 514 ml -625 ml -529.5 ml medications Current Medications Medications Dose Ordered Sig/Cristian Route Start Time Stop Time Status Last Admin Dose Admin Midazolam HCl 50 ml @ 1 mls/hr Q24H IV 10/23/24 19:45 10/31/24 09:28 15 MLS/HR Fentanyl Citrate 250 ml @ 2.5 mls/hr Q24H IV 10/23/24 21:45 10/31/24 13:21 15 MLS/HR Pantoprazole Sodium 40 mg DAILY IV 10/24/24 10:00 10/31/24 09:27 40 MG Phenylephrine HCl 80 mg/Sodium Chloride 250 ml @ 7.5 mls/hr Q24H IV 10/24/24 14:30 10/25/24 02:12 26.25 MLS/HR Norepinephrine Bitartrate 32 mg/ Sodium Chloride 250 ml @ 0.938 mls/ hr Q24H IV 10/24/24 14:30 10/24/24 18:55 6.563 MLS/HR Metronidazole 100 ml @ 100 mls/hr Q8HR IV 10/25/24 13:00 10/31/24 13:19 100 MLS/HR Enteral Nutritional Formula 1,000 ml 30ML/HR GT 10/25/24 17:15 10/30/24 22:54 1,000 ML Ipratropium [place] 0.5 mg Q6HR NEB 10/26/24 06:00 10/31/24 11:38 0.5 MG Amiodarone HCl 200 mg DAILY PO 10/28/24 10:00 10/31/24 09:28 200 MG Furosemide 20 mg BIDD IV 10/28/24 18:00 10/31/24 05:23 20 MG Cefepime HCl 50 ml @ 12.5 mls/hr Q8H IV 10/30/24 18:00 10/31/24 09:27 12.5 MLS/HR Acetaminophen 500 mg Q8HP PRN PO 10/31/24 05:45 10/31/24 06:02 500 MG Examination: GENERAL:Abnormal (intubated on vent ), HEENT:Normal, NECK:Normal, LUNGS:Abnormal (diminished breath sounds), CVS:Normal, ABDOMEN:Normal, SKIN:Normal, NEURO:Abnormal (Sedated ) laboratory and microbiology Laboratory Tests 10/31/24 03:03 Test 10/31/24 03:03 Range/Units Serum Glucose 99 74-106 mg/dL Problem List/Assessment/Plan Problem List/Assessment/Plan Problem List Sepsis with acute hypoxic respiratory failure likely due to pneumonia. Paroxysmal atrial fibrillation/atrial flutter s/p DCCV, now NSR, Stage III. Acute on chronic decompensated HFrEF, NYHA Class III, newly diagnosed. End-stage dilated cardiomyopathy, likely ischemic given anteroseptal ST-T wave changes. NSTEMI, possibly type 1. Bilateral pleural effusions. Tobacco/alcohol dependence/?Alcohol withdrawal. Thrombocytopenia. Plan/Recommendation Continued all current supportive medical care. Patient has been seen by Ilana Daugherty NP on my behalf, her and I discussed the plan with the patient. Transthoracic echocardiogram revealed LVEF 20%. Ventilator settings per pulmonology team. Antiarrhythmic therapy, amiodarone GT BID. Hold single-antiplatelet therapy given thrombocytopenia. Hold statin given elevated LFTs. Preload reduction as tolerated. Strict I&Os. Daily weight. Fluid restriction. Therapeutic Lovenox held given worsening thrombocytopenia. [id number] Score 1 point. HAS-BLED Score 2 points. Replete electrolytes as necessary, K>4 and Mg>2. Monitor ECG changes closely and notify. Additional plan as per the hospital course. Plan discussed with: Other Dietary Evaluation Review Comments: 1) TF Jevity 1.2Cal @ 50ml/hr (goal) along wth Pro-stat 1 pk BID. Start @ 20ml/hr, increase 10ml/hr Q4H until goal is reached. TF @ goal volume along with Pro-stat provides 1640 kcal (100% energy needs), 96 gm protein (100% protein needs), 968 ml free water. 2) Water flush 170ml Q6H if allowed, adjust PRN 3) TPN if NPO > 7 days 4) Monitor NPO status, lab values, wt trend, I/O Expected Outcomes/Goals: To meet >75% estimated needs Fu 2-3 days Date of Service: Oct 31, 2024 Billing Provider: MESERET MOTLEY MD Cardiology Common Codes: [id number] MESERET MOTLEY MD Oct 31, 2024 13:52
[2024-10-31] MEDS: LIDOCAINE 1% (LOCAL ANESTH.) PF 5ml SDV ID ONE (14:00)
--- NOTE | 2024-10-31 14:38 | DVH ---
EXAM: XY CHEST PORTABLE Indication: PICC LINE PLACEMENT. Technique: Single frontal view of the chest was obtained Comparison: XY CHEST PORTABLE on DOS: 10/31/24, XY CHEST PORTABLE on DOS: 10/30/24, XY CHEST PORTABLE o n DOS: 10/29/24, XY CHEST PORTABLE on DOS: 10/28/24, XY CHEST PORTABLE on DOS: 10/28/24 FINDINGS: Lines and Tubes: Endotracheal tube projects 4 cm above the ty. Enteric tube tip projects over th e expected region stomach. Right PICC tip projects over the superior vena cava. Lungs: Bibasilar opacities. Pleura: Small bilateral pleural effusions. No pneumothorax. Cardiomediastinal contours: Cardiomegaly. Bones: No acute osseous abnormality. IMPRESSION: Interval placement of right PICC tip projects over the superior vena cava.
--- NOTE | 2024-10-31 18:11 | DVHPNRES ---
Progress Note Date Seen: Oct 31, 2024 Resident Creating Document: MAX FLOYD RESIDENT Has the PT tested + for MRSA If YES, has PT been informed?: No Medical Necessity Reason Pt with a Central, PICC or Fol: No The following are medically ne: Central Line, Greenberg Catheter Subjective Review of Systems Patient is a 54-year-old male with past medical history of liver cirrhosis, portal hypertension related gastropathy, cholelithiasis, depression, tachycardia, alcohol related tremors, who came in due to shortness of breaths. According to the ER notes, patient was having severe shortness of breath with tachypnea along with atrial fibrillation with rapid ventricular response, patient underwent synchronized cardioversion at 120 joules and was subsequently intubated. Per patient's son Mr. Shemar Winkler, patient called him yesterday on 10/23/2024 and stated he has been having increasing difficulty breathing and difficulty sleeping that has been worsened over the last 3 days. Per patient's son he is unable to provide more information as he does not live with his father, patient lives with his roommate. History and most of the information was obtained from patient's sons Mr. Galo, Mr. Staton and patient's ex-. Past surgical history: Unable to obtain Home medications: Thiamine, propranolol, Protonix, metronidazole, levofloxacin Past Hospitalization: In [address] [facility] for upper and lower GI bleed Social & Personal history: Patient lives with a roommate. Per patient's , patient is a nonsmoker. However, heavy alcohol usage 6-12 drinks per day, daily for the last 35-40 years. Unable to obtain an accurate substance abuse related history. Allergies: Latex, penicillin 10/25/24: overnight patient became hypotensive and hyperkalemic at 6.2, hyperkalemia protocol was carried out, dc'ed amiodarone drip which led to rhythm reverting back to atrial flutter. Amio drip was resumed later in the day, digoxin also added. influenze b +, started tamiflu. added metronidalzole. 10/26/2024: Heart rate improved in the early 100s, continuing amiodarone drip. Liver function worsening. 10/27/2024: Patient seen and examined at bedside, started Lasix 40 mg p.o. daily. Chest x-ray shows bilateral pulmonary edema and pleural effusions as before. Off of pressors, drips running Versed at 12, fentanyl at 2:25 a.m. and amio at 0.5 mg. Respiratory culture growing Clifford albicans. Ordered repeat serum digoxin levels 10/30/24: dc'ed tamiflu. LFTs imrpoving 10/31/24: CXR shows stable bibasilar pulmonary airspace dx. heart rate normal. placed PICC line, cpap trial in the AM Objective vital signs Vital Sign Date Time Temp Pulse Resp B/P (MAP) Pulse Ox O2 Delivery O2 Flow Rate FiO2 10/31/24 18:00 30 10/31/24 18:00 75 10/31/24 18:00 20 98 Mechanical Ventilator+ 10/31/24 17:54 99.3 116/77 (90) 210.7 Total Intake and Output 10/30/24 10/30/24 10/31/24 15:00 23:00 07:00 Intake Total 510 ml 575 ml 848.0 ml Output Total 1300 ml 1200 ml Balance 510 ml -725 ml -352.0 ml medications Current Medications Medications Dose Ordered Sig/Cristian Route Start Time Stop Time Status Last Admin Dose Admin Midazolam HCl 50 ml @ 1 mls/hr Q24H IV 10/23/24 19:45 10/31/24 17:51 5 MLS/HR Fentanyl Citrate 250 ml @ 2.5 mls/hr Q24H IV 10/23/24 21:45 10/31/24 13:21 15 MLS/HR Pantoprazole Sodium 40 mg DAILY IV 10/24/24 10:00 10/31/24 09:27 40 MG Phenylephrine HCl 80 mg/Sodium Chloride 250 ml @ 7.5 mls/hr Q24H IV 10/24/24 14:30 10/25/24 02:12 26.25 MLS/HR Norepinephrine Bitartrate 32 mg/ Sodium Chloride 250 ml @ 0.938 mls/ hr Q24H IV 10/24/24 14:30 10/24/24 18:55 6.563 MLS/HR Metronidazole 100 ml @ 100 mls/hr Q8HR IV 10/25/24 13:00 10/31/24 13:19 100 MLS/HR Enteral Nutritional Formula 1,000 ml 30ML/HR GT 10/25/24 17:15 10/30/24 22:54 1,000 ML Ipratropium [place] 0.5 mg Q6HR NEB 10/26/24 06:00 10/31/24 11:38 0.5 MG Amiodarone HCl 200 mg DAILY PO 10/28/24 10:00 10/31/24 09:28 200 MG Furosemide 20 mg BIDD IV 10/28/24 18:00 10/31/24 17:47 20 MG Cefepime HCl 50 ml @ 12.5 mls/hr Q8H IV 10/30/24 18:00 10/31/24 17:48 12.5 MLS/HR Acetaminophen 500 mg Q8HP PRN PO 10/31/24 05:45 10/31/24 06:02 500 MG Sodium Chloride 10 ml QSHIFT@10,22 IV 10/31/24 22:00 Examination General Appearance: Intubated, sedated and mechanically ventilated. Lying down in bed without any distress. Head Exam: Normal inspection Neck Exam: Normal inspection. Non-tender. Normal alignment. Equal and minimally reactive pupils 2 mm. Pulmonary/Respiratory: Chest non-tender. Decreased bilateral breath sounds, no crackles, no wheezing. Cardiovascular/Chest: normal rate No murmurs. No JVD. Peripheral Pulses: 2+ Radial (R). 2+ Radial (L). 2+ Pedal (R). 2+ Pedal (L) Abdominal Exam: Normal bowel sounds. Soft. normal abdomen, no visible veins, Nontender. No hepatospenomegaly. No masses Ankle Exam: Negative ankle edema Lower extremities: Negative lower extremity edema Skin Exam: Normal inspection. Normal color. Warm. Dry laboratory and microbiology Laboratory Tests 10/31/24 03:03 Test 10/31/24 03:03 Range/Units Serum Glucose 99 74-106 mg/dL Microbiology Date/Time Source Procedure Growth Status 10/28/24 10:50 Bronchial Washings Gram Stain - Final Complete 10/28/24 10:50 Respiratory Culture - Final Presumptive Clifford albicans Complete 10/25/24 10:45 Nose MRSA Screen - Final Complete 10/24/24 13:23 Voided Urine Urine Culture - Final Complete 10/23/24 19:48 Blood Blood Culture - Final NO GROWTH AFTER 5 DAYS OF INCUBATION. Complete Labs and/or images reviewed: Labs reviewed by me, Image(s) reviewed by me Problem List/Assessment/Plan Problem List/Assessment/Plan Neurology # acute toxic vs metabolic encephalopathy # possible alcohol withdrawal # hx of withdrawal seizures? # Sedated - head CT: No acute intracranial abnormality - IV banana bag once - Versed 5 mcg per hour Cardiovascular # septic shock due to pneumonia # atrial flutter with hemodynamic instability, s/p cardioversion x2 # NSTEMI 1 vs 2 # End- stage dilated cardiomyopathy # Heart failure with reduced ejection fraction <20% # Prolonged QTC - amiodarone drip - cardiology on board - norepinephrine at 10 micrograms/hour - amiodarone drip at 0.5mg/min - phenylephrine at 15mcg/min - IV digoxin 500mcg x 2 - serum digoxin level 3.69 5 hours after 2nd dose in 24 hours after 1st dose - repeat serum digoxin level 1.85 Respiratory # Acute hypoxic respiratory failure # community-acquired pneumonia, Gram-positive versus Gram-negative # Ventilator # ruled out pulmonary embolism -intubated (10/23/24) -on [facility] vent : VCAC Mode RR 20 TV 500ml, PEEP Of 6 and FiO2 of 30% - CXR: Moderate interstitial pulmonary edema in the setting of cardiomegaly. Probable trace bilateral effusions. - CT angio: No evidence of pulmonary embolism. Pulmonary edema. Large bilateral pleural effusions. Associated consolidation of the majority of bilateral lower lobes independent portions of the remaining lobes of the lung. Cirrhotic liver. Small amount of ascites in the visualized upper abdomen. - chest ultrasound: Small bilateral pleural effusion, trace ascites. - IV lasix 20mg bid - IV cefepime, IV metronidazole GI # Hx of GI bleed # cirrhosis, MELD 19 # Hx of portal hypertension gastropathy # mild abdominal ascites # Peptic ulcer prophylaxis -Pantoprazole 40 mg IV daily # Greenberg catheter placed on 10/23/24 - urine culture Nephrology # Hyperkalemia # DMITRIY likely ATN/VMN on ?CKD (GFR 70 on admission, unknown baseline) - monitor - nephrology on board; recommended to start lokelma qD if hyperkalemia persists, holding for now as last serum K 3.9 - IV Lasix 20 mg bid Infectious disease # community acquired pneumonia, gram + vs -ve # Influenza B positive - IV cefepime - IV metronidazole - Oseltamivir - off norepinephrine - off phenylephrine at 15mcg/min - respiratory, blood, urine cultures - resp cx growing clifford Hem/onc # mild normocytic anemia # ruled out lower extremity DVT # thrombocytopenia - lower extremity Doppler: No right or left lower extremity deep vein thrombosis. Psychiatry # Alcohol use disorder # hx of depression - outpatient psychiatry follow up versus psychiatry consult upon extubation DVT prophylaxis - discontinue therapeutic Lovenox due to patient having thrombocytopenia Nutrition TF nepro carbsteady Lines L IJ CVC 10/23/24 LUE 20g 10/23/24 RUE 20g 10/23/24 [facility] Fentanyl 150 mcg/hr Versed 5 Intubated on 10/23/24 Critical care time 82 minutes excluding procedure and discussions with the family. Code status discussed greater than 20 minutes: Full CODE STATUS. Plan discussed with Dr. Sheriff Plan discussed with: Other (RN) My Orders My Orders Orders - MAX FLOYD RESIDENT Procedure Category Date Status Time Abg W/ Co-Ox RT 10/31/24 Logged 04:00 Chest Portable XY 10/31/24 Resulted 04:00 Nursing Protocol Picc [facility] 10/31/24 In Process 13:57 Change Dressing Prn [facility] 10/31/24 In Process 13:57 Sodium Chloride Lock PHA 10/31/24 In Process (Saline Lock Ns) 22:00 Do Not Use Picc For [facility] 10/31/24 In Process Blood Cult 13:57 May Draw Blood From [facility] 10/31/24 In Process Picc 13:57 Chest Portable XY 10/31/24 Resulted 13:57 Ok To Use Picc [facility] 10/31/24 In Process 13:57 Change Picc Dressing [facility] 10/31/24 In Process Q7 Days 13:57 Cpap/Sed Vacation Med ORDERS 10/31/24 Transmitted Weaning 15:34 Dietary Evaluation Review Comments: 1) TF Jevity 1.2Cal @ 50ml/hr (goal) along wth Pro-stat 1 pk BID. Start @ 20ml/hr, increase 10ml/hr Q4H until goal is reached. TF @ goal volume along with Pro-stat provides 1640 kcal (100% energy needs), 96 gm protein (100% protein needs), 968 ml free water. 2) Water flush 170ml Q6H if allowed, adjust PRN 3) TPN if NPO > 7 days 4) Monitor NPO status, lab values, wt trend, I/O Expected Outcomes/Goals: To meet >75% estimated needs Fu 2-3 days Date of Service: Oct 31, 2024 Billing Provider: LARUEANO SHERIFF MD Common Visit Codes: 53753-KQLKZGRB CARE 30-74 MIN, 54505-[id number] CARE-EACH +30MIN MAX FLOYD Oct 31, 2024 18:11 LAUREANO SHERIFF MD Nov 01, 2024 11:19
[2024-10-31] MEDS: SODIUM CHLOR 0.9% PF (SALINE LOCK) 10ML VIAL/SYR IV SCH (21:42)
[2024-11-01] VITALS (108 sets, daily range): BP systolic 97–165; BP diastolic 68–124; PULSE 59–140; RESP 11–26; TEMP 98.1–100.4; O2SAT 96–100
[2024-11-01 03:36] LABS: Hematocrit 42.2 % (41.0-53.0); Hemoglobin 14.4 g/dL (13.5-17.5); Mean Corpuscular Hemoglobin 31.9 pg (28.0-32.0); Mean Corpuscular Volume 93.4 fL (80.0-100.0); Nucleated Red Blood Cells % 0.0 %
[2024-11-01 03:51] LABS: Alanine Aminotransferase 199 U/L (7-40); Albumin 3.6 g/dL (3.2-4.8); Alkaline Phosphatase 126 U/L (46-116); Anion Gap 11 (5-15); BUN/Creatinine Ratio 28.2 (10.0-20.0); Bilirubin, Total 1.4 mg/dL (0.2-1.0); Blood Urea Nitrogen 29 mg/dL (9-23); Calcium 9.4 mg/dL (8.7-10.4); Carbon Dioxide 26 mmol/L (20-31); Chloride 106 mmol/L (98-107); Glucose 106 mg/dL (74-106); Magnesium 1.9 mg/dL (1.6-2.6); Potassium 3.4 mmol/L (3.5-5.1); Sodium 143 mmol/L (136-145); Total Protein 7.3 g/dL (5.7-8.2)
--- NOTE | 2024-11-01 05:04 | DVH ---
CHEST RADIOGRAPH Indication: pna Technique: Single frontal view of the chest was obtained COMPARISON: XY CHEST PORTABLE on DOS: 10/31/24, XY CHEST PORTABLE on DOS: 10/31/24, XY CHEST PORTABLE o n DOS: 10/30/24, XY CHEST PORTABLE on DOS: 10/29/24, XY CHEST PORTABLE on DOS: 10/28/24 FINDINGS: Lines and Tubes: Slight interval advancement of endotracheal tube such that the tip now projects appr oximately 3.3 cm above the level of the ty. Interval removal of left internal jugular central juwan ous catheter. Enteric catheter and right peripherally inserted central catheter are unchanged. Lungs: Stable small bilateral pleural effusions and bibasilar pulmonary airspace disease. No pneumothorax. Cardiomediastinal contours: Unremarkable Bones: Unremarkable IMPRESSION: 1. Stable appearing bibasilar pulmonary airspace disease and bilateral pleural effusions. 2. Interval removal of left internal jugular central venous catheter. 3. Interval advancement of endotracheal tube such that the tip now projects approximately 3.3 cm abov e the level of the ty. 4. Remaining lines and tubes unchanged.
--- NOTE | 2024-11-01 05:04 | DVH ---
Exam: US US GUIDED VASCULAR ACCESS Clinical History: PICC LINE PLACEMENT Comparison: None Findings: Targeted sonographic evaluation of the arm vein was obtained utilizing grayscale and color Doppler im aging. IMPRESSION: Sonographic assistance for peripherally inserted central line placement. Please refer to procedural r eport for detailed findings.
[2024-11-01] MEDS: MAGNESIUM SULFATE 1GM/100ML 100 ML IV ONE (06:14)
[2024-11-01] MEDS: POTASSIUM CHL 20MEQ/100ML 100 ML IV ONE (06:15)
[2024-11-01 08:02] LABS: Base Excess 2.2 mmol/L (-2.0-3.0)
--- NOTE | 2024-11-01 09:33 | DVHPN2 ---
Consult Progress Note Date Seen: Nov 01, 2024 Subjective Other Systems: Notified of unsustained tachycardia overnight. Now sinus rhythm Objective vital signs Vital Sign Date Time Temp Pulse Resp B/P (MAP) Pulse Ox O2 Delivery O2 Flow Rate FiO2 11/01/24 07:00 147/97 11/01/24 06:14 84 20 98 30 11/01/24 06:00 Mechanical Ventilator+ 11/01/24 03:39 100.2 212.4 Total Intake and Output 10/31/24 10/31/24 11/01/24 15:00 23:00 07:00 Intake Total 360 ml 560 ml 760.255 ml Output Total 900 ml 1200 ml Balance 360 ml -340 ml -439.745 ml medications Current Medications Medications Dose Ordered Sig/Cristian Route Start Time Stop Time Status Last Admin Dose Admin Midazolam HCl 50 ml @ 1 mls/hr Q24H IV 10/23/24 19:45 10/31/24 17:51 5 MLS/HR Fentanyl Citrate 250 ml @ 2.5 mls/hr Q24H IV 10/23/24 21:45 10/31/24 13:21 15 MLS/HR Pantoprazole Sodium 40 mg DAILY IV 10/24/24 10:00 10/31/24 09:27 40 MG Phenylephrine HCl 80 mg/Sodium Chloride 250 ml @ 7.5 mls/hr Q24H IV 10/24/24 14:30 10/25/24 02:12 26.25 MLS/HR Norepinephrine Bitartrate 32 mg/ Sodium Chloride 250 ml @ 0.938 mls/ hr Q24H IV 10/24/24 14:30 10/24/24 18:55 6.563 MLS/HR Metronidazole 100 ml @ 100 mls/hr Q8HR IV 10/25/24 13:00 11/01/24 06:13 100 MLS/HR Enteral Nutritional Formula 1,000 ml 30ML/HR GT 10/25/24 17:15 10/30/24 22:54 1,000 ML Ipratropium [place] 0.5 mg Q6HR NEB 10/26/24 06:00 11/01/24 06:14 0.5 MG Amiodarone HCl 200 mg DAILY PO 10/28/24 10:00 10/31/24 09:28 200 MG Furosemide 20 mg BIDD IV 10/28/24 18:00 11/01/24 06:13 20 MG Cefepime HCl 50 ml @ 12.5 mls/hr Q8H IV 10/30/24 18:00 11/01/24 01:43 12.5 MLS/HR Acetaminophen 500 mg Q8HP PRN PO 10/31/24 05:45 10/31/24 21:42 500 MG Sodium Chloride 10 ml QSHIFT@10,22 IV 10/31/24 22:00 10/31/24 21:42 10 ML Examination: GENERAL:Abnormal, LUNGS:Abnormal (Endotracheally intubated 30% FiO2), CVS:Normal (Sinus rhythm with T-wave inversion. Off pressors), NEURO:Abnormal (Off sedation, on Precedex) laboratory and microbiology Laboratory Tests 11/01/24 02:30 Test 11/01/24 02:30 Range/Units Serum Glucose 106 74-106 mg/dL Problem List/Assessment/Plan Problem List/Assessment/Plan Sepsis with acute hypoxic respiratory failure likely due to pneumonia Paroxysmal atrial fibrillation/atrial flutter s/p DCCV, now NSR, Stage III Acute on chronic decompensated HFrEF, NYHA Class III, newly diagnosed End-stage dilated cardiomyopathy, likely ischemic given anteroseptal ST-T wave changes NSTEMI, possibly type 1 Bilateral pleural effusions Tobacco/alcohol dependence/?Alcohol withdrawal Thrombocytopenia Plan/Recommendation (Dr. Fu) * Transthoracic echocardiogram revealed LVEF 20% * Antiarrhythmic therapy, amiodarone GT BID * Hold single-antiplatelet therapy given thrombocytopenia * Hold statin given elevated LFTs * Preload reduction as tolerated * Strict I&Os. Daily weight. Fluid restriction * Therapeutic Lovenox held given worsening thrombocytopenia * [id number] Score 1 point. HAS-BLED Score 2 points * Replete electrolytes as necessary, K>4 and Mg>2 * Monitor ECG changes closely and notify Tentatively scheduled for cardiac catheterization and coronary angiogram on 11/03/2024. Thank you for giving us the opportunity to take care of your patient. Please call back if any question/concern. Critical care time: 30 min. This medical document was created using an electronic medical record system with voice recognition software and computerized dictation system. Although this document has been carefully reviewed, there might still be some phonetic and typographical errors. Occasional wrong-word or ``sound-alike substitutions may have occurred due to the inherent limitations of voice recognition software. These areas are purely typographical due to imperfections of the software programs and do not reflect any compromise in the patient's medical care. Please read the chart carefully and recognize, using context, where these substitutions have occurred. Plan discussed with: Other Dietary Evaluation Review Comments: 1) TF Jevity 1.2Cal @ 50ml/hr (goal) along wth Pro-stat 1 pk BID. Start @ 20ml/hr, increase 10ml/hr Q4H until goal is reached. TF @ goal volume along with Pro-stat provides 1640 kcal (100% energy needs), 96 gm protein (100% protein needs), 968 ml free water. 2) Water flush 170ml Q6H if allowed, adjust PRN 3) TPN if NPO > 7 days 4) Monitor NPO status, lab values, wt trend, I/O Expected Outcomes/Goals: To meet >75% estimated needs Fu 2-3 days Date of Service: Nov 01, 2024 Billing Provider: HELADIO NDIAYE Cardiology Common Codes: 17122-[id number] CARE 30-74 MIN HELADIO NDIAYE Nov 01, 2024 09:33
[2024-11-01] MEDS: AMIODARONE HCL 200 MG TAB PO SCH (09:47)
[2024-11-01] MEDS: POTASSIUM CHL 20MEQ/100ML 100 ML IV SCH (09:48)
[2024-11-01] MEDS ORDERED: VANCOMYCIN PER PHARMACY 0 MG IV SCH (11:15)
[2024-11-01] MEDS: VANCOMYCIN 1.5GM/300ML 300 ML IV ONE (13:47)
--- NOTE | 2024-11-01 15:08 | DVHPN2 ---
Progress Note Date Seen: Nov 01, 2024 Has the PT tested + for MRSA If YES, has PT been informed?: No Medical Necessity Reason Pt with a Central, PICC or Fol: No The following are medically ne: Central Line, Greenberg Catheter Subjective Changes from previous H/P or p: No Changes Review of Systems: Deferred Objective vital signs Vital Sign Date Time Temp Pulse Resp B/P (MAP) Pulse Ox O2 Delivery O2 Flow Rate FiO2 11/01/24 14:49 100.0 78 20 134/84 (101) 100 212.0 11/01/24 14:24 30 11/01/24 14:00 Mechanical Ventilator+ Total Intake and Output 10/31/24 10/31/24 11/01/24 15:00 23:00 07:00 Intake Total 360 ml 560 ml 760.255 ml Output Total 900 ml 1200 ml Balance 360 ml -340 ml -439.745 ml medications Current Medications Medications Dose Ordered Sig/Cristian Route Start Time Stop Time Status Last Admin Dose Admin Midazolam HCl 50 ml @ 1 mls/hr Q24H IV 10/23/24 19:45 10/31/24 17:51 5 MLS/HR Fentanyl Citrate 250 ml @ 2.5 mls/hr Q24H IV 10/23/24 21:45 10/31/24 13:21 15 MLS/HR Pantoprazole Sodium 40 mg DAILY IV 10/24/24 10:00 11/01/24 09:47 40 MG Phenylephrine HCl 80 mg/Sodium Chloride 250 ml @ 7.5 mls/hr Q24H IV 10/24/24 14:30 10/25/24 02:12 26.25 MLS/HR Norepinephrine Bitartrate 32 mg/ Sodium Chloride 250 ml @ 0.938 mls/ hr Q24H IV 10/24/24 14:30 10/24/24 18:55 6.563 MLS/HR Metronidazole 100 ml @ 100 mls/hr Q8HR IV 10/25/24 13:00 11/01/24 06:13 100 MLS/HR Enteral Nutritional Formula 1,000 ml 30ML/HR GT 10/25/24 17:15 10/30/24 22:54 1,000 ML Ipratropium [place] 0.5 mg Q6HR NEB 10/26/24 06:00 11/01/24 11:46 0.5 MG Furosemide 20 mg BIDD IV 10/28/24 18:00 11/01/24 06:13 20 MG Cefepime HCl 50 ml @ 12.5 mls/hr Q8H IV 10/30/24 18:00 11/01/24 09:48 12.5 MLS/HR Acetaminophen 500 mg Q8HP PRN PO 10/31/24 05:45 10/31/24 21:42 500 MG Sodium Chloride 10 ml QSHIFT@10,22 IV 10/31/24 22:00 11/01/24 09:47 10 ML Amiodarone HCl 200 mg BID PO 11/01/24 10:00 11/01/24 09:47 200 MG Vancomycin HCl 0 ml @ 0 mls/hr UD IV 11/01/24 11:15 Vancomycin HCl 200 ml @ 200 mls/hr Q12H IV 11/02/24 01:00 Examination: GENERAL:Abnormal, LUNGS:Abnormal laboratory and microbiology Laboratory Tests 11/01/24 02:30 Test 11/01/24 02:30 Range/Units Serum Glucose 106 74-106 mg/dL Microbiology Date/Time Source Procedure Growth Status 10/28/24 10:50 Bronchial Washings Gram Stain - Final Complete 10/28/24 10:50 Respiratory Culture - Final Presumptive Sharon albicans Complete 10/25/24 10:45 Nose MRSA Screen - Final Complete 10/24/24 13:23 Voided Urine Urine Culture - Final Complete 10/23/24 19:48 Blood Blood Culture - Final NO GROWTH AFTER 5 DAYS OF INCUBATION. Complete Problem List/Assessment/Plan Problem List/Assessment/Plan 57-year-old male past medical history of alcoholic liver cirrhosis presents to the hospital complaining of shortness of breath was found to have atrial fibrillation rapid ventricular response diagnosed with decompensated heart failure with ejection fraction less than 20%. Nephrology consulted for acute kidney injury Acute kidney injury likely multiple factors including hemodynamics, contrast, cardiorenal syndrome No previous CKD Dilated cardiomyopathy with ejection fraction 20% Cirrhosis Acute respiratory failure AFib with rapid ventricular response Currently rate controlled, cardiology lasix to achieve slow and slight negative balance daily Monitoring urinary output Avoid contrast studies if able Replace electrolytes accordingly no change in current treatment plan will sign off case. reconsult if condition changes Plan discussed with: Other Dietary Evaluation Review Comments: 1) TF Jevity 1.2Cal @ 50ml/hr (goal) along wth Pro-stat 1 pk BID. Start @ 20ml/hr, increase 10ml/hr Q4H until goal is reached. TF @ goal volume along with Pro-stat provides 1640 kcal (100% energy needs), 96 gm protein (100% protein needs), 968 ml free water. 2) Water flush 170ml Q6H if allowed, adjust PRN 3) TPN if NPO > 7 days 4) Monitor NPO status, lab values, wt trend, I/O Expected Outcomes/Goals: To meet >75% estimated needs Fu 2-3 days Total Time (mins): 33 CHRISTOS KOTHARI MD Nov 01, 2024 15:08
--- NOTE | 2024-11-01 15:42 | DVHPNRES ---
Progress Note Date Seen: Nov 01, 2024 Resident Creating Document: MAX FLOYD RESIDENT Has the PT tested + for MRSA If YES, has PT been informed?: No Medical Necessity Reason Pt with a Central, PICC or Fol: No The following are medically ne: Central Line, Greenberg Catheter Subjective Review of Systems Patient is a 54-year-old male with past medical history of liver cirrhosis, portal hypertension related gastropathy, cholelithiasis, depression, tachycardia, alcohol related tremors, who came in due to shortness of breaths. According to the ER notes, patient was having severe shortness of breath with tachypnea along with atrial fibrillation with rapid ventricular response, patient underwent synchronized cardioversion at 120 joules and was subsequently intubated. Per patient's son Mr. Shemar Winkler, patient called him yesterday on 10/23/2024 and stated he has been having increasing difficulty breathing and difficulty sleeping that has been worsened over the last 3 days. Per patient's son he is unable to provide more information as he does not live with his father, patient lives with his roommate. History and most of the information was obtained from patient's sons Mr. Galo, Mr. Staton and patient's ex-. Past surgical history: Unable to obtain Home medications: Thiamine, propranolol, Protonix, metronidazole, levofloxacin Past Hospitalization: In 2019 at the [facility] for upper and lower GI bleed Social & Personal history: Patient lives with a roommate. Per patient's , patient is a nonsmoker. However, heavy alcohol usage 6-12 drinks per day, daily for the last 35-40 years. Unable to obtain an accurate substance abuse related history. Allergies: Latex, penicillin 10/25/24: overnight patient became hypotensive and hyperkalemic at 6.2, hyperkalemia protocol was carried out, dc'ed amiodarone drip which led to rhythm reverting back to atrial flutter. Amio drip was resumed later in the day, digoxin also added. influenze b +, started tamiflu. added metronidalzole. 10/26/2024: Heart rate improved in the early 100s, continuing amiodarone drip. Liver function worsening. 10/27/2024: Patient seen and examined at bedside, started Lasix 40 mg p.o. daily. Chest x-ray shows bilateral pulmonary edema and pleural effusions as before. Off of pressors, drips running Versed at 12, fentanyl at 2:25 a.m. and amio at 0.5 mg. Respiratory culture growing Clifford albicans. Ordered repeat serum digoxin levels 10/30/24: dc'ed tamiflu. LFTs imrpoving 10/31/24: CXR shows stable bibasilar pulmonary airspace dx. heart rate normal. placed PICC line, cpap trial in the AM In: Overnight fevers as high as 101.1, add vancomycin. CPAP trial in the a.m.. Sedation vacation completed today. Objective vital signs Vital Sign Date Time Temp Pulse Resp B/P (MAP) Pulse Ox O2 Delivery O2 Flow Rate FiO2 11/01/24 15:07 100.2 11/01/24 15:04 80 20 117/82 (94) 100 11/01/24 14:24 30 11/01/24 14:00 Mechanical Ventilator+ Total Intake and Output 10/31/24 10/31/24 11/01/24 14:59 22:59 06:59 Intake Total 537.5 ml 560 ml 626.5 ml Output Total 900 ml 1200 ml Balance 537.5 ml -340 ml -573.5 ml medications Current Medications Medications Dose Ordered Sig/Cristian Route Start Time Stop Time Status Last Admin Dose Admin Midazolam HCl 50 ml @ 1 mls/hr Q24H IV 10/23/24 19:45 10/31/24 17:51 5 MLS/HR Fentanyl Citrate 250 ml @ 2.5 mls/hr Q24H IV 10/23/24 21:45 10/31/24 13:21 15 MLS/HR Pantoprazole Sodium 40 mg DAILY IV 10/24/24 10:00 11/01/24 09:47 40 MG Phenylephrine HCl 80 mg/Sodium Chloride 250 ml @ 7.5 mls/hr Q24H IV 10/24/24 14:30 10/25/24 02:12 26.25 MLS/HR Norepinephrine Bitartrate 32 mg/ Sodium Chloride 250 ml @ 0.938 mls/ hr Q24H IV 10/24/24 14:30 10/24/24 18:55 6.563 MLS/HR Metronidazole 100 ml @ 100 mls/hr Q8HR IV 10/25/24 13:00 11/01/24 15:07 100 MLS/HR Enteral Nutritional Formula 1,000 ml 30ML/HR GT 10/25/24 17:15 10/30/24 22:54 1,000 ML Ipratropium [place] 0.5 mg Q6HR NEB 10/26/24 06:00 11/01/24 11:46 0.5 MG Furosemide 20 mg BIDD IV 10/28/24 18:00 11/01/24 06:13 20 MG Cefepime HCl 50 ml @ 12.5 mls/hr Q8H IV 10/30/24 18:00 11/01/24 09:48 12.5 MLS/HR Acetaminophen 500 mg Q8HP PRN PO 10/31/24 05:45 11/01/24 15:07 500 MG Sodium Chloride 10 ml QSHIFT@10,22 IV 10/31/24 22:00 11/01/24 09:47 10 ML Amiodarone HCl 200 mg BID PO 11/01/24 10:00 11/01/24 09:47 200 MG Vancomycin HCl 0 ml @ 0 mls/hr UD IV 11/01/24 11:15 Vancomycin HCl 200 ml @ 200 mls/hr Q12H IV 11/02/24 01:00 Examination General Appearance: Intubated, sedated and mechanically ventilated. Lying down in bed without any distress. Head Exam: Normal inspection Neck Exam: Normal inspection. Non-tender. Normal alignment. Equal and minimally reactive pupils 2 mm. Pulmonary/Respiratory: Chest non-tender. Decreased bilateral breath sounds, no crackles, no wheezing. Cardiovascular/Chest: normal rate No murmurs. No JVD. Peripheral Pulses: 2+ Radial (R). 2+ Radial (L). 2+ Pedal (R). 2+ Pedal (L) Abdominal Exam: Normal bowel sounds. Soft. normal abdomen, no visible veins, Nontender. No hepatospenomegaly. No masses Ankle Exam: Negative ankle edema Lower extremities: Negative lower extremity edema Skin Exam: Normal inspection. Normal color. Warm. Dry laboratory and microbiology Laboratory Tests 11/01/24 02:30 Test 11/01/24 02:30 Range/Units Serum Glucose 106 74-106 mg/dL Microbiology Date/Time Source Procedure Growth Status 10/28/24 10:50 Bronchial Washings Gram Stain - Final Complete 10/28/24 10:50 Respiratory Culture - Final Presumptive Clifford albicans Complete 10/25/24 10:45 Nose MRSA Screen - Final Complete 10/24/24 13:23 Voided Urine Urine Culture - Final Complete 10/23/24 19:48 Blood Blood Culture - Final NO GROWTH AFTER 5 DAYS OF INCUBATION. Complete Labs and/or images reviewed: Labs reviewed by me, Image(s) reviewed by me Problem List/Assessment/Plan Problem List/Assessment/Plan Neurology # acute toxic vs metabolic encephalopathy # possible alcohol withdrawal # hx of withdrawal seizures? # Sedated - head CT: No acute intracranial abnormality - IV banana bag once - Versed 5 mcg per hour Cardiovascular # septic shock due to pneumonia # atrial flutter with hemodynamic instability, s/p cardioversion x2 # NSTEMI 1 vs 2 # End- stage dilated cardiomyopathy # Heart failure with reduced ejection fraction <20% # Prolonged QTC - amiodarone drip - cardiology on board - norepinephrine at 10 micrograms/hour - amiodarone drip at 0.5mg/min - phenylephrine at 15mcg/min - IV digoxin 500mcg x 2 - serum digoxin level 3.69 5 hours after 2nd dose in 24 hours after 1st dose - repeat serum digoxin level 1.85 Respiratory # Acute hypoxic respiratory failure # community-acquired pneumonia, Gram-positive versus Gram-negative # Ventilator # ruled out pulmonary embolism -intubated (10/23/24) -on [facility] vent : VCAC Mode RR 20 TV 500ml, PEEP Of 6 and FiO2 of 30% - CXR: Moderate interstitial pulmonary edema in the setting of cardiomegaly. Probable trace bilateral effusions. - CT angio: No evidence of pulmonary embolism. Pulmonary edema. Large bilateral pleural effusions. Associated consolidation of the majority of bilateral lower lobes independent portions of the remaining lobes of the lung. Cirrhotic liver. Small amount of ascites in the visualized upper abdomen. - chest ultrasound: Small bilateral pleural effusion, trace ascites. - IV lasix 20mg bid - IV cefepime, IV metronidazole GI # Hx of GI bleed # cirrhosis, MELD 19 # Hx of portal hypertension gastropathy # mild abdominal ascites # Peptic ulcer prophylaxis -Pantoprazole 40 mg IV daily # Greenberg catheter placed on 10/23/24 - urine culture Nephrology # Hyperkalemia # DMITRIY likely ATN/VMN on ?CKD (GFR 70 on admission, unknown baseline) - monitor - nephrology on board; recommended to start lokelma qD if hyperkalemia persists, holding for now as last serum K 3.9 - IV Lasix 20 mg bid Infectious disease # community acquired pneumonia, gram + vs -ve # Influenza B positive - IV cefepime - IV metronidazole - Oseltamivir - off norepinephrine - off phenylephrine at 15mcg/min - respiratory, blood, urine cultures - resp cx growing clifford Hem/onc # mild normocytic anemia # ruled out lower extremity DVT # thrombocytopenia - lower extremity Doppler: No right or left lower extremity deep vein thrombosis. Psychiatry # Alcohol use disorder # hx of depression - outpatient psychiatry follow up versus psychiatry consult upon extubation DVT prophylaxis - discontinue therapeutic Lovenox due to patient having thrombocytopenia Nutrition TF nepro carbsteady Lines Right PICC line [facility] on 10/31/2024 [facility] Fentanyl 150 mcg/hr Versed 5 Intubated on 10/23/24 Critical care time 82 minutes excluding procedure and discussions with the family. Code status discussed greater than 20 minutes: Full CODE STATUS. Plan discussed with Dr. Sheriff Plan discussed with: Other (RN) My Orders My Orders Orders - MAX FLOYD RESIDENT Procedure Category Date Status Time Chest Portable XY 11/01/24 Resulted 04:00 Abg W/ Co-Ox RT 11/01/24 Logged 07:00 Dietary Evaluation Review Comments: 1) TF Jevity 1.2Cal @ 50ml/hr (goal) along wth Pro-stat 1 pk BID. Start @ 20ml/hr, increase 10ml/hr Q4H until goal is reached. TF @ goal volume along with Pro-stat provides 1640 kcal (100% energy needs), 96 gm protein (100% protein needs), 968 ml free water. 2) Water flush 170ml Q6H if allowed, adjust PRN 3) TPN if NPO > 7 days 4) Monitor NPO status, lab values, wt trend, I/O Expected Outcomes/Goals: To meet >75% estimated needs Fu 2-3 days Date of Service: Nov 01, 2024 Billing Provider: LAUREANO SHERIFF MD Common Visit Codes: 06135-[id number] CARE 30-74 MIN, 57419-[id number] CARE-EACH +30MIN MAX FLOYD Nov 01, 2024 15:42 LAUREANO SHERIFF MD Nov 02, 2024 11:48
--- NOTE | 2024-11-01 23:29 | DVHPN2 ---
Consult Progress Note Date Seen: Nov 01, 2024 Subjective Other Systems: Patient was seen and evaluated in follow up in the ICU. Patient is intubated and sedated on ventilator. 30% FiO2. Overnight, the patient had unsustained tachycardia on monitor worker. Patient is now in sinus rhythm. K 3.4, BUN 29, AST 60, ALT 199. Chest x-ray shows stable appearing bibasilar pulmonary airspace disease and bilateral pleural effusions. Objective vital signs Vital Sign Date Time Temp Pulse Resp B/P (MAP) Pulse Ox O2 Delivery O2 Flow Rate FiO2 11/01/24 13:34 99.7 76 20 109/78 (88) 100 211.5 11/01/24 12:00 30 11/01/24 12:00 Mechanical Ventilator+ Total Intake and Output 10/31/24 10/31/24 11/01/24 15:00 23:00 07:00 Intake Total 360 ml 560 ml 760.255 ml Output Total 900 ml 1200 ml Balance 360 ml -340 ml -439.745 ml medications Current Medications Medications Dose Ordered Sig/Cristian Route Start Time Stop Time Status Last Admin Dose Admin Midazolam HCl 50 ml @ 1 mls/hr Q24H IV 10/23/24 19:45 10/31/24 17:51 5 MLS/HR Fentanyl Citrate 250 ml @ 2.5 mls/hr Q24H IV 10/23/24 21:45 10/31/24 13:21 15 MLS/HR Pantoprazole Sodium 40 mg DAILY IV 10/24/24 10:00 11/01/24 09:47 40 MG Phenylephrine HCl 80 mg/Sodium Chloride 250 ml @ 7.5 mls/hr Q24H IV 10/24/24 14:30 10/25/24 02:12 26.25 MLS/HR Norepinephrine Bitartrate 32 mg/ Sodium Chloride 250 ml @ 0.938 mls/ hr Q24H IV 10/24/24 14:30 10/24/24 18:55 6.563 MLS/HR Metronidazole 100 ml @ 100 mls/hr Q8HR IV 10/25/24 13:00 11/01/24 06:13 100 MLS/HR Enteral Nutritional Formula 1,000 ml 30ML/HR GT 10/25/24 17:15 10/30/24 22:54 1,000 ML Ipratropium [place] 0.5 mg Q6HR NEB 10/26/24 06:00 11/01/24 11:46 0.5 MG Furosemide 20 mg BIDD IV 10/28/24 18:00 11/01/24 06:13 20 MG Cefepime HCl 50 ml @ 12.5 mls/hr Q8H IV 10/30/24 18:00 11/01/24 09:48 12.5 MLS/HR Acetaminophen 500 mg Q8HP PRN PO 10/31/24 05:45 10/31/24 21:42 500 MG Sodium Chloride 10 ml QSHIFT@10,22 IV 10/31/24 22:00 11/01/24 09:47 10 ML Amiodarone HCl 200 mg BID PO 11/01/24 10:00 11/01/24 09:47 200 MG Vancomycin HCl 0 ml @ 0 mls/hr UD IV 11/01/24 11:15 Examination: GENERAL:Abnormal (intubated on vent), NECK:Normal, LUNGS:Abnormal ((diminished breath sounds), CVS:Normal, ABDOMEN:Normal, NEURO:Abnormal (Sedated ) laboratory and microbiology Laboratory Tests 11/01/24 02:30 Test 11/01/24 02:30 Range/Units Serum Glucose 106 74-106 mg/dL Problem List/Assessment/Plan Problem List/Assessment/Plan Problem List Sepsis with acute hypoxic respiratory failure likely due to pneumonia. Paroxysmal atrial fibrillation/atrial flutter s/p DCCV, now NSR, Stage III. Acute on chronic decompensated HFrEF, NYHA Class III, newly diagnosed. End-stage dilated cardiomyopathy, likely ischemic given anteroseptal ST-T wave changes. NSTEMI, possibly type 1. Bilateral pleural effusions. Tobacco/alcohol dependence/?Alcohol withdrawal. Thrombocytopenia. Plan/Recommendation Continued all current supportive medical care. Patient has been seen by Ilana Daugherty NP on my behalf, her and I discussed the plan with the patient. Transthoracic echocardiogram revealed LVEF 20%. Antiarrhythmic therapy, amiodarone GT BID. Hold single-antiplatelet therapy given thrombocytopenia. Hold statin given elevated LFTs . Preload reduction as tolerated. Strict I&Os. Daily weight. Fluid restriction. Therapeutic Lovenox held given worsening thrombocytopenia. [id number] Score 1 point. HAS-BLED Score 2 points. Replete electrolytes as necessary, K>4 and Mg>2. Monitor ECG changes closely and notify. Tentatively scheduled for cardiac catheterization and coronary angiogram on 11/03/2024. Additional plan as per the hospital course. Plan discussed with: Other Dietary Evaluation Review Comments: 1) TF Jevity 1.2Cal @ 50ml/hr (goal) along wth Pro-stat 1 pk BID. Start @ 20ml/hr, increase 10ml/hr Q4H until goal is reached. TF @ goal volume along with Pro-stat provides 1640 kcal (100% energy needs), 96 gm protein (100% protein needs), 968 ml free water. 2) Water flush 170ml Q6H if allowed, adjust PRN 3) TPN if NPO > 7 days 4) Monitor NPO status, lab values, wt trend, I/O Expected Outcomes/Goals: To meet >75% estimated needs Fu 2-3 days Date of Service: Nov 01, 2024 Billing Provider: MESERET MOTLEY MD Cardiology Common Codes: 34344-VAGJIFZ INP/OBS CARE (Mod) MESERET MOTLEY MD Nov 01, 2024 14:04
[2024-11-02] VITALS (115 sets, daily range): BP systolic 117–173; BP diastolic 80–108; PULSE 71–117; RESP 15–30; TEMP 97.7–99.7; O2SAT 82–100
[2024-11-02] MEDS: VANCOMYCIN 1GM/200ML PM 200 ML IV SCH (00:44)
[2024-11-02 03:12] LABS: Hematocrit 43.2 % (41.0-53.0); Hemoglobin 14.7 g/dL (13.5-17.5); Mean Corpuscular Hemoglobin 32.3 pg (28.0-32.0); Mean Corpuscular Volume 94.5 fL (80.0-100.0); Nucleated Red Blood Cells % 0.1 %
[2024-11-02 03:27] LABS: Albumin 3.9 g/dL (3.2-4.8); Anion Gap 13 (5-15); BUN/Creatinine Ratio 30.0 (10.0-20.0); Calcium 9.5 mg/dL (8.7-10.4); Carbon Dioxide 22 mmol/L (20-31); Glucose 98 mg/dL (74-106); Magnesium 2.0 mg/dL (1.6-2.6); Potassium 3.6 mmol/L (3.5-5.1); Sodium 143 mmol/L (136-145); Total Protein 7.9 g/dL (5.7-8.2)
[2024-11-02 03:31] LABS: Alanine Aminotransferase 156 U/L (7-40); Alkaline Phosphatase 122 U/L (46-116); Bilirubin, Total 1.3 mg/dL (0.2-1.0); Blood Urea Nitrogen 30 mg/dL (9-23); Chloride 108 mmol/L (98-107)
--- NOTE | 2024-11-02 05:31 | DVH ---
CHEST RADIOGRAPH Indication: pna Technique: Single frontal view of the chest was obtained COMPARISON: XY CHEST PORTABLE on DOS: 11/01/24, XY CHEST PORTABLE on DOS: 10/31/24, XY CHEST PORTABLE o n DOS: 10/31/24, XY CHEST PORTABLE on DOS: 10/30/24, XY CHEST PORTABLE on DOS: 10/29/24 FINDINGS: Lines and Tubes: Slight interval advancement of the endotracheal tube such that the tip now projects approximately 2.4 cm above the level of the ty. Remaining lines and tubes are unchanged. Lungs: Interval clearing of right basilar pulmonary airspace disease. Small residual bilateral pleura l effusions. No pneumothorax. Cardiomediastinal contours: Unremarkable Bones: Unremarkable IMPRESSION: 1. Interval clearing of right basilar pulmonary airspace disease. 2. Small residual bilateral pleural effusions. 3. Interval advancement of endotracheal tube such that the tip now projects approximately 2.4 cm abov e the level of the ty. Remaining lines and tubes unchanged.
[2024-11-02 08:32] LABS: Base Excess -2.6 mmol/L (-2.0-3.0)
--- NOTE | 2024-11-02 08:50 | DVH ---
INDICATION: Cirrhosis, Ascitis TECHNIQUE: Multiple real-time sonographic images of the abdomen were obtained. COMPARISON: None FINDINGS: The liver is heterogeneous in echogenicity. Trace bilateral pleural effusions. Gallbladder sludge is noted. Gallbladder wall is thickened measuring 7 mm. Common bile duct measures 4.8 mm. The right kidney measures 10cm. No hydronephrosis. The pancreas is not well visualized due to obscuration from bowel gas. The visualized portions of the IVC and aorta are grossly unremarkable. IMPRESSION: Gallbladder sludge. Thickened gallbladder wall. Acute cholecystitis can not be excluded. Hepatic cirrhosis/hepatic steatosis. Trace right pleural effusion.
[2024-11-02] MEDS ORDERED: ACETAMINOPHEN 500 MG TAB or CAP PO PRN (09:30)
--- NOTE | 2024-11-02 11:27 | DVHPN2 ---
Consult Progress Note Subjective Other Systems: Patient in normal sinus rhythm on [employer] nutritional monitor. Objective vital signs Vital Sign Date Time Temp Pulse Resp B/P (MAP) Pulse Ox O2 Delivery O2 Flow Rate FiO2 11/02/24 11:04 99.0 91 21 146/96 (113) 100 210.2 11/02/24 10:45 30 11/02/24 10:00 Mechanical Ventilator+ Total Intake and Output 11/01/24 11/01/24 11/02/24 15:00 23:00 07:00 Intake Total 568.133 ml 302.5 ml 310 ml Output Total 1000 ml 1150 ml Balance 568.133 ml -697.5 ml -840 ml medications Current Medications Medications Dose Ordered Sig/Cristian Route Start Time Stop Time Status Last Admin Dose Admin Midazolam HCl 50 ml @ 1 mls/hr Q24H IV 10/23/24 19:45 10/31/24 17:51 5 MLS/HR Pantoprazole Sodium 40 mg DAILY IV 10/24/24 10:00 11/02/24 09:54 40 MG Phenylephrine HCl 80 mg/Sodium Chloride 250 ml @ 7.5 mls/hr Q24H IV 10/24/24 14:30 10/25/24 02:12 26.25 MLS/HR Norepinephrine Bitartrate 32 mg/ Sodium Chloride 250 ml @ 0.938 mls/ hr Q24H IV 10/24/24 14:30 10/24/24 18:55 6.563 MLS/HR Metronidazole 100 ml @ 100 mls/hr Q8HR IV 10/25/24 13:00 11/02/24 06:10 100 MLS/HR Enteral Nutritional Formula 1,000 ml 30ML/HR GT 10/25/24 17:15 11/01/24 17:53 1,000 ML Ipratropium [place] 0.5 mg Q6HR NEB 10/26/24 06:00 11/02/24 06:58 0.5 MG Furosemide 20 mg BIDD IV 10/28/24 18:00 11/02/24 06:10 20 MG Cefepime HCl 50 ml @ 12.5 mls/hr Q8H IV 10/30/24 18:00 11/02/24 09:54 12.5 MLS/HR Sodium Chloride 10 ml QSHIFT@10,22 IV 10/31/24 22:00 11/02/24 09:55 10 ML Amiodarone HCl 200 mg BID PO 11/01/24 10:00 11/02/24 09:54 200 MG Vancomycin HCl 0 ml @ 0 mls/hr UD IV 11/01/24 11:15 Vancomycin HCl 200 ml @ 200 mls/hr Q12H IV 11/02/24 01:00 11/02/24 00:44 200 MLS/HR Acetaminophen 500 mg Q8HPRN PRN PO 11/02/24 09:30 Examination: GENERAL:Abnormal, LUNGS:Abnormal (Mechanically ventilated, on CPAP trial at time of assessment), CVS:Normal, NEURO:Abnormal (Unequal pupils) laboratory and microbiology Laboratory Tests 11/02/24 02:30 Test 11/02/24 02:30 Range/Units Serum Glucose 98 74-106 mg/dL Problem List/Assessment/Plan Problem List/Assessment/Plan Sepsis with acute hypoxic respiratory failure likely due to pneumonia Paroxysmal atrial fibrillation/atrial flutter s/p DCCV,Stage 3A, now NSR Acute on chronic decompensated HFrEF, NYHA Class III, newly diagnosed End-stage dilated cardiomyopathy, likely ischemic given anteroseptal ST-T wave changes NSTEMI, possibly type 1 Bilateral pleural effusions Tobacco/alcohol dependence/?Alcohol withdrawal Thrombocytopenia Plan/Recommendation (Dr. Fu) * Transthoracic echocardiogram revealed LVEF 20% * Initiate guideline directed medical therapy for CHF with stable BP and renal function * Antiarrhythmic therapy, amiodarone GT BID * Hold single-antiplatelet therapy given thrombocytopenia * Hold statin given elevated LFTs * Preload reduction as tolerated * Strict I&Os. Daily weight. Fluid restriction * Therapeutic Lovenox held given worsening thrombocytopenia * [id number] Score 1 point. HAS-BLED Score 2 points * Initiate SCDs * Replete electrolytes as necessary, K>4 and Mg>2 * Monitor ECG changes closely and notify Plan discussed with the primary care team. Patient with unequal pupils at time of assessment. Primary care team to order head CT for further evaluation. Tentatively scheduled for cardiac catheterization and coronary angiogram on 11/03/2024 if neurological status deemed intact. Thank you for giving us the opportunity to take care of your patient. Please call back if any question/concern. Critical care time: 30 min. This medical document was created using an electronic medical record system with voice recognition software and computerized dictation system. Although this document has been carefully reviewed, there might still be some phonetic and typographical errors. Occasional wrong-word or ``sound-alike substitutions may have occurred due to the inherent limitations of voice recognition software. These areas are purely typographical due to imperfections of the software programs and do not reflect any compromise in the patient's medical care. Please read the chart carefully and recognize, using context, where these substitutions have occurred. Plan discussed with: Other (Bedside RN) Dietary Evaluation Review Comments: 1) TF Jevity 1.2Cal @ 50ml/hr (goal) along wth Pro-stat 1 pk BID. Start @ 20ml/hr, increase 10ml/hr Q4H until goal is reached. TF @ goal volume along with Pro-stat provides 1640 kcal (100% energy needs), 96 gm protein (100% protein needs), 968 ml free water. 2) Water flush 170ml Q6H if allowed, adjust PRN 3) TPN if NPO > 7 days 4) Monitor NPO status, lab values, wt trend, I/O Expected Outcomes/Goals: To meet >75% estimated needs Fu 2-3 days Date of Service: Nov 02, 2024 Billing Provider: JOSE ALBERTO THOMAS Common Visit Codes: [id number] CARE 30-74 MIN JOSE ALBERTO THOMAS Nov 02, 2024 11:27
[2024-11-02 15:47] LABS: Base Excess -2.9 mmol/L (-2.0-3.0)
--- NOTE | 2024-11-02 19:13 | DVHPNRES ---
Progress Note Date Seen: Nov 02, 2024 Resident Creating Document: MAX FLOYD RESIDENT Has the PT tested + for MRSA If YES, has PT been informed?: No Medical Necessity Reason Pt with a Central, PICC or Fol: No The following are medically ne: Central Line, Greenberg Catheter Subjective Review of Systems Patient is a 54-year-old male with past medical history of liver cirrhosis, portal hypertension related gastropathy, cholelithiasis, depression, tachycardia, alcohol related tremors, who came in due to shortness of breaths. According to the ER notes, patient was having severe shortness of breath with tachypnea along with atrial fibrillation with rapid ventricular response, patient underwent synchronized cardioversion at 120 joules and was subsequently intubated. Per patient's son Mr. Shemar Winkler, patient called him yesterday on 10/23/2024 and stated he has been having increasing difficulty breathing and difficulty sleeping that has been worsened over the last 3 days. Per patient's son he is unable to provide more information as he does not live with his father, patient lives with his roommate. History and most of the information was obtained from patient's sons Mr. Galo, Mr. Staton and patient's ex-. Past surgical history: Unable to obtain Home medications: Thiamine, propranolol, Protonix, metronidazole, levofloxacin Past Hospitalization: In 2019 at the [facility] for upper and lower GI bleed Social & Personal history: Patient lives with a roommate. Per patient's , patient is a nonsmoker. However, heavy alcohol usage 6-12 drinks per day, daily for the last 35-40 years. Unable to obtain an accurate substance abuse related history. Allergies: Latex, penicillin 10/25/24: overnight patient became hypotensive and hyperkalemic at 6.2, hyperkalemia protocol was carried out, dc'ed amiodarone drip which led to rhythm reverting back to atrial flutter. Amio drip was resumed later in the day, digoxin also added. influenze b +, started tamiflu. added metronidalzole. 10/26/2024: Heart rate improved in the early 100s, continuing amiodarone drip. Liver function worsening. 10/27/2024: Patient seen and examined at bedside, started Lasix 40 mg p.o. daily. Chest x-ray shows bilateral pulmonary edema and pleural effusions as before. Off of pressors, drips running Versed at 12, fentanyl at 2:25 a.m. and amio at 0.5 mg. Respiratory culture growing Clifford albicans. Ordered repeat serum digoxin levels 10/30/24: dc'ed tamiflu. LFTs imrpoving 10/31/24: CXR shows stable bibasilar pulmonary airspace dx. heart rate normal. placed PICC line, cpap trial in the AM : Overnight fevers as high as 101.1, add vancomycin. CPAP trial in the a.m.. Sedation vacation completed today. 11/02/24: CPAP trial today, following commands but decreased level of alertness. improving platelet count. Objective vital signs Vital Sign Date Time Temp Pulse Resp B/P (MAP) Pulse Ox O2 Delivery O2 Flow Rate FiO2 11/02/24 18:50 97.9 76 20 123/88 (100) 99 208.2 11/02/24 18:29 30 11/02/24 18:00 Mechanical Ventilator+ Total Intake and Output 11/01/24 11/01/24 11/02/24 15:00 23:00 07:00 Intake Total 568.133 ml 302.5 ml 310 ml Output Total 1000 ml 1150 ml Balance 568.133 ml -697.5 ml -840 ml medications Current Medications Medications Dose Ordered Sig/Cristian Route Start Time Stop Time Status Last Admin Dose Admin Midazolam HCl 50 ml @ 1 mls/hr Q24H IV 10/23/24 19:45 10/31/24 17:51 5 MLS/HR Pantoprazole Sodium 40 mg DAILY IV 10/24/24 10:00 11/02/24 09:54 40 MG Phenylephrine HCl 80 mg/Sodium Chloride 250 ml @ 7.5 mls/hr Q24H IV 10/24/24 14:30 10/25/24 02:12 26.25 MLS/HR Norepinephrine Bitartrate 32 mg/ Sodium Chloride 250 ml @ 0.938 mls/ hr Q24H IV 10/24/24 14:30 10/24/24 18:55 6.563 MLS/HR Metronidazole 100 ml @ 100 mls/hr Q8HR IV 10/25/24 13:00 11/02/24 14:35 100 MLS/HR Enteral Nutritional Formula 1,000 ml 30ML/HR GT 10/25/24 17:15 11/02/24 18:35 1,000 ML Ipratropium [place] 0.5 mg Q6HR NEB 10/26/24 06:00 11/02/24 18:28 0.5 MG Furosemide 20 mg BIDD IV 10/28/24 18:00 11/02/24 17:16 20 MG Cefepime HCl 50 ml @ 12.5 mls/hr Q8H IV 10/30/24 18:00 11/02/24 17:16 12.5 MLS/HR Sodium Chloride 10 ml QSHIFT@10,22 IV 10/31/24 22:00 11/02/24 09:55 10 ML Amiodarone HCl 200 mg BID PO 11/01/24 10:00 11/02/24 09:54 200 MG Vancomycin HCl 0 ml @ 0 mls/hr UD IV 11/01/24 11:15 Vancomycin HCl 200 ml @ 200 mls/hr Q12H IV 11/02/24 01:00 11/02/24 13:28 200 MLS/HR Acetaminophen 500 mg Q8HPRN PRN PO 11/02/24 09:30 Examination General Appearance: Intubated, sedated and mechanically ventilated. Lying down in bed without any distress. Head Exam: Normal inspection Neck Exam: Normal inspection. Non-tender. Normal alignment. Equal and minimally reactive pupils 2 mm. Pulmonary/Respiratory: Chest non-tender. Decreased bilateral breath sounds, no crackles, no wheezing. Cardiovascular/Chest: normal rate No murmurs. No JVD. Peripheral Pulses: 2+ Radial (R). 2+ Radial (L). 2+ Pedal (R). 2+ Pedal (L) Abdominal Exam: Normal bowel sounds. Soft. normal abdomen, no visible veins, Nontender. No hepatospenomegaly. No masses Ankle Exam: Negative ankle edema Lower extremities: Negative lower extremity edema Skin Exam: Normal inspection. Normal color. Warm. Dry laboratory and microbiology Laboratory Tests 11/02/24 02:30 Test 11/02/24 02:30 Range/Units Serum Glucose 98 74-106 mg/dL Microbiology Date/Time Source Procedure Growth Status 10/28/24 10:50 Bronchial Washings Gram Stain - Final Complete 10/28/24 10:50 Respiratory Culture - Final Presumptive Clifford albicans Complete 10/25/24 10:45 Nose MRSA Screen - Final Complete 10/24/24 13:23 Voided Urine Urine Culture - Final Complete 10/23/24 19:48 Blood Blood Culture - Final NO GROWTH AFTER 5 DAYS OF INCUBATION. Complete Labs and/or images reviewed: Labs reviewed by me, Image(s) reviewed by me Problem List/Assessment/Plan Problem List/Assessment/Plan Neurology # acute toxic vs metabolic encephalopathy # possible alcohol withdrawal # hx of withdrawal seizures? # Sedated - head CT: No acute intracranial abnormality - IV banana bag once - Versed 5 mcg per hour Cardiovascular # septic shock due to pneumonia # atrial flutter with hemodynamic instability, s/p cardioversion x2 # NSTEMI 1 vs 2 # End- stage dilated cardiomyopathy # Heart failure with reduced ejection fraction <20% # Prolonged QTC - amiodarone drip - cardiology on board - norepinephrine at 10 micrograms/hour - amiodarone drip at 0.5mg/min - phenylephrine at 15mcg/min - IV digoxin 500mcg x 2 - serum digoxin level 3.69 5 hours after 2nd dose in 24 hours after 1st dose - repeat serum digoxin level 1.85 Respiratory # Acute hypoxic respiratory failure # community-acquired pneumonia, Gram-positive versus Gram-negative # Ventilator # ruled out pulmonary embolism -intubated (10/23/24) -on [facility] vent : VCAC Mode RR 20 TV 500ml, PEEP Of 6 and FiO2 of 30% - CXR: Moderate interstitial pulmonary edema in the setting of cardiomegaly. Probable trace bilateral effusions. - CT angio: No evidence of pulmonary embolism. Pulmonary edema. Large bilateral pleural effusions. Associated consolidation of the majority of bilateral lower lobes independent portions of the remaining lobes of the lung. Cirrhotic liver. Small amount of ascites in the visualized upper abdomen. - chest ultrasound: Small bilateral pleural effusion, trace ascites. - IV lasix 20mg bid - IV cefepime, IV metronidazole GI # Hx of GI bleed # cirrhosis, MELD 19 # Hx of portal hypertension gastropathy # mild abdominal ascites # Peptic ulcer prophylaxis -Pantoprazole 40 mg IV daily # Greenberg catheter placed on 10/23/24 - urine culture Nephrology # Hyperkalemia # DMITRIY likely ATN/VMN on ?CKD (GFR 70 on admission, unknown baseline) - monitor - nephrology on board; recommended to start lokelma qD if hyperkalemia persists, holding for now as last serum K 3.9 - IV Lasix 20 mg bid Infectious disease # community acquired pneumonia, gram + vs -ve # Influenza B positive - IV cefepime - IV metronidazole - Oseltamivir - off norepinephrine - off phenylephrine at 15mcg/min - respiratory, blood, urine cultures - resp cx growing clifford Hem/onc # mild normocytic anemia # ruled out lower extremity DVT # thrombocytopenia - lower extremity Doppler: No right or left lower extremity deep vein thrombosis. Psychiatry # Alcohol use disorder # hx of depression - outpatient psychiatry follow up versus psychiatry consult upon extubation DVT prophylaxis - discontinue therapeutic Lovenox due to patient having thrombocytopenia Nutrition TF nepro carbsteady Lines Right PICC [facility] on 10/31/20[facility] Fentanyl 150 mcg/hr Versed 5 Intubated on 10/23/24 Critical care time 82 minutes excluding procedure and including discussions with the family and cpap trial Code status discussed greater than 20 minutes: Full CODE STATUS. Plan discussed with Dr. Sheriff Plan discussed with: Other (RN) My Orders My Orders Orders - MAX FLOYD RESIDENT Procedure Category Date Status Time Cpap Trial For Am ORDERS 11/02/24 Transmitted 08:55 Acetaminophen Tab Or PHA 11/02/24 In Process Cap (Tylenol Tablet 09:30 Ventilator Orders RT 11/02/24 Transmitted 09:05 Dietary Evaluation Review Comments: 1) TF Jevity 1.2Cal @ 50ml/hr (goal) along wth Pro-stat 1 pk BID. Start @ 20ml/hr, increase 10ml/hr Q4H until goal is reached. TF @ goal volume along with Pro-stat provides 1640 kcal (100% energy needs), 96 gm protein (100% protein needs), 968 ml free water. 2) Water flush 170ml Q6H if allowed, adjust PRN 3) TPN if NPO > 7 days 4) Monitor NPO status, lab values, wt trend, I/O Expected Outcomes/Goals: To meet >75% estimated needs Fu 2-3 days Date of Service: Nov 02, 2024 Billing Provider: LAUREANO SHERIFF MD Common Visit Codes: 57830-[id number] CARE 30-74 MIN, 04908-[id number] CARE-EACH +30MIN MAX FLOYD Nov 02, 2024 19:13 LAUREANO SHERIFF MD Nov 04, 2024 12:57
--- NOTE | 2024-11-02 19:52 | DVHPN2 ---
Consult Progress Note Date Seen: Nov 02, 2024 Subjective Other Systems: Patient was seen and evaluated in follow up in the ICU. Patient is intubated on ventilator. 30% FiO2. Patient in normal sinus rhythm on security monitor. Patient is able to follow simple commands and squeeze hands. BUN 30, AST 52, ALT 156. Chest x-ray shows interval clearing of right basilar pulmonary airspace disease. Small residual bilateral pleural effusions. Abdominal US demonstrated gallbladder sludge, thickened gallbladder wall, acute cholecystitis can not be excluded, hepatic cirrhosis/hepatic steatosis, trace right pleural effusion. Plan discussed with the primary care team. Patient with unequal pupils at time of assessment. Primary care team to order head CT for further evaluation. Tentatively scheduled for cardiac catheterization and coronary angiogram on 11/03/2024 if neurological status deemed intact. Objective vital signs Vital Sign Date Time Temp Pulse Resp B/P (MAP) Pulse Ox O2 Delivery O2 Flow Rate FiO2 11/02/24 12:08 88 28 123/87 (99) 100 30 11/02/24 12:00 Mechanical Ventilator+ 11/02/24 11:04 99.0 210.2 Total Intake and Output 11/01/24 11/01/24 11/02/24 15:00 23:00 07:00 Intake Total 568.133 ml 302.5 ml 310 ml Output Total 1000 ml 1150 ml Balance 568.133 ml -697.5 ml -840 ml medications Current Medications Medications Dose Ordered Sig/Cristian Route Start Time Stop Time Status Last Admin Dose Admin Midazolam HCl 50 ml @ 1 mls/hr Q24H IV 10/23/24 19:45 10/31/24 17:51 5 MLS/HR Pantoprazole Sodium 40 mg DAILY IV 10/24/24 10:00 11/02/24 09:54 40 MG Phenylephrine HCl 80 mg/Sodium Chloride 250 ml @ 7.5 mls/hr Q24H IV 10/24/24 14:30 10/25/24 02:12 26.25 MLS/HR Norepinephrine Bitartrate 32 mg/ Sodium Chloride 250 ml @ 0.938 mls/ hr Q24H IV 10/24/24 14:30 10/24/24 18:55 6.563 MLS/HR Metronidazole 100 ml @ 100 mls/hr Q8HR IV 10/25/24 13:00 11/02/24 06:10 100 MLS/HR Enteral Nutritional Formula 1,000 ml 30ML/HR GT 10/25/24 17:15 11/01/24 17:53 1,000 ML Ipratropium [place] 0.5 mg Q6HR NEB 10/26/24 06:00 11/02/24 12:08 0.5 MG Furosemide 20 mg BIDD IV 10/28/24 18:00 11/02/24 06:10 20 MG Cefepime HCl 50 ml @ 12.5 mls/hr Q8H IV 10/30/24 18:00 11/02/24 09:54 12.5 MLS/HR Sodium Chloride 10 ml QSHIFT@10,22 IV 10/31/24 22:00 11/02/24 09:55 10 ML Amiodarone HCl 200 mg BID PO 11/01/24 10:00 11/02/24 09:54 200 MG Vancomycin HCl 0 ml @ 0 mls/hr UD IV 11/01/24 11:15 Vancomycin HCl 200 ml @ 200 mls/hr Q12H IV 11/02/24 01:00 11/02/24 00:44 200 MLS/HR Acetaminophen 500 mg Q8HPRN PRN PO 11/02/24 09:30 Examination: GENERAL:Abnormal (intubated on vent), NECK:Normal, LUNGS:Abnormal (diminished breath sounds), CVS:Normal, NEURO:Abnormal laboratory and microbiology Laboratory Tests 11/02/24 02:30 Test 11/02/24 02:30 Range/Units Serum Glucose 98 74-106 mg/dL Problem List/Assessment/Plan Problem List/Assessment/Plan Problem List Sepsis with acute hypoxic respiratory failure likely due to pneumonia. Paroxysmal atrial fibrillation/atrial flutter s/p DCCV,Stage 3A, now NSR. Acute on chronic decompensated HFrEF, NYHA Class III, newly diagnosed. End-stage dilated cardiomyopathy, likely ischemic given anteroseptal ST-T wave changes. NSTEMI, possibly type 1. Bilateral pleural effusions. Tobacco/alcohol dependence/?Alcohol withdrawal. Thrombocytopenia. Plan/Recommendation Continued all current supportive medical care. Patient has been seen by Shanelle Valdez NP on my behalf, her and I discussed the plan with the patient. Tentatively scheduled for cardiac catheterization and coronary angiogram on 11/03/2024 if neurological status deemed intact. Transthoracic echocardiogram revealed LVEF 20%. Initiate guideline directed medical therapy for CHF with stable BP and renal function. Antiarrhythmic therapy, amiodarone GT BID. Hold single-antiplatelet therapy given thrombocytopenia. Hold statin given elevated LFTs . Preload reduction as tolerated. Strict I&Os. Daily weight. Fluid restriction. Therapeutic Lovenox held given worsening thrombocytopenia. [id number] Score 1 point. HAS-BLED Score 2 points. Initiate SCDs. Replete electrolytes as necessary, K>4 and Mg>2. Monitor ECG changes closely and notify. Additional plan as per the hospital course. Plan discussed with: Other Dietary Evaluation Review Comments: 1) TF Jevity 1.2Cal @ 50ml/hr (goal) along wth Pro-stat 1 pk BID. Start @ 20ml/hr, increase 10ml/hr Q4H until goal is reached. TF @ goal volume along with Pro-stat provides 1640 kcal (100% energy needs), 96 gm protein (100% protein needs), 968 ml free water. 2) Water flush 170ml Q6H if allowed, adjust PRN 3) TPN if NPO > 7 days 4) Monitor NPO status, lab values, wt trend, I/O Expected Outcomes/Goals: To meet >75% estimated needs Fu 2-3 days Date of Service: Nov 02, 2024 Billing Provider: MESERET MOTLEY MD Cardiology Common Codes: 87122-[id number] CARE 30-74 MIN MESERET MOTLEY MD Nov 02, 2024 12:53
[2024-11-03] VITALS (111 sets, daily range): BP systolic 106–166; BP diastolic 71–114; PULSE 59–149; RESP 15–29; TEMP 97.9–99.9; O2SAT 95–100
[2024-11-03 03:54] LABS: Hematocrit 42.0 % (41.0-53.0); Hemoglobin 14.5 g/dL (13.5-17.5); Mean Corpuscular Hemoglobin 32.5 pg (28.0-32.0); Mean Corpuscular Volume 94.4 fL (80.0-100.0); Nucleated Red Blood Cells % 0.0 %
[2024-11-03 04:06] LABS: INR 1.24 (0.9-1.15); Partial Thromboplastin Time 28.4 SEC (24.5-34.5); Prothrombin Time 12.9 sec (9.3-11.8)
[2024-11-03 04:08] LABS: Alkaline Phosphatase 94 U/L (46-116); Anion Gap 14 (5-15); BUN/Creatinine Ratio 35.9 (10.0-20.0); Calcium 9.3 mg/dL (8.7-10.4); Carbon Dioxide 22 mmol/L (20-31); Glucose 104 mg/dL (74-106); Magnesium 2.2 mg/dL (1.6-2.6); Potassium 3.6 mmol/L (3.5-5.1); Total Protein 8.1 g/dL (5.7-8.2)
[2024-11-03 04:09] LABS: Albumin 3.9 g/dL (3.2-4.8)
[2024-11-03 04:10] LABS: Bilirubin, Total 1.2 mg/dL (0.2-1.0)
[2024-11-03 04:24] LABS: Alanine Aminotransferase 119 U/L (7-40); Blood Urea Nitrogen 42 mg/dL (9-23); Chloride 111 mmol/L (98-107); Sodium 147 mmol/L (136-145)
--- NOTE | 2024-11-03 05:53 | DVH ---
CHEST RADIOGRAPH Indication: pna Technique: Single frontal view of the chest was obtained COMPARISON: XY CHEST PORTABLE on DOS: 11/02/24, XY CHEST PORTABLE on DOS: 11/01/24, XY CHEST PORTABLE o n DOS: 10/31/24, XY CHEST PORTABLE on DOS: 10/31/24, XY CHEST PORTABLE on DOS: 10/30/24 FINDINGS: Lines and Tubes: Endotracheal tube, enteric catheter and right PICC in satisfactory position Lungs: Congestion Pleura: No effusion. No pneumothorax. Cardiomediastinal contours: Unremarkable Bones: Unremarkable IMPRESSION: Lines and tubes in satisfactory position. No significant interval change.
--- NOTE | 2024-11-03 08:31 | DVHPN2 ---
Consult Progress Note Subjective Other Systems: Patient was in normal sinus rhythm and went into AFib RVR during CPAP trial. Objective vital signs Vital Sign Date Time Temp Pulse Resp B/P (MAP) Pulse Ox O2 Delivery O2 Flow Rate FiO2 11/03/24 08:20 83 23 153/99 (117) 99 30 11/03/24 06:50 99.7 211.5 11/03/24 06:00 Mechanical Ventilator+ Total Intake and Output 11/02/24 11/02/24 11/03/24 15:00 23:00 07:00 Intake Total 250.0 ml 252.5 ml 110 ml Output Total 820 ml 700 ml Balance 250.0 ml -567.5 ml -590 ml medications Current Medications Medications Dose Ordered Sig/Cristian Route Start Time Stop Time Status Last Admin Dose Admin Midazolam HCl 50 ml @ 1 mls/hr Q24H IV 10/23/24 19:45 10/31/24 17:51 5 MLS/HR Pantoprazole Sodium 40 mg DAILY IV 10/24/24 10:00 11/02/24 09:54 40 MG Phenylephrine HCl 80 mg/Sodium Chloride 250 ml @ 7.5 mls/hr Q24H IV 10/24/24 14:30 10/25/24 02:12 26.25 MLS/HR Norepinephrine Bitartrate 32 mg/ Sodium Chloride 250 ml @ 0.938 mls/ hr Q24H IV 10/24/24 14:30 10/24/24 18:55 6.563 MLS/HR Metronidazole 100 ml @ 100 mls/hr Q8HR IV 10/25/24 13:00 11/03/24 06:03 100 MLS/HR Enteral Nutritional Formula 1,000 ml 30ML/HR GT 10/25/24 17:15 11/02/24 18:35 1,000 ML Ipratropium [place] 0.5 mg Q6HR NEB 10/26/24 06:00 11/03/24 06:28 0.5 MG Furosemide 20 mg BIDD IV 10/28/24 18:00 11/03/24 06:03 20 MG Cefepime HCl 50 ml @ 12.5 mls/hr Q8H IV 10/30/24 18:00 11/03/24 02:27 12.5 MLS/HR Sodium Chloride 10 ml QSHIFT@10,22 IV 10/31/24 22:00 11/02/24 21:53 10 ML Amiodarone HCl 200 mg BID PO 11/01/24 10:00 11/02/24 21:53 200 MG Vancomycin HCl 0 ml @ 0 mls/hr UD IV 11/01/24 11:15 Vancomycin HCl 200 ml @ 200 mls/hr Q12H IV 11/02/24 01:00 11/02/24 13:28 200 MLS/HR Acetaminophen 500 mg Q8HPRN PRN PO 11/02/24 09:30 Examination: GENERAL:Abnormal, LUNGS:Abnormal (Mechanically ventilated), CVS:Abnormal (AFib RVR), NEURO:Normal (Off sedations, following commands) laboratory and microbiology Laboratory Tests 11/03/24 03:00 Test 11/03/24 03:00 Range/Units Serum Glucose 104 74-106 mg/dL Problem List/Assessment/Plan Problem List/Assessment/Plan Sepsis with acute hypoxic respiratory failure likely due to pneumonia Paroxysmal atrial fibrillation/atrial flutter s/p DCCV,Stage 3A, now NSR Acute on chronic decompensated HFrEF, NYHA Class III, newly diagnosed End-stage dilated cardiomyopathy, likely ischemic given anteroseptal ST-T wave changes NSTEMI, possibly type 1 Bilateral pleural effusions Tobacco/alcohol dependence/?Alcohol withdrawal Thrombocytopenia Plan/Recommendation (Dr. Fu) * Transthoracic echocardiogram revealed LVEF 20% * Initiate guideline directed medical therapy for CHF with stable BP and renal function * Antiarrhythmic therapy, amiodarone * Hold single-antiplatelet therapy given thrombocytopenia * Hold statin given elevated LFTs * Preload reduction as tolerated * Strict I&Os. Daily weight. Fluid restriction * Therapeutic Lovenox held. Restart with stable platelet level * [id number] Score 1 point. HAS-BLED Score 2 points * Continue SCDs in the meantime * Replete electrolytes as necessary, K>4 and Mg>2 * Monitor ECG changes closely and notify Plan discussed with the primary care team. Patient was on CPAP trial today, completely off sedation and able to follow all commands. Plan for coronary angiogram with left heart catheterization today 11/03/2024. Thank you for giving us the opportunity to take care of your patient. Please call back if any question/concern. Critical care time: 30 min. This medical document was created using an electronic medical record system with voice recognition software and computerized dictation system. Although this document has been carefully reviewed, there might still be some phonetic and typographical errors. Occasional wrong-word or ``sound-alike substitutions may have occurred due to the inherent limitations of voice recognition software. These areas are purely typographical due to imperfections of the software programs and do not reflect any compromise in the patient's medical care. Please read the chart carefully and recognize, using context, where these substitutions have occurred. Plan discussed with: Other (Bedside RN) Dietary Evaluation Review Comments: 1) TF Jevity 1.2Cal @ 50ml/hr (goal) along wth Pro-stat 1 pk BID. Start @ 20ml/hr, increase 10ml/hr Q4H until goal is reached. TF @ goal volume along with Pro-stat provides 1640 kcal (100% energy needs), 96 gm protein (100% protein needs), 968 ml free water. 2) Water flush 170ml Q6H if allowed, adjust PRN 3) TPN if NPO > 7 days 4) Monitor NPO status, lab values, wt trend, I/O Expected Outcomes/Goals: To meet >75% estimated needs Fu 2-3 days Date of Service: Nov 03, 2024 Billing Provider: JOSE ALBERTO THOMAS Common Visit Codes: [id number] CARE 30-74 MIN JOSE ALBERTO THOMAS Nov 03, 2024 08:31
[2024-11-03 09:09] LABS: Base Excess -2.7 mmol/L (-2.0-3.0)
[2024-11-03] MEDS: AMIODARONE BOLUS KIT 100 ML IV ONE ×2 (09:45→10:00)
[2024-11-03] MEDS: AMIODARONE 360mg/200mL PREMIX 200 ML IV ONE ×2 (09:55→10:00)
--- NOTE | 2024-11-03 10:38 | DVHPNRES ---
Progress Note Date Seen: Nov 03, 2024 Resident Creating Document: MAX FLOYD RESIDENT Has the PT tested + for MRSA If YES, has PT been informed?: No Medical Necessity Reason Pt with a Central, PICC or Fol: No The following are medically ne: Central Line, Greenberg Catheter Subjective Review of Systems Patient is a 54-year-old male with past medical history of liver cirrhosis, portal hypertension related gastropathy, cholelithiasis, depression, tachycardia, alcohol related tremors, who came in due to shortness of breaths. According to the ER notes, patient was having severe shortness of breath with tachypnea along with atrial fibrillation with rapid ventricular response, patient underwent synchronized cardioversion at 120 joules and was subsequently intubated. Per patient's son Mr. Shemar Winkler, patient called him yesterday on 10/23/2024 and stated he has been having increasing difficulty breathing and difficulty sleeping that has been worsened over the last 3 days. Per patient's son he is unable to provide more information as he does not live with his father, patient lives with his roommate. History and most of the information was obtained from patient's sons Mr. Galo, Mr. Staton and patient's ex-. Past surgical history: Unable to obtain Home medications: Thiamine, propranolol, Protonix, metronidazole, levofloxacin Past Hospitalization: In 2019 at the [facility] for upper and lower GI bleed Social & Personal history: Patient lives with a roommate. Per patient's , patient is a nonsmoker. However, heavy alcohol usage 6-12 drinks per day, daily for the last 35-40 years. Unable to obtain an accurate substance abuse related history. Allergies: Latex, penicillin 10/25/24: overnight patient became hypotensive and hyperkalemic at 6.2, hyperkalemia protocol was carried out, dc'ed amiodarone drip which led to rhythm reverting back to atrial flutter. Amio drip was resumed later in the day, digoxin also added. influenze b +, started tamiflu. added metronidalzole. 10/26/2024: Heart rate improved in the early 100s, continuing amiodarone drip. Liver function worsening. 10/27/2024: Patient seen and examined at bedside, started Lasix 40 mg p.o. daily. Chest x-ray shows bilateral pulmonary edema and pleural effusions as before. Off of pressors, drips running Versed at 12, fentanyl at 2:25 a.m. and amio at 0.5 mg. Respiratory culture growing Clifford albicans. Ordered repeat serum digoxin levels 10/30/24: dc'ed tamiflu. LFTs imrpoving 10/31/24: CXR shows stable bibasilar pulmonary airspace dx. heart rate normal. placed PICC line, cpap trial in the AM In: Overnight fevers as high as 101.1, add vancomycin. CPAP trial in the a.m.. Sedation vacation completed today. 11/02/24: CPAP trial today, following commands but decreased level of alertness. improving platelet count. 11/03/24: pt underwent left heart cath today. CPAP trial tomorrow if possible Objective vital signs Vital Sign Date Time Temp Pulse Resp B/P (MAP) Pulse Ox O2 Delivery O2 Flow Rate FiO2 11/03/24 09:25 145 26 145/107 (120) 100 30 11/03/24 08:35 99.7 211.5 11/03/24 08:00 Mechanical Ventilator+ Total Intake and Output 11/02/24 11/02/24 11/03/24 15:00 23:00 07:00 Intake Total 250.0 ml 252.5 ml 110 ml Output Total 820 ml 700 ml Balance 250.0 ml -567.5 ml -590 ml medications Current Medications Medications Dose Ordered Sig/Cristian Route Start Time Stop Time Status Last Admin Dose Admin Midazolam HCl 50 ml @ 1 mls/hr Q24H IV 10/23/24 19:45 10/31/24 17:51 5 MLS/HR Pantoprazole Sodium 40 mg DAILY IV 10/24/24 10:00 11/03/24 10:00 40 MG Phenylephrine HCl 80 mg/Sodium Chloride 250 ml @ 7.5 mls/hr Q24H IV 10/24/24 14:30 10/25/24 02:12 26.25 MLS/HR Norepinephrine Bitartrate 32 mg/ Sodium Chloride 250 ml @ 0.938 mls/ hr Q24H IV 10/24/24 14:30 10/24/24 18:55 6.563 MLS/HR Metronidazole 100 ml @ 100 mls/hr Q8HR IV 10/25/24 13:00 11/03/24 06:03 100 MLS/HR Enteral Nutritional Formula 1,000 ml 30ML/HR GT 10/25/24 17:15 11/02/24 18:35 1,000 ML Ipratropium [place] 0.5 mg Q6HR NEB 10/26/24 06:00 11/03/24 06:28 0.5 MG Furosemide 20 mg BIDD IV 10/28/24 18:00 11/03/24 06:03 20 MG Cefepime HCl 50 ml @ 12.5 mls/hr Q8H IV 10/30/24 18:00 11/03/24 10:00 12.5 MLS/HR Sodium Chloride 10 ml QSHIFT@10,22 IV 10/31/24 22:00 11/03/24 10:00 10 ML Vancomycin HCl 0 ml @ 0 mls/hr UD IV 11/01/24 11:15 Vancomycin HCl 200 ml @ 200 mls/hr Q12H IV 11/02/24 01:00 11/02/24 13:28 200 MLS/HR Acetaminophen 500 mg Q8HPRN PRN PO 11/02/24 09:30 Examination General Appearance: Intubated, sedated and mechanically ventilated. Lying down in bed without any distress. Head Exam: Normal inspection Neck Exam: Normal inspection. Non-tender. Normal alignment. Equal and minimally reactive pupils 2 mm. Pulmonary/Respiratory: Chest non-tender. Decreased bilateral breath sounds, no crackles, no wheezing. Cardiovascular/Chest: normal rate No murmurs. No JVD. Peripheral Pulses: 2+ Radial (R). 2+ Radial (L). 2+ Pedal (R). 2+ Pedal (L) Abdominal Exam: Normal bowel sounds. Soft. normal abdomen, no visible veins, Nontender. No hepatospenomegaly. No masses Ankle Exam: Negative ankle edema Lower extremities: Negative lower extremity edema Skin Exam: Normal inspection. Normal color. Warm. Dry laboratory and microbiology Laboratory Tests 11/03/24 03:00 Test 11/03/24 03:00 Range/Units Serum Glucose 104 74-106 mg/dL Microbiology Date/Time Source Procedure Growth Status 10/28/24 10:50 Bronchial Washings Gram Stain - Final Complete 10/28/24 10:50 Respiratory Culture - Final Presumptive Clifford albicans Complete 10/25/24 10:45 Nose MRSA Screen - Final Complete 10/24/24 13:23 Voided Urine Urine Culture - Final Complete 10/23/24 19:48 Blood Blood Culture - Final NO GROWTH AFTER 5 DAYS OF INCUBATION. Complete Labs and/or images reviewed: Labs reviewed by me, Image(s) reviewed by me Problem List/Assessment/Plan Problem List/Assessment/Plan Neurology # acute toxic vs metabolic encephalopathy # possible alcohol withdrawal # hx of withdrawal seizures? # Sedated - head CT: No acute intracranial abnormality - IV banana bag once - Versed 5 mcg per hour Cardiovascular # septic shock due to pneumonia # atrial flutter with hemodynamic instability, s/p cardioversion x2 # NSTEMI 1 vs 2 # End- stage dilated cardiomyopathy # Heart failure with reduced ejection fraction <20% # Prolonged QTC - amiodarone drip - cardiology on board - norepinephrine at 10 micrograms/hour - amiodarone drip at 0.5mg/min - phenylephrine at 15mcg/min - IV digoxin 500mcg x 2 - serum digoxin level 3.69 5 hours after 2nd dose in 24 hours after 1st dose - repeat serum digoxin level 1.85 - underwent left heart cath 11/03/24 Respiratory # Acute hypoxic respiratory failure # community-acquired pneumonia, Gram-positive versus Gram-negative # Ventilator # ruled out pulmonary embolism -intubated (10/23/24) -on [facility] vent : VCAC Mode RR 20 TV 500ml, PEEP Of 6 and FiO2 of 30% - CXR: Moderate interstitial pulmonary edema in the setting of cardiomegaly. Probable trace bilateral effusions. - CT angio: No evidence of pulmonary embolism. Pulmonary edema. Large bilateral pleural effusions. Associated consolidation of the majority of bilateral lower lobes independent portions of the remaining lobes of the lung. Cirrhotic liver. Small amount of ascites in the visualized upper abdomen. - chest ultrasound: Small bilateral pleural effusion, trace ascites. - IV lasix 20mg bid - IV cefepime, IV metronidazole GI # Hx of GI bleed # cirrhosis, MELD 19 # Hx of portal hypertension gastropathy # mild abdominal ascites # Peptic ulcer prophylaxis -Pantoprazole 40 mg IV daily # Greenberg catheter placed on 10/23/24 - urine culture Nephrology # Hyperkalemia # DMITRIY likely ATN/VMN on ?CKD (GFR 70 on admission, unknown baseline) - monitor - nephrology on board; recommended to start lokelma qD if hyperkalemia persists, holding for now as last serum K 3.9 - IV Lasix 20 mg bid Infectious disease # community acquired pneumonia, gram + vs -ve # Influenza B positive - IV cefepime - IV metronidazole - Oseltamivir - off norepinephrine - off phenylephrine at 15mcg/min - respiratory, blood, urine cultures - resp cx growing clifford Hem/onc # mild normocytic anemia # ruled out lower extremity DVT # thrombocytopenia - lower extremity Doppler: No right or left lower extremity deep vein thrombosis. Psychiatry # Alcohol use disorder # hx of depression - outpatient psychiatry follow up versus psychiatry consult upon extubation DVT prophylaxis - discontinue therapeutic Lovenox due to patient having thrombocytopenia Nutrition TF nepro carbsteady Lines Right PICC line [facility] on 10/31/2024 [facility] Fentanyl 150 mcg/hr Versed 5 Intubated on 10/23/24 Critical care time 82 minutes excluding procedure and discussions with the family. Code status discussed greater than 20 minutes: Full CODE STATUS. Plan discussed with Dr. De La Cruz Plan discussed with: Other (RN) My Orders My Orders Orders - MAX FLOYD RESIDENT Procedure Category Date Status Time Chest Portable XY 11/03/24 Resulted 04:00 Abg W/ Co-Ox RT 11/03/24 Logged 04:00 Dietary Evaluation Review Comments: 1) TF Jevity 1.2Cal @ 50ml/hr (goal) along wth Pro-stat 1 pk BID. Start @ 20ml/hr, increase 10ml/hr Q4H until goal is reached. TF @ goal volume along with Pro-stat provides 1640 kcal (100% energy needs), 96 gm protein (100% protein needs), 968 ml free water. 2) Water flush 170ml Q6H if allowed, adjust PRN 3) TPN if NPO > 7 days 4) Monitor NPO status, lab values, wt trend, I/O Expected Outcomes/Goals: To meet >75% estimated needs Fu 2-3 days MAX FLOYD RESIDENT Nov 03, 2024 10:38
[2024-11-03] MEDS: MORPHINE SULFATE INJ 2 MG/ml SYRG IV PRN (11:53)
[2024-11-03] MEDS ORDERED: VANCOMYCIN 750MG KIT 100 ML IV SCH (13:00)
[2024-11-03] MEDS: VANCOMYCIN 750mg/150ml 150 ML IV ONE (13:47)
[2024-11-03] MEDS: IODIXANOL 320MG/ML 100ML BTL IV ONE (14:22)
[2024-11-03] MEDS: fentaNYL CITRATE 100 MCG/2 ML VL ONE (14:36)
[2024-11-03] MEDS: ANGIOMAX 250 MG VIAL IV ONE (14:36)
[2024-11-03] MEDS: VERAPAMIL 2.5MG/ML INJ 2ML VIAL IV ONE (14:36)
[2024-11-03] MEDS: MIDAZOLAM HCL 2MG/2ML 2ml VIAL (1mg/ml) ONE (14:37)
[2024-11-03] MEDS: SODIUM CHL 0.9% 50 ML ONE (14:37)
[2024-11-03] MEDS: HEPARIN SODIUM (PORCINE) 5000 UNITS/ML 1ML VIAL ONE (14:37)
[2024-11-03] MEDS: LIDOCAINE 2%HCL (LOCAL ANESTH.) INJ 20ML MDV ONE (14:37)
[2024-11-03] MEDS: AMIODARONE 360mg/200mL PREMIX 200 ML IV SCH (15:49)
--- NOTE | 2024-11-03 16:16 | DVHOP2 ---
Operative Report - 2 Report Details Date: 11/03/24 Preop Diagnosis: CAD Postop Diagnosis: Normal coronaries. Normal left ventricular function. Surgeon: Sandrine Cantu MD Anesthesiologist: Conscious sedation Anesthesia: Mac, Local Consent: The patient was informed of the risks and benefits of the procedure. These include but are not limited to complications of anesthesia, postoperative infection, incomplete relief of symptoms, recurrence of symptoms, damage to blood vessels, nerves and tendons, deep venous thrombosis, pulmonary embolism and possible need for repeat surgery in the future. Complications: No complications Findings: Normal coronaries. Normal left ventricular function. Normal left ventricular end-diastolic pressures. Indications for Surgery: Ventricular dysrhythmias Name of Procedure Performed Left heart catheterization. Bilateral cine coronary angiography. Left ventriculography. Procedure Details Procedure Details: Prior local anesthesia with 2% lidocaine to the right wrist and full informed consent obtained the patient was prepped and draped in usual fashion followed by placement of a six [place] sheath through the right femoral artery. Fluoroscopic and ultrasound guidance was utilized to find the appropriate entry flow radial artery. A CardiaLen catheter was then placed into the left ventricle right and left coronary arteries for evaluation successfully without complications Hemodynamics: Aortic blood pressure was 110/70. End-diastolic pressure five. There was no gradient across the aortic valve on pullback Coronary anatomy: RCA is a large dominant vessel it is normal in its proximal mid and distal segments. PDA and posterolateral branches are normal. Left main is large and normal. Left anterior descending is large and normal with two diagonals free of significant disease. The circumflex is large with two marginals free of significant disease. Ventriculography in the VELASCO projection reveals an EF of 60%. Impression: Normal left ventricular end-diastolic pressure rest with normal ejection fraction. No significant CAD. Recommendations: Medical therapy is warranted continue with risk factor modification. Condition Guarded Disposition Still a Patient Date of Service: Nov 03, 2024 Billing Provider: SANDRINE CANTU Sr., MD Cardiology Common Codes: 16905-YEQRFPM INP/OBS CARE (High) Cardiology Procedure Codes: 06226-FHFE HEART CATH W/INTRA INJ SANDRINE CANTU Sr., MD Nov 03, 2024 16:16
--- NOTE | 2024-11-03 18:03 | DVHTSRES ---
Transfer Summary Transfer Summary Resident Creating Document: MAX FLOYD RESIDENT Date of Admission Oct 23, 2024 at 23:52 Date of Transfer: Nov 03, 2024 Brief Hx & Hospital Course: Patient: 54-year-old male PMH: Liver cirrhosis (MELD 19), portal hypertensive gastropathy, cholelithiasis, depression, chronic tachycardia, alcohol-related tremors Presentation: Presented on 10/23/2024 with severe shortness of breath, tachypnea, and atrial fibrillation with RVR. Underwent synchronized cardioversion (120J) and was subsequently intubated. History obtained from sons (Mr. Galo and Mr. Shemar Winkler) and ex-. Patient has a long-standing history of heavy alcohol use (612 drinks/day for 3540 years). Hospital Course Summary: Neurology: Diagnosis: Acute toxic/metabolic encephalopathy, possible alcohol withdrawal Sedation: Versed 5 mcg/hr Imaging: Head CT no acute intracranial abnormality Treatment: IV banana bag x1 Cardiovascular: Diagnosis: Atrial flutter with hemodynamic instability, s/p cardioversion x2 NSTEMI (type 1 vs 2) End-stage dilated cardiomyopathy, HFrEF (EF <20%) Septic shock (now resolved) Prolonged QTc Management: Amiodarone drip 0.5 mg/min IV digoxin 500 mcg x2 (serum level peaked at 3.69, down to 1.85) Norepinephrine (off) Phenylephrine (off) Cardiology consulted [facility] performed on 11/03 Respiratory: Diagnosis: Acute hypoxic respiratory failure, community-acquired pneumonia, ruled out PE Ventilation: Intubated 10/23/2024 VC-AC mode: RR 20, TV 500 mL, PEEP 6, FiO2 30% Imaging: CXR: Interstitial pulmonary edema, trace bilateral effusions CT Angio: No PE, large bilateral effusions, consolidation in lower lobes Chest US: Small bilateral effusions, trace ascites Cultures: Respiratory culture: Sharon albicans Antibiotics: IV cefepime IV metronidazole Oseltamivir (Tamiflu) discontinued 10/30 Vancomycin added 11/01 for fever Other: CPAP trials on 10/31 and 11/01 Sedation vacation completed 11/01 following commands, decreased alertness GI: Diagnosis: Cirrhosis (MELD 19) Portal hypertensive gastropathy History of GI bleed (2019) Mild ascites Management: Pantoprazole 40 mg IV daily TF Nepro Carb Steady Renal/Metabolic: Diagnosis: DMITRIY (likely ATN/VMN on CKD), hyperkalemia (resolved) Labs: GFR 70 on admission, unknown baseline Management: IV Lasix 20 mg BID Lokelma held (K normalized to 3.9) Nephrology on board Infectious Disease: Diagnosis: Community-acquired pneumonia, Influenza B positive Management: IV cefepime, IV metronidazole Oseltamivir (discontinued 10/30) Vancomycin added 11/01 Cultures: Respiratory (Sharon), blood and urine pending Hematology: Diagnosis: Mild normocytic anemia, thrombocytopenia Imaging: LE Dopplers negative for DVT Management: Held Lovenox due to thrombocytopenia : Greenberg catheter placed 10/23 Urine culture sent Psychiatry: Alcohol use disorder, history of depression Psychiatry consult deferred until extubation Lines/Procedures: PICC line: Placed 10/31 Drips: Fentanyl 150 mcg/hr, Versed 5 mcg/hr Intubated: 10/23/2024 LHC: Performed 11/03 Current Status (as of 11/03/2024): Vent Settings: VC-AC, RR 20, TV 500 mL, PEEP 6, FiO2 30% Sedation: Versed 5 mcg/hr, fentanyl 150 mcg/hr Neuro: Following commands, decreased alertness Hemodynamics: Stable, off pressors Infectious Workup: Cultures pending, on broad-spectrum antibiotics Code Status: Full Code Family Involvement: Sons (Mr. Galo and Mr. Shemar Winkler) and ex- involved in care discussions Scheduled Folic Acid (Folic Acid), 1 MG PO DAILY Levofloxacin (Levaquin), 500 MG PO DAILY Metronidazole (Flagyl), 500 MG PO Q8HR Pantoprazole Sodium Sesquihydr (Pantoprazole Sodium), 40 MG PO DAILY Propranolol HCl (Propranolol Hydrochloride), 10 MG PO BID Thiamine Hcl (Thiamine), 50 MG PO DAILY MAX FLOYD RESIDENT Nov 03, 2024 18:03
--- NOTE | 2024-11-03 23:57 | DVHPN2 ---
Consult Progress Note Date Seen: Nov 03, 2024 Subjective Other Systems: Patient was seen and evaluated in follow up in the ICU. Patient is intubated on ventilator. 30% FiO2. Patient was on CPAP trial today, completely off sedation and able to follow all commands. Plan for coronary angiogram with left heart catheterization today 11/03/2024. Patient was in normal sinus rhythm and went into A Fib RVR during CPAP trial. NA 147, CL 111, BUN 42, AST 41, ALT 119. Objective vital signs Vital Sign Date Time Temp Pulse Resp B/P (MAP) Pulse Ox O2 Delivery O2 Flow Rate FiO2 11/03/24 12:05 99.1 119 20 153/97 (115) 100 210.4 11/03/24 12:00 Mechanical Ventilator+ 30 30 Total Intake and Output 11/02/24 11/02/24 11/03/24 14:59 22:59 06:59 Intake Total 250.0 ml 252.5 ml 110 ml Output Total 820 ml 700 ml Balance 250.0 ml -567.5 ml -590 ml medications Current Medications Medications Dose Ordered Sig/Cristian Route Start Time Stop Time Status Last Admin Dose Admin Midazolam HCl 50 ml @ 1 mls/hr Q24H IV 10/23/24 19:45 10/31/24 17:51 5 MLS/HR Pantoprazole Sodium 40 mg DAILY IV 10/24/24 10:00 11/03/24 10:00 40 MG Phenylephrine HCl 80 mg/Sodium Chloride 250 ml @ 7.5 mls/hr Q24H IV 10/24/24 14:30 10/25/24 02:12 26.25 MLS/HR Norepinephrine Bitartrate 32 mg/ Sodium Chloride 250 ml @ 0.938 mls/ hr Q24H IV 10/24/24 14:30 10/24/24 18:55 6.563 MLS/HR Metronidazole 100 ml @ 100 mls/hr Q8HR IV 10/25/24 13:00 11/03/24 06:03 100 MLS/HR Enteral Nutritional Formula 1,000 ml 30ML/HR GT 10/25/24 17:15 11/02/24 18:35 1,000 ML Ipratropium [place] 0.5 mg Q6HR NEB 10/26/24 06:00 11/03/24 06:28 0.5 MG Furosemide 20 mg BIDD IV 10/28/24 18:00 11/03/24 06:03 20 MG Cefepime HCl 50 ml @ 12.5 mls/hr Q8H IV 10/30/24 18:00 11/03/24 10:00 12.5 MLS/HR Sodium Chloride 10 ml QSHIFT@10,22 IV 10/31/24 22:00 11/03/24 10:00 10 ML Vancomycin HCl 0 ml @ 0 mls/hr UD IV 11/01/24 11:15 Acetaminophen 500 mg Q8HPRN PRN PO 11/02/24 09:30 Morphine Sulfate 1 mg Q4HPRN PRN IV 11/03/24 11:30 11/03/24 11:53 1 MG Examination: GENERAL:Abnormal, LUNGS:Abnormal, CVS:Abnormal, NEURO:Normal laboratory and microbiology Laboratory Tests 11/03/24 03:00 Test 11/03/24 03:00 Range/Units Serum Glucose 104 74-106 mg/dL Problem List/Assessment/Plan Problem List/Assessment/Plan Problem List Sepsis with acute hypoxic respiratory failure likely due to pneumonia. Paroxysmal atrial fibrillation/atrial flutter s/p DCCV,Stage 3A, now NSR. Acute on chronic decompensated HFrEF, NYHA Class III, newly diagnosed. End-stage dilated cardiomyopathy, likely ischemic given anteroseptal ST-T wave changes. NSTEMI, possibly type 1. Bilateral pleural effusions. Tobacco/alcohol dependence/?Alcohol withdrawal. Thrombocytopenia. Plan/Recommendation Continued all current supportive medical care. Patient has been seen by Shanelle Valdez NP on my behalf, her and I discussed the plan with the patient. Transthoracic echocardiogram revealed LVEF 20%. Initiate guideline directed medical therapy for CHF with stable BP and renal function. Antiarrhythmic therapy, amiodarone. Hold single-antiplatelet therapy given thrombocytopenia. Hold statin given elevated LFTs. Preload reduction as tolerated. Strict I&Os. Daily weight. Fluid restriction. Therapeutic Lovenox held. Restart with stable platelet level. [id number] Score 1 point. HAS-BLED Score 2 points. Continue SCDs in the meantime. Replete electrolytes as necessary, K>4 and Mg>2. Monitor ECG changes closely and notify. Additional plan as per the hospital course. Plan discussed with: Other Dietary Evaluation Review Comments: 1) TF Jevity 1.2Cal @ 50ml/hr (goal) along wth Pro-stat 1 pk BID. Start @ 20ml/hr, increase 10ml/hr Q4H until goal is reached. TF @ goal volume along with Pro-stat provides 1640 kcal (100% energy needs), 96 gm protein (100% protein needs), 968 ml free water. 2) Water flush 170ml Q6H if allowed, adjust PRN 3) TPN if NPO > 7 days 4) Monitor NPO status, lab values, wt trend, I/O Expected Outcomes/Goals: To meet >75% estimated needs Fu 2-3 days Date of Service: Nov 03, 2024 Billing Provider: MESERET MOTLEY MD Cardiology Common Codes: 28870-ZSOPLXSI CARE 30-74 MIN MESERET MOTLEY MD Nov 03, 2024 12:28
[2024-11-04] VITALS (116 sets, daily range): BP systolic 101–172; BP diastolic 71–118; PULSE 69–110; RESP 11–34; TEMP 97.9–99.5; O2SAT 89–100
[2024-11-04] MEDS: VANCOMYCIN 750mg/150ml 150 ML IV SCH (01:09)
[2024-11-04 03:49] LABS: Hematocrit 44.4 % (41.0-53.0); Hemoglobin 14.9 g/dL (13.5-17.5); Mean Corpuscular Hemoglobin 31.8 pg (28.0-32.0); Mean Corpuscular Volume 94.8 fL (80.0-100.0); Nucleated Red Blood Cells % 0.1 %
[2024-11-04 04:03] LABS: Albumin 4.1 g/dL (3.2-4.8); Alkaline Phosphatase 90 U/L (46-116); Anion Gap 14 (5-15); BUN/Creatinine Ratio 34.5 (10.0-20.0); Calcium 9.8 mg/dL (8.7-10.4); Carbon Dioxide 21 mmol/L (20-31); Glucose 97 mg/dL (74-106); Magnesium 2.3 mg/dL (1.6-2.6); Potassium 3.5 mmol/L (3.5-5.1)
[2024-11-04 04:04] LABS: Bilirubin, Total 0.9 mg/dL (0.2-1.0)
[2024-11-04 04:05] LABS: Alanine Aminotransferase 95 U/L (7-40); Blood Urea Nitrogen 41 mg/dL (9-23); Chloride 113 mmol/L (98-107); Sodium 148 mmol/L (136-145); Total Protein 8.4 g/dL (5.7-8.2)
[2024-11-04] MEDS: POTASSIUM CHL 20MEQ/100ML 100 ML IV ONE (05:32)
--- NOTE | 2024-11-04 05:39 | DVH ---
CHEST RADIOGRAPH Indication: pna Technique: Single frontal view of the chest was obtained COMPARISON: XY CHEST PORTABLE on DOS: 11/03/24, XY CHEST PORTABLE on DOS: 11/02/24, XY CHEST PORTABLE o n DOS: 11/01/24, XY CHEST PORTABLE on DOS: 10/31/24, XY CHEST PORTABLE on DOS: 10/31/24 FINDINGS: Lines and Tubes: Endotracheal tube, enteric catheter and right PICC in satisfactory position Lungs: Patchy bilateral airspace disease Pleura: No effusion. No pneumothorax. Cardiomediastinal contours: Unremarkable Bones: Unremarkable IMPRESSION: Lines and tubes in satisfactory position. No significant interval change.
[2024-11-04 07:29] LABS: Base Excess -4.5 mmol/L (-2.0-3.0)
[2024-11-04 09:33] LABS: Base Excess -4.0 mmol/L (-2.0-3.0)
[2024-11-04] MEDS ORDERED: hydrALAZINE HCL 20 MG/ML VL IV PRN (15:45)
--- NOTE | 2024-11-04 16:09 | DVHPN2 ---
Reviewed: Care Plan, H&P, Labs, Medications, Previous Orders, Radiology Changes from previous H/P or p: No Changes General: Per HPI Objective Vitals Vital Signs Date Time Temp Pulse Resp B/P (MAP) Pulse Ox O2 Delivery O2 Flow Rate FiO2 11/04/24 14:45 90 23 156/71 (99) 95 11/04/24 14:22 8.0 11/04/24 14:08 Nasal Cannula* 28 11/04/24 13:30 99.3 210.7 Intake/Output Intake and Output 11/04/24 07:00 Intake Total 1229.04 ml Output Total 2100 ml Balance -870.96 ml IV Total 1229.04 ml Output Urine Total 2100 ml # Bowel Movements 2 General Appearance: Alert, Oriented X3, Cooperative, Other (intubated) HEENT: Atraumatic Lungs: Clear to auscultation Cardiovascular: Regular rate, Normal S1, Normal S2 Abdomen: Normal bowel sounds Medications Current Medications Medications Dose Ordered Sig/Cristian Route Start Time Stop Time Status Last Admin Dose Admin Midazolam HCl 50 ml @ 1 mls/hr Q24H IV 10/23/24 19:45 10/31/24 17:51 5 MLS/HR Pantoprazole Sodium 40 mg DAILY IV 10/24/24 10:00 11/04/24 09:56 40 MG Phenylephrine HCl 80 mg/Sodium Chloride 250 ml @ 7.5 mls/hr Q24H IV 10/24/24 14:30 10/25/24 02:12 26.25 MLS/HR Norepinephrine Bitartrate 32 mg/ Sodium Chloride 250 ml @ 0.938 mls/ hr Q24H IV 10/24/24 14:30 10/24/24 18:55 6.563 MLS/HR Metronidazole 100 ml @ 100 mls/hr Q8HR IV 10/25/24 13:00 11/04/24 15:41 100 MLS/HR Enteral Nutritional Formula 1,000 ml 30ML/HR GT 10/25/24 17:15 11/02/24 18:35 1,000 ML Ipratropium [place] 0.5 mg Q6HR NEB 10/26/24 06:00 11/04/24 11:33 0.5 MG Furosemide 20 mg BIDD IV 10/28/24 18:00 11/04/24 05:33 20 MG Cefepime HCl 50 ml @ 12.5 mls/hr Q8H IV 10/30/24 18:00 11/04/24 09:56 12.5 MLS/HR Sodium Chloride 10 ml QSHIFT@10,22 IV 10/31/24 22:00 11/04/24 09:56 10 ML Vancomycin HCl 0 ml @ 0 mls/hr UD IV 11/01/24 11:15 Acetaminophen 500 mg Q8HPRN PRN PO 11/02/24 09:30 Morphine Sulfate 1 mg Q4HPRN PRN IV 11/03/24 11:30 11/03/24 11:53 1 MG Vancomycin HCl 150 ml @ 150 mls/hr Q12HR@0100,1300 IV 11/04/24 01:00 11/04/24 14:16 150 MLS/HR Hydralazine HCl 10 mg Q6HP PRN IV 11/04/24 15:45 Laboratory Results Laboratory Tests 11/04/24 03:05 Chemistry Test 11/04/24 03:05 Albumin 4.1 g/dL (3.2-4.8) Calcium Level 9.8 mg/dL (8.7-10.4) Magnesium Level 2.3 mg/dL (1.6-2.6) Total Protein 8.4 g/dL (5.7-8.2) H LFT Test 11/04/24 03:05 Alanine Aminotransferase (ALT) 95 U/L (7-40) H Alkaline Phosphatase 90 U/L (46-116) Aspartate Amino Transferase (AST) 42 U/L (13-40) H Total Bilirubin 0.9 mg/dL (0.2-1.0) Urinalysis Test 10/23/24 19:42 10/25/24 13:15 Urine Color Yellow (Yellow) Urine Clarity Clear (Clear) Urine pH 6.0 (5.0-9.0) Urine Specific [place] 1.018 (1.001-1.035) Urine Protein 2+ (Negative) H Urine Ketones Negative (Negative) Urine Blood Negative /uL (Negative) Urine Nitrite Negative (Negative) Urine Bilirubin Negative (Negative) Urine Urobilinogen Normal mg/dL (Negative) Urine Leukocyte Esterase Negative /uL (Negative) Urine RBC 5 /hpf (0 - 3) Urine Microscopic WBC 4 /HPF (0-3) H Urine Squamous Epithelial Cells None seen /hpf (<5) Urine Bacteria Few /hpf (None Seen) H Urine Glucose Normal mg/dL (Normal) Urine Osmolality 290 mOsm/kg Urine Creatinine 18.09 mg/dL (30.0-125.0) L Urine Sodium 111 mmol/L (40-220) Urine Total Protein 46.2 mg/dL (1-14) H Blood Gas Results Test 11/04/24 07:10 11/04/24 09:23 Arterial Blood pH 7.426 (7.350-7.450) 7.399 (7.350-7.450) FiO2 % 30.0 30.0 Microbiology Microbiology Date/Time Source Procedure Growth Status 10/28/24 10:50 Bronchial Washings Gram Stain - Final Complete 10/28/24 10:50 Respiratory Culture - Final Presumptive Clifford albicans Complete 10/25/24 10:45 Nose MRSA Screen - Final Complete 10/24/24 13:23 Voided Urine Urine Culture - Final Complete 10/23/24 19:48 Blood Blood Culture - Final NO GROWTH AFTER 5 DAYS OF INCUBATION. Complete Labs and/or images reviewed: Labs reviewed by me, Image(s) reviewed by me Assessment/Plan Assessment/Plan Neurology # acute toxic vs metabolic encephalopathy # possible alcohol withdrawal # hx of withdrawal seizures? # Sedated - head CT: No acute intracranial abnormality - IV banana bag once - Versed 5 mcg per hour Cardiovascular # septic shock due to pneumonia # atrial flutter with hemodynamic instability, s/p cardioversion x2 # NSTEMI 1 vs 2 # End- stage dilated cardiomyopathy # Heart failure with reduced ejection fraction <20% # Prolonged QTC - amiodarone drip - cardiology on board - norepinephrine at 10 micrograms/hour - amiodarone drip at 0.5mg/min - phenylephrine at 15mcg/min - IV digoxin 500mcg x 2 - serum digoxin level 3.69 5 hours after 2nd dose in 24 hours after 1st dose - repeat serum digoxin level 1.85 - underwent left heart cath 11/03/24 Respiratory # Acute hypoxic respiratory failure # community-acquired pneumonia, Gram-positive versus Gram-negative # Ventilator # ruled out pulmonary embolism -intubated (10/23/24) -on [facility] vent : VCAC Mode RR 20 TV 500ml, PEEP Of 6 and FiO2 of 30% - CXR: Moderate interstitial pulmonary edema in the setting of cardiomegaly. Probable trace bilateral effusions. - CT angio: No evidence of pulmonary embolism. Pulmonary edema. Large bilateral pleural effusions. Associated consolidation of the majority of bilateral lower lobes independent portions of the remaining lobes of the lung. Cirrhotic liver. Small amount of ascites in the visualized upper abdomen. - chest ultrasound: Small bilateral pleural effusion, trace ascites. - IV lasix 20mg bid - IV cefepime, IV metronidazole GI # Hx of GI bleed # cirrhosis, MELD 19 # Hx of portal hypertension gastropathy # mild abdominal ascites # Peptic ulcer prophylaxis -Pantoprazole 40 mg IV daily # Greenberg catheter placed on 10/23/24 - urine culture Nephrology # Hyperkalemia # DMITRIY likely ATN/VMN on ?CKD (GFR 70 on admission, unknown baseline) - monitor - nephrology on board; recommended to start lokelma qD if hyperkalemia persists, holding for now as last serum K 3.9 - IV Lasix 20 mg bid Infectious disease # community acquired pneumonia, gram + vs -ve # Influenza B positive - IV cefepime - IV metronidazole - Oseltamivir - off norepinephrine - off phenylephrine at 15mcg/min - respiratory, blood, urine cultures - resp cx growing clifford Hem/onc # mild normocytic anemia # ruled out lower extremity DVT # thrombocytopenia Psychiatry # Alcohol use disorder # hx of depression 11/04/2024 pt was extubated early this AM doing well so far discussed with nursing. Pt is alert and awake Plan discussed with: Patient My Orders Orders - MALENA RHODES DO Procedure Category Date Status Time *Consult CONS 11/04/24 Transmitted / 10:34 * Swallow Request ST 11/04/24 Transmitted 12:02 Pt Request For Service PT 11/04/24 Logged 12:02 Hydralazine Injection PHA 11/04/24 In Process (Apresoline Inject 15:45 Date of Service: Nov 04, 2024 Billing Provider: MALENA RHODES DO Common Visit Codes: [id number] CARE 30-74 MIN MALENA RHODES DO Nov 04, 2024 16:09
--- NOTE | 2024-11-04 19:05 | DVHPN2 ---
Subjective Denies chest pain or shortness of breath No cardiac events reported Reviewed: Care Plan, H&P, Labs, Medications, Previous Orders, Radiology Changes from previous H/P or p: No Changes General: Per HPI Objective Vitals Vital Signs Date Time Temp Pulse Resp B/P (MAP) Pulse Ox O2 Delivery O2 Flow Rate FiO2 11/04/24 18:45 80 18 142/100 (114) 95 11/04/24 18:04 Nasal Cannula* 2 28 11/04/24 16:00 99.1 99.1 Intake/Output Intake and Output 11/04/24 07:00 Intake Total 1229.04 ml Output Total 2100 ml Balance -870.96 ml IV Total 1229.04 ml Output Urine Total 2100 ml # Bowel Movements 2 General Appearance: Alert, Oriented X3, Cooperative, Other (intubated) HEENT: Atraumatic Lungs: Clear to auscultation Cardiovascular: Regular rate, Normal S1, Normal S2 Abdomen: Normal bowel sounds Medications Current Medications Medications Dose Ordered Sig/Cristian Route Start Time Stop Time Status Last Admin Dose Admin Midazolam HCl 50 ml @ 1 mls/hr Q24H IV 10/23/24 19:45 10/31/24 17:51 5 MLS/HR Pantoprazole Sodium 40 mg DAILY IV 10/24/24 10:00 11/04/24 09:56 40 MG Phenylephrine HCl 80 mg/Sodium Chloride 250 ml @ 7.5 mls/hr Q24H IV 10/24/24 14:30 10/25/24 02:12 26.25 MLS/HR Norepinephrine Bitartrate 32 mg/ Sodium Chloride 250 ml @ 0.938 mls/ hr Q24H IV 10/24/24 14:30 10/24/24 18:55 6.563 MLS/HR Metronidazole 100 ml @ 100 mls/hr Q8HR IV 10/25/24 13:00 11/04/24 15:41 100 MLS/HR Enteral Nutritional Formula 1,000 ml 30ML/HR GT 10/25/24 17:15 11/02/24 18:35 1,000 ML Ipratropium [place] 0.5 mg Q6HR NEB 10/26/24 06:00 11/04/24 18:04 0.5 MG Furosemide 20 mg BIDD IV 10/28/24 18:00 11/04/24 18:06 20 MG Cefepime HCl 50 ml @ 12.5 mls/hr Q8H IV 10/30/24 18:00 11/04/24 18:06 12.5 MLS/HR Sodium Chloride 10 ml QSHIFT@10,22 IV 10/31/24 22:00 11/04/24 09:56 10 ML Vancomycin HCl 0 ml @ 0 mls/hr UD IV 11/01/24 11:15 Acetaminophen 500 mg Q8HPRN PRN PO 11/02/24 09:30 Morphine Sulfate 1 mg Q4HPRN PRN IV 11/03/24 11:30 11/03/24 11:53 1 MG Vancomycin HCl 150 ml @ 150 mls/hr Q12HR@0100,1300 IV 11/04/24 01:00 11/04/24 14:16 150 MLS/HR Hydralazine HCl 10 mg Q6HP PRN IV 11/04/24 15:45 Laboratory Results Laboratory Tests 11/04/24 03:05 Chemistry Test 11/04/24 03:05 Albumin 4.1 g/dL (3.2-4.8) Calcium Level 9.8 mg/dL (8.7-10.4) Magnesium Level 2.3 mg/dL (1.6-2.6) Total Protein 8.4 g/dL (5.7-8.2) H LFT Test 11/04/24 03:05 Alanine Aminotransferase (ALT) 95 U/L (7-40) H Alkaline Phosphatase 90 U/L (46-116) Aspartate Amino Transferase (AST) 42 U/L (13-40) H Total Bilirubin 0.9 mg/dL (0.2-1.0) Urinalysis Test 10/23/24 19:42 10/25/24 13:15 Urine Color Yellow (Yellow) Urine Clarity Clear (Clear) Urine pH 6.0 (5.0-9.0) Urine Specific [place] 1.018 (1.001-1.035) Urine Protein 2+ (Negative) H Urine Ketones Negative (Negative) Urine Blood Negative /uL (Negative) Urine Nitrite Negative (Negative) Urine Bilirubin Negative (Negative) Urine Urobilinogen Normal mg/dL (Negative) Urine Leukocyte Esterase Negative /uL (Negative) Urine RBC 5 /hpf (0 - 3) Urine Microscopic WBC 4 /HPF (0-3) H Urine Squamous Epithelial Cells None seen /hpf (<5) Urine Bacteria Few /hpf (None Seen) H Urine Glucose Normal mg/dL (Normal) Urine Osmolality 290 mOsm/kg Urine Creatinine 18.09 mg/dL (30.0-125.0) L Urine Sodium 111 mmol/L (40-220) Urine Total Protein 46.2 mg/dL (1-14) H Blood Gas Results Test 11/04/24 07:10 11/04/24 09:23 Arterial Blood pH 7.426 (7.350-7.450) 7.399 (7.350-7.450) FiO2 % 30.0 30.0 Microbiology Microbiology Date/Time Source Procedure Growth Status 10/28/24 10:50 Bronchial Washings Gram Stain - Final Complete 10/28/24 10:50 Respiratory Culture - Final Presumptive Sharon albicans Complete 10/25/24 10:45 Nose MRSA Screen - Final Complete 10/24/24 13:23 Voided Urine Urine Culture - Final Complete 10/23/24 19:48 Blood Blood Culture - Final NO GROWTH AFTER 5 DAYS OF INCUBATION. Complete Assessment/Plan Assessment/Plan Problem List/Assessment/Plan Sepsis with acute hypoxic respiratory failure likely due to pneumonia Paroxysmal atrial fibrillation/atrial flutter s/p DCCV,Stage 3A, now NSR Acute on chronic decompensated HFrEF, NYHA Class III, newly diagnosed End-stage dilated cardiomyopathy, likely ischemic given anteroseptal ST-T wave changes NSTEMI, possibly type 1 Bilateral pleural effusions Tobacco/alcohol dependence/?Alcohol withdrawal Thrombocytopenia Plan/Recommendation (Dr. Cantu) 11/04/24 --A discrepancy in ejection fraction assessment. Transthoracic echocardiogram reports EF of 20%, however, left ventriculography demonstrates EF of 60%. Case discussed with Dr. Cantu. Given the limitation of echocardiographic windows in the more reliable visualization on ventriculography in this instance, we will proceed with the ventriculography findings and consider the EF to be 60%. * Transthoracic echocardiogram revealed LVEF 20% * Initiate guideline directed medical therapy for CHF with stable BP and renal function * Antiarrhythmic therapy, amiodarone * Hold single-antiplatelet therapy given thrombocytopenia * Hold statin given elevated LFTs * Preload reduction as tolerated * Strict I&Os. Daily weight. Fluid restriction * Therapeutic Lovenox held. Restart with stable platelet level * [id number] Score 1 point. HAS-BLED Score 2 points * Continue SCDs in the meantime * Replete electrolytes as necessary, K>4 and Mg>2 * Monitor ECG changes closely and notify Plan discussed with the primary care team. Patient was on CPAP trial today, completely off sedation and able to follow all commands. Plan for coronary angiogram with left heart catheterization today 11/03/2024. Thank you for giving us the opportunity to take care of your patient. Please call back if any question/concern. Plan discussed with: Patient Date of Service: Nov 04, 2024 Billing Provider: SANDRINE CANTU Sr., MD Common Visit Codes: CONSULT ONLY Consultation Codes: [id number] CONSULT <45MIN BERENICE KNIGHT Nov 04, 2024 19:05
--- NOTE | 2024-11-04 22:56 | DVHPN2 ---
Progress Note - Dictate Date Seen: Nov 04, 2024 Has the PT tested + for MRSA If YES, has PT been informed?: No Medical Necessity Reason Pt with a Central, PICC or Fol: Yes The following are medically ne: Central Line, Hirsch Catheter Reason for hirsch catheter: Strict I&O Subjective Patient seen and examined at bedside. Intubated on mechanical ventilator. Overnight events reviewed. vital signs Vital Sign Date Time Temp Pulse Resp B/P (MAP) Pulse Ox O2 Delivery O2 Flow Rate FiO2 11/04/24 22:30 81 16 155/97 (116) 96 11/04/24 22:00 Nasal Cannula* 2 28 11/04/24 20:00 98.3 98.3 Total Intake and Output 11/03/24 11/03/24 11/04/24 15:00 23:00 07:00 Intake Total 499.98 ml 345.78 ml 383.28 ml Output Total 900 ml 1200 ml Balance 499.98 ml -554.22 ml -816.72 ml medications Current Medications Medications Dose Ordered Sig/Cristian Route Start Time Stop Time Status Last Admin Dose Admin Midazolam HCl 50 ml @ 1 mls/hr Q24H IV 10/23/24 19:45 10/31/24 17:51 5 MLS/HR Pantoprazole Sodium 40 mg DAILY IV 10/24/24 10:00 11/04/24 09:56 40 MG Phenylephrine HCl 80 mg/Sodium Chloride 250 ml @ 7.5 mls/hr Q24H IV 10/24/24 14:30 10/25/24 02:12 26.25 MLS/HR Norepinephrine Bitartrate 32 mg/ Sodium Chloride 250 ml @ 0.938 mls/ hr Q24H IV 10/24/24 14:30 10/24/24 18:55 6.563 MLS/HR Metronidazole 100 ml @ 100 mls/hr Q8HR IV 10/25/24 13:00 11/04/24 21:36 100 MLS/HR Enteral Nutritional Formula 1,000 ml 30ML/HR GT 10/25/24 17:15 11/02/24 18:35 1,000 ML Ipratropium [place] 0.5 mg Q6HR NEB 10/26/24 06:00 11/04/24 18:04 0.5 MG Furosemide 20 mg BIDD IV 10/28/24 18:00 11/04/24 18:06 20 MG Cefepime HCl 50 ml @ 12.5 mls/hr Q8H IV 10/30/24 18:00 11/04/24 18:06 12.5 MLS/HR Sodium Chloride 10 ml QSHIFT@10,22 IV 10/31/24 22:00 11/04/24 09:56 10 ML Vancomycin HCl 0 ml @ 0 mls/hr UD IV 11/01/24 11:15 Acetaminophen 500 mg Q8HPRN PRN PO 11/02/24 09:30 Morphine Sulfate 1 mg Q4HPRN PRN IV 11/03/24 11:30 11/03/24 11:53 1 MG Vancomycin HCl 150 ml @ 150 mls/hr Q12HR@0100,1300 IV 11/04/24 01:00 11/04/24 14:16 150 MLS/HR Hydralazine HCl 10 mg Q6HP PRN IV 11/04/24 15:45 objective Gen.: Patient lying in bed in medical ICU. Intubated on mechanical ventilator. Head: Normocephalic, atraumatic. Eyes: PERRLA. Ears: Normal external anatomy. Throat: Endotracheal tube and orogastric tube in place. Neck: Supple, trachea midline. Chest: Transmitted breath sounds bilaterally. Decreased air entry bilaterally. No wheezing. Bibasilar crackles. Cardiovascular: Positive S1, positive S2. Regular rate and rhythm. Abdomen: Positive bowel sounds in all 4 quadrants. Soft, nontender, nondistended. : Hirsch in place. Normal external genitalia. Rectal: Deferred. Skin: Warm, dry. Intact. Extremities: 2+ radial pulses bilaterally. No lower extremity edema. Neuro: Off sedation laboratory and microbiology Laboratory Tests 11/04/24 03:05 Test 11/04/24 03:05 Range/Units Serum Glucose 97 74-106 mg/dL Assessment/Plan Impression Acute hypoxemic respiratory failure On mechanical ventilator Sepsis Atrial fibrillation Cardiomyopathy Influenza B Pneumonia CHF Events Remains on vent support AC mode with RR 20, VT 500, PEEP 5, FiO2 30% Taper O2 as tolerated Off sedation Pt tolerated CPAP this AM. Plan for extubation. On amiodarone drip. Cardiology recs appreciated. Continue abx Sputum cultures grew Sharon albicans, likely colonizer. ABG reviewed, compensated. Chest x-ray shows patchy bilateral airspace disease Labs and imaging reviewed Plan: On mechanical ventilation S/p intubation Titrate to maintain sats 90% or above Sedation holiday daily If patient follows commands, proceed to weaning trial Pressure support 10/14, extubate when ready Continue antibiotics F/u cultures Bronchodilators Diurese Monitor renal function Monitor electrolytes Supplement as needed Pressors as needed for hemodynamic support To maintain a mean arterial pressure of 65 mmHg DVT prophylaxis Prognosis: Poor given patient's multiple co-morbidities. Condition: Critical Rest of plan per hospitalist and other consultants. A total of 35 minutes of critical care time was spent reviewing the patient record, examining the patient, making a diagnostic and therapeutic plan, discussing this plan with the medical personnel, following up on diagnostic studies and following the patient for clinical stability excluding any and all procedures. At least 50% of this time was spent in direct, [id number] contact. Thank you, Dr. Morales, for allowing me to participate in this patient's care. Further recommendations will depend on the patient's clinical course. Please do not hesitate to contact me if you have any questions or concerns. This medical document was created using an electronic medical record system with [employer] dictation system. Although these documentations are being carefully reviewed, there may still be some phonetic and typographical changes. The errors are purely typographical, due to imperfection on the software program, and do not reflect any compromise in the patient's medical care. Dietary Evaluation Review Comments: 1) TF Jevity 1.2Cal @ 50ml/hr (goal) along wth Pro-stat 1 pk BID. Start @ 20ml/hr, increase 10ml/hr Q4H until goal is reached. TF @ goal volume along with Pro-stat provides 1640 kcal (100% energy needs), 96 gm protein (100% protein needs), 968 ml free water. 2) Water flush 170ml Q6H if allowed, adjust PRN 3) TPN if NPO > 7 days 4) Monitor NPO status, lab values, wt trend, I/O Expected Outcomes/Goals: To meet >75% estimated needs Fu 2-3 days Plan discussed with: Other (JAMSHID Wray) Critical Care Time(min): 35 BRENT PICKERING MD Nov 04, 2024 22:56
--- NOTE | 2024-11-04 23:58 | DVHPN2 ---
Progress Note - Dictate Date Seen: Nov 04, 2024 Has the PT tested + for MRSA If YES, has PT been informed?: No Medical Necessity Reason Pt with a Central, PICC or Fol: No The following are medically ne: Central Line, Greenberg Catheter Subjective Patient was seen and evaluated in follow up in the ICU. Patient was successfully extubated this afternoon. Patient is on 2 LPM NC. Patient accidentally pulled out NGT. NA 148, CL 113, BUN 41, AST 42, ALT 95. vital signs Vital Sign Date Time Temp Pulse Resp B/P (MAP) Pulse Ox O2 Delivery O2 Flow Rate FiO2 11/04/24 16:30 80 34 161/98 (119) 96 11/04/24 16:00 99.1 99.1 11/04/24 16:00 Nasal Cannula* 2 28 Total Intake and Output 11/03/24 11/03/24 11/04/24 15:00 23:00 07:00 Intake Total 499.98 ml 345.78 ml 383.28 ml Output Total 900 ml 1200 ml Balance 499.98 ml -554.22 ml -816.72 ml medications Current Medications Medications Dose Ordered Sig/Cristian Route Start Time Stop Time Status Last Admin Dose Admin Midazolam HCl 50 ml @ 1 mls/hr Q24H IV 10/23/24 19:45 10/31/24 17:51 5 MLS/HR Pantoprazole Sodium 40 mg DAILY IV 10/24/24 10:00 11/04/24 09:56 40 MG Phenylephrine HCl 80 mg/Sodium Chloride 250 ml @ 7.5 mls/hr Q24H IV 10/24/24 14:30 10/25/24 02:12 26.25 MLS/HR Norepinephrine Bitartrate 32 mg/ Sodium Chloride 250 ml @ 0.938 mls/ hr Q24H IV 10/24/24 14:30 10/24/24 18:55 6.563 MLS/HR Metronidazole 100 ml @ 100 mls/hr Q8HR IV 10/25/24 13:00 11/04/24 15:41 100 MLS/HR Enteral Nutritional Formula 1,000 ml 30ML/HR GT 10/25/24 17:15 11/02/24 18:35 1,000 ML Ipratropium [place] 0.5 mg Q6HR NEB 10/26/24 06:00 11/04/24 11:33 0.5 MG Furosemide 20 mg BIDD IV 10/28/24 18:00 11/04/24 05:33 20 MG Cefepime HCl 50 ml @ 12.5 mls/hr Q8H IV 10/30/24 18:00 11/04/24 09:56 12.5 MLS/HR Sodium Chloride 10 ml QSHIFT@10,22 IV 10/31/24 22:00 11/04/24 09:56 10 ML Vancomycin HCl 0 ml @ 0 mls/hr UD IV 11/01/24 11:15 Acetaminophen 500 mg Q8HPRN PRN PO 11/02/24 09:30 Morphine Sulfate 1 mg Q4HPRN PRN IV 11/03/24 11:30 11/03/24 11:53 1 MG Vancomycin HCl 150 ml @ 150 mls/hr Q12HR@0100,1300 IV 11/04/24 01:00 11/04/24 14:16 150 MLS/HR Hydralazine HCl 10 mg Q6HP PRN IV 11/04/24 15:45 objective GENERAL: Alert and oriented x 3. No acute distress. EYES: PERRL, EOMI. Anicteric. HENT: Moist mucous membranes. LUNGS: Decreased breath sounds. CARDIOVASCULAR: Regular rate and rhythm. ABDOMEN: Soft, nontender and nondistended. EXTREMITIES: No edema. NEUROLOGIC: No focal neurological deficits. SKIN: Warm, dry. laboratory and microbiology Laboratory Tests 11/04/24 03:05 Test 11/04/24 03:05 Range/Units Serum Glucose 97 74-106 mg/dL Problem List Sepsis with acute hypoxic respiratory failure likely due to pneumonia. Paroxysmal atrial fibrillation/atrial flutter s/p DCCV,Stage 3A, now NSR. Acute on chronic decompensated HFrEF, NYHA Class III, newly diagnosed. End-stage dilated cardiomyopathy, likely ischemic given anteroseptal ST-T wave changes. NSTEMI, possibly type 1. Bilateral pleural effusions. Tobacco/alcohol dependence/?Alcohol withdrawal. Thrombocytopenia. Assessment/Plan Continued all current supportive medical care. IV antibiotics as ordered. Diuretics with Lasix. IV Hydralazine for SBP > 160. Morphine for pain management. Vasopressors for hemodynamic support. GI prophylactics. Additional plan as per the hospital course. Critical care time of 45 minutes provided to include time spent evaluation of patient at bedside, when appropriate patient/family education for diagnosis, treatment plan, review of pertinent medical information and discussion of care with specialty providers and PCP. Dietary Evaluation Review Comments: 1) TF Jevity 1.2Cal @ 50ml/hr (goal) along wth Pro-stat 1 pk BID. Start @ 20ml/hr, increase 10ml/hr Q4H until goal is reached. TF @ goal volume along with Pro-stat provides 1640 kcal (100% energy needs), 96 gm protein (100% protein needs), 968 ml free water. 2) Water flush 170ml Q6H if allowed, adjust PRN 3) TPN if NPO > 7 days 4) Monitor NPO status, lab values, wt trend, I/O Expected Outcomes/Goals: To meet >75% estimated needs Fu 2-3 days Plan discussed with: Patient MESERET MOTLEY MD Nov 04, 2024 17:05
[2024-11-05] VITALS (111 sets, daily range): BP systolic 100–152; BP diastolic 58–106; PULSE 57–142; RESP 8–35; TEMP 97–98.6; O2SAT 92–100
[2024-11-05 03:40] LABS: Hematocrit 46.5 % (41.0-53.0); Hemoglobin 16.0 g/dL (13.5-17.5); Mean Corpuscular Hemoglobin 32.2 pg (28.0-32.0); Mean Corpuscular Volume 93.8 fL (80.0-100.0); Nucleated Red Blood Cells % 0.1 %
[2024-11-05 03:48] LABS: Anion Gap 12 (5-15); Carbon Dioxide 22 mmol/L (20-31); Potassium 3.9 mmol/L (3.5-5.1); Sodium 143 mmol/L (136-145)
[2024-11-05 03:49] LABS: Calcium 9.9 mg/dL (8.7-10.4)
[2024-11-05 03:53] LABS: Chloride 109 mmol/L (98-107)
[2024-11-05 03:54] LABS: BUN/Creatinine Ratio 27.7 (10.0-20.0); Blood Urea Nitrogen 33 mg/dL (9-23); Glucose 102 mg/dL (74-106)
[2024-11-05] MEDS: SODIUM CHLORIDE 0.9% 1,000 ML IV SCH (08:15)
[2024-11-05] MEDS: METOPROLOL TARTRATE 1MG/1ML-5ML VIAL IV SCH (08:20)
--- NOTE | 2024-11-05 08:30 | DVHPN2 ---
Subjective AFib with RVR 130s Reviewed: Care Plan, H&P, Labs, Medications, Previous Orders, Radiology Changes from previous H/P or p: No Changes General: Per HPI Objective Vitals Vital Signs Date Time Temp Pulse Resp B/P (MAP) Pulse Ox O2 Delivery O2 Flow Rate FiO2 11/05/24 08:00 16 97 Nasal Cannula* 2 28 11/05/24 08:00 136 11/05/24 07:15 133/86 (102) 11/05/24 04:00 98.3 98.3 Intake/Output Intake and Output 11/05/24 07:00 Intake Total 1166.51 ml Output Total 1525 ml Balance -358.49 ml IV Total 1166.51 ml Output Urine Total 1525 ml # Bowel Movements 2 General Appearance: Alert, Oriented X3, Cooperative, Other (intubated) HEENT: Atraumatic Lungs: Clear to auscultation Cardiovascular: Regular rate, Other (AV with RVR) Abdomen: Normal bowel sounds Medications Current Medications Medications Dose Ordered Sig/Cristian Route Start Time Stop Time Status Last Admin Dose Admin Midazolam HCl 50 ml @ 1 mls/hr Q24H IV 10/23/24 19:45 10/31/24 17:51 5 MLS/HR Pantoprazole Sodium 40 mg DAILY IV 10/24/24 10:00 11/04/24 09:56 40 MG Phenylephrine HCl 80 mg/Sodium Chloride 250 ml @ 7.5 mls/hr Q24H IV 10/24/24 14:30 10/25/24 02:12 26.25 MLS/HR Norepinephrine Bitartrate 32 mg/ Sodium Chloride 250 ml @ 0.938 mls/ hr Q24H IV 10/24/24 14:30 10/24/24 18:55 6.563 MLS/HR Metronidazole 100 ml @ 100 mls/hr Q8HR IV 10/25/24 13:00 11/05/24 06:25 100 MLS/HR Enteral Nutritional Formula 1,000 ml 30ML/HR GT 10/25/24 17:15 11/02/24 18:35 1,000 ML Ipratropium [place] 0.5 mg Q6HR NEB 10/26/24 06:00 11/05/24 06:21 0.5 MG Furosemide 20 mg BIDD IV 10/28/24 18:00 11/05/24 06:25 20 MG Cefepime HCl 50 ml @ 12.5 mls/hr Q8H IV 10/30/24 18:00 11/05/24 02:01 12.5 MLS/HR Sodium Chloride 10 ml QSHIFT@10,22 IV 10/31/24 22:00 11/04/24 22:00 10 ML Vancomycin HCl 0 ml @ 0 mls/hr UD IV 11/01/24 11:15 Acetaminophen 500 mg Q8HPRN PRN PO 11/02/24 09:30 Morphine Sulfate 1 mg Q4HPRN PRN IV 11/03/24 11:30 11/03/24 11:53 1 MG Vancomycin HCl 150 ml @ 150 mls/hr Q12HR@0100,1300 IV 11/04/24 01:00 11/05/24 01:06 150 MLS/HR Hydralazine HCl 10 mg Q6HP PRN IV 11/04/24 15:45 Sodium Chloride 1,000 ml @ 100 mls/hr Q10H IV 11/05/24 08:15 UNV Metoprolol Tartrate 25 mg BID PO 11/05/24 10:00 UNV Metoprolol Tartrate 5 mg Q5M IV 11/05/24 08:15 UNV Laboratory Results Laboratory Tests 11/05/24 03:05 Chemistry Test 11/05/24 03:05 Calcium Level 9.9 mg/dL (8.7-10.4) Urinalysis Test 10/23/24 19:42 10/25/24 13:15 Urine Color Yellow (Yellow) Urine Clarity Clear (Clear) Urine pH 6.0 (5.0-9.0) Urine Specific [place] 1.018 (1.001-1.035) Urine Protein 2+ (Negative) H Urine Ketones Negative (Negative) Urine Blood Negative /uL (Negative) Urine Nitrite Negative (Negative) Urine Bilirubin Negative (Negative) Urine Urobilinogen Normal mg/dL (Negative) Urine Leukocyte Esterase Negative /uL (Negative) Urine RBC 5 /hpf (0 - 3) Urine Microscopic WBC 4 /HPF (0-3) H Urine Squamous Epithelial Cells None seen /hpf (<5) Urine Bacteria Few /hpf (None Seen) H Urine Glucose Normal mg/dL (Normal) Urine Osmolality 290 mOsm/kg Urine Creatinine 18.09 mg/dL (30.0-125.0) L Urine Sodium 111 mmol/L (40-220) Urine Total Protein 46.2 mg/dL (1-14) H Blood Gas Results Test 11/04/24 09:23 Arterial Blood pH 7.399 (7.350-7.450) FiO2 % 30.0 Microbiology Microbiology Date/Time Source Procedure Growth Status 10/28/24 10:50 Bronchial Washings Gram Stain - Final Complete 10/28/24 10:50 Respiratory Culture - Final Presumptive Sharon albicans Complete 10/25/24 10:45 Nose MRSA Screen - Final Complete 10/24/24 13:23 Voided Urine Urine Culture - Final Complete 10/23/24 19:48 Blood Blood Culture - Final NO GROWTH AFTER 5 DAYS OF INCUBATION. Complete Assessment/Plan Assessment/Plan Problem List/Assessment/Plan Sepsis with acute hypoxic respiratory failure likely due to pneumonia Paroxysmal atrial fibrillation/atrial flutter s/p DCCV,Stage 3A, now NSR Acute on chronic decompensated HFrEF, NYHA Class III, newly diagnosed End-stage dilated cardiomyopathy, likely ischemic given anteroseptal ST-T wave changes NSTEMI, possibly type 1 Bilateral pleural effusions Tobacco/alcohol dependence/?Alcohol withdrawal Thrombocytopenia Plan/Recommendation (Dr. Cantu) 11/05/24 -- AFib with RVR in 130s. He was initially started on amiodarone infusion and was on 0.5mg/min without significant improvement in heart rate control. Currently, the patient remains AFib with RVR despite ongoing amiodarone therapy. He is hemodynamically stable at this time. Plan includes IV metoprolol push (5 mg Q 5 minute times up to 3 doses), followed by oral metoprolol tartrate 25 mg b.i.d. for rate control, as well as checking magnesium levels with repletion as needed. IV normal saline 100 mL/hr for volume support. Close monitoring and reassessment or ongoing 11/04/24 --A discrepancy in ejection fraction assessment. Transthoracic echocardiogram reports EF of 20%, however, left ventriculography demonstrates EF of 60%. Case discussed with Dr. Cantu. Given the limitation of echocardiographic windows in the more reliable visualization on ventriculography in this instance, we will proceed with the ventriculography findings and consider the EF to be 60%. * Transthoracic echocardiogram revealed LVEF 20% * Initiate guideline directed medical therapy for CHF with stable BP and renal function * Antiarrhythmic therapy, amiodarone * Hold single-antiplatelet therapy given thrombocytopenia * Hold statin given elevated LFTs * Preload reduction as tolerated * Strict I&Os. Daily weight. Fluid restriction * Therapeutic Lovenox held. Restart with stable platelet level * [id number] Score 1 point. HAS-BLED Score 2 points * Continue SCDs in the meantime * Replete electrolytes as necessary, K>4 and Mg>2 * Monitor ECG changes closely and notify Plan discussed with the primary care team. Patient was on CPAP trial today, completely off sedation and able to follow all commands. Plan for coronary angiogram with left heart catheterization today 11/03/2024. Thank you for giving us the opportunity to take care of your patient. Please call back if any question/concern. Plan discussed with: Patient My Orders Orders - BERENICE KNIGHT Procedure Category Date Status Time Magnesium LAB 11/05/24 Logged 08:12 Sodium Chloride 0.9% PHA 11/05/24 Logged 08:15 Metoprolol Tartrate PHA 11/05/24 Logged Tablet (Lopressor Ta 10:00 Metoprolol Inj PHA 11/05/24 Logged (Lopressor) 08:15 Date of Service: Nov 05, 2024 Billing Provider: SANDRINE CANTU Sr., MD Common Visit Codes: CONSULT ONLY Consultation Codes: [id number] CONSULT <45MIN BERENICE KNIGHT Nov 05, 2024 08:30
--- NOTE | 2024-11-05 08:57 | DVHPN2 ---
Reviewed: Care Plan, H&P, Labs, Medications, Previous Orders, Radiology Changes from previous H/P or p: No Changes General: Per HPI Objective Vitals Vital Signs Date Time Temp Pulse Resp B/P (MAP) Pulse Ox O2 Delivery O2 Flow Rate FiO2 11/05/24 08:00 16 97 Nasal Cannula* 2 28 11/05/24 08:00 136 11/05/24 07:15 133/86 (102) 11/05/24 04:00 98.3 98.3 Intake/Output Intake and Output 11/05/24 07:00 Intake Total 1166.51 ml Output Total 1525 ml Balance -358.49 ml IV Total 1166.51 ml Output Urine Total 1525 ml # Bowel Movements 2 General Appearance: Alert, Oriented X3, Cooperative, Other (intubated) HEENT: Atraumatic Lungs: Clear to auscultation Cardiovascular: Regular rate, Normal S1, Normal S2 Abdomen: Normal bowel sounds Medications Current Medications Medications Dose Ordered Sig/Cristian Route Start Time Stop Time Status Last Admin Dose Admin Midazolam HCl 50 ml @ 1 mls/hr Q24H IV 10/23/24 19:45 10/31/24 17:51 5 MLS/HR Pantoprazole Sodium 40 mg DAILY IV 10/24/24 10:00 11/04/24 09:56 40 MG Phenylephrine HCl 80 mg/Sodium Chloride 250 ml @ 7.5 mls/hr Q24H IV 10/24/24 14:30 10/25/24 02:12 26.25 MLS/HR Norepinephrine Bitartrate 32 mg/ Sodium Chloride 250 ml @ 0.938 mls/ hr Q24H IV 10/24/24 14:30 10/24/24 18:55 6.563 MLS/HR Metronidazole 100 ml @ 100 mls/hr Q8HR IV 10/25/24 13:00 11/05/24 06:25 100 MLS/HR Enteral Nutritional Formula 1,000 ml 30ML/HR GT 10/25/24 17:15 11/02/24 18:35 1,000 ML Ipratropium [place] 0.5 mg Q6HR NEB 10/26/24 06:00 11/05/24 06:21 0.5 MG Furosemide 20 mg BIDD IV 10/28/24 18:00 11/05/24 06:25 20 MG Cefepime HCl 50 ml @ 12.5 mls/hr Q8H IV 10/30/24 18:00 11/05/24 02:01 12.5 MLS/HR Sodium Chloride 10 ml QSHIFT@10,22 IV 10/31/24 22:00 11/04/24 22:00 10 ML Vancomycin HCl 0 ml @ 0 mls/hr UD IV 11/01/24 11:15 Acetaminophen 500 mg Q8HPRN PRN PO 11/02/24 09:30 Morphine Sulfate 1 mg Q4HPRN PRN IV 11/03/24 11:30 11/03/24 11:53 1 MG Vancomycin HCl 150 ml @ 150 mls/hr Q12HR@0100,1300 IV 11/04/24 01:00 11/05/24 01:06 150 MLS/HR Hydralazine HCl 10 mg Q6HP PRN IV 11/04/24 15:45 Sodium Chloride 1,000 ml @ 100 mls/hr Q10H IV 11/05/24 08:15 Metoprolol Tartrate 25 mg BID PO 11/05/24 10:00 Laboratory Results Laboratory Tests 11/05/24 03:05 Chemistry Test 11/05/24 03:05 Calcium Level 9.9 mg/dL (8.7-10.4) Magnesium Level Pending Urinalysis Test 10/23/24 19:42 10/25/24 13:15 Urine Color Yellow (Yellow) Urine Clarity Clear (Clear) Urine pH 6.0 (5.0-9.0) Urine Specific [place] 1.018 (1.001-1.035) Urine Protein 2+ (Negative) H Urine Ketones Negative (Negative) Urine Blood Negative /uL (Negative) Urine Nitrite Negative (Negative) Urine Bilirubin Negative (Negative) Urine Urobilinogen Normal mg/dL (Negative) Urine Leukocyte Esterase Negative /uL (Negative) Urine RBC 5 /hpf (0 - 3) Urine Microscopic WBC 4 /HPF (0-3) H Urine Squamous Epithelial Cells None seen /hpf (<5) Urine Bacteria Few /hpf (None Seen) H Urine Glucose Normal mg/dL (Normal) Urine Osmolality 290 mOsm/kg Urine Creatinine 18.09 mg/dL (30.0-125.0) L Urine Sodium 111 mmol/L (40-220) Urine Total Protein 46.2 mg/dL (1-14) H Blood Gas Results Test 11/04/24 09:23 Arterial Blood pH 7.399 (7.350-7.450) FiO2 % 30.0 Microbiology Microbiology Date/Time Source Procedure Growth Status 10/28/24 10:50 Bronchial Washings Gram Stain - Final Complete 10/28/24 10:50 Respiratory Culture - Final Presumptive [place] albicans Complete 10/25/24 10:45 Nose MRSA Screen - Final Complete 10/24/24 13:23 Voided Urine Urine Culture - Final Complete 10/23/24 19:48 Blood Blood Culture - Final NO GROWTH AFTER 5 DAYS OF INCUBATION. Complete Labs and/or images reviewed: Labs reviewed by me, Image(s) reviewed by me Assessment/Plan Assessment/Plan Neurology # acute toxic vs metabolic encephalopathy # possible alcohol withdrawal # hx of withdrawal seizures? # Sedated - head CT: No acute intracranial abnormality - IV banana bag once - Versed 5 mcg per hour Cardiovascular # septic shock due to pneumonia # atrial flutter with hemodynamic instability, s/p cardioversion x2 # NSTEMI 1 vs 2 # End- stage dilated cardiomyopathy # Heart failure with reduced ejection fraction <20% # Prolonged QTC - amiodarone drip - cardiology on board - norepinephrine at 10 micrograms/hour - amiodarone drip at 0.5mg/min - phenylephrine at 15mcg/min - IV digoxin 500mcg x 2 - serum digoxin level 3.69 5 hours after 2nd dose in 24 hours after 1st dose - repeat serum digoxin level 1.85 - underwent left heart cath 11/03/24 Respiratory # Acute hypoxic respiratory failure # community-acquired pneumonia, Gram-positive versus Gram-negative # Ventilator # ruled out pulmonary embolism -intubated (10/23/24) -on [facility] vent : VCAC Mode RR 20 TV 500ml, PEEP Of 6 and FiO2 of 30% - CXR: Moderate interstitial pulmonary edema in the setting of cardiomegaly. Probable trace bilateral effusions. - CT angio: No evidence of pulmonary embolism. Pulmonary edema. Large bilateral pleural effusions. Associated consolidation of the majority of bilateral lower lobes independent portions of the remaining lobes of the lung. Cirrhotic liver. Small amount of ascites in the visualized upper abdomen. - chest ultrasound: Small bilateral pleural effusion, trace ascites. - IV lasix 20mg bid - IV cefepime, IV metronidazole GI # Hx of GI bleed # cirrhosis, MELD 19 # Hx of portal hypertension gastropathy # mild abdominal ascites # Peptic ulcer prophylaxis -Pantoprazole 40 mg IV daily # Greenberg catheter placed on 10/23/24 - urine culture Nephrology # Hyperkalemia # DMITRIY likely ATN/VMN on ?CKD (GFR 70 on admission, unknown baseline) - monitor - nephrology on board; recommended to start lokelma qD if hyperkalemia persists, holding for now as last serum K 3.9 - IV Lasix 20 mg bid Infectious disease # community acquired pneumonia, gram + vs -ve # Influenza B positive - IV cefepime - IV metronidazole - Oseltamivir - off norepinephrine - off phenylephrine at 15mcg/min - respiratory, blood, urine cultures - resp cx growing clifford Hem/onc # mild normocytic anemia # ruled out lower extremity DVT # thrombocytopenia Psychiatry # Alcohol use disorder # hx of depression 11/04/2024 pt was extubated early this AM doing well so far discussed with nursing. Pt is alert and awake 11/05/2024 can be downgraded to Telemetry once HR is more controlled still on amiodarone HR is in the 140's. Cardio aware and ordered labetalol rash in the ada-scrotal area seen, keep dry and remove Greenberg's Plan discussed with: Patient My Orders Orders - MALENA RHODES DO Procedure Category Date Status Time *Consult CONS 11/04/24 Transmitted / 10:34 * Swallow Request ST 11/04/24 Transmitted 12:02 Pt Request For Service PT 11/04/24 Logged 12:02 Hydralazine Injection PHA 11/04/24 In Process (Apresoline Inject 15:45 Electrocardigram EKG 11/05/24 Logged 07:52 Date of Service: Nov 05, 2024 Billing Provider: MALENA RHODES DO Common Visit Codes: [id number] CARE 30-74 MIN MALENA RHODES DO Nov 05, 2024 08:57
[2024-11-05] MEDS: METOPROLOL TARTRATE 25 MG TAB PO SCH (09:08)
[2024-11-05] MEDS: AMIODARONE 360mg/200mL PREMIX 200 ML IV SCH (09:40)
[2024-11-05] MEDS ORDERED: AMIODARONE HCL 200 MG TAB PO ONE (12:30)
[2024-11-05] MEDS ORDERED: AMIODARONE 360mg/200mL PREMIX 200 ML IV SCH (13:07)
--- NOTE | 2024-11-05 16:04 | DVH ---
EXAM DESCRIPTION: CT CT AB PEL WO CON-NO ORAL OR IV CLINICAL HISTORY: ABD PAIN COMPARISON: CT ABD PELVIS WO CONTRAST on DOS: 11/26/19 TECHNIQUE: CT abdomen and pelvis without IV contrast was performed. Coronal and sagittal MPR images were generat ed.CTDI/ DLP = 10.76 mGy / 604.66 mGy.cm Dose reduction technique with one or more of the following methods was performed: Automated exposure control, adjustment of the mA and/or kV according to patient size, use of iterative reconstruction te chnique FINDINGS: Lower chest: Bibasilar subsegmental atelectasis. Multivessel coronary artery disease. Liver: Nodular cirrhotic liver. Subcentimeter hypoattenuating lesions which are too small to characte rize on CT.. Biliary: A few small gallstones in the gallbladder. High density material in the gallbladder which ma y represent vicarious excretion of contrast. The gallbladder is relatively decompressed. No perichole cystic fluid. No biliary ductal dilatation. Pancreas: No fat stranding or focal lesion. Spleen: Normal in size.. Adrenal glands: No nodularity. Kidneys: No nephrolithiasis. No hydroureteronephrosis. . Bladder: Decompressed via Greenberg catheter. Reproductive organs: Normal. Bowel: Colonic diverticulosis with focal wall thickening and pericolonic fat straining at the distal colon at the left lower quadrant. No evidence of perforation or abscess. Normal appendix. The small b owel demonstrates normal caliber and wall thickness. . Peritoneum: No free fluid. No free air. Vessels: Normal caliber abdominal aorta. Mild atherosclerotic calcifications.. Lymph nodes: No suspicious lymph nodes. Soft tissues: Unremarkable. . Osseous structures: Mild height loss of the L1 vertebral body with an irregular defect in the left si de of the vertebral body extending through the both endplates, new from 11/26/2019. No suspicious oss eous lesions. Degenerative changes of the visualized thoracolumbar spine. IMPRESSION: 1. Findings suggestive of acute colonic diverticulitis at the left lower quadrant. No evidence of per foration or abscess. Recommend follow-up with colonoscopy as an underlying mass cannot be excluded. 2. Mild compression fracture of the L1 vertebral body with an irregular defect extending through both endplates, new from Recommend further evaluation with MRI lumbar spine with IV contrast. 3. Cholelithiasis without evidence of acute cholecystitis. 4. Cirrhotic liver. 5. Coronary artery disease.
[2024-11-05] MEDS ORDERED: AMIODARONE HCL 200 MG TAB PO SCH (22:00)
--- NOTE | 2024-11-05 23:17 | DVHPN2 ---
Progress Note - Dictate Date Seen: Nov 05, 2024 Has the PT tested + for MRSA If YES, has PT been informed?: No Medical Necessity Reason Pt with a Central, PICC or Fol: Yes The following are medically ne: Central Line, Hirsch Catheter Reason for hirsch catheter: Strict I&O Subjective Patient seen and examined at bedside. S/p extubation, on supplemental oxygen Overnight events reviewed. vital signs Vital Sign Date Time Temp Pulse Resp B/P (MAP) Pulse Ox O2 Delivery O2 Flow Rate FiO2 11/05/24 22:00 72 11/05/24 22:00 21 97 Nasal Cannula* 2 28 11/05/24 21:58 113/76 (88) 11/05/24 20:43 98.6 98.6 Total Intake and Output 11/04/24 11/04/24 11/05/24 15:00 23:00 07:00 Intake Total 383.28 ml 433.28 ml 433.28 ml Output Total 675 ml 850 ml Balance 383.28 ml -241.72 ml -416.72 ml medications Current Medications Medications Dose Ordered Sig/Cristian Route Start Time Stop Time Status Last Admin Dose Admin Midazolam HCl 50 ml @ 1 mls/hr Q24H IV 10/23/24 19:45 10/31/24 17:51 5 MLS/HR Pantoprazole Sodium 40 mg DAILY IV 10/24/24 10:00 11/05/24 09:07 40 MG Phenylephrine HCl 80 mg/Sodium Chloride 250 ml @ 7.5 mls/hr Q24H IV 10/24/24 14:30 10/25/24 02:12 26.25 MLS/HR Norepinephrine Bitartrate 32 mg/ Sodium Chloride 250 ml @ 0.938 mls/ hr Q24H IV 10/24/24 14:30 10/24/24 18:55 6.563 MLS/HR Metronidazole 100 ml @ 100 mls/hr Q8HR IV 10/25/24 13:00 11/05/24 21:39 100 MLS/HR Enteral Nutritional Formula 1,000 ml 30ML/HR GT 10/25/24 17:15 11/02/24 18:35 1,000 ML Ipratropium [place] 0.5 mg Q6HR NEB 10/26/24 06:00 11/05/24 18:28 0.5 MG Furosemide 20 mg BIDD IV 10/28/24 18:00 11/05/24 18:32 20 MG Cefepime HCl 50 ml @ 12.5 mls/hr Q8H IV 10/30/24 18:00 11/05/24 18:32 12.5 MLS/HR Sodium Chloride 10 ml QSHIFT@10,22 IV 10/31/24 22:00 11/05/24 22:00 10 ML Vancomycin HCl 0 ml @ 0 mls/hr UD IV 11/01/24 11:15 Acetaminophen 500 mg Q8HPRN PRN PO 11/02/24 09:30 Morphine Sulfate 1 mg Q4HPRN PRN IV 11/03/24 11:30 11/03/24 11:53 1 MG Vancomycin HCl 150 ml @ 150 mls/hr Q12HR@0100,1300 IV 11/04/24 01:00 11/05/24 14:09 150 MLS/HR Hydralazine HCl 10 mg Q6HP PRN IV 11/04/24 15:45 Sodium Chloride 1,000 ml @ 100 mls/hr Q10H IV 11/05/24 08:15 11/05/24 08:15 100 MLS/HR Metoprolol Tartrate 25 mg BID PO 11/05/24 10:00 11/05/24 09:08 25 MG objective Gen.: Patient lying in bed in no apparent distress. On supplemental oxygen. Head: Normocephalic, atraumatic. Eyes: EOMI/PERRLA. Ears: Normal hearing. Normal anatomy. Neck/trachea: Trachea midline, supple. Nose: Normal external anatomy. Mouth: Moist mucous membranes. Chest: Decreased air entry bilaterally. No wheezing or rhonchi. Cardiovascular: Positive S1, positive S2. Regular rate and rhythm. Abdomen: Positive bowel sounds in all 4 quadrants. Soft, non-tender, non- distended. : Deferred. Rectal: Deferred. Skin: Warm, dry. Intact. Extremities: 2+ radial pulses bilaterally. No lower extremity edema. Neuro: Awake, alert, oriented x3. No gross motor or sensory deficits. Cranial nerves II through XII intact. Gait not assessed. laboratory and microbiology Laboratory Tests 11/05/24 11:40 11/05/24 03:05 Test 11/05/24 03:05 Range/Units Serum Glucose 102 74-106 mg/dL Assessment/Plan Impression Acute hypoxemic respiratory failure Mechanical ventilation, s/p extubation Sepsis Atrial fibrillation Cardiomyopathy Influenza B Pneumonia CHF Events Patient tolerated CPAP and was extubated uneventfully Currently on 2 LPM NC Taper O2 as tolerated. No distress On amiodarone drip - increased heart rate IV fluids at 100 ml/hr. Follow up Cardiology recs. On beta isra per Cardiology - Lopressor Continue abx Sputum cultures grew Sharon albicans, likely colonizer. Patient is out of bed to chair. CT abdomen-pelvis revealed diverticulitis with no evidence of perforation or abscess. Mild compression fracture of L1 vertebral body Cholelithiasis without evidence of acute cholecystitis. Cirrhotic liver. Coronary artery disease. Labs and imaging reviewed Plan: S/p extubation On supplemental oxygen Titrate to keep O2 sats above 90%. Continue antibiotics F/u cultures Bronchodilators Blood pressure control Maintain euvolemia Monitor renal function Monitor electrolytes Supplement as needed Pressors as needed for hemodynamic support To maintain a mean arterial pressure of 65 mmHg DVT prophylaxis Prognosis: Poor given patient's multiple co-morbidities. Condition: Critical Rest of plan per hospitalist and other consultants. A total of 35 minutes of critical care time was spent reviewing the patient record, examining the patient, making a diagnostic and therapeutic plan, discussing this plan with the medical personnel, following up on diagnostic studies and following the patient for clinical stability excluding any and all procedures. At least 50% of this time was spent in direct, [id number] contact. Thank you, Dr. Morales, for allowing me to participate in this patient's care. Further recommendations will depend on the patient's clinical course. Please do not hesitate to contact me if you have any questions or concerns. This medical document was created using an electronic medical record system with [employer] dictation system. Although these documentations are being carefully reviewed, there may still be some phonetic and typographical changes. The errors are purely typographical, due to imperfection on the software program, and do not reflect any compromise in the patient's medical care. Dietary Evaluation Review Comments: 1) TF Jevity 1.2Cal @ 50ml/hr (goal) along wth Pro-stat 1 pk BID. Start @ 20ml/hr, increase 10ml/hr Q4H until goal is reached. TF @ goal volume along with Pro-stat provides 1640 kcal (100% energy needs), 96 gm protein (100% protein needs), 968 ml free water. 2) Water flush 170ml Q6H if allowed, adjust PRN 3) TPN if NPO > 7 days 4) Monitor NPO status, lab values, wt trend, I/O Expected Outcomes/Goals: To meet >75% estimated needs Fu 2-3 days Plan discussed with: Other (JAMSHID Wray) Critical Care Time(min): 35 BRENT PICKERING MD Nov 05, 2024 23:17
[2024-11-06] VITALS (110 sets, daily range): BP systolic 60–162; BP diastolic 41–114; PULSE 45–144; RESP 10–32; TEMP 97.8–99.2; O2SAT 86–100
[2024-11-06 03:51] LABS: Hematocrit 42.3 % (41.0-53.0); Hemoglobin 14.4 g/dL (13.5-17.5); Mean Corpuscular Hemoglobin 31.8 pg (28.0-32.0); Mean Corpuscular Volume 93.8 fL (80.0-100.0); Nucleated Red Blood Cells % 0.1 %
[2024-11-06 04:05] LABS: Anion Gap 11 (5-15); Sodium 140 mmol/L (136-145)
[2024-11-06 04:11] LABS: BUN/Creatinine Ratio 28.7 (10.0-20.0); Glucose 79 mg/dL (74-106)
[2024-11-06 04:33] LABS: Blood Urea Nitrogen 27 mg/dL (9-23); Calcium 8.1 mg/dL (8.7-10.4); Carbon Dioxide 19 mmol/L (20-31); Chloride 110 mmol/L (98-107); Potassium 3.4 mmol/L (3.5-5.1)
[2024-11-06] MEDS: POTASSIUM CHL 20MEQ/100ML 100 ML IV ONE (05:56)
--- NOTE | 2024-11-06 10:37 | ECG ---
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
--- NOTE | 2024-11-06 10:40 | ECG ---
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
[2024-11-06] MEDS: VANCOMYCIN 750mg/150ml 150 ML IV SCH (12:44)
--- NOTE | 2024-11-06 12:56 | ECG ---
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
[2024-11-06] MEDS: METOPROLOL TARTRATE 25 MG TAB PO ONE (13:20)
[2024-11-06] MEDS: AMIODARONE HCL 200 MG TAB PO ONE (15:41)
[2024-11-06] MEDS: MAGNESIUM SULFATE 1GM/100ML 100 ML IV ONE (17:17)
--- NOTE | 2024-11-06 17:34 | DVHPNRES ---
Progress Note Date Seen: Nov 06, 2024 Resident Creating Document: RAISA TIAN RESIDENT Has the PT tested + for MRSA If YES, has PT been informed?: No Medical Necessity Reason Pt with a Central, PICC or Fol: Yes Reason for hirsch catheter: Strict I&O Subjective Review of Systems Manoj Winkler is a 54-year-old male with liver cirrhosis, portal hypertension, and chronic alcohol use presented with severe shortness of breath and was found in atrial fibrillation with RVR. He underwent synchronized cardioversion and was intubated on 10/25/2024. History was obtained from family due to the patients condition. He developed hypotension and hyperkalemia overnight; amiodarone was briefly held and later resumed with digoxin added. He tested positive for Influenza B and was started on Tamiflu. Respiratory cultures grew Clifford albicans. Vancomycin was added on 11/01 due to fever. Liver function initially worsened but later improved. Chest imaging showed bilateral pulmonary edema and pleural effusions. A PICC line was placed, and CPAP trials began on 10/31. The patient had intermittent fevers and decreased alertness but was following commands. On 11/03, he underwent a left heart catheterization. Tracheostomy is under consideration pending respiratory stability., left heart showed EF 60% with a normal LVEDP. Patient was extubated on , initially on nasal cannula and transferred to room air. And removed TLC. And on technology sales consultant evaluated the patient and discontinued amiodarone drip and p.o. amiodarone, switched to metoprolol tartrate 25 mg p.o. b.i.d.. Patient seen and examined at the bedside. Patient reported no active complaints at this time. Swallow eval done, started on clear liquids as patient new CT ABD/pelvis is showing acute left-sided colonic diverticulitis. Continue cefepime, Flagyl and discontinued vancomycin. Replenish electrolytes. Today patient again started having AFib with RVR, started on amiodarone 200 mg p.o. b.i.d. along with low-dose 2.5 mg Eliquis b.i.d.. Continuously monitor lab Patient reports: Feels better Objective vital signs Vital Sign Date Time Temp Pulse Resp B/P (MAP) Pulse Ox O2 Delivery O2 Flow Rate FiO2 11/06/24 16:00 126 11/06/24 16:00 28 95 Nasal Cannula* 2 11/06/24 15:57 97.9 99/72 (81) 97.9 Total Intake and Output 11/05/24 11/05/24 11/06/24 15:00 23:00 07:00 Intake Total 1183.30 ml 1150.0 ml 1050.0 ml Output Total 1175 ml 1050 ml Balance 1183.30 ml -25.0 ml 0 ml medications Current Medications Medications Dose Ordered Sig/Cristian Route Start Time Stop Time Status Last Admin Dose Admin Pantoprazole Sodium 40 mg DAILY IV 10/24/24 10:00 11/06/24 10:25 40 MG Norepinephrine Bitartrate 32 mg/ Sodium Chloride 250 ml @ 0.938 mls/ hr Q24H IV 10/24/24 14:30 10/24/24 18:55 6.563 MLS/HR Metronidazole 100 ml @ 100 mls/hr Q8HR IV 10/25/24 13:00 11/06/24 14:11 100 MLS/HR Ipratropium [place] 0.5 mg Q6HR NEB 10/26/24 06:00 11/06/24 11:59 0.5 MG Cefepime HCl 50 ml @ 12.5 mls/hr Q8H IV 10/30/24 18:00 11/06/24 10:25 12.5 MLS/HR Sodium Chloride 10 ml QSHIFT@10,22 IV 10/31/24 22:00 11/06/24 10:25 10 ML Acetaminophen 500 mg Q8HPRN PRN PO 11/02/24 09:30 Morphine Sulfate 1 mg Q4HPRN PRN IV 11/03/24 11:30 11/03/24 11:53 1 MG Hydralazine HCl 10 mg Q6HP PRN IV 11/04/24 15:45 Metoprolol Tartrate 25 mg BID PO 11/05/24 10:00 11/06/24 10:26 25 MG Amiodarone HCl 200 mg Q12HR PO 11/06/24 22:00 Apixaban 2.5 mg BID PO 11/06/24 22:00 UNV Examination Pt is lying on bed General Appearance: Alert, Oriented X3, Cooperative, Not in acute distress HEENT: Atraumatic, Mucous membranes moist/pink Respiratory: Clear to auscultation, Normal air movement, No added sounds Cardiovascular: Irregularly irregular rate, Normal S1, Normal S2, No murmurs Abdominal: Active bowel sounds, Soft, no distention, no tenderness Extremities: No edema, Normal pulses, No tenderness/swelling Skin: No Significant rash Neuro: Normal speech, sensorimotor deficits none Psych/Mental Status: Mental status NL, Mood NL Nurse was there as coke drawer during examination laboratory and microbiology Laboratory Tests 11/06/24 02:56 Test 11/06/24 02:56 Range/Units Serum Glucose 79 74-106 mg/dL Microbiology Date/Time Source Procedure Growth Status 10/28/24 10:50 Bronchial Washings Gram Stain - Final Complete 10/28/24 10:50 Respiratory Culture - Final Presumptive Clifford albicans Complete 10/25/24 10:45 Nose MRSA Screen - Final Complete 10/24/24 13:23 Voided Urine Urine Culture - Final Complete 10/23/24 19:48 Blood Blood Culture - Final NO GROWTH AFTER 5 DAYS OF INCUBATION. Complete Labs and/or images reviewed: Labs reviewed by me, Image(s) reviewed by me Problem List/Assessment/Plan Problem List/Assessment/Plan Neurology # Acute toxic vs metabolic encephalopathy-resolving # possible alcohol withdrawal # hx of withdrawal seizures - head CT: No acute intracranial abnormality - IV banana bag once Cardiovascular # Septic shock due to pneumonia-improving # atrial flutter with hemodynamic instability, s/p cardioversion x2 # AFib with RVR with a secondary hypercoagulable state # NSTEMI likely type 2 # End- stage dilated cardiomyopathy # Heart failure with reduced ejection fraction <20% but ventriculogram showed more than 60 # Prolonged QTC - amiodarone drip and p.o. discontinued on 11/05 again today started on 200 mg p.o. b.i.d. due to AFib with RVR - cardiology on board - discontinued eventually vasopressors on the day of extubation - IV digoxin 500mcg x 2, later discontinued - repeat serum digoxin level 1.85 - underwent left heart cath 11/03/24-normal LVEDP with a normal EF 60% and no significant CAD Respiratory # Acute hypoxic respiratory failure status post extubation on 11/04 # community-acquired pneumonia, Gram-positive versus Gram-negative # ruled out pulmonary embolism -intubated (10/23/24)-extubated on 11/04 -currently on room air - CXR: Moderate interstitial pulmonary edema in the setting of cardiomegaly. Probable trace bilateral effusions. - CT angio: No evidence of pulmonary embolism. Pulmonary edema. Large bilateral pleural effusions. Associated consolidation of the majority of bilateral lower lobes independent portions of the remaining lobes of the lung. Cirrhotic liver. Small amount of ascites in the visualized upper abdomen. - chest ultrasound: Small bilateral pleural effusion, trace ascites. - IV lasix 20mg bid-discontinued 11/06 - IV cefepime, IV metronidazole GI # Hx of GI bleed # cirrhosis, MELD 19 # Hx of portal hypertension gastropathy # mild abdominal ascites # Peptic ulcer prophylaxis # acute colonic diverticulitis # cholelithiasis -continue current IV antibiotics -CT abd//pelvis showed acute left diverticulitis, cholelithiasis, cirrhosis -clear liquids for now -Pantoprazole 40 mg IV daily /Nephrology # Hyperkalemia # Hypokalemia - Repleting - Monitor lab # DMITRIY likely ATN/VMN on ?CKD (GFR 70 on admission, unknown baseline) - monitor - nephrology on board; recommended to start lokelma qD if hyperkalemia persists, holding for now as last serum K 3.9 - IV Lasix 20 mg bid-discontinued Infectious disease # community acquired pneumonia, gram + vs -ve-resolving # Influenza B positive-likely resolved - IV cefepime - IV metronidazole - Oseltamivir, discontinued - respiratory, blood, urine cultures, no growth - resp cx growing clifford Hem/onc # mild normocytic anemia # ruled out lower extremity DVT # thrombocytopenia - lower extremity Doppler: No right or left lower extremity deep vein thrombosis. -continuously monitoring lab and platelets normal level Psychiatry # Alcohol use disorder # hx of depression - outpatient psychiatry follow up versus psychiatry consult upon extubation DVT prophylaxis: Eliquis 2.5 mg b.i.d. Nutrition: Clear liquid diet Lines Right PICC line placed on 10/31/2024 Discontinued TLC Drips Fentanyl and Versed discontinued on 11/04 Intubated on 10/23/24 Extubation 11/04 Critical care time 43 minutes excluding procedure and discussions with the family. Code status discussed greater than 29 minutes: Full CODE STATUS. Plan discussed with Dr. Sheriff, Patient and nurse Care plan updated to Iraj oldest son via telephone, answered all questions. Plan discussed with: Patient, Other (RN) My Orders My Orders Orders - RAISA TIAN RESIDENT Procedure Category Date Status Time Magnesium Sulfate PHA 11/06/24 In Process 1gm/100ml 16:30 Clear Liq Diet DIET 11/06/24 Transmitted Dinner Apixaban (Eliquis) PHA 11/06/24 Logged 22:00 Complete Blood Count LAB 11/07/24 Verified 04:00 Comprehensive LAB 11/07/24 Verified Metabolic Panel 04:00 Magnesium LAB 11/07/24 Verified 04:00 Chest Xray 1 View XY 11/07/24 Logged 04:00 Dietary Evaluation Review Comments: 1) TF Jevity 1.2Cal @ 50ml/hr (goal) along wth Pro-stat 1 pk BID. Start @ 20ml/hr, increase 10ml/hr Q4H until goal is reached. TF @ goal volume along with Pro-stat provides 1640 kcal (100% energy needs), 96 gm protein (100% protein needs), 968 ml free water. 2) Water flush 170ml Q6H if allowed, adjust PRN 3) TPN if NPO > 7 days 4) Monitor NPO status, lab values, wt trend, I/O Expected Outcomes/Goals: To meet >75% estimated needs Fu 2-3 days Date of Service: Nov 06, 2024 Billing Provider: LAUREANO SHERIFF MD Common Visit Codes: [id number] CARE 30-74 MIN ARISA TIAN RESIDENT Nov 06, 2024 17:34 LAUREANO SHERIFF MD Nov 07, 2024 14:11
--- NOTE | 2024-11-06 17:47 | DVHPN2 ---
Consult Progress Note Subjective Other Systems: Patient remains in atrial fibrillation on equipment monitor phototypesetting Objective vital signs Vital Sign Date Time Temp Pulse Resp B/P (MAP) Pulse Ox O2 Delivery O2 Flow Rate FiO2 11/06/24 16:00 126 11/06/24 16:00 28 95 Nasal Cannula* 2 11/06/24 15:57 97.9 99/72 (81) 97.9 Total Intake and Output 11/05/24 11/05/24 11/06/24 15:00 23:00 07:00 Intake Total 1183.30 ml 1150.0 ml 1050.0 ml Output Total 1175 ml 1050 ml Balance 1183.30 ml -25.0 ml 0 ml medications Current Medications Medications Dose Ordered Sig/Cristian Route Start Time Stop Time Status Last Admin Dose Admin Pantoprazole Sodium 40 mg DAILY IV 10/24/24 10:00 11/06/24 10:25 40 MG Norepinephrine Bitartrate 32 mg/ Sodium Chloride 250 ml @ 0.938 mls/ hr Q24H IV 10/24/24 14:30 10/24/24 18:55 6.563 MLS/HR Metronidazole 100 ml @ 100 mls/hr Q8HR IV 10/25/24 13:00 11/06/24 14:11 100 MLS/HR Ipratropium [place] 0.5 mg Q6HR NEB 10/26/24 06:00 11/06/24 11:59 0.5 MG Cefepime HCl 50 ml @ 12.5 mls/hr Q8H IV 10/30/24 18:00 11/06/24 17:30 12.5 MLS/HR Sodium Chloride 10 ml QSHIFT@10,22 IV 10/31/24 22:00 11/06/24 10:25 10 ML Acetaminophen 500 mg Q8HPRN PRN PO 11/02/24 09:30 Morphine Sulfate 1 mg Q4HPRN PRN IV 11/03/24 11:30 11/03/24 11:53 1 MG Hydralazine HCl 10 mg Q6HP PRN IV 11/04/24 15:45 Metoprolol Tartrate 25 mg BID PO 11/05/24 10:00 11/06/24 10:26 25 MG Amiodarone HCl 200 mg Q12HR PO 11/06/24 22:00 Apixaban 2.5 mg BID PO 11/06/24 22:00 Examination: GENERAL:Normal, LUNGS:Normal, CVS:Abnormal (Atrial fibrillation), NEURO:Normal laboratory and microbiology Laboratory Tests 11/06/24 02:56 Test 11/06/24 02:56 Range/Units Serum Glucose 79 74-106 mg/dL Problem List/Assessment/Plan Problem List/Assessment/Plan Sepsis with acute hypoxic respiratory failure likely due to pneumonia Paroxysmal atrial fibrillation/atrial flutter s/p DCCV,Stage 3A, now NSR NSTEMI, type 1 ruled out Bilateral pleural effusions Tobacco/alcohol dependence/?Alcohol withdrawal Transaminitis, improving Thrombocytopenia, resolved Plan/Recommendation (Dr. Cantu) * Transthoracic echocardiogram revealed LVEF 20%, ventriculography during procedure reveals an EF of 60% * [id number] Score 1 point. HAS-BLED Score 2 points * Antiarrhythmic therapy, amiodarone * NOAC therapy, Eliquis * Beta-isra for rate control * Replete electrolytes as necessary, K>4 and Mg>2 * Monitor ECG changes closely and notify The patient underwent a coronary angiogram with left heart catheterization on 11/03/2024 in which no significant CAD was noted. Ventriculography also revealed an EF of 60%. There is no further inpatient cardiac workup indicated at this time. Cardiology will sign off. Please reconsult if needed. Thank you for allowing us to care for this patient. Please call with any questions or concerns. Critical care time: 30 min. This medical document was created using an electronic medical record system with voice recognition software and computerized dictation system. Although this document has been carefully reviewed, there might still be some phonetic and typographical errors. Occasional wrong-word or ``sound-alike substitutions may have occurred due to the inherent limitations of voice recognition software. These areas are purely typographical due to imperfections of the software programs and do not reflect any compromise in the patient's medical care. Please read the chart carefully and recognize, using context, where these substitutions have occurred. Plan discussed with: Patient Dietary Evaluation Review Comments: 1) TF Jevity 1.2Cal @ 50ml/hr (goal) along wth Pro-stat 1 pk BID. Start @ 20ml/hr, increase 10ml/hr Q4H until goal is reached. TF @ goal volume along with Pro-stat provides 1640 kcal (100% energy needs), 96 gm protein (100% protein needs), 968 ml free water. 2) Water flush 170ml Q6H if allowed, adjust PRN 3) TPN if NPO > 7 days 4) Monitor NPO status, lab values, wt trend, I/O Expected Outcomes/Goals: To meet >75% estimated needs Fu 2-3 days Date of Service: Nov 06, 2024 Billing Provider: JOSE ALBERTO THOMAS Common Visit Codes: [id number] CARE 30-74 MIN JOSE ALBERTO THOMAS Nov 06, 2024 17:47
[2024-11-06] MEDS: APIXABAN 2.5 MG TAB PO SCH (21:10)
[2024-11-06] MEDS: AMIODARONE HCL 200 MG TAB PO SCH (21:11)
[2024-11-07] VITALS (106 sets, daily range): BP systolic 100–143; BP diastolic 67–105; PULSE 64–136; RESP 12–33; TEMP 98–99; O2SAT 83–100
[2024-11-07 03:44] LABS: Hematocrit 42.6 % (41.0-53.0); Hemoglobin 14.6 g/dL (13.5-17.5); Mean Corpuscular Hemoglobin 31.6 pg (28.0-32.0); Mean Corpuscular Volume 92.1 fL (80.0-100.0); Nucleated Red Blood Cells % 0.1 %
[2024-11-07 04:02] LABS: Alkaline Phosphatase 73 U/L (46-116); Anion Gap 9 (5-15); BUN/Creatinine Ratio 27.3 (10.0-20.0); Glucose 84 mg/dL (74-106); Magnesium 2.1 mg/dL (1.6-2.6); Potassium 3.6 mmol/L (3.5-5.1); Sodium 137 mmol/L (136-145); Total Protein 7.0 g/dL (5.7-8.2)
[2024-11-07 04:03] LABS: Albumin 3.2 g/dL (3.2-4.8)
[2024-11-07 04:20] LABS: Alanine Aminotransferase 56 U/L (7-40); Blood Urea Nitrogen 24 mg/dL (9-23); Calcium 8.1 mg/dL (8.7-10.4); Carbon Dioxide 17 mmol/L (20-31); Chloride 111 mmol/L (98-107)
[2024-11-07 04:21] LABS: Bilirubin, Total 1.5 mg/dL (0.2-1.0)
--- NOTE | 2024-11-07 05:33 | DVH ---
CHEST RADIOGRAPH Indication: F/U Technique: Single frontal view of the chest was obtained COMPARISON: XY CHEST PORTABLE on DOS: 11/04/24, XY CHEST PORTABLE on DOS: 11/03/24, XY CHEST PORTABLE o n DOS: 11/02/24, XY CHEST PORTABLE on DOS: 11/01/24, XY CHEST PORTABLE on DOS: 10/31/24 FINDINGS: Lines and Tubes: Right PICC in satisfactory position. Lungs: Right basilar subsegmental atelectasis. Pleura: No effusion. No pneumothorax. Cardiomediastinal contours: Unremarkable Bones: Unremarkable IMPRESSION: Right basilar subsegmental atelectasis
[2024-11-07] MEDS: PANTOPRAZOLE 40 MG TAB PO SCH (07:45)
[2024-11-07] MEDS: PANTOPRAZOLE 40 MG TAB PO ONE (09:08)
--- NOTE | 2024-11-07 10:28 | ECG ---
[facility] Test Date: 2024-11-06 Test Time: 12:13:39 Pat Name: MILANA PAGE Department: icu Room: 0295T Gender: M Four H Agent: rn : 1970 Requested By: JOSE ALBERTO THOMAS Order Number: [id number] Reading MD: Richard Cantu Measurements Intervals [place] Rate: 123 P: 0 UT: 0 QRS: -63 QRSD: 95 T: -73 QT: 341 QTc: 488 Interpretive Statements Atrial fibrillation Inferior infarct, age indeterminate Electronically Signed On 11-08-2024 13:53:42 PDT by Richard Cantu Please click the below link to view image of tracing.
--- NOTE | 2024-11-07 16:23 | DVHPNRES ---
Progress Note Date Seen: Nov 07, 2024 Resident Creating Document: RAISA TIAN RESIDENT Has the PT tested + for MRSA If YES, has PT been informed?: No Medical Necessity Reason Pt with a Central, PICC or Fol: Yes Reason for hirsch catheter: Strict I&O Subjective Review of Systems Manoj Winkler is a 54-year-old male with liver cirrhosis, portal hypertension, and chronic alcohol use presented with severe shortness of breath and was found in atrial fibrillation with RVR. He underwent synchronized cardioversion and was intubated on 10/25/2024 and extubated on 11/04/2024 and currently on 2 L NC. Patient seen and examined at the bedside. Patient reported no active complaints at this time. Patient is currently on 2 L NC we are trying to wean off oxygen. Patient is off the pressors and downgraded to tele. Changed antibiotic to Rocephin and Flagyl and advanced diet to full liquid. Patient has been on normal sinus rhythm with amiodarone and metoprolol. Continuously monitoring. DC planning, consulted social media manager. Today patient is little adamant because he wants to leave AMA, expiratory risks versus benefits of leaving AMA multiple times, eventually patient agreed to stay. Patient reports: Feels better Objective vital signs Vital Sign Date Time Temp Pulse Resp B/P (MAP) Pulse Ox O2 Delivery O2 Flow Rate FiO2 11/07/24 14:00 74 11/07/24 14:00 24 98 Nasal Cannula* 2 11/07/24 13:31 121/83 (96) 11/07/24 12:01 98.3 98.3 Total Intake and Output 11/06/24 11/06/24 11/07/24 15:00 23:00 07:00 Intake Total 750.0 ml 1275.0 ml 706.0 ml Output Total 1550 ml 700 ml Balance 750.0 ml -275.0 ml 6.0 ml medications Current Medications Medications Dose Ordered Sig/Cristian Route Start Time Stop Time Status Last Admin Dose Admin Metronidazole 100 ml @ 100 mls/hr Q8HR IV 10/25/24 13:00 11/07/24 14:20 100 MLS/HR Ipratropium [place] 0.5 mg Q6HR NEB 10/26/24 06:00 11/07/24 12:20 0.5 MG Cefepime HCl 50 ml @ 12.5 mls/hr Q8H IV 10/30/24 18:00 11/07/24 09:10 12.5 MLS/HR Sodium Chloride 10 ml QSHIFT@10,22 IV 10/31/24 22:00 11/07/24 09:13 10 ML Acetaminophen 500 mg Q8HPRN PRN PO 11/02/24 09:30 Morphine Sulfate 1 mg Q4HPRN PRN IV 11/03/24 11:30 11/03/24 11:53 1 MG Hydralazine HCl 10 mg Q6HP PRN IV 11/04/24 15:45 Metoprolol Tartrate 25 mg BID PO 11/05/24 10:00 11/06/24 10:26 25 MG Amiodarone HCl 200 mg Q12HR PO 11/06/24 22:00 11/07/24 09:09 200 MG Apixaban 2.5 mg BID PO 11/06/24 22:00 11/07/24 09:09 2.5 MG Pantoprazole Sodium 40 mg DAILY@0600 PO 11/07/24 07:45 Examination Pt is lying on bed General Appearance: Alert, Oriented X3, Cooperative, Not in acute distress HEENT: Atraumatic, Mucous membranes moist/pink Respiratory: Clear to auscultation, Normal air movement, No added sounds Cardiovascular: Irregularly irregular rate, Normal S1, Normal S2, No murmurs Abdominal: Active bowel sounds, Soft, no distention, no tenderness Extremities: No edema, Normal pulses, No tenderness/swelling Skin: No Significant rash Neuro: Normal speech, sensorimotor deficits none Psych/Mental Status: Mental status NL, Mood NL Nurse was there as cartography teacher during examination laboratory and microbiology Laboratory Tests 11/07/24 02:55 Test 11/07/24 02:55 Range/Units Serum Glucose 84 74-106 mg/dL Microbiology Date/Time Source Procedure Growth Status 10/28/24 10:50 Bronchial Washings Gram Stain - Final Complete 10/28/24 10:50 Respiratory Culture - Final Presumptive Clifford albicans Complete 10/25/24 10:45 Nose MRSA Screen - Final Complete 10/24/24 13:23 Voided Urine Urine Culture - Final Complete 10/23/24 19:48 Blood Blood Culture - Final NO GROWTH AFTER 5 DAYS OF INCUBATION. Complete Labs and/or images reviewed: Labs reviewed by me, Image(s) reviewed by me Problem List/Assessment/Plan Problem List/Assessment/Plan Neurology # Acute toxic vs metabolic encephalopathy-resolving # possible alcohol withdrawal # hx of withdrawal seizures - head CT: No acute intracranial abnormality - IV banana bag once Cardiovascular # Septic shock due to pneumonia-improving # atrial flutter with hemodynamic instability, s/p cardioversion x2 # AFib with RVR with a secondary hypercoagulable state # NSTEMI likely type 2 # End- stage dilated cardiomyopathy # Heart failure with reduced ejection fraction <20% but ventriculogram showed more than 60 # Prolonged QTC - amiodarone drip and p.o. discontinued on 11/05 again today 11/06 started on 200 mg p.o. b.i.d. due to AFib with RVR - cardiology on board - discontinued eventually vasopressors on the day of extubation - IV digoxin 500mcg x 2, later discontinued - repeat serum digoxin level 1.85 - underwent left heart cath 11/03/24-normal LVEDP with a normal EF 60% and no significant CAD Respiratory # Acute hypoxic respiratory failure status post extubation on 11/04 # community-acquired pneumonia, Gram-positive versus Gram-negative # ruled out pulmonary embolism -intubated (10/23/24)-extubated on 11/04 - currently on room air, downgraded to tele - CXR: Moderate interstitial pulmonary edema in the setting of cardiomegaly. Probable trace bilateral effusions. - CT angio: No evidence of pulmonary embolism. Pulmonary edema. Large bilateral pleural effusions. Associated consolidation of the majority of bilateral lower lobes independent portions of the remaining lobes of the lung. Cirrhotic liver. Small amount of ascites in the visualized upper abdomen. - chest ultrasound: Small bilateral pleural effusion, trace ascites. - IV lasix 20mg bid-discontinued 11/06 - IV cefepime discon today 11/07 switche to Rocephin and continuing IV metronidazole GI # Hx of GI bleed # cirrhosis, MELD 19 # Hx of portal hypertension gastropathy # mild abdominal ascites # Peptic ulcer prophylaxis # acute colonic diverticulitis # cholelithiasis -continue current IV antibiotics -CT abd//pelvis showed acute left diverticulitis, cholelithiasis, cirrhosis -Full liquids for now -Pantoprazole 40 mg IV daily /Nephrology # Hyperkalemia # Hypokalemia - Repleting - Monitor lab # DMITRIY likely ATN/VMN on ?CKD (GFR 70 on admission, unknown baseline) - monitor - nephrology on board; recommended to start lokelma qD if hyperkalemia persists, - IV Lasix 20 mg bid-discontinued Infectious disease # community acquired pneumonia, gram + vs -ve-resolving # Influenza B positive-likely resolved - IV Rocephin - IV metronidazole - Oseltamivir, discontinued - respiratory, blood, urine cultures, no growth - resp cx growing clifford Hem/onc # mild normocytic anemia # ruled out lower extremity DVT # thrombocytopenia - lower extremity Doppler: No right or left lower extremity deep vein thrombosis. -continuously monitoring lab and platelets normal level Psychiatry # Alcohol use disorder # hx of depression - outpatient psychiatry follow up versus psychiatry consult upon extubation DVT prophylaxis: Eliquis 2.5 mg b.i.d. Nutrition: Clear liquid diet Lines Right PICC line placed on 10/31/2024 Discontinued TLC Drips Fentanyl and Versed discontinued on 11/04 Intubated on 10/23/24 Extubation 11/04 Today patient is little adamant because he wants to leave AMA, expiratory risks versus benefits of leaving AMA multiple times, eventually patient agreed to stay. Critical care time 41 minutes excluding procedure and discussions with the family. Code status discussed greater than 29 minutes: Full CODE STATUS. Plan discussed with Dr. Sheriff, Patient and nurse Care plan updated to Iraj oldest son via telephone, answered all questions. Plan discussed with: Patient, Son (IRAJ), Other (rn) My Orders My Orders Orders - RAISA TIAN RESIDENT Procedure Category Date Status Time Clear Liq Diet DIET 11/06/24 Transmitted Dinner Apixaban (Eliquis) PHA 11/06/24 In Process 22:00 Chest Xray 1 View XY 11/07/24 Resulted 04:00 Pantoprazole Tablet PHA 11/07/24 In Process (Protonix Tablet) 07:45 Full Liq Diet DIET 11/07/24 Transmitted Dinner Levofloxacin Levaquin PHA 11/07/24 Transmitted 16:15 Transfer Orders XFER 11/07/24 Transmitted 16:11 * City Plant Supervisor CONS 11/07/24 Transmitted Consult Complete Blood Count LAB 11/08/24 Verified 04:00 Comprehensive LAB 11/08/24 Verified Metabolic Panel 04:00 Magnesium LAB 11/08/24 Verified 04:00 Dietary Evaluation Review Comments: 1) TF Jevity 1.2Cal @ 50ml/hr (goal) along wth Pro-stat 1 pk BID. Start @ 20ml/hr, increase 10ml/hr Q4H until goal is reached. TF @ goal volume along with Pro-stat provides 1640 kcal (100% energy needs), 96 gm protein (100% protein needs), 968 ml free water. 2) Water flush 170ml Q6H if allowed, adjust PRN 3) TPN if NPO > 7 days 4) Monitor NPO status, lab values, wt trend, I/O Expected Outcomes/Goals: To meet >75% estimated needs Fu 2-3 days Date of Service: Nov 07, 2024 Billing Provider: LAUREANO SHERIFF MD Common Visit Codes: [id number] CARE 30-74 MIN RAISA TIAN RESIDENT Nov 07, 2024 16:23 LAUREANO SHERIFF MD Nov 08, 2024 11:45
[2024-11-07] MEDS: cefTRIAXone 1GM/50ML D5W 50 ML IV ONE (17:54)
[2024-11-08] VITALS (11 sets, daily range): BP systolic 120–136; BP diastolic 76–88; PULSE 69–82; RESP 16–18; TEMP 96.7–99.1; O2SAT 95–100
--- NOTE | 2024-11-08 07:17 | ECG ---
[facility] Test Date: 2024-11-06 Test Time: 20:53:25 Pat Name: MILANA PAGE Department: ICU Room: [facility]5T B Gender: M Non Destructive Testing Technician: anyi : 1970 Requested By: JOSE ALBERTO THOMAS Order Number: [id number] Reading MD: Richard Cantu Measurements Intervals [place] Rate: 121 P: 0 VA: 0 QRS: -77 QRSD: 170 T: -74 QT: 356 QTc: 505 Interpretive Statements Atrial flutter Inferior infarct, age indeterminate Electronically Signed On 11-08-2024 13:54:12 PDT by Richard Cantu Please click the below link to view image of tracing.
[2024-11-08 08:28] LABS: Hematocrit 39.2 % (41.0-53.0); Hemoglobin 13.5 g/dL (13.5-17.5); Mean Corpuscular Hemoglobin 31.5 pg (28.0-32.0); Mean Corpuscular Volume 91.6 fL (80.0-100.0); Nucleated Red Blood Cells % 0.3 %
[2024-11-08 08:43] LABS: Albumin 3.4 g/dL (3.2-4.8); Alkaline Phosphatase 76 U/L (46-116); Anion Gap 11 (5-15); BUN/Creatinine Ratio 19.3 (10.0-20.0); Blood Urea Nitrogen 16 mg/dL (9-23); Calcium 8.8 mg/dL (8.7-10.4); Chloride 106 mmol/L (98-107); Glucose 82 mg/dL (74-106); Magnesium 1.6 mg/dL (1.6-2.6); Sodium 137 mmol/L (136-145); Total Protein 7.0 g/dL (5.7-8.2)
[2024-11-08 08:46] LABS: Alanine Aminotransferase 62 U/L (7-40); Bilirubin, Total 1.2 mg/dL (0.2-1.0); Carbon Dioxide 20 mmol/L (20-31); Potassium 3.3 mmol/L (3.5-5.1)
[2024-11-08] MEDS: cefTRIAXone 1GM/50ML D5W 50 ML IV SCH (09:17)
[2024-11-08] MEDS: MAGNESIUM SULFATE 1GM/100ML 100 ML IV SCH (11:15)
[2024-11-08] MEDS: POTASSIUM EFFERVESENT TAB 25 MEQ PO ONE (11:17)
[2024-11-08] MEDS ORDERED: SPIR25TA PO (13:00)
[2024-11-08] MEDS ORDERED: AMIO200T13 PO (13:00)
[2024-11-08] MEDS ORDERED: METO25TA93 PO (13:00)
[2024-11-08] MEDS ORDERED: PANT40T PO (13:00)
[2024-11-08] MEDS ORDERED: APIX2.5T PO (13:00)
--- NOTE | 2024-11-08 13:23 | DVHDSRES ---
Discharge Summary Date of Admission Resident Creating Document: RAISA TIAN RESIDENT Oct 23, 2024 at 23:52 Date of Discharge: Nov 08, 2024 Admitting Diagnosis Acute toxic/metabolic encephalopathy Labs/Diagnostic Data: Laboratory Results Test 11/08/24 07:41 11/07/24 12:08 11/04/24 09:23 11/04/24 07:10 White Blood Count 3.5 10^3/uL (4.4-10.8) Red Blood Count 4.28 10^6/uL (4.5-5.90) Hemoglobin 13.5 g/dL (13.5-17.5) Hematocrit 39.2 % (41.0-53.0) Mean Corpuscular Volume 91.6 fL (80.0-100.0) Mean Corpuscular Hemoglobin 31.5 pg (28.0-32.0) Mean Corpuscular Hemoglobin Concent 34.4 g/dL (32.0-36.0) Red Cell Distribution Width 14.0 % (11.8-14.3) Platelet Count 128 10^3/uL (140-450) Mean Platelet Volume 10.0 fL (6.9-10.8) Neutrophils (%) (Auto) 57.7 % (37.0-80.0) Lymphocytes (%) (Auto) 21.0 % (10.0-50.0) Monocytes (%) (Auto) 14.7 % (0.0-12.0) Eosinophils (%) (Auto) 5.3 % (0.0-7.0) Basophils (%) (Auto) 1.3 % (0.0-2.0) Neutrophils # (Auto) 2.0 10 ^3/uL (1.6-8.6) Lymphocytes # (Auto) 0.7 10 ^3/uL (0.4-5.4) Monocytes # (Auto) 0.5 10 ^3/uL (0-1.3) Eosinophils # (Auto) 0.2 10 ^3/uL (0-0.8) Basophils # (Auto) 0 10 ^3/uL (0-0.2) Nucleated Red Blood Cells 0.3 % Sodium Level 137 mmol/L (136-145) Potassium Level 3.3 mmol/L (3.5-5.1) Chloride Level 106 mmol/L (98-107) Carbon Dioxide Level 20 mmol/L (20-31) Anion Gap 11 (5-15) Blood Urea Nitrogen 16 mg/dL (9-23) Creatinine 0.83 mg/dL (0.700-1.30) Glomerular Filtration Rate Calc 105 mL/min (>90) BUN/Creatinine Ratio 19.3 (10.0-20.0) Serum Glucose 82 mg/dL (74-106) Calcium Level 8.8 mg/dL (8.7-10.4) Magnesium Level 1.6 mg/dL (1.6-2.6) Total Bilirubin 1.2 mg/dL (0.2-1.0) Aspartate Amino Transferase (AST) 58 U/L (13-40) Alanine Aminotransferase (ALT) 62 U/L (7-40) Alkaline Phosphatase 76 U/L (46-116) Total Protein 7.0 g/dL (5.7-8.2) Albumin 3.4 g/dL (3.2-4.8) Vancomycin Level Trough 10.1 ug/mL (5-10) Blood Gas Specimen Type Arterial Blood Gas Sample Site Right radial Blood Gas Patient Temperature 37.0 Arterial Blood Date Drawn [id number] Arterial Blood pH 7.399 (7.350-7.450) Arterial Blood Partial Pressure CO2 32.6 mmHg (35.0-48.0) Arterial Blood Partial Pressure O2 85.9 mmHg (83.0-108.0) Arterial Blood HCO3 19.7 mmol/L (21.0-28.0) Arterial Blood Oxygen Saturation 95.7 % (94.0-98.0) Arterial Blood Base Excess -4.0 mmol/L (-2.0-3.0) Arterial Blood Oxyhemoglobin 94.9 % (94.0-98.0) Arterial Blood Carboxyhemoglobin 0.3 % (0.5-1.5) Arterial Blood Methemoglobin 0.5 % (0.0-1.5) Param Test Yes Blood Gas Total Hemoglobin 16.20 g/dL (13.5-17.5) Blood Gas Modality Vent - cpap FiO2 % 30.0 Blood Gas PEEP or CPAP 5.0 Blood Gas Set Respiration Rate 20.0 Blood Gas Tidal Volume 500.0 Test 11/03/24 08:46 11/03/24 04:00 11/02/24 02:30 10/29/24 08:10 Blood Gas Pressure Support 8 Prothrombin Time 12.9 sec (9.3-11.8) Prothrombin Time INR 1.24 (0.9-1.15) Activated Partial Thromboplast Time 28.4 SEC (24.5-34.5) B-Type Natriuretic Peptide 112.80 pg/mL (0-100) Blood Gas Spontaneous Rate 20 Specimen Drawn By Fred luz Test 10/28/24 02:49 10/27/24 16:22 10/25/24 16:42 10/25/24 13:35 Phosphorus Level 3.8 mg/dL (2.4-5.1) Digoxin Level 1.85 ng/mL (0.8-2) Lactic Acid Level 5.8 mmol/L (0.4-2.0) Influenza Type A Antigen Negative (Negative) Influenza Type B Antigen Positive (Negative) SARS-CoV-2 Antigen (Rapid) Negative (NEGATIVE) Test 10/25/24 13:15 10/25/24 10:15 10/25/24 06:18 10/25/24 04:00 Urine Osmolality 290 mOsm/kg Urine Creatinine 18.09 mg/dL (30.0-125.0) Urine Sodium 111 mmol/L (40-220) Urine Total Protein 46.2 mg/dL (1-14) Troponin I High Sensitivity 1787 ng/L (</=54) Blood Gas Critical Value Read Back Yes Blood Gas Notified Whom Dr. guicho copeland Blood Gas Notified Time [id number] Blood Gas Notified By Differential Total Cells Counted 100.0 (100) Neutrophils % (Manual) 75 (37.0-80.0) Band Neutrophils % (Manual) 11 Lymphocytes % (Manual) 10 (10.0-50.0) Monocytes % (Manual) 3 (0-12) Eosinophils % (Manual) 0 (0-7) Basophils % (Manual) 0 (0.0-2.0) Metamyelocytes % (manual) 0 Myelocytes % (Manual) 1 Promyelocytes % (Manual) 0 Blast Cells % (Manual) 0 Reactive Lymphocytes 0 Platelet Estimate Adequate Large Platelets Few Macrocytosis Slight Test 10/25/24 03:25 10/25/24 01:11 10/24/24 13:23 10/24/24 11:19 Blood Gas Spontaneous Tidal Volume 564 Blood Gas Inspiratory Pressure 38.0 Bl Gas Inspiratory/Expiratory Ratio 1:3 POC Glucose 97 mg/dl (70-106) Urine Opiates Screen Neg (NEGATIVE) Urine Fentanyl Screen Pos (NEGATIVE) Urine Barbiturates Screen Neg (NEGATIVE) Urine Phencyclidine Screen Neg (NEGATIVE) Urine Amphetamines Screen Neg (NEGATIVE) Urine Benzodiazepines Screen Pos (NEGATIVE) Urine Cocaine Screen Neg (NEGATIVE) Urine Cannabinoids Screen Neg (NEGATIVE) Serum Osmolality 284 mOsm/kg (278-298) Hepatitis A Antibody Total Positive (Negative) Hepatitis B Surface Antigen Negative (Negative) Hepatitis B Surface Antibody Negative (Negative) Hepatitis B Core Total Antibody Negative (Negative) Hepatitis C Antibody Negative (Negative) Test 10/24/24 10:11 10/24/24 02:53 10/23/24 19:42 10/23/24 18:38 Ammonia 32 umol/L (11-32) Triglycerides Level 74 mg/dL (< 150) Cholesterol Level 91 mg/dL (< 200) LDL Cholesterol 59 mg/dL (< 100) HDL Cholesterol 24 mg/dL (40-59) Plasma/Serum Blood Alcohol < 3.0 mg/dL (<10) Hemoglobin A1c 5.1 % A1C (<5.7) Thyroid Stimulating Hormone (TSH) 1.59 uIU/mL (0.55-4.78) Urine Color Yellow (Yellow) Urine Clarity Clear (Clear) Urine pH 6.0 (5.0-9.0) Urine Specific [place] 1.018 (1.001-1.035) Urine Protein 2+ (Negative) Urine Ketones Negative (Negative) Urine Blood Negative /uL (Negative) Urine Nitrite Negative (Negative) Urine Bilirubin Negative (Negative) Urine Urobilinogen Normal mg/dL (Negative) Urine Leukocyte Esterase Negative /uL (Negative) Urine RBC 5 /hpf (0 - 3) Urine Microscopic WBC 4 /HPF (0-3) Urine Squamous Epithelial Cells None seen /hpf (<5) Urine Bacteria Few /hpf (None Seen) Urine Glucose Normal mg/dL (Normal) Anisocytosis (manual) Slight D-Dimer, Quantitative 2.81 mg/L FEU (0.0-0.49) Other Laboratory Tests 11/08/24 07:41 Brief Hx & Hospital Course: Manoj Winkler, a 54-year-old male with a history of liver cirrhosis, portal hypertension, and chronic alcohol use, was admitted on 10/25/2024 with severe shortness of breath and atrial fibrillation with RVR. He underwent synchronized cardioversion and was intubated. His hospital course was complicated by hypotension, hyperkalemia, and Influenza B infection, for which Tamiflu was initiated. Respiratory cultures grew Sharon albicans, and vancomycin was added due to persistent fever. Liver function initially worsened but later improved. Imaging revealed bilateral pulmonary edema and pleural effusions. A PICC line was placed, and CPAP trials began on 10/31. He underwent left heart catheterization on 11/03, which showed normal LVEDP and EF of 60%. He was extubated on 11/04 and transitioned to room air. Amiodarone was discontinued and replaced with metoprolol tartrate, but later restarted due to recurrent AFib with RVR. Neurology evaluated him for resolving encephalopathy and possible alcohol withdrawal; head CT was unremarkable. Cardiovascular issues included septic shock secondary to pneumonia, atrial flutter, AFib with RVR, and NSTEMI likely type 2. Despite a prior diagnosis of heart failure with reduced EF, ventriculogram showed EF >60%. Respiratory status improved post-extubation, and pneumonia was treated with IV cefepime and metronidazole later switche to rocephin. GI evaluation revealed cirrhosis (MELD 19), mild ascites, acute diverticulitis, and cholelithiasis; he was placed on clear liquids and IV pantoprazole. Renal function showed DMITRIY likely secondary to ATN, with fluctuating potassium levels; nephrology recommended Lokelma if hyperkalemia recurs. For mild normocytic anemia and thrombocytopenia, with no DVT on Doppler. Psychiatry follow-up was recommended for alcohol use disorder and history of depression. Patient condition was improved, hemodynamically stable and in condition to be discharged home with a optimal medical treatment as prescribed. Patient was counseled regarding cessation of alcohol for more than 17 minutes. Patient will advised to follow healthy lifestyle modifications including diet and exercise and to follow up with the PCP, Cardiology and GI after the discharge. Plan discussed with the patient and agreed to the plan. Pt is lying on bed General Appearance: Alert, Oriented X3, Cooperative, Not in acute distress HEENT: Atraumatic, Mucous membranes moist/pink Respiratory: Clear to auscultation, Normal air movement, No added sounds Cardiovascular: Irregularly irregular rate, Normal S1, Normal S2, No murmurs Abdominal: Active bowel sounds, Soft, no distention, no tenderness Extremities: No edema, Normal pulses, No tenderness/swelling Skin: No Significant rash Neuro: Normal speech, sensorimotor deficits none Psych/Mental Status: Mental status NL, Mood NL Nurse was there as reservoir engineering consultant during examination time spent in discharge planning was 41 mins Operations or Procedures CHEST RADIOGRAPH IMPRESSION: 1. Moderate interstitial pulmonary edema in the setting of cardiomegaly. 2. Probable trace bilateral effusions --- COMPUTERIZED TOMOGRAPHIC ANGIOGRAPHY OF THE CHEST WITH INTRAVENOUS CONTRAST IMPRESSION: No evidence of pulmonary embolism as far as the subsegmental level. Pulmonary edema. Large bilateral pleural effusions. Associated consolidation of the majority of bilateral lower lobes and dependent portions of the remaining lobes of the lungs. Cirrhotic liver. Small amount of ascites in the visualized upper abdomen. -- CT HEAD WITHOUT CONTRAST IMPRESSION: 1. No acute intracranial abnormality. ---- Bilateral Chest Sonogram Finding/Impression: There is a small bilateral pleural effusion visualized which is insufficient fluid for performance of thoracentesis. Trace ascites. ----- ABDOMINAL RADIOGRAPH IMPRESSION: 1. Enteric tube terminates in the gastric body. 2. No dilated bowel loops noted. ---- INDICATION: Cirrhosis, Ascitis TECHNIQUE: Multiple real-time sonographic images of the abdomen were obtained. IMPRESSION: Gallbladder sludge. Thickened gallbladder wall. Acute cholecystitis can not be excluded. Hepatic cirrhosis/hepatic steatosis. Trace right pleural effusion. ---- CT CT AB PEL WO CON-NO ORAL OR IV IMPRESSION: 1. Findings suggestive of acute colonic diverticulitis at the left lower quadrant. No evidence of perforation or abscess. Recommend follow-up with colonoscopy as an underlying mass cannot be excluded. 2. Mild compression fracture of the L1 vertebral body with an irregular defect extending through both endplates, new from Recommend further evaluation with MRI lumbar spine with IV contrast. 3. Cholelithiasis without evidence of acute cholecystitis. 4. cirrhotic liver. 5. Coronary artery disease. ---- Operative Report - 2 Report Details Date:11/03/24 Preop Diagnosis:CAD Postop Diagnosis: Normal coronaries. Normal left ventricular function. Surgeon:Richard Cantu MD Anesthesiologist:Conscious sedation Anesthesia: Mac, Local Consent:The patient was informed of the risks and benefits of the procedure. These include but are not limited to complications of anesthesia, postoperative infection, incomplete relief of symptoms, recurrence of symptoms, damage to blood vessels, nerves and tendons, deep venous thrombosis, pulmonary embolism and possible need for repeat surgery in the future. Complications:No complicationsFindings: Normal coronaries. Normal left ventricular function. Normal left ventricular end-diastolic pressures. Indications for Surgery:Ventricular dysrhythmias Name of Procedure Performed: Left heart catheterization. Bilateral cine coronary angiography. Left ventriculography. Procedure Details: Prior local anesthesia with 2% lidocaine to the right wrist and full informed consent obtained the patient was prepped and draped in usual fashion followed by placement of a six [place] sheath through the right femoral artery. Fluoroscopic and ultrasound guidance was utilized to find the appropriate entry flow radial artery. A [employer] catheter was then placed into the left ventricle right and left coronary arteries for evaluation successfully without complications Hemodynamics: Aortic blood pressure was 110/70. End-diastolic pressure five. There was no gradient across the aortic valve on pullback Coronary anatomy: RCA is a large dominant vessel it is normal in its proximal mid and distal segments. PDA and posterolateral branches are normal. Left main is large and normal. Left anterior descending is large and normal with two diagonals free of significant disease. The circumflex is large with two marginals free of significant disease. Ventriculography in the [place]AS[place] projection reveals an EF of 60%. Impression: Normal left ventricular end-diastolic pressure rest with normal ejection fraction. No significant CAD. Recommendations: Medical therapy is warranted continue with risk factor modification. Condition Guarded Cardiology Procedure Codes: 34380-ZVGN HEART CATH W/INTRA INJ Condition at Discharge: Guarded Final Diagnosis/Problems List # Acute toxic vs metabolic encephalopathy-resolving # possible alcohol withdrawal # hx of withdrawal seizures # Septic shock due to pneumonia-improving # atrial flutter with hemodynamic instability, s/p cardioversion x2 # AFib with RVR with a secondary hypercoagulable state # NSTEMI likely type 2 # End- stage dilated cardiomyopathy # Heart failure with reduced ejection fraction <20% but ventriculogram showed more than 60 # Acute hypoxic respiratory failure status post extubation on 11/04 # community-acquired pneumonia, Gram-positive versus Gram-negative # ruled out pulmonary embolism # Hx of GI bleed # cirrhosis, MELD 19 # Hx of portal hypertension gastropathy # mild abdominal ascites # Peptic ulcer prophylaxis # acute colonic diverticulitis # cholelithiasis # Hyperkalemia # Hypokalemia # DMITRIY likely ATN/VMN on ?CKD (GFR 70 on admission, unknown baseline) # community acquired pneumonia, gram + vs -ve-resolving # Influenza B positive-likely resolved # mild normocytic anemia # ruled out lower extremity DVT # thrombocytopenia # Alcohol use disorder # hx of depression Discharge Disposition: Home Discharge Instruct/Medications Diet: Consistent carbohydrate, Cardiac 2g Na,low cholest Activity: No Restrictions, As Tolerated Follow Up/Referral: PCP, GI AND DC CLINIC Medications: PER EMR Scheduled Amiodarone HCl (Amiodarone HCl), 200 MG PO Q12HR Apixaban Base (Eliquis), 2.5 MG PO BID Folic Acid (Folic Acid), 1 MG PO DAILY Metoprolol Succinate (Metoprolol Succinate Er), 25 MG PO DAILY Pantoprazole Sodium Sesquihydr (Pantoprazole Sodium), 40 MG PO DAILY Spironolactone (Aldactone), 50 MG PO DAILY Thiamine Hcl (Thiamine), 50 MG PO DAILY Discontinued Medications Levofloxacin (Levaquin), 500 MG PO DAILY Metronidazole (Flagyl), 500 MG PO Q8HR Propranolol HCl (Propranolol Hydrochloride), 10 MG PO BID Discharge Statement: "Patient was advised to return to the ER or call 911 if any headaches, dizziness, shortness of breath, chest pain, abdominal pain, bleeding, fevers, or worsening of medical condition. Patient was counseled about treatment plan, medications, possible side effects, patientverbalized understanding. All questions were answered to the best of my ability. This discharge took greater then 30 minutes in planning, reviewing documentation, counseling the patient, and discussing with other team members." ASSESSMENT ASSESSMENT Assessment # Acute toxic / metabolic encephalopathy-resolving Date of Service: Nov 08, 2024 Billing Provider: LAUREANO SHERIFF MD Common Visit Codes: 01510-CLC/OBS DISCH DAY >30min RAISA TIAN RESIDENT Nov 08, 2024 13:23 LAUREANO SHERIFF MD Nov 11, 2024 12:23
== END 2024-11-08 16:03 | disposition home or self-care (01) | DRG 720 ==
LOC: ER 18:08 → OVERFLOW 23:52 → ICU WEST 10-24 → TELE-WESTW 11-07 23:05
PROVIDERS: ADMIT Internal Medicine; ATTEND Nurse Practitioner Family
PROC: 0BH17EZ Insertion of Endotracheal Airway into Trachea, Via Natural or Artificial Opening (ICD-10-PCS; principal; 2024-10-23)
PROC: 5A1955Z Respiratory Ventilation, Greater than 96 Consecutive Hours (ICD-10-PCS; 2024-10-23)
PROC: 02HV33Z Insertion of Infusion Device into Superior Vena Cava, Percutaneous Approach (ICD-10-PCS; 2024-10-23)
PROC: 5A2204Z Restoration of Cardiac Rhythm, Single (ICD-10-PCS; 2024-10-24)
PROC: 0B9J8ZZ Drainage of Left Lower Lung Lobe, Via Natural or Artificial Opening Endoscopic (ICD-10-PCS; 2024-10-28)
PROC: 02HV33Z Insertion of Infusion Device into Superior Vena Cava, Percutaneous Approach (ICD-10-PCS; 2024-10-31)
PROC: B548ZZA Ultrasonography of Superior Vena Cava, Guidance (ICD-10-PCS; 2024-10-31)
PROC: 4A023N7 Measurement of Cardiac Sampling and Pressure, Left Heart, Percutaneous Approach (ICD-10-PCS; 2024-11-03)
PROC: B211YZZ Fluoroscopy of Multiple Coronary Arteries using Other Contrast (ICD-10-PCS; 2024-11-03)
PROC: B215YZZ Fluoroscopy of Left Heart using Other Contrast (ICD-10-PCS; 2024-11-03)
DX: A41.89 Other specified sepsis (principal); J96.01 Acute respiratory failure with hypoxia; N17.0 Acute kidney failure with tubular necrosis; G92.8 Other toxic encephalopathy; R65.21 Severe sepsis with septic shock; J10.08 Influenza due to other identified influenza virus with other specified pneumonia; J15.9 Unspecified bacterial pneumonia; I50.23 Acute on chronic systolic (congestive) heart failure; J15.69 Pneumonia due to other Gram-negative bacteria; D68.4 Acquired coagulation factor deficiency; R18.8 Other ascites; I21.A1 Myocardial infarction type 2; I47.10 Supraventricular tachycardia, unspecified; I42.0 Dilated cardiomyopathy; D68.69 Other thrombophilia; D69.6 Thrombocytopenia, unspecified; Z20.822 Contact with and (suspected) exposure to COVID-19; I13.0 Hypertensive heart and chronic kidney disease with heart failure and stage 1 through stage 4 chronic kidney disease, or unspecified chronic kidney disease; I48.92 Unspecified atrial flutter; M48.56XA Collapsed vertebra, not elsewhere classified, lumbar region, initial encounter for fracture; K74.60 Unspecified cirrhosis of liver; K76.0 Fatty (change of) liver, not elsewhere classified; N18.9 Chronic kidney disease, unspecified; D64.9 Anemia, unspecified; F10.239 Alcohol dependence with withdrawal, unspecified; I48.0 Paroxysmal atrial fibrillation; K82.8 Other specified diseases of gallbladder; K80.20 Calculus of gallbladder without cholecystitis without obstruction; K57.32 Diverticulitis of large intestine without perforation or abscess without bleeding; I25.10 Atherosclerotic heart disease of native coronary artery without angina pectoris; F17.210 Nicotine dependence, cigarettes, uncomplicated; E87.5 Hyperkalemia; E87.6 Hypokalemia; Z88.0 Allergy status to penicillin; Z91.040 Latex allergy status; Z82.49 Family history of ischemic heart disease and other diseases of the circulatory system
CPT/HCPCS: 31500; 36415; 36556; 36569; 36600; 70450; 71045; 71275; 74018; 74176; 76604; 76705; 76937; 80048; 80053; 80061; 80162; 80202; 80307; 80320; 81001; 82140; 82565; 82570; 82805; 82962; 83036; 83605; 83735; 83880; 83930; 83935; 84100; 84132; 84156; 84300; 84443; 84484; 85007; 85025; 85027; 85379; 85610; 85730; 86704; 86706; 86708; 86803; 87040; 87070; 87077; 87081; 87086; 87205; 87340; 87426; 87804; 92610; 93005; 93306; 93458; 93970; 94002; 94003; 94640; 94644; 96374; 96375; 97110; 97116; 97163; 97530; 99152; 99291; G0378; G9035; J0153; J0692; J1956; J2250; J2470; J2704; J3480; J3490; J7060; Q9967